=== PATIENT | female | born 1940 | race Caucasian/White ===

== ENCOUNTER 2016-04-11 12:48 | Outpatient (CLI) | payer MEDICARE, OTHER | END 2016-04-11 12:49 | disposition home or self-care (01) | DX: M05.79 Rheumatoid arthritis with rheumatoid factor of multiple sites without organ or systems involvement (principal) ==

== ENCOUNTER 2016-05-23 15:04 | Outpatient (CLI) | payer MEDICARE, OTHER | END 2016-05-23 15:05 | disposition home or self-care (01) | DX: M05.79 Rheumatoid arthritis with rheumatoid factor of multiple sites without organ or systems involvement (principal) ==

== ENCOUNTER 2017-01-15 20:52 | Outpatient (CLI) | payer MEDICARE, OTHER ==
[2017-01-15 19:04] LABS: BILIRUBIN,URINE NEGATIVE (NEGATIVE)
[2017-01-15 19:14] LABS: UR CULTURE IF IND NOT INDICATED
== END 2017-01-15 20:53 | disposition home or self-care (01) ==
LOC: LAB.WCP 20:52
PROVIDERS: ATTEND Family Medicine
DX: R30.0 Dysuria (principal); G89.4 Chronic pain syndrome
CPT/HCPCS: 81001; 87086

== ENCOUNTER 2017-03-07 08:00 | Outpatient (CLI) | payer MEDICARE, OTHER ==
[2017-03-07 19:43] LABS: CHOL/HDL RATIO 3.4 (<4.4); CHOLESTEROL 179 mg/dL; HDL CHOLESTEROL 53 mg/dL; LDL CHOLESTEROL,CALCULATED 99 mg/dL; LDL/HDL RATIO 1.9 (<4.4); VLDL CHOLESTEROL 27 mg/dL
== END 2017-03-07 08:01 ==
LOC: LAB.WCP 08:00
PROVIDERS: ATTEND Family Medicine
DX: E78.5 Hyperlipidemia, unspecified (principal)
CPT/HCPCS: 36415; 80061

== ENCOUNTER 2017-06-04 08:00 | Outpatient (CLI) | payer MEDICARE, OTHER ==
[2017-06-04 19:38] LABS: THYROID STIMULATING HORMONE 0.08 uIU/mL (0.34-5.60)
[2017-06-04 20:17] LABS: FREE T4 (FREE THYROXINE) 1.75 ng/dL (0.58-1.64)
== END 2017-06-04 08:01 ==
LOC: LAB.WCP 08:00
PROVIDERS: ATTEND Family Medicine
DX: E03.9 Hypothyroidism, unspecified (principal)
CPT/HCPCS: 36415; 84439; 84443

== ENCOUNTER 2017-09-03 08:00 | Outpatient (CLI) | payer MEDICARE, OTHER | END 2017-09-03 08:01 | disposition home or self-care (01) | LOC: LAB.WCP 08:00 | PROVIDERS: ATTEND Family Medicine | DX: E03.9 Hypothyroidism, unspecified (principal) | CPT/HCPCS: 36415; 84443 ==

== ENCOUNTER 2018-04-28 08:00 | Outpatient (CLI) | payer MEDICARE, OTHER ==
[2018-04-28 16:04] LABS: BASOPHILS # (AUTO) 0.1 10^3/uL (0.0-0.1); BASOPHILS % (AUTO) 1.3 %; EOSINOPHILS # (AUTO) 0.3 10^3/uL (0.0-0.7); EOSINOPHILS % (AUTO) 3.9 %; HGB - HEMOGLOBIN 13.3 g/dL (12.0-16.0); LYMPHOCYTES # (AUTO) 1.7 10^3/uL (1.5-3.5); LYMPHOCYTES % (AUTO) 20.8 %; MEAN CORPUSCULAR HEMOGLOBIN 31.4 pg (27.0-31.0); MEAN CORPUSCULAR VOLUME 95.1 fL (81.0-99.0); MEAN PLATELET VOLUME 8.2 fL (7.9-10.8); MONOCYTES # (AUTO) 0.7 10^3/uL (0.0-1.0); NEUTROPHILS # (AUTO) 5.4 10^3/uL (1.5-6.6); PLT - PLATELET COUNT 223 10^3/uL (130-450); RED BLOOD COUNT 4.25 10^6/uL (4.20-5.40); RED CELL DISTRIBUTION WIDTH 13.7 % (12.0-15.0); WHITE BLOOD COUNT 8.4 x10^3/uL (4.8-10.8)
[2018-04-28 16:07] LABS: ALBUMIN 4.1 g/dL (3.2-5.5); ALBUMIN/GLOBULIN RATIO 1.2 (1.0-2.2); BILIRUBIN,TOTAL 0.6 mg/dL (0.2-1.0); CALCIUM 9.1 mg/dL (8.5-10.3); TOTAL PROTEIN 7.4 g/dL (6.7-8.2)
== END 2018-04-28 23:59 | disposition home or self-care (01) ==
LOC: LAB.R 08:00
PROVIDERS: ATTEND Internal Medicine Rheumatology
DX: M05.79 Rheumatoid arthritis with rheumatoid factor of multiple sites without organ or systems involvement (principal)
CPT/HCPCS: 80053; 85025; 85651

== ENCOUNTER 2018-07-03 11:32 | Outpatient (CLI) | payer MEDICARE, OTHER ==
--- NOTE | 2018-07-03 15:29 | XRAY Report ---
Reason: KNEE PAIN,RIGHT Procedure Date: 07/03/2018 Accession Number: [id number] / [id number] Procedure: WCP - Knee 3 View RT CPT Code: FULL RESULT: EXAM: RIGHT KNEE RADIOGRAPHY EXAM DATE: 07/03/2018 11:43 AM. CLINICAL HISTORY: KNEE PAIN,RIGHT. COMPARISON: None. TECHNIQUE: 3 views. FINDINGS: Bones: Normal. No fractures or bone lesions. Joints: Normal. No effusion. No subluxations. Soft Tissues: Normal. No soft tissue swelling. IMPRESSION: Normal knee radiography. [facility]
== END 2018-07-03 11:33 | disposition home or self-care (01) ==
LOC: DI.WCP 11:32
PROVIDERS: ATTEND Family Medicine
DX: M25.561 Pain in right knee (principal)

== ENCOUNTER 2018-07-04 14:40 | Outpatient (CLI) | payer MEDICARE, OTHER ==
[2018-07-04 19:16] LABS: CHOL/HDL RATIO 3.2 (<4.4); CHOLESTEROL 160 mg/dL; HDL CHOLESTEROL 50 mg/dL; LDL CHOLESTEROL,CALCULATED 80 mg/dL; LDL/HDL RATIO 1.6 (<4.4); VLDL CHOLESTEROL 30 mg/dL
== END 2018-07-04 14:41 | disposition home or self-care (01) ==
LOC: LAB.WCP 14:40
PROVIDERS: ATTEND Family Medicine
DX: E78.5 Hyperlipidemia, unspecified (principal); E03.9 Hypothyroidism, unspecified; F41.9 Anxiety disorder, unspecified; F32.9 Major depressive disorder, single episode, unspecified
CPT/HCPCS: 36415; 80061; 83721; 84443

== ENCOUNTER 2018-07-10 14:17 | Outpatient (CLI) | payer MEDICARE, OTHER | END 2018-07-10 14:18 | disposition home or self-care (01) | LOC: LAB.WCP 14:17 | PROVIDERS: ATTEND Family Medicine | DX: I10 Essential (primary) hypertension (principal) | CPT/HCPCS: 36415; 80048 ==

== ENCOUNTER 2018-07-16 08:00 | Outpatient (CLI) | payer MEDICARE, OTHER ==
[2018-07-16 18:39] LABS: ALBUMIN 4.4 g/dL (3.2-5.5); ALBUMIN/GLOBULIN RATIO 1.4 (1.0-2.2); BILIRUBIN,TOTAL 0.6 mg/dL (0.2-1.0); CALCIUM 9.4 mg/dL (8.5-10.3); CREATININE 1.2 mg/dL (0.4-1.0); TOTAL PROTEIN 7.5 g/dL (6.7-8.2)
[2018-07-16 18:45] LABS: BASOPHILS # (AUTO) 0.1 10^3/uL (0.0-0.1); BASOPHILS % (AUTO) 0.8 %; EOSINOPHILS # (AUTO) 0.3 10^3/uL (0.0-0.7); EOSINOPHILS % (AUTO) 2.8 %; HGB - HEMOGLOBIN 13.4 g/dL (12.0-16.0); LYMPHOCYTES # (AUTO) 1.5 10^3/uL (1.5-3.5); LYMPHOCYTES % (AUTO) 16.9 %; MEAN CORPUSCULAR HEMOGLOBIN 31.3 pg (27.0-31.0); MEAN CORPUSCULAR HGB CONC 32.9 g/dL (32.0-36.0); MEAN CORPUSCULAR VOLUME 95.1 fL (81.0-99.0); MEAN PLATELET VOLUME 9.1 fL (7.9-10.8); MONOCYTES # (AUTO) 0.8 10^3/uL (0.0-1.0); MONOCYTES % (AUTO) 9.3 %; NEUTROPHILS # (AUTO) 6.4 10^3/uL (1.5-6.6); NEUTROPHILS % (AUTO) 70.2 %; PLT - PLATELET COUNT 252 10^3/uL (130-450); RED BLOOD COUNT 4.27 10^6/uL (4.20-5.40); RED CELL DISTRIBUTION WIDTH 13.5 % (12.0-15.0); WHITE BLOOD COUNT 9.1 x10^3/uL (4.8-10.8)
== END 2018-07-16 23:59 | disposition home or self-care (01) ==
LOC: LAB.WCP 08:00
PROVIDERS: ATTEND Internal Medicine Rheumatology
DX: M05.79 Rheumatoid arthritis with rheumatoid factor of multiple sites without organ or systems involvement (principal); I10 Essential (primary) hypertension
CPT/HCPCS: 36415; 80053; 85025; 85651

== ENCOUNTER 2018-08-17 10:34 | Outpatient (CLI) | payer MEDICARE, OTHER | END 2018-08-17 10:35 | disposition home or self-care (01) | LOC: EMS 10:34 | PROVIDERS: ATTEND Surgery | DX: M79.661 Pain in right lower leg (principal); M79.89 Other specified soft tissue disorders | CPT/HCPCS: A0425; A0429 ==

== ENCOUNTER 2018-08-17 10:52 | Emergency (ER) | payer MEDICARE, OTHER ==
--- NOTE | 2018-08-17 11:29 | ED Physician Documentation ---
History of Present Illness - Stated complaint Stated Complaint: LEG PAIN - Chief complaint Chief Complaint: Ext Problem - History obtained from History obtained from: Patient, Family - History of Present Illness Timing: How many weeks ago (1) - Additonal information Additional information: 77-year-old female over the past month is begin to have a flare of her r heumatoid arthritis. She has had rheumatoid arthritis for 30 years and this is the worst flare she has ever had. She has been having increase in her pain over the past month and she is been into see her physician this past week and she has been given the okay to increase her pain medication. Despite an extra dose of pain medication the patient awoke this morning unable to get out of bed and to assist with transfers. She normally is able to get herself out of bed and back and forth to the bathroom without difficulty today she required a 2 person assist to get to a wheelchair. She has extreme pain and she has swelling of both of her lower extremities. She has had these flares previously but never as she had the extensive amount of pain involvement that she does today. She has both of her legs her shoulders and neck. Last week she did take some Cipro for about 4 days because she felt she might have bladder infection. She stopped that 2 days ago. Review of Systems Constitutional: reports: Chills. denies: Fever Eyes: denies: Decreased vision Ears: denies: Ear pain Nose: denies: Rhinorrhea / runny nose, Congestion Throat: denies: Sore throat Cardiac: denies: Chest pain / pressure, Palpitations Respiratory: denies: Dyspnea, Cough GI: denies: Abdominal Pain, Nausea, Vomiting : reports: Dysuria, Frequency Skin: denies: Rash Musculoskeletal: reports: Neck pain, Back pain, Extremity pain, Joint pain, Extremity swelling Neurologic: denies: Generalized weakness, Focal weakness, Numbness PD PAST MEDICAL HISTORY - Past Medical History Past Medical History: Yes Cardiovascular: Hypertension, High cholesterol Respiratory: Pneumonia Endocrine/Autoimmune: HyPOthyroidism GI: GERD, Colon polyps : Other HEENT: None Psych: Anxiety Musculoskeletal: Osteoarthritis, Rheumatoid arthritis, Osteoporosis - Past Surgical History Past Surgical History: Yes General: Cholecystectomy, Appendectomy, Colonoscopy Ortho: Other Cardiovascular: Other - Present Medications Home Medications: Ambulatory Orders Medication Instructions Recorded Confirmed Furosemide [Lasix] 10 mg PO DAILY 07/11/12 07/17/18 NIFEdipine [Procardia Xl] 30 mg PO DAILY 07/11/12 07/17/18 Simvastatin 20 mg PO DAILY 07/11/12 07/17/18 Spironolactone [Aldactone] 25 mg PO BID 07/11/12 07/17/18 Trazodone HCl 50 mg PO HS 07/11/12 07/17/18 raNITIdine HCl [Ranitidine HCl] 100 mg PO BID 07/11/12 07/17/18 Oxybutynin [Ditropan] 5 mg PO BID 02/25/13 07/17/18 Levothyroxine [Synthroid] 0.05 mcg PO DAILY 02/04/14 07/17/18 Cholecalciferol (Vitamin D3) 1,000 unit PO DAILY 05/03/16 07/17/18 [Vitamin D3] Hydrocodone/Acetaminophen 1 tab PO BID 05/03/16 07/17/18 [Hydrocodon-Acetaminophn 10-325] Vitamin E 1,000 unit PO DAILY 05/03/16 07/17/18 predniSONE [Prednisone] 5 mg PO DAILY 05/03/16 07/17/18 Gabapentin 1 cap PO DAILY 05/17/16 07/17/18 Amox/Clav 875/125 [Augmentin] 1 each PO Q12H #14 tablet 08/17/18 - Allergies Allergies/Adverse Reactions: Allergies Allergy/AdvReac Type Severity Reaction Status Date / Time meperidine HCl * AdvReac Intermediate Itching Verified 08/17/18 11:05 [From Demerol] morphine AdvReac Intermediate Anxiety Verified 08/17/18 11:05 - Social History Does the pt smoke?: No Smoking Status: Never smoker Does the pt drink ETOH?: Yes Does the pt have substance abuse?: No - Immunizations Immunizations are current?: Yes PD ED PE NORMAL - Vitals Vital signs reviewed: Yes (hypertensive ) - General General: Alert and oriented X 3, No acute distress, Well developed/nourished, Other (The patient has pain with any movement in both legs. ) - HEENT HEENT: Atraumatic, PERRL, EOMI - Neck Neck: Supple, no meningeal sign - Cardiac Cardiac: RRR, Other (2/6 holosystolic murmer at LSB) - Respiratory Respiratory: No respiratory distress - Abdomen Abdomen: Soft, Non tender - Back Back: No CVA TTP, No spinal TTP - Derm Derm: Normal color, Warm and dry, No rash - Extremities Extremities: No deformity, Other (There is edema bilaterally that is mild and the legs are tender as are the feet and ankles. Distal n/v is intact. 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, No motor deficit, No sensory deficit, Normal speech Eye Opening: Spontaneous Motor: Obeys Commands Verbal: Oriented GCS Score: 15 - Psych Psych: Normal mood, Normal affect, Other (pleasant appearing and smiling except when she winches in pain) Results - Vitals Vitals: Vital Signs - 24 hr 08/17/18 10:55 Temperature 36.2 C L Heart Rate 69 Respiratory 14 Rate Blood Pressure 140/97 H O2 Saturation 93 Oxygen O2 Source Room air - Labs Labs: Laboratory Tests 08/17/18 08/17/18 08/17/18 14:10 14:27 14:27 WBC 10.9 H RBC 3.78 L Hgb 12.0 Hct 36.1 L MCV 95.5 MCH 31.7 H MCHC 33.2 RDW 12.8 Plt Count 238 MPV 10.0 Neut # (Auto) 9.7 H Lymph # (Auto) 0.6 L [place] # (Auto) 0.5 Eos # (Auto) 0.0 Baso # (Auto) 0.0 Absolute Nucleated RBC 0.00 Nucleated RBC % 0.0 ESR 56 H Sodium Potassium Chloride Carbon Dioxide Anion Gap BUN Creatinine Estimated GFR (MDRD) Glucose Calcium Total Bilirubin AST ALT Alkaline Phosphatase Total Protein Albumin Globulin Albumin/Globulin Ratio Lipase Urine Color YELLOW Urine Clarity SL. CLOUDY Urine pH 6.0 Ur Specific [place] 1.010 Urine Protein TRACE Urine Glucose (UA) NEGATIVE Urine Ketones NEGATIVE Urine Occult Blood TRACE-INTA Urine Nitrite NEGATIVE Urine Bilirubin NEGATIVE Urine Urobilinogen 0.2 (NORMAL) Ur Leukocyte Esterase MODERATE H Urine RBC 0-5 Urine WBC >25 H Ur Squamous Epith Cells FEW Squamous Urine Bacteria Few Ur Microscopic Review INDICATED Urine Culture Comments INDICATED 08/17/18 14:27 WBC RBC Hgb Hct MCV MCH MCHC RDW Plt Count MPV Neut # (Auto) Lymph # (Auto) [place] # (Auto) Eos # (Auto) Baso # (Auto) Absolute Nucleated RBC Nucleated RBC % ESR Sodium 137 Potassium 3.0 L Chloride 97 L Carbon Dioxide 27 Anion Gap 13.0 BUN 20 Creatinine 1.2 H Estimated GFR (MDRD) 43 L Glucose 152 H Calcium 9.0 Total Bilirubin 1.0 AST 27 ALT 19 Alkaline Phosphatase 63 Total Protein 7.3 Albumin 3.6 Globulin 3.7 Albumin/Globulin Ratio 1.0 Lipase 26 Urine Color Urine Clarity Urine pH Ur Specific [place] Urine Protein Urine Glucose (UA) Urine Ketones Urine Occult Blood Urine Nitrite Urine Bilirubin Urine Urobilinogen Ur Leukocyte Esterase Urine RBC Urine WBC Ur Squamous Epith Cells Urine Bacteria Ur Microscopic Review Urine Culture Comments PD MEDICAL DECISION MAKING - ED course Complexity details: reviewed results, re-evaluated patient, considered differential, d/w patient, d/w family ED course: 77-year-old female with an acute rheumatoid arthritis flare has pain out of proportion to her usual. She has evidence of inflammation with an elevated sedimentation rate and she also appears to have urinary tract infection. I suspect her urinary tract infection as her source of increased inflammation and increased symptoms and this is treated aggressively with use of an IM shot of Rocephin. She has pain controlled with IM Dilaudid and she is given dexamethasone 10 mg orally. She has had issues with higher doses of prednisone and she does not appear to have an issue with dexamethasone. I discussed with the patient pain control as previously increasing her and treatment of the bladder infection as well as increasing her dose of prednisone from 2-1/2 mg daily to 5 mg daily. Departure - Departure Disposition: 01 Home, Self Care Clinical Impression: Rheumatoid arthritis flare Urinary tract infection Qualifiers: Urinary tract infection type: acute cystitis Hematuria presence: without hematuria Qualified Code(s): N30.00 - Acute cystitis without hematuria Condition: Stable Health Concerns: increase in pain in joints Plan of Treatment: steroid, pain medication and antibiotic Care Goals: reduce inflammation, treat infection and reduce pain Assessment: rheumatoid flare and urinary tract infection. Instructions: ED UTI Cystitis Female, ED Arthritis Rheumatoid Follow-Up: Telma Newton MD [Provider Admit Priv/Credential] - Prescriptions: Amox/Clav 875/125 [Augmentin] 1 each PO Q12H #14 tablet Comments: Increase your dose of oxycontin from one pill three times per day to 1 to 2 pills three times per day.
[2018-08-17] MEDS ORDERED: DEXAMETHASONE 10 MG/ML VIAL PO STA (12:11)
[2018-08-17] MEDS ORDERED: CHERRY SYRUP 10 ML UDC PO ONE (12:11)
[2018-08-17] MEDS ORDERED: ONDANSETRON ODT 4 MG TABLET TL STA (13:52)
[2018-08-17] MEDS ORDERED: HYDROmorphone 1 MG/ML CARPUJECT IM STA (13:52)
[2018-08-17 14:21] LABS: BILIRUBIN,URINE NEGATIVE (NEGATIVE); GLUCOSE, URINE (UA) NEGATIVE (NEGATIVE); KETONES,URINE (UA) NEGATIVE (NEGATIVE); LEUKOCYTE ESTERASE, URINE MODERATE (NEGATIVE); NITRITE,URINE NEGATIVE (NEGATIVE); OCCULT BLOOD,URINE TRACE-INTA (NEGATIVE); PROTEIN,URINE TRACE mg/dL (NEGATIVE); UROBILINOGEN,URINE 0.2 (NORMAL) E.U./dL (NORMAL)
[2018-08-17 14:24] LABS: CLARITY,URINE SL. CLOUDY (CLEAR)
[2018-08-17 14:30] LABS: BACTERIA,URINE Few /HPF (None Seen); RBC,URINE 0-5 /HPF (0-5); SQUAMOUS EPITHELIAL CELL,UR FEW Squamous (<= Few)
[2018-08-17 14:36] LABS: BASOPHILS % (AUTO) 0.4 %; EOSINOPHILS % (AUTO) 0.2 %; LYMPHOCYTES # (AUTO) 0.6 10^3/uL (1.5-3.5); LYMPHOCYTES % (AUTO) 5.5 %; MEAN CORPUSCULAR HEMOGLOBIN 31.7 pg (27.0-31.0); MEAN CORPUSCULAR HGB CONC 33.2 g/dL (32.0-36.0); MEAN CORPUSCULAR VOLUME 95.5 fL (81.0-99.0); MONOCYTES # (AUTO) 0.5 10^3/uL (0.0-1.0); MONOCYTES % (AUTO) 4.3 %; NEUTROPHILS # (AUTO) 9.7 10^3/uL (1.5-6.6); PLT - PLATELET COUNT 238 10^3/uL (130-450); RED BLOOD COUNT 3.78 10^6/uL (4.20-5.40); RED CELL DISTRIBUTION WIDTH 12.8 % (12.0-15.0); WHITE BLOOD COUNT 10.9 x10^3/uL (4.8-10.8)
[2018-08-17 14:50] LABS: ALBUMIN 3.6 g/dL (3.2-5.5); CREATININE 1.2 mg/dL (0.4-1.0); TOTAL PROTEIN 7.3 g/dL (6.7-8.2)
[2018-08-17] MEDS ORDERED: LIDOCAINE 1% 2 ML VIAL MC ONE (15:12)
[2018-08-17] MEDS ORDERED: cefTRIAXone 1 GM VIAL IM STA (15:12)
[2018-08-17] MEDS ORDERED: POTASSIUM CHLORIDE 20 MEQ TABLET PO STA (15:15)
[2018-08-17 16:28] VITALS: BP 106/56
--- NOTE | 2018-08-17 18:09 | XRAY Report ---
Reason: swelling pain bruising Procedure Date: 08/17/2018 Accession Number: [id number] / [id number] Procedure: XR - Ankle 3 View RT CPT Code: FULL RESULT: EXAM: RIGHT ANKLE RADIOGRAPHY EXAM DATE: 08/17/2018 04:12 PM. CLINICAL HISTORY: Swelling pain bruising. COMPARISON: None. TECHNIQUE: 3 views. FINDINGS: Bones: Diffuse osteopenia. No acute displaced fracture. Prior fixation hardware is seen at right first metatarsal. Chronic osseous deformity is seen at the calcaneum, postsurgical versus posttraumatic. Joints: No malalignment. Soft Tissues: Moderate soft tissue swelling is seen at right ankle. IMPRESSION: Moderate soft tissue swelling at right ankle. Diffuse osteopenia. No acute displaced fracture or malalignment. Chronic osseous deformity of calcaneum, postsurgical versus posttraumatic. [facility]
== END 2018-08-17 16:52 | disposition home or self-care (01) ==
LOC: EDUNIT# → ED 10:52
DX: M06.9 Rheumatoid arthritis, unspecified (principal); N30.00 Acute cystitis without hematuria; I10 Essential (primary) hypertension; M81.0 Age-related osteoporosis without current pathological fracture; M19.90 Unspecified osteoarthritis, unspecified site
CPT/HCPCS: 36415; 73610; 80053; 81001; 83690; 85025; 85651; 87077; 87086; 87181; 96372; 99283; A9270; J1170; Q0162; 81003

== ENCOUNTER 2018-09-22 08:00 | Outpatient (CLI) | payer MEDICARE, OTHER | END 2018-09-22 23:59 | disposition home or self-care (01) | LOC: LAB.WCP 08:00 | PROVIDERS: ATTEND Family Medicine | DX: Z53.9 Procedure and treatment not carried out, unspecified reason (principal) ==

== ENCOUNTER 2018-10-09 12:07 | Outpatient (CLI) | payer MEDICARE, OTHER | END 2018-10-09 12:08 | disposition critical access hospital (66) | LOC: EMS 12:07 | PROVIDERS: ATTEND Surgery | DX: M25.552 Pain in left hip (principal); W01.0XXA Fall on same level from slipping, tripping and stumbling without subsequent striking against object, initial encounter; Y93.01 Activity, walking, marching and hiking; Y92.030 Kitchen in apartment as the place of occurrence of the external cause ==

== ENCOUNTER 2018-10-09 12:27 | Observation (INO) | payer MEDICARE, OTHER ==
--- NOTE | 2018-10-09 12:34 | ED Physician Documentation ---
PD HPI LOWER EXT INJURY - Stated complaint Stated Complaint: HIP PX - History obtained from History obtained from: Patient, Family () - History of Present Illness PD HPI LOW EXT INJURY LOCATION: Left (This is a pato 78-year-old woman with history of bilateral hip repairs and atrial fibrillation, not currently on anticoagulation who had a slip and fall in the kitchen landing directly on her left hip today and is unable to walk. Pain was initially severe but is now mild after the administration of 150 mcg of fentanyl in route. She does not think she hit her head and has no headache or neck pain.) Review of Systems Ten Systems: 10 systems reviewed and negative Constitutional: denies: Fever, Chills Cardiac: reports: Reviewed and negative Respiratory: reports: Reviewed and negative GI: reports: Reviewed and negative PD PAST MEDICAL HISTORY - Past Medical History Cardiovascular: Hypertension, High cholesterol Respiratory: Pneumonia Endocrine/Autoimmune: HyPOthyroidism GI: GERD, Colon polyps : Other HEENT: None Psych: Anxiety Musculoskeletal: Osteoarthritis, Rheumatoid arthritis, Osteoporosis - Past Surgical History Past Surgical History: Yes General: Cholecystectomy, Appendectomy, Colonoscopy Ortho: Other Cardiovascular: Other - Present Medications Home Medications: Ambulatory Orders Medication Instructions Recorded Confirmed Furosemide [Lasix] 10 mg PO DAILY 07/11/12 07/17/18 NIFEdipine [Procardia Xl] 30 mg PO DAILY 07/11/12 07/17/18 Simvastatin 20 mg PO DAILY 07/11/12 07/17/18 Spironolactone [Aldactone] 25 mg PO BID 07/11/12 07/17/18 Trazodone HCl 50 mg PO HS 07/11/12 07/17/18 raNITIdine HCl [Ranitidine HCl] 100 mg PO BID 07/11/12 07/17/18 Oxybutynin [Ditropan] 5 mg PO BID 02/25/13 07/17/18 Levothyroxine [Synthroid] 0.05 mcg PO DAILY 02/04/14 07/17/18 Cholecalciferol (Vitamin D3) 1,000 unit PO DAILY 05/03/16 07/17/18 [Vitamin D3] Hydrocodone/Acetaminophen 1 tab PO BID 05/03/16 07/17/18 [Hydrocodon-Acetaminophn 10-325] Vitamin E 1,000 unit PO DAILY 05/03/16 07/17/18 predniSONE [Prednisone] 5 mg PO DAILY 05/03/16 07/17/18 Gabapentin 1 cap PO DAILY 05/17/16 07/17/18 Amox/Clav 875/125 [Augmentin] 1 each PO Q12H #14 tablet 08/17/18 - Allergies Allergies/Adverse Reactions: Allergies Allergy/AdvReac Type Severity Reaction Status Date / Time meperidine HCl * AdvReac Intermediate Itching Verified 10/09/18 12:53 [From Demerol] morphine AdvReac Intermediate Anxiety Verified 10/09/18 12:53 - Living Situation Living Situation: reports: With spouse/s.o. - Social History Does the pt smoke?: No Smoking Status: Never smoker Does the pt drink ETOH?: Yes Does the pt have substance abuse?: No - Immunizations Immunizations are current?: Yes PD ED PE NORMAL - Vitals Vital signs reviewed: Yes - General General: Alert and oriented X 3, No acute distress - HEENT HEENT: PERRL, EOMI - Neck Neck: Supple, no meningeal sign, No bony TTP - Cardiac Cardiac: Other (Irregularly irregular with 3 out of 6 systolic murmur, decrescendo. Chronic per patient.) - Respiratory Respiratory: No respiratory distress, Clear bilaterally - Abdomen Abdomen: Soft, Non tender - Back Back: No CVA TTP, No spinal TTP - Derm Derm: Normal color, Warm and dry - Extremities Extremities: Other (The left hip is without deformity but she is quite tender over it and has severe pain with internal and external rotation.) - Neuro Neuro: Alert and oriented X 3, Normal speech Results - Vitals Vitals: Vital Signs - 24 hr 10/09/18 10/09/18 12:45 14:47 Temperature 37.6 C H Heart Rate 84 70 Respiratory 12 18 Rate Blood Pressure 119/56 L 131/74 H O2 Saturation 93 97 Oxygen O2 Source Room air Oxygen Flow Rate 2 - Labs Labs: Laboratory Tests 10/09/18 10/09/18 10/09/18 12:50 12:50 12:50 WBC 14.7 H RBC 3.96 L Hgb 12.7 Hct 38.6 MCV 97.5 MCH 32.1 H MCHC 32.9 RDW 14.2 Plt Count 204 MPV 9.7 Neut # (Auto) 12.8 H Lymph # (Auto) 0.8 L [place] # (Auto) 0.9 Eos # (Auto) 0.1 Baso # (Auto) 0.1 Absolute Nucleated RBC 0.00 Nucleated RBC % 0.0 PT 12.4 INR 1.1 Sodium Potassium Chloride Carbon Dioxide Anion Gap BUN Creatinine Estimated GFR (MDRD) Glucose Calcium Total Bilirubin AST ALT Alkaline Phosphatase Total Protein Albumin Globulin Albumin/Globulin Ratio Lipase Blood Type A POSITIVE Antibody Screen NEGATIVE 10/09/18 12:50 WBC RBC Hgb Hct MCV MCH MCHC RDW Plt Count MPV Neut # (Auto) Lymph # (Auto) [place] # (Auto) Eos # (Auto) Baso # (Auto) Absolute Nucleated RBC Nucleated RBC % PT INR Sodium 137 Potassium 3.1 L Chloride 97 L Carbon Dioxide 27 Anion Gap 13.0 BUN 22 H Creatinine 1.3 H Estimated GFR (MDRD) 39 L Glucose 140 H Calcium 9.5 Total Bilirubin 0.9 AST 38 ALT 37 Alkaline Phosphatase 78 Total Protein 7.3 Albumin 4.3 Globulin 3.0 Albumin/Globulin Ratio 1.4 Lipase 24 Blood Type Antibody Screen - Rads (name of study) L hip frx Radiology: EMP read contemporaneously (Prob L ischiopubic frx, no obvious hip frx. Bilateral hip hardware looking fine.) CT Pelvis Radiology: EMP read contemporaneously (Acute fractures of the left sacral ala and both pubic rami on the left.) PD MEDICAL DECISION MAKING - ED course ED course: 78-year-old woman presents with fall in the left hip. No hip fracture but is found to have a pelvic fracture. She was unable to walk or bear weight here. Urine pending on admission. Spoke with Dr. Silverman who will consult and Dr. Cleaning for admission at 3:10 PM. Departure - Departure Disposition: ED Place in Observation Clinical Impression: Pelvic fracture
[2018-10-09 12:58] LABS: BASOPHILS # (AUTO) 0.1 10^3/uL (0.0-0.1); BASOPHILS % (AUTO) 0.4 %; EOSINOPHILS # (AUTO) 0.1 10^3/uL (0.0-0.7); EOSINOPHILS % (AUTO) 0.4 %; HGB - HEMOGLOBIN 12.7 g/dL (12.0-16.0); LYMPHOCYTES # (AUTO) 0.8 10^3/uL (1.5-3.5); LYMPHOCYTES % (AUTO) 5.1 %; MEAN CORPUSCULAR HEMOGLOBIN 32.1 pg (27.0-31.0); MEAN CORPUSCULAR HGB CONC 32.9 g/dL (32.0-36.0); MEAN CORPUSCULAR VOLUME 97.5 fL (81.0-99.0); MEAN PLATELET VOLUME 9.7 fL (7.9-10.8); MONOCYTES # (AUTO) 0.9 10^3/uL (0.0-1.0); NEUTROPHILS # (AUTO) 12.8 10^3/uL (1.5-6.6); NEUTROPHILS % (AUTO) 87.4 %; PLT - PLATELET COUNT 204 10^3/uL (130-450); RED BLOOD COUNT 3.96 10^6/uL (4.20-5.40); RED CELL DISTRIBUTION WIDTH 14.2 % (12.0-15.0); WHITE BLOOD COUNT 14.7 x10^3/uL (4.8-10.8)
[2018-10-09 13:10] LABS: INR 1.1 (0.8-1.2); PT - PROTHROMBIN TIME 12.4 secs (9.9-12.6)
[2018-10-09 13:13] LABS: ALBUMIN 4.3 g/dL (3.2-5.5); ALBUMIN/GLOBULIN RATIO 1.4 (1.0-2.2); BILIRUBIN,TOTAL 0.9 mg/dL (0.2-1.0); CALCIUM 9.5 mg/dL (8.5-10.3); CREATININE 1.3 mg/dL (0.4-1.0); TOTAL PROTEIN 7.3 g/dL (6.7-8.2)
--- NOTE | 2018-10-09 13:35 | XRAY Report ---
Reason: hip inj Procedure Date: 10/09/2018 Accession Number: [id number] / [id number] Procedure: XR - Hip w/Pelvis 2-3V LT CPT Code: FULL RESULT: EXAM: LEFT HIP RADIOGRAPHY EXAM DATE: 10/09/2018 01:21 PM. CLINICAL HISTORY: Hip inj. Fall onto left hip. COMPARISON: None. TECHNIQUE: 3 views. FINDINGS: There is a bipolar left hip hemiarthroplasty showing grossly-anatomic alignment. No evidence of hardware failure or loosening. No periprosthetic fracture. There is a probable fracture of the left ischiopubic ramus. No other pelvic fracture is identified. There are 3 lag screws across the right femoral neck. Mild chondrocalcinosis at the pubic symphysis. IMPRESSION: 1. Probable fracture of the left ischiopubic ramus. In the and outlet pelvic views would be of value. 2. Bipolar left hip hemiarthroplasty without evidence of loosening or periprosthetic fracture. 3. Right femoral neck lag screws. [facility]
--- NOTE | 2018-10-09 14:55 | CT Report ---
Reason: hip pain, prob pelvic frx Procedure Date: 10/09/2018 Accession Number: [id number] / [id number] Procedure: CT - PELVIS WO CPT Code: FULL RESULT: EXAM: CT BONY PELVIS WITHOUT CONTRAST EXAM DATE: 10/09/2018 02:34 PM. CLINICAL HISTORY: Hip pain, prob pelvic frx. COMPARISON: HIP W/PELVIS 2-3V LT 10/09/2018 12:55 PM. TECHNIQUE: Thin-section axial images were acquired of the pelvis without contrast. Post-processing: Coronal and sagittal reformats. Other: None. In accordance with CT protocol optimization, one or more of the following dose reduction techniques were utilized for this exam: automated exposure control, adjustment of mA and/or KV based on patient size, or use of iterative reconstructive technique. FINDINGS: Bones and articular surfaces: Demineralized bone. Nondisplaced predominantly zone 1 fracture of the left sacral ala. Acute minimally displaced fractures are demonstrated at the lateral root of the left superior pubic ramus extending into the midportion as well as mildly comminuted fracture at the left inferior pubic ramus. Post surgical changes of left hip arthroplasty and internal fixation of the right femoral neck. There appears to be some asymmetric central wear within the acetabular component of the left hip prosthesis. No appreciable periprosthetic lucency. Musculotendinous structures: Visualized musculotendinous structures grossly intact. Some patchy atrophy involving the gluteus musculature. Miscellaneous: A tiny calcified lymph nodes within the mesentery. No pathologically enlarged lymph nodes within the field of view. Artifact obscures portions of the pelvis. IMPRESSION: 1. Acute fractures involving the left sacral ala as well as the left superior and inferior pubic rami. 2. Left hip arthroplasty with asymmetric wear at the central aspect of the acetabular component. [facility]
[2018-10-09] MEDS ORDERED: SODIUM CHLORIDE FLUSH 0.9% 10 ML SYRINGE IVP PRN (16:05)
[2018-10-09] MEDS ORDERED: ZOLPIDEM 5 MG TABLET PO PRN (16:05)
[2018-10-09] MEDS ORDERED: ONDANSETRON 4 MG/2 ML VIAL IVP PRN (16:05)
[2018-10-09] MEDS ORDERED: MORPHINE 2 MG/ML CARPUJECT IVP PRN (16:05)
[2018-10-09] MEDS ORDERED: fentaNYL 100 MCG/2 ML VIAL IVP STA (16:08)
--- NOTE | 2018-10-09 16:20 | HISTORY & PHYSICAL EXAMINATION ---
Chief Complaint - Chief Complaint Chief Complaint: fall and pelvic pain History of Present Illness - History of Present Illness HPI Comment/Other: is a pato 78-year-old woman with a H significance for bilateral hip repairs, RA, HTN, HLD, hypothyroidism, GERD, Osteoporosis, incontinence, hx of UTI, who present ER for complain of a fall and pelvic/hip pain. pt's is at the bedside to provide more informations. Pt had a slip, and fall in the kitchen. She report she landed directly on her left hip. After this episode she is unable to walk. Pt's pain is severe she can not move, can not bear weight. She denies she has another injury. CT of hip reveals Acute fractures of the left sacral ala and both pubic rami on the left. Orthopedics was called by ER provider. Lab test reveals elevated WBC, elevated creatinine level. UA analysis is pending. pt has slight elevated temperature otherwise she is hemodynamic stable. she denies dysuria, hematuira, chest pain, headache, vision change, fever, chill, cough, shortness of breath, nausea, vomiting, diarrhea, abdominal pain. Pt is admitted for above medical reason in observation unit History - Past Medical History Cardiovascular: reports: Hypertension, High cholesterol Respiratory: reports: Pneumonia Neuro: reports: None Endocrine/Autoimmune: reports: HyPOthyroidism GI: reports: GERD, Colon polyps QUALITY HEAD: reports: None : reports: Other HEENT: reports: None Psych: reports: Anxiety Musculoskeletal: reports: Osteoarthritis, Rheumatoid arthritis, Osteoporosis Derm: reports: None MRSA Hx?: No - Past Surgical History General: reports: Cholecystectomy, Appendectomy, Colonoscopy Ortho: reports: Other Cardiovascular: reports: Other - Family & Social History Family History: Father: CAD Family History Comment/Other: pt report her father from stroke at 68 year old. Her mother at 100 yrs old. She has two daughter and healthy. she is living at [place] with her . Living Situation: With spouse/s.o. Social History Notes: she denies any hx of ciagrette smoking, alcohol and drug abuse - POLST Patient has POLST: No Meds/Allgy - Home Medications Home Medications: Ambulatory Orders Medication Instructions Recorded Confirmed Furosemide [Lasix] 10 mg PO DAILY 07/11/12 07/17/18 NIFEdipine [Procardia Xl] 30 mg PO DAILY 07/11/12 07/17/18 Simvastatin 20 mg PO DAILY 07/11/12 07/17/18 Spironolactone [Aldactone] 25 mg PO BID 07/11/12 07/17/18 Trazodone HCl 50 mg PO HS 07/11/12 07/17/18 raNITIdine HCl [Ranitidine HCl] 100 mg PO BID 07/11/12 07/17/18 Oxybutynin [Ditropan] 5 mg PO BID 02/25/13 07/17/18 Levothyroxine [Synthroid] 0.05 mcg PO DAILY 02/04/14 07/17/18 Cholecalciferol (Vitamin D3) 1,000 unit PO DAILY 05/03/16 07/17/18 [Vitamin D3] Hydrocodone/Acetaminophen 1 tab PO BID 05/03/16 07/17/18 [Hydrocodon-Acetaminophn 10-325] Vitamin E 1,000 unit PO DAILY 05/03/16 07/17/18 predniSONE [Prednisone] 5 mg PO DAILY 05/03/16 07/17/18 Gabapentin 1 cap PO DAILY 05/17/16 07/17/18 Amox/Clav 875/125 [Augmentin] 1 each PO Q12H #14 tablet 08/17/18 - Allergies Allergies/Adverse Reactions: Allergies Allergy/AdvReac Type Severity Reaction Status Date / Time meperidine HCl * AdvReac Intermediate Itching Verified 10/09/18 12:53 [From Demerol] morphine AdvReac Intermediate Anxiety Verified 10/09/18 12:53 Review of Systems - Constitutional Constitutional: denies: Fatigue, Fever, Chills, Malaise, Weakness, Poor appetite, Diaphoresis, Night sweats, Weight gain, Weight loss - Eyes Eyes: denies: Pain, Irritation, Amaurosis, Blurred vision, Spots in vision, Field loss, Vision loss, Dipolpia - Ears, Nose & Throat Ears, Nose & Throat: denies: Ear pain, Tinnitus, Vertigo, Nasal pain, Nasal discharge, Nosebleeds, Nasal obstruction, Nasal congestion, Postnasal drainage, Dentures, Sore throat, Hoarseness, Mouth lesions, Bleeding gums - Cardiovascular Cariovascular: denies: Irregular heart rate, Palpitations, Chest pain, Edema, Li ghtheadedness, Syncope, Exertional dyspnea, Decr. exercise tolerance - Respiratory Respiratory: denies: Cough, Sputum production, Wheezing, Snoring, Hemoptysis, Orthopnea, SOB at rest, SOB with exertion, Apnea, Stridor - Gastrointestinal Gastrointestinal: denies: Abdominal pain, Abdominal distention, Constipation, Diarrhea, Change in bowel habits, Rectal bleeding, Black stools, Bloody stools, Nausea, Vomiting, Bile emesis, Coffee grounds emesis, Reflux/heartburn, Bloating - Genitourinary Genitourinary: denies: Dysuria, Frequency, Urgency, Hematuria, Incontinence, Flank pain, Nocturia, Urethral discharge - Musculoskeletal Musculoskeletal: reports: Muscle pain, Limited range of motion, Joint pain. denies: Back pain, Muscle aches, Stiffness, Muscle weakness, Gout, Joint swelling - Integumentary Integumentary: denies: Rash, Pruritis, Lesions, Dryness, Lumps, Acne, Pigment changes, Nail changes - Neurological Neurological: denies: General weakness, Focal weakness, Headache, Dizziness, Numbness, Memory problems, Pre-existing deficit, Abnormal gait, Seizures, Incoordination, Slurred speech - Psychiatric Psychiatric: denies: Depression, Anxiety, Suicidal, Delusions, Hallucinations, Homicidal - Endocrine Endocrine: denies: Polyuria, Polydypsia, Polyphagia, Intolerance to cold - Hematologic/Lymphatic Hematologic/Lymphatic: denies: Anemia, Bruising, Petechiae, Blood clots, Lymphadenopathy Exam - Vital Signs Reviewed Vital Signs: Yes Vital Signs: Vital Signs x48h Temp Pulse Resp BP Pulse Ox 10/09/18 16:00 80 16 138/71 H 97 10/09/18 14:47 70 18 131/74 H 97 10/09/18 12:45 37.6 C H 84 12 119/56 L 93 - Physical Exam General Appearance: positive: No acute distress, Alert. negative: Lethargic Eyes Bilateral: positive: Normal inspection, PERRL, No lid inflammation, Conjunctivae nml ENT: positive: ENT inspection nml, Pharynx nml, No signs of dehydration. negative: Purulent nasal drainage, Pharyngeal erythema, Oral lesions Neck: positive: Nml inspection, Thyroid nml, No JVD, Trachea midline. negative: Thyromegaly, Lymphadenopathy (R), Lymphadenopathy (L), Stiff neck, Swelling/bruising, Tracheal deviation Respiratory: positive: Chest non-tender, No respiratory distress, Breath sounds nml. negative: Wheezes, Rales, Rhonchi Cardiovascular: positive: Regular rate & rhythm, No gallop, Systolic murmur. negative: Irregularly irregular, Extrasystoles, Tachycardia, Bradycardia, JVD present, Diastolic murmur Peripheral Pulses: positive: 2+ Abdomen: positive: Non-tender, No organomegaly, Nml bowel sounds, No distention. negative: Tenderness, Guarding, Rebound Back: positive: Nml inspection. negative: CVA tenderness (R), CVA tenderness (L) Skin: positive: Color nml, No rash, Warm, Dry. negative: Cyanosis, Diaphoresis, Pallor Extremities: negative: Calf tenderness, Raheem's sign/cords Neurologic/Psychiatric: positive: Oriented x3. negative: Weakness, Sensory loss, Facial droop, Slurred/abnml speech, Depressed mood/affect Conclusion/Plan - Problem List (1) Pelvic fracture Conclusion/Plan: pt has fall. CT and Xray reveals pt has pelvic fracture. pt can not bear weight, pt is very painful. Orthopedics was called and consulted. Pt had allergy to Morphine. ER gave pt Fentany IV, it appears Fentany IV work for pt for pain control consult with orthopedics consult with PT/OT consult social worker clinical [place] for DVT prophylaxis IV of pain meds fentanyl to control the pain, pt is allergy to Morphine (2) UTI (urinary tract infection) Conclusion/Plan: pt had elevated WBC, hx of urinary incontinence. but pt denies dysuria and hematuria. UA analysis indicate UTI treat with rocephin UA culture is pending. (3) Hypokalemia Conclusion/Plan: K is 3.1. placement of potassium, lab monitor (4) CKD (chronic kidney disease) stage 3, GFR 30-59 ml/min Conclusion/Plan: pt has hx of CKD stage 3, now stable keep gently hydration, lab monitor (5) Hx of rheumatoid arthritis Conclusion/Plan: pt has hx of RA, home meds Prednisone. will reconcile after Pharmacy verify (6) Osteoporosis Conclusion/Plan: hx of osteoporosis, multiple ortho surgeries. will check Vitamin D level, reconcile home D3, and osteoporosis consult (7) HTN (hypertension) Conclusion/Plan: stable, will reconcile home meds after Pharmacy verify (8) Hypothyroidism Conclusion/Plan: stable, will check TSH and start on home meds after pharmacy verify (9) GERD (gastroesophageal reflux disease) Conclusion/Plan: stable, Pepcid bid on hospital (10) Urinary incontinence Conclusion/Plan: pt has hx of urinary incontinency, not she had pelvic fractures. Put Miranda and continue Miranda care. (11) Do not intubate, cardiopulmonary resuscitation (CPR)-only code status Conclusion/Plan: pt clearly request DNR/DNI - Lab Results Fish Bones: 10/10/18 04:40 10/10/18 04:40 Core Measures - Anticipated LOS I expect patient to be DC'd or transferred within 96 hours.: Yes - DVT/VTE - Prophylaxis VTE/DVT Device ordered at admit?: Yes VTE/DVT Prophylaxis med ordered at admit?: Yes
[2018-10-09] MEDS ORDERED: POTASSIUM CHLORIDE 20 MEQ TABLET PO ONE (16:46)
[2018-10-09] MEDS: SODIUM CHLORIDE 0.9% 1,000 ML IV SCH (17:37)
[2018-10-09] MEDS: SODIUM CHLORIDE FLUSH 0.9% 10 ML SYRINGE IVP SCH (17:37)
[2018-10-09 19:50] LABS: BILIRUBIN,URINE NEGATIVE (NEGATIVE); GLUCOSE, URINE (UA) NEGATIVE (NEGATIVE); KETONES,URINE (UA) NEGATIVE (NEGATIVE); LEUKOCYTE ESTERASE, URINE LARGE (NEGATIVE); NITRITE,URINE NEGATIVE (NEGATIVE); OCCULT BLOOD,URINE NEGATIVE (NEGATIVE); PH,URINE >=9.0 PH (5.0-7.5); PROTEIN,URINE TRACE mg/dL (NEGATIVE); UROBILINOGEN,URINE 0.2 (NORMAL) E.U./dL (NORMAL)
[2018-10-09 19:57] LABS: BACTERIA,URINE Moderate /HPF (None Seen); CLARITY,URINE HAZY (CLEAR); RBC,URINE None Seen /HPF (0-5); SQUAMOUS EPITHELIAL CELL,UR NONE SEEN (<= Few)
[2018-10-09 19:58] LABS: AMORPHOUS SEDIMENT,UR Marked /LPF
[2018-10-09] MEDS ORDERED: SPIRONOLACTONE 25 MG TABLET PO SCH (21:00)
[2018-10-09] MEDS: cefTRIAXone 1 GM in SODIUM CHLORIDE 0.9% MINIBAG 100 ML IV SCH (21:26)
[2018-10-09] MEDS: FAMOTIDINE 20 MG TABLET PO SCH (21:28)
[2018-10-09] MEDS: ACETAMINOPHEN 325 MG TABLET PO PRN (21:28)
[2018-10-10] MEDS: SODIUM CHLORIDE FLUSH 0.9% 10 ML SYRINGE IVP SCH ×3 (01:09→16:44)
[2018-10-10] MEDS: SODIUM CHLORIDE 0.9% 1,000 ML IV SCH (02:42)
[2018-10-10] MEDS: oxyCODONE 5 MG TABLET PO PRN ×2 (02:42→06:06)
[2018-10-10] MEDS: BENZOCAINE/MENTHOL LOZENGE MM PRN ×2 (04:32→09:21)
[2018-10-10 05:10] LABS: BASOPHILS # (AUTO) 0.1 10^3/uL (0.0-0.1); BASOPHILS % (AUTO) 0.8 %; EOSINOPHILS # (AUTO) 0.3 10^3/uL (0.0-0.7); EOSINOPHILS % (AUTO) 3.5 %; HGB - HEMOGLOBIN 11.5 g/dL (12.0-16.0); LYMPHOCYTES # (AUTO) 1.1 10^3/uL (1.5-3.5); LYMPHOCYTES % (AUTO) 12.4 %; MEAN CORPUSCULAR HEMOGLOBIN 32.1 pg (27.0-31.0); MEAN CORPUSCULAR HGB CONC 32.1 g/dL (32.0-36.0); MEAN PLATELET VOLUME 10.2 fL (7.9-10.8); MONOCYTES # (AUTO) 0.9 10^3/uL (0.0-1.0); MONOCYTES % (AUTO) 9.4 %; NEUTROPHILS # (AUTO) 6.7 10^3/uL (1.5-6.6); NEUTROPHILS % (AUTO) 73.4 %; PLT - PLATELET COUNT 167 10^3/uL (130-450); RED BLOOD COUNT 3.58 10^6/uL (4.20-5.40); RED CELL DISTRIBUTION WIDTH 14.3 % (12.0-15.0); WHITE BLOOD COUNT 9.2 x10^3/uL (4.8-10.8)
[2018-10-10 05:18] LABS: CALCIUM 8.8 mg/dL (8.5-10.3); CREATININE 1.3 mg/dL (0.4-1.0)
[2018-10-10] MEDS: fentaNYL 100 MCG/2 ML VIAL IVP PRN ×7 (06:36→20:50)
[2018-10-10] MEDS ORDERED: fentaNYL 50 MCG PATCH TOP SCH (09:00)
[2018-10-10] MEDS ORDERED: oxyCODONE ER 10 MG TABLET PO SCH (09:00)
[2018-10-10] MEDS ORDERED: CHOLECALCIFEROL 400 UNIT TABLET PO SCH (09:00)
[2018-10-10] MEDS: POLYETHYLENE GLYCOL 3350 17 GM PACKET PO SCH (09:01)
[2018-10-10] MEDS: SPIRONOLACTONE 25 MG TABLET PO SCH ×2 (09:02→20:39)
[2018-10-10] MEDS: FAMOTIDINE 20 MG TABLET PO SCH (09:02)
[2018-10-10] MEDS: cefTRIAXone 1 GM in SODIUM CHLORIDE 0.9% MINIBAG 100 ML IV SCH (09:06)
[2018-10-10] MEDS: ENOXAPARIN 40 MG/0.4 ML SYRINGE SUBQ SCH (09:09)
[2018-10-10] MEDS ORDERED: WHEAT DEXTRIN POWDER PACKET PO PRN (10:58)
[2018-10-10] MEDS: MULTIVITAMIN W/MINERALS TABLET PO SCH (11:46)
[2018-10-10] MEDS: LACTOBACILLUS RHAMNOSUS GG CAPSULE PO SCH (11:46)
--- NOTE | 2018-10-10 12:33 | CONSULTATION NOTE ---
Referring Provider Name of Referring Provider:: Moe Consult Date: 10/10/18 Chief Complaint - Chief Complaint Chief Complaint: left hip/pelvis pain History of Present Illness - Admitted From Admitted From:: ER - History Obtained From Records Reviewed: er History obtained from: Patient and her sister/record Exam Limitations: Pt is on Fentanyl and sleepy - History of Present Illness HPI Comment/Other: Pt. had GLF. Has prior hip surgery for fx bilateral. Pain is in left hip/groin/buttock. History - Past Medical History Cardiovascular: reports: Hypertension, High cholesterol Respiratory: reports: Pneumonia Neuro: reports: None Endocrine/Autoimmune: reports: HyPOthyroidism GI: reports: GERD, Colon polyps PROMOTIONS EXECUTIVE: reports: None : reports: Other HEENT: reports: None Psych: reports: Anxiety Musculoskeletal: reports: Rheumatoid arthritis, Fatigue Derm: reports: None MRSA Hx?: No Other Past Medical History: B THAs, RA, HTN, HLD, Hypothyroidism, GERD, Osteoporosis, Incontinence, UTIs, Pneumonia, OA - Past Surgical History General: reports: Cholecystectomy Ortho: reports: Hip replacement Cardiovascular: reports: Other Derm: reports: Other - Family & Social History Family History: Father: CAD Family History Comment/Other: pt report her father from stroke at 68 year old. Her mother at 100 yrs old. She has two daughter and healthy. she is living at [place] with her . Living Situation: With spouse/s.o. Social History Notes: she denies any hx of ciagrette smoking, alcohol and drug abuse - POLST Patient has POLST: No Meds/Allgy - Home Medications Home Medications: Ambulatory Orders Medication Instructions Recorded Confirmed Furosemide [Lasix] 60 mg PO DAILY 07/11/12 10/10/18 NIFEdipine [Procardia Xl] 30 mg PO DAILY 07/11/12 10/10/18 Simvastatin 20 mg PO DAILY 07/11/12 10/10/18 Spironolactone [Aldactone] 25 mg PO BID 07/11/12 10/10/18 Trazodone HCl 50 mg PO HS 07/11/12 10/10/18 raNITIdine HCl [Ranitidine HCl] 150 mg PO BID 07/11/12 10/10/18 Oxybutynin [Ditropan] 5 mg PO BID 02/25/13 10/10/18 Cholecalciferol (Vitamin D3) 1,000 unit PO DAILY 05/03/16 10/10/18 [Vitamin D3] Vitamin E 1,000 unit PO DAILY 05/03/16 10/10/18 predniSONE [Prednisone] 5 mg PO DAILY 05/03/16 10/10/18 Gabapentin 100 mg PO BID 05/17/16 10/10/18 Escitalopram [Lexapro] 10 mg PO DAILY 10/10/18 10/10/18 Levothyroxine Sodium 50 mcg PO QDAC 10/10/18 10/10/18 Oxycodone HCl [Oxycontin] 20 mg PO BID 10/10/18 10/10/18 - Allergies Allergies/Adverse Reactions: Allergies Allergy/AdvReac Type Severity Reaction Status Date / Time meperidine HCl * AdvReac Intermediate Itching Verified 10/09/18 12:53 [From Demerol] morphine AdvReac Intermediate Anxiety Verified 10/09/18 12:53 Review of Systems - Musculoskeletal Musculoskeletal: reports: Muscle pain, Muscle aches, Muscle weakness, Joint pain - Neurological Neurological: reports: General weakness Exam - Vital Signs Reviewed Vital Signs: Yes Vital Signs: Vital Signs x48h Temp Pulse Resp BP Pulse Ox 10/10/18 07:50 36.7 C 70 18 143/58 H 92 10/10/18 04:24 37.1 C 66 16 125/69 95 - Physical Exam General Appearance: positive: Lethargic Respiratory: positive: No respiratory distress Cardiovascular: positive: Regular rate & rhythm Peripheral Pulses: positive: 2+ Skin: positive: No rash Extremities: positive: Other (Pt has LEs scissored together in adduction. She is not cooperative with any test of AROM, or PROM, because of pain. Pain is well localized to anterior groin left. slight posterior pain with logroll. No skin discoloration on either hip, and old scars present.) Neurologic/Psychiatric: positive: Oriented x3, CN's nml (2-12), Motor nml, Sensation nml Conclusion/Plan - Diagnosis Diagnosis: Stable closed Pelvis fracture - Plan Plan: Plan will be for comfort measures, physical therapy, gradual mobilization to weight bearing as tolerated. Prophylaxis against DVT, Bedsores, pneumonia;. - Lab Results Fish Bones: 10/10/18 04:40 10/10/18 04:40 - Diagnostic Imaging Results Diagnostic Imaging Results: positive: Read independently
[2018-10-10] MEDS: ACETAMINOPHEN 325 MG TABLET PO PRN (13:34)
--- NOTE | 2018-10-10 13:36 | PROVIDER PROGRESS NOTE ---
Subjective - Prog Note Date Prog Note Date: 10/10/18 - Subjective Pt reports feeling: No change Subjective: pt report she has lots of pain at left pelvis area special when she try to move, she still can not bear weight. she denies fever, chill, chest pain, shortness of breath. Current Medications - Current Medications Current Medications: Active Medications Acetaminophen (Tylenol) 650 mg PO Q4HR PRN PRN Reason: Pain 1 to 4 Last Admin: 10/10/18 13:34 Dose: 650 mg Cholecalciferol (Vitamin D3) 1,000 unit PO DAILY [facility] Enoxaparin Sodium (Lovenox) 40 mg SUBQ DAILY [facility] Last Admin: 10/10/18 09:09 Dose: 40 mg Escitalopram Oxalate (Lexapro) 10 mg PO DAILY [facility] Famotidine (Pepcid) 20 mg PO DAILY [facility] Last Admin: 10/10/18 09:02 Dose: 20 mg Fentanyl (Fentanyl) 25 mcg IVP Q2HR PRN PRN Reason: PAIN Last Admin: 10/10/18 11:45 Dose: 25 mcg Gabapentin (Neurontin) 100 mg PO BID [facility] Ceftriaxone Sodium 1 gm/ (Sodium Chloride) 100 mls @ 200 mls/hr IV DAILY [facility] Last Infusion: 10/10/18 09:35 Dose: Infused Lactobacillus Rhamnosus (Culturelle) 1 cap PO DAILY [facility] Last Admin: 10/10/18 11:46 Dose: 1 cap Levothyroxine Sodium (Synthroid) 50 mcg PO QDAC [facility] Multivitamins/Minerals (Theragran M) 1 tab PO DAILYWM [facility] Last Admin: 10/10/18 11:46 Dose: 1 tab Nifedipine (Procardia Xl) 30 mg PO DAILY [facility] Ondansetron HCl (Zofran Inj) 4 mg IVP Q6HR PRN PRN Reason: Nausea / Vomiting Oxybutynin Chloride (Ditropan) 5 mg PO BID [facility] Oxycodone HCl (Oxycontin) 20 mg PO BID [facility] Polyethylene Glycol (Miralax) 17 gm PO DAILY [facility] Last Admin: 10/10/18 09:01 Dose: 17 gm Prednisone (Deltasone) 5 mg PO DAILY [facility] Sodium Chloride (Normal Saline Flush 0.9%) 10 ml IVP PRN PRN PRN Reason: NEEDED PER PROVIDER ORDERS Sodium Chloride (Normal Saline Flush 0.9%) 10 ml IVP 0100,0900,1700 [facility] Last Admin: 10/10/18 01:09 Dose: Not Given Spironolactone (Aldactone) 25 mg PO BID [facility] Last Admin: 10/10/18 09:02 Dose: 25 mg Throat Lozenges (Cepacol) 1 lozenge MM Q2HR PRN PRN Reason: Throat pain Last Admin: 10/10/18 09:21 Dose: 1 lozenge Trazodone HCl (Desyrel) 50 mg PO HS [facility] Wheat Dextrin (Benefiber) 1 packet PO DAILY PRN PRN Reason: Constipation Zolpidem Tartrate (Ambien) 5 mg PO QPM PRN PRN Reason: Insomnia Furosemide [Lasix] 60 mg PO DAILY 07/11/12 NIFEdipine [Procardia Xl] 30 mg PO DAILY 07/11/12 Simvastatin 20 mg PO DAILY 07/11/12 Spironolactone [Aldactone] 25 mg PO BID 07/11/12 Trazodone HCl 50 mg PO HS 07/11/12 raNITIdine HCl [Ranitidine HCl] 150 mg PO BID 07/11/12 Oxybutynin [Ditropan] 5 mg PO BID 02/25/13 Cholecalciferol (Vitamin D3) [Vitamin D3] 1,000 unit PO DAILY 05/03/16 Vitamin E 1,000 unit PO DAILY 05/03/16 predniSONE [Prednisone] 5 mg PO DAILY 05/03/16 Gabapentin 100 mg PO BID 05/17/16 Escitalopram [Lexapro] 10 mg PO DAILY 10/10/18 Levothyroxine Sodium 50 mcg PO QDAC 10/10/18 Oxycodone HCl [Oxycontin] 20 mg PO BID 10/10/18 Objective - Vital Signs/Intake & Output Reviewed Vital Signs: Yes Vital Signs: Vital Signs x48h Temp Pulse Resp BP Pulse Ox 10/10/18 13:11 37.8 C H 92 18 131/61 H 92 10/10/18 07:50 36.7 C 70 18 143/58 H 92 Intake & Output: Intake & Output 10/07/18 10/08/18 10/09/18 10/10/18 23:59 23:59 23:59 23:59 Intake Total 300 1368.333 Output Total 450 300 Balance -150 1068.333 - Objective General Appearance: positive: No acute distress, Alert. negative: Lethargic Eyes Bilateral: positive: Normal inspection, PERRL, No lid inflammation, Conjunctivae nml ENT: positive: ENT inspection nml, Pharynx nml, No signs of dehydration. negative: Purulent nasal drainage, Pharyngeal erythema, Oral lesions Neck: positive: Nml inspection, Thyroid nml, No JVD, Trachea midline. negative: Thyromegaly, Lymphadenopathy (R), Lymphadenopathy (L), Stiff neck, Swelling/bruising, Tracheal deviation Respiratory: positive: Chest non-tender, No respiratory distress, Breath sounds nml. negative: Wheezes, Rales, Rhonchi Cardiovascular: positive: Regular rate & rhythm, No gallop, Systolic murmur. negative: Irregularly irregular, Extrasystoles, Tachycardia, Bradycardia, JVD present, Diastolic murmur Peripheral Pulses: 2+ Radial (R), 2+ Radial (L), 2+ Dorsalis pedis (R), 2+ Dorsalis pedis (L) Abdomen: positive: Non-tender, No organomegaly, Nml bowel sounds, No distention. negative: Tenderness, Guarding, Rebound Back: positive: Nml inspection. negative: CVA tenderness (R), CVA tenderness (L) Skin: positive: Color nml, No rash, Warm, Dry. negative: Cyanosis, Diaphoresis, Pallor Extremities: positive: Nml appearance. negative: Calf tenderness, Raheem's sign/cords Neurologic/Psychiatric: positive: Oriented x3, Sensation nml, Mood/affect nml. negative: Weakness, Sensory loss, Facial droop, Slurred/abnml speech, Depressed mood/affect - Lab Results Fish Bones: 10/10/18 04:40 10/10/18 04:40 Other Labs: Lab Results x24hrs 10/10/18 10/10/18 10/10/18 Range/Units 04:40 04:40 04:40 WBC 9.2 (4.8-10.8) x10^3/uL RBC 3.58 L (4.20-5.40) 10^6/uL Hgb 11.5 L (12.0-16.0) g/dL Hct 35.8 L (37.0-47.0) % MCV 100.0 H (81.0-99.0) fL MCH 32.1 H (27.0-31.0) pg MCHC 32.1 (32.0-36.0) g/dL RDW 14.3 (12.0-15.0) % Plt Count 167 (130-450) 10^3/uL MPV 10.2 (7.9-10.8) fL Neut # (Auto) 6.7 H (1.5-6.6) 10^3/uL Lymph # (Auto) 1.1 L (1.5-3.5) 10^3/uL [place] # (Auto) 0.9 (0.0-1.0) 10^3/uL Eos # (Auto) 0.3 (0.0-0.7) 10^3/uL Baso # (Auto) 0.1 (0.0-0.1) 10^3/uL Absolute Nucleated RBC 0.00 x10^3/uL Nucleated RBC % 0.0 /100WBC Sodium 143 (135-145) mmol/L Potassium 3.6 (3.5-5.0) mmol/L Chloride 104 (101-111) mmol/L Carbon Dioxide 29 (21-32) mmol/L Anion Gap 10.0 (6-13) BUN 21 H (6-20) mg/dL Creatinine 1.3 H (0.4-1.0) mg/dL Estimated GFR (MDRD) 39 L (>89) Glucose 114 H (70-100) mg/dL Calcium 8.8 (8.5-10.3) mg/dL Magnesium 2.0 (1.7-2.8) mg/dL TSH 0.96 (0.34-5.60) uIU/mL Urine Color Urine Clarity (CLEAR) Urine pH (5.0-7.5) PH Ur Specific [place] (1.002-1.030) Urine Protein (NEGATIVE) mg/dL Urine Glucose (UA) (NEGATIVE) mg/dL Urine Ketones (NEGATIVE) mg/dL Urine Occult Blood (NEGATIVE) Urine Nitrite (NEGATIVE) Urine Bilirubin (NEGATIVE) Urine Urobilinogen (NORMAL) E.U./dL Ur Leukocyte Esterase (NEGATIVE) Urine RBC (0-5) /HPF Urine WBC (0-5) /HPF Ur Squamous Epith Cells (<= Few) Amorphous Sediment /LPF Urine Bacteria (None Seen) /HPF Urine Culture Comments Blood Type Antibody Screen 10/09/18 10/09/18 Range/Units 18:58 12:50 WBC (4.8-10.8) x10^3/uL RBC (4.20-5.40) 10^6/uL Hgb (12.0-16.0) g/dL Hct (37.0-47.0) % MCV (81.0-99.0) fL MCH (27.0-31.0) pg MCHC (32.0-36.0) g/dL RDW (12.0-15.0) % Plt Count (130-450) 10^3/uL MPV (7.9-10.8) fL Neut # (Auto) (1.5-6.6) 10^3/uL Lymph # (Auto) (1.5-3.5) 10^3/uL [place] # (Auto) (0.0-1.0) 10^3/uL Eos # (Auto) (0.0-0.7) 10^3/uL Baso # (Auto) (0.0-0.1) 10^3/uL Absolute Nucleated RBC x10^3/uL Nucleated RBC % /100WBC Sodium (135-145) mmol/L Potassium (3.5-5.0) mmol/L Chloride (101-111) mmol/L Carbon Dioxide (21-32) mmol/L Anion Gap (6-13) BUN (6-20) mg/dL Creatinine (0.4-1.0) mg/dL Estimated GFR (MDRD) (>89) Glucose (70-100) mg/dL Calcium (8.5-10.3) mg/dL Magnesium (1.7-2.8) mg/dL TSH (0.34-5.60) uIU/mL Urine Color YELLOW Urine Clarity HAZY (CLEAR) Urine pH >=9.0 H (5.0-7.5) PH Ur Specific [place] 1.010 (1.002-1.030) Urine Protein TRACE (NEGATIVE) mg/dL Urine Glucose (UA) NEGATIVE (NEGATIVE) mg/dL Urine Ketones NEGATIVE (NEGATIVE) mg/dL Urine Occult Blood NEGATIVE (NEGATIVE) Urine Nitrite NEGATIVE (NEGATIVE) Urine Bilirubin NEGATIVE (NEGATIVE) Urine Urobilinogen 0.2 (NORMAL) (NORMAL) E.U./dL Ur Leukocyte Esterase LARGE H (NEGATIVE) Urine RBC None Seen (0-5) /HPF Urine WBC 11-25 H (0-5) /HPF Ur Squamous Epith Cells NONE SEEN (<= Few) Amorphous Sediment Marked /LPF Urine Bacteria Moderate H (None Seen) /HPF Urine Culture Comments INDICATED Blood Type A POSITIVE Antibody Screen NEGATIVE ABX Reporting Has patient been on IV antibiotics over the past 48 hours?: Yes Sepsis Event Note (H) - Evaluation Current Stage of Sepsis: Ruled out Assessment/Plan - Problem List (1) Pelvic fracture Impression: 10/10 pt has lots of pelvic pain, can not bear weight. continue pain control followup orthopedics continue PT/OT order incentive spirometry continue DVT prophylaxis pt has fall. CT and Xray reveals pt has pelvic fracture. pt can not bear weight, pt is very painful. Orthopedics was called and consulted. Pt had allergy to Morphine. ER gave pt Fentany IV, it appears Fentany IV work for pt for pain control consult with orthopedics consult with PT/OT consult social worker palliative care Luciax for DVT prophylaxis IV of pain meds fentanyl to control the pain, pt is allergy to Morphine (2) UTI (urinary tract infection) Conclusion/Plan: 10/10 UA culture is pending. pt has hx of UTI continue Rocephin now pt had elevated WBC, hx of urinary incontinence. but pt denies dysuria and hematuria. UA analysis indicate UTI treat with rocephin UA culture is pending. (3) Hypokalemia Conclusion/Plan: resolved K is 3.1. placement of potassium, lab monitor (4) CKD (chronic kidney disease) stage 3, GFR 30-59 ml/min Conclusion/Plan: pt has hx of CKD stage 3, now stable keep gently hydration, lab monitor (5) Hx of rheumatoid arthritis Conclusion/Plan: pt has hx of RA, home meds Prednisone. will reconcile after Pharmacy verify (6) Osteoporosis Conclusion/Plan: hx of osteoporosis, multiple ortho surgeries. will check Vitamin D level, reconcile home D3, and osteoporosis consult (7) HTN (hypertension) Conclusion/Plan: stable, will reconcile home meds after Pharmacy verify (8) Hypothyroidism Conclusion/Plan: stable, will check TSH and start on home meds after pharmacy verify (9) GERD (gastroesophageal reflux disease) Conclusion/Plan: stable, Pepcid bid on hospital (10) Urinary incontinence Conclusion/Plan: pt has hx of urinary incontinency, not she had pelvic fractures. Put Miranda and continue Miranda care.
[2018-10-10] MEDS: SODIUM CHLORIDE 0.9% 500 ML IV PRN (17:08)
[2018-10-10] MEDS: traZODone 50 MG TABLET PO SCH (20:39)
[2018-10-10] MEDS: GABAPENTIN 100 MG CAPSULE PO SCH (20:39)
[2018-10-10] MEDS: OXYBUTYNIN 5MG TABLET PO SCH (20:39)
[2018-10-10] MEDS: oxyCODONE ER 10 MG TABLET PO SCH (20:39)
[2018-10-10] MEDS ORDERED: SPIRONOLACTONE 25 MG TABLET PO SCH (21:00)
[2018-10-11] MEDS: SODIUM CHLORIDE FLUSH 0.9% 10 ML SYRINGE IVP SCH ×3 (01:12→16:43)
[2018-10-11] MEDS: fentaNYL 100 MCG/2 ML VIAL IVP PRN ×7 (01:18→21:30)
[2018-10-11 05:45] LABS: BASOPHILS # (AUTO) 0.1 10^3/uL (0.0-0.1); BASOPHILS % (AUTO) 0.7 %; EOSINOPHILS # (AUTO) 0.6 10^3/uL (0.0-0.7); EOSINOPHILS % (AUTO) 5.1 %; HGB - HEMOGLOBIN 12.3 g/dL (12.0-16.0); LYMPHOCYTES # (AUTO) 1.5 10^3/uL (1.5-3.5); LYMPHOCYTES % (AUTO) 13.7 %; MEAN CORPUSCULAR HEMOGLOBIN 31.4 pg (27.0-31.0); MEAN CORPUSCULAR HGB CONC 31.5 g/dL (32.0-36.0); MEAN CORPUSCULAR VOLUME 99.5 fL (81.0-99.0); MEAN PLATELET VOLUME 10.6 fL (7.9-10.8); MONOCYTES # (AUTO) 0.8 10^3/uL (0.0-1.0); MONOCYTES % (AUTO) 7.6 %; NEUTROPHILS # (AUTO) 7.8 10^3/uL (1.5-6.6); NEUTROPHILS % (AUTO) 72.6 %; PLT - PLATELET COUNT 172 10^3/uL (130-450); RED BLOOD COUNT 3.92 10^6/uL (4.20-5.40); RED CELL DISTRIBUTION WIDTH 14.5 % (12.0-15.0); WHITE BLOOD COUNT 10.7 x10^3/uL (4.8-10.8)
[2018-10-11 05:52] LABS: CALCIUM 8.6 mg/dL (8.5-10.3); CREATININE 1.1 mg/dL (0.4-1.0)
[2018-10-11] MEDS: LEVOTHYROXINE 25 MCG TABLET PO SCH (06:17)
[2018-10-11] MEDS: predniSONE 5 MG TABLET PO SCH (08:53)
[2018-10-11] MEDS: CHOLECALCIFEROL 1,000 UNIT TABLET PO SCH (08:53)
[2018-10-11] MEDS: GABAPENTIN 100 MG CAPSULE PO SCH ×2 (08:53→21:22)
[2018-10-11] MEDS: oxyCODONE ER 10 MG TABLET PO SCH ×2 (08:53→21:22)
[2018-10-11] MEDS: FAMOTIDINE 20 MG TABLET PO SCH (08:54)
[2018-10-11] MEDS: OXYBUTYNIN 5MG TABLET PO SCH (08:54)
[2018-10-11] MEDS: MULTIVITAMIN W/MINERALS TABLET PO SCH (08:54)
[2018-10-11] MEDS: LACTOBACILLUS RHAMNOSUS GG CAPSULE PO SCH (08:55)
[2018-10-11] MEDS: ESCITALOPRAM 10 MG TABLET PO SCH (08:55)
[2018-10-11] MEDS: SPIRONOLACTONE 25 MG TABLET PO SCH ×2 (08:55→21:23)
[2018-10-11] MEDS ORDERED: POTASSIUM CHLORIDE 20 MEQ TABLET PO ONE (08:55)
[2018-10-11] MEDS: NIFEdipine ER 30 MG TABLET PO SCH (08:56)
[2018-10-11] MEDS: cefTRIAXone 1 GM in SODIUM CHLORIDE 0.9% MINIBAG 100 ML IV SCH (08:57)
[2018-10-11] MEDS: ENOXAPARIN 40 MG/0.4 ML SYRINGE SUBQ SCH (09:16)
[2018-10-11] MEDS: POLYETHYLENE GLYCOL 3350 17 GM PACKET PO SCH (09:24)
--- NOTE | 2018-10-11 09:36 | PROVIDER PROGRESS NOTE ---
Subjective - General Admit Date: 10/09/18 - Review of Systems General: positive: Fatigue Musculoskeletal: positive: Joint pain Psychiatric: positive: Confusion Objective - Patient Data Reviewed Vital Signs: Yes Vital Signs: Vital Signs x48h Temp Pulse Resp BP Pulse Ox 10/11/18 07:45 37.1 C 62 18 104/57 L 99 10/11/18 05:10 37.3 C 70 16 150/56 H 96 Weight: Weight 10/09/18 10/10/18 10/11/18 23:59 23:59 23:59 Weight (kg) 58 kg Intake & Output: Intake and Output Totals x24h 10/09/18 10/10/18 10/11/18 23:59 23:59 23:59 Intake Total 300 3014.333 120 Output Total 450 1675 250 Balance -150 1339.333 -130 - Lab Results Lab Results: 10/11/18 05:07 10/11/18 05:07 Other Lab Results: Lab Results x24hrs 10/11/18 10/11/18 Range/Units 05:07 05:07 WBC 10.7 (4.8-10.8) x10^3/uL RBC 3.92 L (4.20-5.40) 10^6/uL Hgb 12.3 (12.0-16.0) g/dL Hct 39.0 (37.0-47.0) % MCV 99.5 H (81.0-99.0) fL MCH 31.4 H (27.0-31.0) pg MCHC 31.5 L (32.0-36.0) g/dL RDW 14.5 (12.0-15.0) % Plt Count 172 (130-450) 10^3/uL MPV 10.6 (7.9-10.8) fL Neut # (Auto) 7.8 H (1.5-6.6) 10^3/uL Lymph # (Auto) 1.5 (1.5-3.5) 10^3/uL [place] # (Auto) 0.8 (0.0-1.0) 10^3/uL Eos # (Auto) 0.6 (0.0-0.7) 10^3/uL Baso # (Auto) 0.1 (0.0-0.1) 10^3/uL Absolute Nucleated RBC 0.00 x10^3/uL Nucleated RBC % 0.0 /100WBC Sodium 143 (135-145) mmol/L Potassium 3.1 L (3.5-5.0) mmol/L Chloride 105 (101-111) mmol/L Carbon Dioxide 28 (21-32) mmol/L Anion Gap 10.0 (6-13) BUN 13 (6-20) mg/dL Creatinine 1.1 H (0.4-1.0) mg/dL Estimated GFR (MDRD) 48 L (>89) Glucose 92 (70-100) mg/dL Calcium 8.6 (8.5-10.3) mg/dL - Current Medications Current Medications: Current Medications Generic Name Dose Route Start Last Admin Trade Name Freq PRN Reason Stop Dose Admin Acetaminophen 650 mg 10/09/18 16:05 10/10/18 13:34 Tylenol PO 650 mg Q4HR PRN Administration Pain 1 to 4 Cholecalciferol 1,000 unit 10/11/18 09:00 10/11/18 08:53 Vitamin D3 PO 1,000 unit DAILY AMANDO Administration Enoxaparin Sodium 40 mg 10/10/18 09:00 10/11/18 09:16 Lovenox SUBQ 40 mg DAILY AMANDO Administration Escitalopram Oxalate 10 mg 10/11/18 09:00 10/11/18 08:55 Lexapro PO 10 mg DAILY AMANDO Administration Famotidine 20 mg 10/09/18 21:00 10/11/18 08:54 Pepcid PO 20 mg DAILY AMANDO Administration Fentanyl 25 mcg 10/09/18 18:00 10/11/18 05:21 Fentanyl IVP 25 mcg Q2HR PRN Administration PAIN Gabapentin 100 mg 10/10/18 21:00 10/11/18 08:53 Neurontin PO 100 mg BID AMANDO Administration Ceftriaxone Sodium 1 gm/ 100 mls @ 200 mls/hr 10/09/18 20:18 10/11/18 08:57 Sodium Chloride IV 200 mls/hr DAILY AMANDO Administration Sodium Chloride 500 mls @ 0 mls/hr 10/10/18 15:57 10/10/18 22:26 Normal Saline 0.9% IV 20 mls/hr Q24H PRN Infusion TKO RATE TKO Lactobacillus Rhamnosus 1 cap 10/10/18 12:00 10/11/18 08:55 Culturelle PO 1 cap DAILY AMANDO Administration Levothyroxine Sodium 50 mcg 10/11/18 07:00 10/11/18 06:17 Synthroid PO 50 mcg QDAC AMANDO Administration Multivitamins/Minerals 1 tab 10/10/18 12:00 10/11/18 08:54 Theragran M PO 1 tab DAILYWM AMANDO Administration Nifedipine 30 mg 10/11/18 09:00 10/11/18 08:56 Procardia Xl PO 30 mg DAILY AMANDO Administration Oxybutynin Chloride 5 mg 10/10/18 21:00 10/11/18 08:54 Ditropan PO 5 mg BID AMANDO Administration Oxycodone HCl 20 mg 10/10/18 21:00 10/11/18 08:53 Oxycontin PO 20 mg BID AMANDO Administration Polyethylene Glycol 17 gm 10/10/18 09:00 10/11/18 09:24 Miralax PO Not Given DAILY AMANDO Prednisone 5 mg 10/11/18 09:00 10/11/18 08:53 Deltasone PO 5 mg DAILY AMANDO Administration Sodium Chloride 10 ml 10/09/18 17:00 10/11/18 01:12 Normal Saline Flush 0.9% IVP Not Given 0100,0900,1700 AMANDO Spironolactone 25 mg 10/10/18 09:00 10/11/18 08:55 Aldactone PO 25 mg BID AMANDO Administration Throat Lozenges 1 lozenge 10/10/18 04:26 10/10/18 09:21 Cepacol MM 1 lozenge Q2HR PRN Administration Throat pain Trazodone HCl 50 mg 10/10/18 21:00 10/10/18 20:39 Desyrel PO 50 mg HS AMANDO Administration - Physical Exam General Appearance: positive: No acute distress, Lethargic Extremities: positive: No pedal edema, Other (LLE movement causing pain in Pelvis area; more anterior than posterior. Better control with less pain with movement of RLE. Still confusion intermittant.) Neurologic/Psychiatric: positive: Motor nml, Sensation nml Impression/Plan - Problem List Problem List: Ortho: Pt is having pain in pelvis that inhibits her mobility. PT is to continue with gentle progressive mobilization. Talked to Daughter and Patient. not available yesterday and today. Will follow if needed.
--- NOTE | 2018-10-11 16:06 | PROVIDER PROGRESS NOTE ---
Subjective - Prog Note Date Prog Note Date: 10/11/18 - Subjective Pt reports feeling: Improved Subjective: pt report pain on bilateral lower extremity and calf. pt is not sure if she landed on lower extremities. Xray and US ordered, will followup. pt denies fever, chill, chest pain, shortness of breath. Current Medications - Current Medications Current Medications: Active Medications Acetaminophen (Tylenol) 650 mg PO Q4HR PRN PRN Reason: Pain 1 to 4 Last Admin: 10/10/18 13:34 Dose: 650 mg Cholecalciferol (Vitamin D3) 1,000 unit PO DAILY [facility] Last Admin: 10/11/18 08:53 Dose: 1,000 unit Enoxaparin Sodium (Lovenox) 40 mg SUBQ DAILY [facility] Last Admin: 10/11/18 09:16 Dose: 40 mg Escitalopram Oxalate (Lexapro) 10 mg PO DAILY [facility] Last Admin: 10/11/18 08:55 Dose: 10 mg Famotidine (Pepcid) 20 mg PO DAILY [facility] Last Admin: 10/11/18 08:54 Dose: 20 mg Fentanyl (Fentanyl) 25 mcg IVP Q2HR PRN PRN Reason: PAIN Last Admin: 10/11/18 14:35 Dose: 25 mcg Gabapentin (Neurontin) 100 mg PO BID [facility] Last Admin: 10/11/18 08:53 Dose: 100 mg Ceftriaxone Sodium 1 gm/ (Sodium Chloride) 100 mls @ 200 mls/hr IV DAILY [facility] Last Infusion: 10/11/18 09:52 Dose: Infused Sodium Chloride (Normal Saline 0.9%) 500 mls @ 0 mls/hr IV Q24H PRN PRN Reason: TKO RATE Last Infusion: 10/10/18 22:26 Dose: 20 mls/hr Lactobacillus Rhamnosus (Culturelle) 1 cap PO DAILY [facility] Last Admin: 10/11/18 08:55 Dose: 1 cap Levothyroxine Sodium (Synthroid) 50 mcg PO QDAC [facility] Last Admin: 10/11/18 06:17 Dose: 50 mcg Multivitamins/Minerals (Theragran M) 1 tab PO DAILYWM [facility] Last Admin: 10/11/18 08:54 Dose: 1 tab Nifedipine (Procardia Xl) 30 mg PO DAILY [facility] Last Admin: 10/11/18 08:56 Dose: 30 mg Ondansetron HCl (Zofran Inj) 4 mg IVP Q6HR PRN PRN Reason: Nausea / Vomiting Oxybutynin Chloride (Ditropan) 5 mg PO BID [facility] Last Admin: 10/11/18 08:54 Dose: 5 mg Oxycodone HCl (Oxycontin) 40 mg PO DAILY [facility] Oxycodone HCl (Oxycontin) 20 mg PO QPM [facility] Polyethylene Glycol (Miralax) 17 gm PO DAILY [facility] Last Admin: 10/11/18 09:24 Dose: Not Given Prednisone (Deltasone) 5 mg PO DAILY [facility] Last Admin: 10/11/18 08:53 Dose: 5 mg Sodium Chloride (Normal Saline Flush 0.9%) 10 ml IVP PRN PRN PRN Reason: NEEDED PER PROVIDER ORDERS Sodium Chloride (Normal Saline Flush 0.9%) 10 ml IVP 0100,0900,1700 [facility] Last Admin: 10/11/18 14:13 Dose: Not Given Spironolactone (Aldactone) 25 mg PO BID [facility] Last Admin: 10/11/18 08:55 Dose: 25 mg Throat Lozenges (Cepacol) 1 lozenge MM Q2HR PRN PRN Reason: Throat pain Last Admin: 10/10/18 09:21 Dose: 1 lozenge Trazodone HCl (Desyrel) 50 mg PO [facility] Last Admin: 10/10/18 20:39 Dose: 50 mg Wheat Dextrin (Benefiber) 1 packet PO DAILY PRN PRN Reason: Constipation Zolpidem Tartrate (Ambien) 5 mg PO QPM PRN PRN Reason: Insomnia Furosemide [Lasix] 60 mg PO DAILY 07/11/12 NIFEdipine [Procardia Xl] 30 mg PO DAILY 07/11/12 Simvastatin 20 mg PO DAILY 07/11/12 Spironolactone [Aldactone] 25 mg PO BID 07/11/12 Trazodone HCl 50 mg PO HS 07/11/12 raNITIdine HCl [Ranitidine HCl] 150 mg PO BID 07/11/12 Oxybutynin [Ditropan] 5 mg PO BID 02/25/13 Cholecalciferol (Vitamin D3) [Vitamin D3] 1,000 unit PO DAILY 05/03/16 Vitamin E 1,000 unit PO DAILY 05/03/16 predniSONE [Prednisone] 5 mg PO DAILY 05/03/16 Gabapentin 100 mg PO BID 05/17/16 Escitalopram [Lexapro] 10 mg PO DAILY 10/10/18 Levothyroxine Sodium 50 mcg PO QDAC 10/10/18 Oxycodone HCl [Oxycontin] 20 mg PO BID 10/10/18 Objective - Vital Signs/Intake & Output Reviewed Vital Signs: Yes Vital Signs: Vital Signs x48h Temp Pulse Resp BP Pulse Ox 10/11/18 15:40 36.9 C 82 16 104/53 L 94 10/11/18 12:00 37.0 C 80 18 109/55 L 92 Intake & Output: Intake & Output 10/08/18 10/09/18 10/10/18 10/11/18 23:59 23:59 23:59 23:59 Intake Total 300 3014.333 660 Output Total 450 1675 550 Balance -150 1339.333 110 - Objective General Appearance: positive: No acute distress, Alert. negative: Lethargic Eyes Bilateral: positive: Normal inspection, PERRL, No lid inflammation, Conjunctivae nml ENT: positive: ENT inspection nml, Pharynx nml, No signs of dehydration. negative: Purulent nasal drainage, Pharyngeal erythema, Oral lesions Neck: positive: Nml inspection, Thyroid nml, No JVD, Trachea midline. negative: Thyromegaly, Lymphadenopathy (R), Lymphadenopathy (L), Stiff neck, Swelling/bruising, Tracheal deviation Respiratory: positive: Chest non-tender, No respiratory distress, Breath sounds nml. negative: Wheezes, Rales, Rhonchi Cardiovascular: positive: Regular rate & rhythm, No murmur, No gallop. negative: Irregularly irregular, Extrasystoles, Tachycardia, Bradycardia, JVD present, Systolic murmur, Diastolic murmur Peripheral Pulses: 2+ Radial (R), 2+ Radial (L), 2+ Dorsalis pedis (R), 2+ Dorsalis pedis (L) Abdomen: positive: No organomegaly, Nml bowel sounds, No distention. negative: Tenderness, Guarding, Rebound Back: positive: Nml inspection. negative: CVA tenderness (R), CVA tenderness (L) Skin: positive: Color nml, No rash, Warm, Dry. negative: Cyanosis, Diaphoresis, Pallor Extremities: positive: Nml appearance, Calf tenderness. negative: Raheem's sign/cords Neurologic/Psychiatric: positive: Oriented x3, Sensation nml, Mood/affect nml. negative: Weakness, Sensory loss, Facial droop, Slurred/abnml speech, Depressed mood/affect - Lab Results Fish Bones: 10/11/18 05:07 10/11/18 05:07 Other Labs: Lab Results x24hrs 10/11/18 10/11/18 Range/Units 05:07 05:07 WBC 10.7 (4.8-10.8) x10^3/uL RBC 3.92 L (4.20-5.40) 10^6/uL Hgb 12.3 (12.0-16.0) g/dL Hct 39.0 (37.0-47.0) % MCV 99.5 H (81.0-99.0) fL MCH 31.4 H (27.0-31.0) pg MCHC 31.5 L (32.0-36.0) g/dL RDW 14.5 (12.0-15.0) % Plt Count 172 (130-450) 10^3/uL MPV 10.6 (7.9-10.8) fL Neut # (Auto) 7.8 H (1.5-6.6) 10^3/uL Lymph # (Auto) 1.5 (1.5-3.5) 10^3/uL [place] # (Auto) 0.8 (0.0-1.0) 10^3/uL Eos # (Auto) 0.6 (0.0-0.7) 10^3/uL Baso # (Auto) 0.1 (0.0-0.1) 10^3/uL Absolute Nucleated RBC 0.00 x10^3/uL Nucleated RBC % 0.0 /100WBC Sodium 143 (135-145) mmol/L Potassium 3.1 L (3.5-5.0) mmol/L Chloride 105 (101-111) mmol/L Carbon Dioxide 28 (21-32) mmol/L Anion Gap 10.0 (6-13) BUN 13 (6-20) mg/dL Creatinine 1.1 H (0.4-1.0) mg/dL Estimated GFR (MDRD) 48 L (>89) Glucose 92 (70-100) mg/dL Calcium 8.6 (8.5-10.3) mg/dL ABX Reporting Has patient been on IV antibiotics over the past 48 hours?: Yes Sepsis Event Note (H) - Evaluation Current Stage of Sepsis: Ruled out Assessment/Plan - Problem List (1) Pelvic fracture Impression: 10/11 pt report pain when she move her leg. pt report she took 40 mg oxycodon ER on daily and 20mg Oxycodon ER on night before when she had ortho surgery before. order 40 mg OXycodon ER 40 daily and 20 mg PM, continue PRN fentanyl followup orthopedics continue PT/OT order incentive spirometry continue DVT prophylaxis 10/10 pt has lots of pelvic pain, can not bear weight. continue pain control followup orthopedics continue PT/OT order incentive spirometry continue DVT prophylaxis pt has fall. CT and Xray reveals pt has pelvic fracture. pt can not bear weight, pt is very painful. Orthopedics was called and consulted. Pt had allergy to Morphine. ER gave pt Fentany IV, it appears Fentany IV work for pt for pain control consult with orthopedics consult with PT/OT consult social sciences chair Lovenox for DVT prophylaxis IV of pain meds fentanyl to control the pain, pt is allergy to Morphine (2) UTI (urinary tract infection) Conclusion/Plan: 10/11 UA culture reveals gram negative Bryan but sensitivity is pending, continue Rocephin 10/10 UA culture is pending. pt has hx of UTI continue Rocephin now pt had elevated WBC, hx of urinary incontinence. but pt denies dysuria and hematuria. UA analysis indicate UTI treat with rocephin UA culture is pending. (3) Hypokalemia Conclusion/Plan: resolved K is 3.1. placement of potassium, lab monitor (4) CKD (chronic kidney disease) stage 3, GFR 30-59 ml/min Conclusion/Plan: pt has hx of CKD stage 3, now stable keep gently hydration, lab monitor (5) Hx of rheumatoid arthritis Conclusion/Plan: pt has hx of RA, home meds Prednisone. will reconcile after Pharmacy verify (6) Osteoporosis Conclusion/Plan: hx of osteoporosis, multiple ortho surgeries. will check Vitamin D level, reconcile home D3, and osteoporosis consult (7) HTN (hypertension) Conclusion/Plan: stable, will reconcile home meds after Pharmacy verify (8) Hypothyroidism Conclusion/Plan: stable, will check TSH and start on home meds after pharmacy verify (9) GERD (gastroesophageal reflux disease) Conclusion/Plan: stable, Pepcid bid on hospital (10) Urinary incontinence Conclusion/Plan: pt has hx of urinary incontinency, not she had pelvic fractures. Put Miranda and continue Miranda care.
--- NOTE | 2018-10-11 16:36 | Ultrasound Report ---
Reason: bilateral calf pain, DVT? Procedure Date: 10/11/2018 Accession Number: [id number] / [id number] Procedure: US - Duplex Ext Veins Bilateral CPT Code: FULL RESULT: EXAM: BILATERAL LOWER EXTREMITY VENOUS ULTRASOUND EXAM DATE: 10/11/2018 03:43 PM. CLINICAL HISTORY: Bilateral calf pain, DVT?. COMPARISON: None. TECHNIQUE: Real-time sonographic vascular imaging was performed by the pelletizer through the lower extremities utilizing both color-flow and Doppler spectral analysis. Multiple residential sales representative static images were saved for review. FINDINGS: Right: Common Femoral Vein (CFV): Normal. CFV-GSV Junction: Normal. Profunda Femoral Vein (PFV): Normal. Femoral Vein (FV) Prox: Normal. Femoral Vein (FV) Mid: Normal. Femoral Vein (FV) Dist: Normal. Popliteal Vein: Normal. Posterior Tibial Veins: Normal. Peroneal Veins: Normal. Left: Common Femoral Vein (CFV): Normal. CFV-GSV Junction: Normal. Profunda Femoral Vein (PFV): Normal. Femoral Vein (FV) Prox: Normal. Femoral Vein (FV) Mid: Normal. Femoral Vein (FV) Dist: Normal. Popliteal Vein: Normal. Posterior Tibial Veins: Not seen. Peroneal Veins: Not seen. Other: None. IMPRESSION: Posterior tibial and peroneal veins not seen on the left. Within the remaining deep veins of the bilateral lower extremities, there is no evidence of occlusive thrombus. [facility]
--- NOTE | 2018-10-11 16:38 | XRAY Report ---
Reason: fall, complain of pain Procedure Date: 10/11/2018 Accession Number: [id number] / [id number] Procedure: XR - Tib/Fib BILAT CPT Code: FULL RESULT: EXAM: 1. RIGHT TIBIA/FIBULA RADIOGRAPHY 2. LEFT TIBIA/FIBULA RADIOGRAPHY EXAM DATE: 10/11/2018 03:07 PM. CLINICAL HISTORY: Fall. Complain of bilateral calf pain. COMPARISON: KNEE 3 VIEW RT 07/03/2018 11:25 AM. TECHNIQUE: 2 views each. FINDINGS: Right: Bones: Normal. No fracture or bone lesion. Joints: The visualized knee and ankle joints are normal. No effusions. Soft Tissues: Unremarkable. Left: Bones: Medial plate and screws bridge proximal tibial fracture deformity. No acute bony abnormality. Joints: Unremarkable knee joint. Talotibial prosthesis in place at the ankle. Soft Tissues: Unremarkable. IMPRESSION: 1. No acute bony abnormality on either side. 2. Old proximal left tibial fracture fixation. 3. Talotibial ankle prosthesis on the left. [facility]IA
[2018-10-11] MEDS ORDERED: oxyCODONE ER 40 MG TABLET PO SCH ×2 (21:00)
[2018-10-11] MEDS: traZODone 50 MG TABLET PO SCH (21:22)
[2018-10-11] MEDS: SODIUM CHLORIDE 0.9% 500 ML IV PRN (21:30)
[2018-10-12] MEDS: fentaNYL 100 MCG/2 ML VIAL IVP PRN ×3 (00:39→14:55)
[2018-10-12] MEDS: SODIUM CHLORIDE FLUSH 0.9% 10 ML SYRINGE IVP SCH ×3 (00:40→20:27)
[2018-10-12 06:04] LABS: BASOPHILS % (AUTO) 0.4 %; EOSINOPHILS # (AUTO) 0.4 10^3/uL (0.0-0.7); EOSINOPHILS % (AUTO) 4.1 %; HGB - HEMOGLOBIN 10.6 g/dL (12.0-16.0); LYMPHOCYTES # (AUTO) 1.6 10^3/uL (1.5-3.5); LYMPHOCYTES % (AUTO) 16.4 %; MEAN CORPUSCULAR HEMOGLOBIN 31.2 pg (27.0-31.0); MEAN CORPUSCULAR HGB CONC 31.5 g/dL (32.0-36.0); MEAN CORPUSCULAR VOLUME 99.1 fL (81.0-99.0); MEAN PLATELET VOLUME 10.2 fL (7.9-10.8); MONOCYTES % (AUTO) 9.7 %; NEUTROPHILS # (AUTO) 6.9 10^3/uL (1.5-6.6); PLT - PLATELET COUNT 161 10^3/uL (130-450); RED CELL DISTRIBUTION WIDTH 14.4 % (12.0-15.0)
[2018-10-12 06:09] LABS: CALCIUM 8.8 mg/dL (8.5-10.3); CREATININE 1.1 mg/dL (0.4-1.0)
[2018-10-12] MEDS: cefTRIAXone 1 GM in SODIUM CHLORIDE 0.9% MINIBAG 100 ML IV SCH (08:37)
[2018-10-12] MEDS: LEVOTHYROXINE 25 MCG TABLET PO SCH (09:15)
[2018-10-12] MEDS: ESCITALOPRAM 10 MG TABLET PO SCH (09:16)
[2018-10-12] MEDS: MULTIVITAMIN W/MINERALS TABLET PO SCH (09:16)
[2018-10-12] MEDS: LACTOBACILLUS RHAMNOSUS GG CAPSULE PO SCH (09:16)
[2018-10-12] MEDS: NIFEdipine ER 30 MG TABLET PO SCH (09:16)
[2018-10-12] MEDS: FAMOTIDINE 20 MG TABLET PO SCH (09:17)
[2018-10-12] MEDS: SPIRONOLACTONE 25 MG TABLET PO SCH ×2 (09:17→20:26)
[2018-10-12] MEDS: oxyCODONE ER 40 MG TABLET PO SCH (09:17)
[2018-10-12] MEDS: predniSONE 5 MG TABLET PO SCH (09:17)
[2018-10-12] MEDS: GABAPENTIN 100 MG CAPSULE PO SCH ×2 (09:17→20:26)
[2018-10-12] MEDS: CHOLECALCIFEROL 1,000 UNIT TABLET PO SCH (09:18)
[2018-10-12] MEDS: POLYETHYLENE GLYCOL 3350 17 GM PACKET PO SCH (09:19)
[2018-10-12] MEDS: ENOXAPARIN 40 MG/0.4 ML SYRINGE SUBQ SCH (09:20)
[2018-10-12] MEDS ORDERED: SODIUM CHLORIDE FLUSH 0.9% 10 ML SYRINGE ONE (13:11)
--- NOTE | 2018-10-12 14:04 | PROVIDER PROGRESS NOTE ---
Subjective - Prog Note Date Prog Note Date: 10/12/18 - Subjective Pt reports feeling: Improved Subjective: pt report her pain is better controlled. pt's UA sensitivity reveals positive Proteus Hauseri, and has multiple resistance. Pt's O2 sats is slight reduced. discussed with nurse the care plan and prevention of pneumonia, and continue incentive spirometry. discussed with social work professor for placement plan. cut in worker will discuss with pt and pt's family for placement plan PT recommended pt be d/c to SNF Current Medications - Current Medications Current Medications: Active Medications Acetaminophen (Tylenol) 650 mg PO Q4HR PRN PRN Reason: Pain 1 to 4 Last Admin: 10/10/18 13:34 Dose: 650 mg Cholecalciferol (Vitamin D3) 1,000 unit PO DAILY [facility] Last Admin: 10/12/18 09:18 Dose: 1,000 unit Enoxaparin Sodium (Lovenox) 40 mg SUBQ DAILY [facility] Last Admin: 10/12/18 09:20 Dose: 40 mg Escitalopram Oxalate (Lexapro) 10 mg PO DAILY [facility] Last Admin: 10/12/18 09:16 Dose: 10 mg Famotidine (Pepcid) 20 mg PO DAILY [facility] Last Admin: 10/12/18 09:17 Dose: 20 mg Fentanyl (Fentanyl) 25 mcg IVP Q2HR PRN PRN Reason: PAIN Last Admin: 10/12/18 11:41 Dose: 25 mcg Gabapentin (Neurontin) 100 mg PO BID [facility] Last Admin: 10/12/18 09:17 Dose: 100 mg Ceftriaxone Sodium 1 gm/ (Sodium Chloride) 100 mls @ 200 mls/hr IV DAILY [facility] Last Infusion: 10/12/18 09:14 Dose: Infused Sodium Chloride (Normal Saline 0.9%) 500 mls @ 0 mls/hr IV Q24H PRN PRN Reason: TKO RATE Last Admin: 10/11/18 21:30 Dose: 20 mls/hr Lactobacillus Rhamnosus (Culturelle) 1 cap PO DAILY [facility] Last Admin: 10/12/18 09:16 Dose: 1 cap Levothyroxine Sodium (Synthroid) 50 mcg PO QDAC [facility] Last Admin: 10/12/18 09:15 Dose: 50 mcg Multivitamins/Minerals (Theragran M) 1 tab PO DAILYWM [facility] Last Admin: 10/12/18 09:16 Dose: 1 tab Nifedipine (Procardia Xl) 30 mg PO DAILY [facility] Last Admin: 10/12/18 09:16 Dose: 30 mg Ondansetron HCl (Zofran Inj) 4 mg IVP Q6HR PRN PRN Reason: Nausea / Vomiting Oxycodone HCl (Oxycontin) 40 mg PO DAILY [facility] Last Admin: 10/12/18 09:17 Dose: 40 mg Oxycodone HCl (Oxycontin) 20 mg PO QPM [facility] Last Admin: 10/11/18 21:22 Dose: 20 mg Polyethylene Glycol (Miralax) 17 gm PO DAILY [facility] Last Admin: 10/12/18 09:19 Dose: Not Given Prednisone (Deltasone) 5 mg PO DAILY [facility] Last Admin: 10/12/18 09:17 Dose: 5 mg Sodium Chloride (Normal Saline Flush 0.9%) 10 ml IVP PRN PRN PRN Reason: NEEDED PER PROVIDER ORDERS Sodium Chloride (Normal Saline Flush 0.9%) 10 ml IVP 0100,0900,1700 [facility] Last Admin: 10/12/18 00:40 Dose: 10 ml Spironolactone (Aldactone) 25 mg PO BID [facility] Last Admin: 10/12/18 09:17 Dose: 25 mg Throat Lozenges (Cepacol) 1 lozenge MM Q2HR PRN PRN Reason: Throat pain Last Admin: 10/10/18 09:21 Dose: 1 lozenge Trazodone HCl (Desyrel) 50 mg PO HS [facility] Last Admin: 10/11/18 21:22 Dose: 50 mg Wheat Dextrin (Benefiber) 1 packet PO DAILY PRN PRN Reason: Constipation Zolpidem Tartrate (Ambien) 5 mg PO QPM PRN PRN Reason: Insomnia Last Admin: 10/12/18 00:40 Dose: 5 mg Furosemide [Lasix] 60 mg PO DAILY 07/11/12 NIFEdipine [Procardia Xl] 30 mg PO DAILY 07/11/12 Simvastatin 20 mg PO DAILY 07/11/12 Spironolactone [Aldactone] 25 mg PO BID 07/11/12 Trazodone HCl 50 mg PO HS 07/11/12 raNITIdine HCl [Ranitidine HCl] 150 mg PO BID 07/11/12 Oxybutynin [Ditropan] 5 mg PO BID 02/25/13 Cholecalciferol (Vitamin D3) [Vitamin D3] 1,000 unit PO DAILY 05/03/16 Vitamin E 1,000 unit PO DAILY 05/03/16 predniSONE [Prednisone] 5 mg PO DAILY 05/03/16 Gabapentin 100 mg PO BID 05/17/16 Escitalopram [Lexapro] 10 mg PO DAILY 10/10/18 Levothyroxine Sodium 50 mcg PO QDAC 10/10/18 Oxycodone HCl [Oxycontin] 20 mg PO BID 10/10/18 Objective - Vital Signs/Intake & Output Reviewed Vital Signs: Yes Vital Signs: Vital Signs x48h Temp Pulse Resp BP Pulse Ox 10/12/18 09:00 36.6 C 77 16 122/57 L 92 Intake & Output: Intake & Output 10/09/18 10/10/18 10/11/18 10/12/18 23:59 23:59 23:59 23:59 Intake Total 300 3014.333 1734 100 Output Total 450 1675 750 200 Balance -150 1339.333 984 -100 - Objective General Appearance: positive: No acute distress, Alert. negative: Lethargic Eyes Bilateral: positive: Normal inspection, PERRL, No lid inflammation, Conjunctivae nml ENT: positive: ENT inspection nml, Pharynx nml, No signs of dehydration. negative: Purulent nasal drainage, Pharyngeal erythema, Oral lesions Neck: positive: Nml inspection, Thyroid nml, No JVD, Trachea midline. negative: Thyromegaly, Lymphadenopathy (R), Lymphadenopathy (L), Stiff neck, Swelling/bruising, Tracheal deviation Respiratory: positive: Chest non-tender, No respiratory distress, Breath sounds nml. negative: Wheezes, Rales, Rhonchi Cardiovascular: positive: Regular rate & rhythm, No murmur, No gallop. negative: Irregularly irregular, Extrasystoles, Tachycardia, Bradycardia, JVD present, Systolic murmur, Diastolic murmur Peripheral Pulses: 2+ Radial (R), 2+ Radial (L), 2+ Dorsalis pedis (R), 2+ Dorsalis pedis (L) Abdomen: positive: Non-tender, No organomegaly, Nml bowel sounds, No distention. negative: Tenderness, Guarding, Rebound Back: positive: Nml inspection. negative: CVA tenderness (R), CVA tenderness (L) Skin: positive: Color nml, No rash, Warm, Dry. negative: Cyanosis, Diaphoresis, Pallor Extremities: positive: Non-tender, Nml appearance. negative: Full ROM, Calf tenderness, Raheem's sign/cords Neurologic/Psychiatric: positive: Oriented x3, Sensation nml, Mood/affect nml. negative: Weakness, Sensory loss, Facial droop, Slurred/abnml speech, Depressed mood/affect - Lab Results Fish Bones: 10/12/18 05:50 10/12/18 05:50 Other Labs: Lab Results x24hrs 10/12/18 10/12/18 Range/Units 05:50 05:50 WBC 10.0 (4.8-10.8) x10^3/uL RBC 3.40 L (4.20-5.40) 10^6/uL Hgb 10.6 L (12.0-16.0) g/dL Hct 33.7 L (37.0-47.0) % MCV 99.1 H (81.0-99.0) fL MCH 31.2 H (27.0-31.0) pg MCHC 31.5 L (32.0-36.0) g/dL RDW 14.4 (12.0-15.0) % Plt Count 161 (130-450) 10^3/uL MPV 10.2 (7.9-10.8) fL Neut # (Auto) 6.9 H (1.5-6.6) 10^3/uL Lymph # (Auto) 1.6 (1.5-3.5) 10^3/uL [place] # (Auto) 1.0 (0.0-1.0) 10^3/uL Eos # (Auto) 0.4 (0.0-0.7) 10^3/uL Baso # (Auto) 0.0 (0.0-0.1) 10^3/uL Absolute Nucleated RBC 0.00 x10^3/uL Nucleated RBC % 0.0 /100WBC Sodium 143 (135-145) mmol/L Potassium 3.7 (3.5-5.0) mmol/L Chloride 108 (101-111) mmol/L Carbon Dioxide 28 (21-32) mmol/L Anion Gap 7.0 (6-13) BUN 13 (6-20) mg/dL Creatinine 1.1 H (0.4-1.0) mg/dL Estimated GFR (MDRD) 48 L (>89) Glucose 111 H (70-100) mg/dL Calcium 8.8 (8.5-10.3) mg/dL ABX Reporting Has patient been on IV antibiotics over the past 48 hours?: Yes Sepsis Event Note (H) - Evaluation Current Stage of Sepsis: Ruled out Assessment/Plan - Problem List (1) Pelvic fracture Impression: 10/12. continue PT/OT, continue incentive spirometry, continue pain control discussed with social work professor for placement. pt is pending on placement 10/11 pt report pain when she move her leg. pt report she took 40 mg oxycodon ER on daily and 20mg Oxycodon ER on night before when she had ortho surgery before. order 40 mg OXycodon ER 40 daily and 20 mg PM, continue PRN fentanyl followup orthopedics continue PT/OT order incentive spirometry continue DVT prophylaxis 10/10 pt has lots of pelvic pain, can not bear weight. continue pain control followup orthopedics continue PT/OT order incentive spirometry continue DVT prophylaxis pt has fall. CT and Xray reveals pt has pelvic fracture. pt can not bear weight, pt is very painful. Orthopedics was called and consulted. Pt had allergy to Morphine. ER gave pt Fentany IV, it appears Fentany IV work for pt for pain control consult with orthopedics consult with PT/OT consult social work professor Lovenox for DVT prophylaxis IV of pain meds fentanyl to control the pain, pt is allergy to Morphine (2) UTI (urinary tract infection) Conclusion/Plan: 10/12 sensitivity study found positive for Proteus Hauseri, which had many drug resistance. continue Rocephin, which is sensitive to Proteus Hauseri 10/11 UA culture reveals gram negative Bryan but sensitivity is pending, continue Rocephin 10/10 UA culture is pending. pt has hx of UTI continue Rocephin now pt had elevated WBC, hx of urinary incontinence. but pt denies dysuria and hematuria. UA analysis indicate UTI treat with rocephin UA culture is pending. (3) Hypokalemia Conclusion/Plan: resolved K is 3.1. placement of potassium, lab monitor (4) CKD (chronic kidney disease) stage 3, GFR 30-59 ml/min Conclusion/Plan: 10/12 improved. Creatinine is 1.1 today, continue hydration. pt has hx of CKD stage 3, now stable keep gently hydration, lab monitor (5) Hx of rheumatoid arthritis Conclusion/Plan: pt has hx of RA, home meds Prednisone. will reconcile after Pharmacy verify (6) Osteoporosis Conclusion/Plan: hx of osteoporosis, multiple ortho surgeries. will check Vitamin D level, reconcile home D3, and osteoporosis consult (7) HTN (hypertension) Conclusion/Plan: stable, will reconcile home meds after Pharmacy verify (8) Hypothyroidism Conclusion/Plan: 10/12 TSh is normal, continue Levothyroxene stable, will check TSH and start on home meds after pharmacy verify (9) GERD (gastroesophageal reflux disease) Conclusion/Plan: stable, Pepcid bid on hospital (10) Urinary incontinence Conclusion/Plan: pt has hx of urinary incontinency, now she had pelvic fractures. Put Miranda and continue Miranda care.
[2018-10-12] MEDS ORDERED: fentaNYL 50 MCG PATCH TOP SCH (16:00)
[2018-10-12] MEDS: ACETAMINOPHEN 325 MG TABLET PO PRN (16:31)
[2018-10-12] MEDS: traZODone 50 MG TABLET PO SCH (20:26)
[2018-10-12] MEDS: oxyCODONE ER 10 MG TABLET PO SCH (20:26)
[2018-10-13] MEDS: SODIUM CHLORIDE FLUSH 0.9% 10 ML SYRINGE IVP SCH ×2 (01:26→08:57)
[2018-10-13] MEDS: ACETAMINOPHEN 325 MG TABLET PO PRN (03:22)
[2018-10-13 05:59] LABS: BASOPHILS # (AUTO) 0.1 10^3/uL (0.0-0.1); BASOPHILS % (AUTO) 0.7 %; EOSINOPHILS # (AUTO) 0.5 10^3/uL (0.0-0.7); EOSINOPHILS % (AUTO) 5.5 %; HGB - HEMOGLOBIN 11.1 g/dL (12.0-16.0); LYMPHOCYTES # (AUTO) 1.6 10^3/uL (1.5-3.5); LYMPHOCYTES % (AUTO) 17.7 %; MEAN CORPUSCULAR HGB CONC 32.1 g/dL (32.0-36.0); MEAN CORPUSCULAR VOLUME 99.7 fL (81.0-99.0); MEAN PLATELET VOLUME 10.5 fL (7.9-10.8); MONOCYTES # (AUTO) 0.9 10^3/uL (0.0-1.0); MONOCYTES % (AUTO) 10.5 %; NEUTROPHILS # (AUTO) 5.9 10^3/uL (1.5-6.6); NEUTROPHILS % (AUTO) 65.2 %; PLT - PLATELET COUNT 179 10^3/uL (130-450); RED BLOOD COUNT 3.47 10^6/uL (4.20-5.40); RED CELL DISTRIBUTION WIDTH 14.6 % (12.0-15.0)
[2018-10-13 06:11] LABS: CALCIUM 8.7 mg/dL (8.5-10.3)
[2018-10-13] MEDS: LEVOTHYROXINE 25 MCG TABLET PO SCH (06:50)
--- NOTE | 2018-10-13 08:09 | PROVIDER PROGRESS NOTE ---
Subjective - General Admit Date: 10/09/18 - Review of Systems General: positive: Fatigue Musculoskeletal: positive: Joint pain Psychiatric: positive: Confusion Objective - Patient Data Reviewed Vital Signs: Yes Vital Signs: Vital Signs x48h Temp Pulse Resp BP Pulse Ox 10/13/18 07:07 36.7 C 57 L 16 113/55 L 94 10/13/18 04:10 36.7 C 94 16 128/48 L 95 10/13/18 00:30 36.5 C 51 L 16 122/58 L 96 Intake & Output: Intake and Output Totals x24h 10/11/18 10/12/18 10/13/18 23:59 23:59 23:59 Intake Total 1734 720 Output Total 750 425 200 Balance 984 295 -200 - Lab Results Lab Results: 10/13/18 05:31 10/13/18 05:31 Other Lab Results: Lab Results x24hrs 10/13/18 10/13/18 Range/Units 05:31 05:31 WBC 9.0 (4.8-10.8) x10^3/uL RBC 3.47 L (4.20-5.40) 10^6/uL Hgb 11.1 L (12.0-16.0) g/dL Hct 34.6 L (37.0-47.0) % MCV 99.7 H (81.0-99.0) fL MCH 32.0 H (27.0-31.0) pg MCHC 32.1 (32.0-36.0) g/dL RDW 14.6 (12.0-15.0) % Plt Count 179 (130-450) 10^3/uL MPV 10.5 (7.9-10.8) fL Neut # (Auto) 5.9 (1.5-6.6) 10^3/uL Lymph # (Auto) 1.6 (1.5-3.5) 10^3/uL [place] # (Auto) 0.9 (0.0-1.0) 10^3/uL Eos # (Auto) 0.5 (0.0-0.7) 10^3/uL Baso # (Auto) 0.1 (0.0-0.1) 10^3/uL Absolute Nucleated RBC 0.02 x10^3/uL Nucleated RBC % 0.2 /100WBC Sodium 141 (135-145) mmol/L Potassium 3.6 (3.5-5.0) mmol/L Chloride 107 (101-111) mmol/L Carbon Dioxide 25 (21-32) mmol/L Anion Gap 9.0 (6-13) BUN 12 (6-20) mg/dL Creatinine 1.0 (0.4-1.0) mg/dL Estimated GFR (MDRD) 53 L (>89) Glucose 122 H (70-100) mg/dL Calcium 8.7 (8.5-10.3) mg/dL - Current Medications Current Medications: Current Medications Generic Name Dose Route Start Last Admin Trade Name Freq PRN Reason Stop Dose Admin Acetaminophen 650 mg 10/09/18 16:05 10/13/18 03:22 Tylenol PO 650 mg Q4HR PRN Administration Pain 1 to 4 Cholecalciferol 1,000 unit 10/11/18 09:00 10/12/18 09:18 Vitamin D3 PO 1,000 unit DAILY [facility] Administration Enoxaparin Sodium 40 mg 10/10/18 09:00 10/12/18 09:20 Lovenox SUBQ 40 mg DAILY [facility] Administration Escitalopram Oxalate 10 mg 10/11/18 09:00 10/12/18 09:16 Lexapro PO 10 mg DAILY [facility] Administration Famotidine 20 mg 10/09/18 21:00 10/12/18 09:17 Pepcid PO 20 mg DAILY [facility] Administration Fentanyl 25 mcg 10/09/18 18:00 10/12/18 14:55 Fentanyl IVP 25 mcg Q2HR PRN Administration PAIN Fentanyl 1 patch 10/12/18 16:00 10/12/18 16:07 Duragesic TOP 1 patch Q3D [facility] Administration Gabapentin 100 mg 10/10/18 21:00 10/12/18 20:26 Neurontin PO 100 mg BID [facility] Administration Ceftriaxone Sodium 1 gm/ 100 mls @ 200 mls/hr 10/09/18 20:18 10/12/18 09:14 Sodium Chloride IV Infused DAILY [facility] Infusion Sodium Chloride 500 mls @ 0 mls/hr 10/10/18 15:57 10/11/18 21:30 Normal Saline 0.9% IV 20 mls/hr Q24H PRN Administration TKO RATE TKO Lactobacillus Rhamnosus 1 cap 10/10/18 12:00 10/12/18 09:16 Culturelle PO 1 cap DAILY [facility] Administration Levothyroxine Sodium 50 mcg 10/11/18 07:00 10/13/18 06:50 Synthroid PO 50 mcg QDAC [facility] Administration Multivitamins/Minerals 1 tab 10/10/18 12:00 10/12/18 09:16 Theragran M PO 1 tab DAILYWM [facility] Administration Nifedipine 30 mg 10/11/18 09:00 10/12/18 09:16 Procardia Xl PO 30 mg DAILY [facility] Administration Oxycodone HCl 40 mg 10/12/18 09:00 10/12/18 09:17 Oxycontin PO 40 mg DAILY [facility] Administration Oxycodone HCl 20 mg 10/11/18 21:00 10/12/18 20:26 Oxycontin PO 20 mg QPM [facility] Administration Polyethylene Glycol 17 gm 10/10/18 09:00 10/12/18 09:19 Miralax PO Not Given DAILY [facility] Prednisone 5 mg 10/11/18 09:00 10/12/18 09:17 Deltasone PO 5 mg DAILY [facility] Administration Sodium Chloride 10 ml 10/09/18 17:00 10/13/18 01:26 Normal Saline Flush 0.9% IVP Not Given 0100,0900,1700 [facility] Spironolactone 25 mg 10/10/18 09:00 10/12/18 20:26 Aldactone PO 25 mg BID [facility] Administration Throat Lozenges 1 lozenge 10/10/18 04:26 10/10/18 09:21 Cepacol MM 1 lozenge Q2HR PRN Administration Throat pain Trazodone HCl 50 mg 10/10/18 21:00 10/12/18 20:26 Desyrel PO 50 mg HS [facility] Administration Zolpidem Tartrate 5 mg 10/09/18 16:05 10/12/18 00:40 Ambien PO 5 mg QPM PRN Administration Insomnia - Physical Exam General Appearance: positive: No acute distress, Alert Extremities: positive: Non-tender Neurologic/Psychiatric: positive: Oriented x3, CN's nml (2-12), Motor nml, Sensation nml, Mood/affect nml Impression/Plan - Problem List Problem List: Ortho: This patient is showing dramatic improvement and less pain. She is sitting in a chair today and eating a full breakfast. I believe SNF will be helpful for a short time. Ruth can be removed from my perspective at any time.
[2018-10-13] MEDS: ENOXAPARIN 40 MG/0.4 ML SYRINGE SUBQ SCH (08:55)
[2018-10-13] MEDS: ESCITALOPRAM 10 MG TABLET PO SCH (08:56)
[2018-10-13] MEDS: FAMOTIDINE 20 MG TABLET PO SCH (08:56)
[2018-10-13] MEDS: SPIRONOLACTONE 25 MG TABLET PO SCH (08:56)
[2018-10-13] MEDS: GABAPENTIN 100 MG CAPSULE PO SCH (08:56)
[2018-10-13] MEDS: MULTIVITAMIN W/MINERALS TABLET PO SCH (08:56)
[2018-10-13] MEDS: cefTRIAXone 1 GM in SODIUM CHLORIDE 0.9% MINIBAG 100 ML IV SCH (08:56)
[2018-10-13] MEDS: predniSONE 5 MG TABLET PO SCH (08:56)
[2018-10-13] MEDS: oxyCODONE ER 40 MG TABLET PO SCH (08:56)
[2018-10-13] MEDS: CHOLECALCIFEROL 1,000 UNIT TABLET PO SCH (08:56)
[2018-10-13] MEDS: LACTOBACILLUS RHAMNOSUS GG CAPSULE PO SCH (08:56)
[2018-10-13] MEDS: POLYETHYLENE GLYCOL 3350 17 GM PACKET PO SCH (08:57)
[2018-10-13] MEDS: NIFEdipine ER 30 MG TABLET PO SCH (09:03)
[2018-10-13 11:21] VITALS: BP 132/49
--- NOTE | 2018-10-13 13:45 | Discharge Plan ---
"Discharge Plan for SNF / [facility] - Discharge Plan And Transition Orders Problem Reviewed?: Yes Disposition: 03 SNF DC/Xfer Condition: Stable Allergies and Adverse Reactions: Allergies Allergy/AdvReac Type Severity Reaction Status Date / Time meperidine HCl * AdvReac Intermediate Itching Verified 10/09/18 12:53 [From Demerol] morphine AdvReac Intermediate Anxiety Verified 10/09/18 12:53 Health Concerns: pelvic fracture, UTI, Miranda Plan of Treatment: pain control, continue PT/OT, followup orthopedics as needed. Cipro for UTI for finishing of the treatment course. pt request to keep her Miranda for short term for her pelvic fracture, please followup Miranda care and d/c as needed Care Goals: stabilization and improvement of pt's medical conditions. Assessment: assessment as the above. - SNF / CUSTODIAL Transition Orders Admit to (Facility): [facility] Under the care of (Name): Health Provider of [facility] Discharge Diagnosis: Pelvic fracture, UTI, CKD, RA, osteoporosis, HTN, hypothyroidism, GERD, urinary incontinence. Medicare Certification Statement: I certify that [facility] is medically necessary on a continuing basis for any of the conditions for which she/he is receiving care du [facility]. Notify PCP of admission and forward orders to primary provider for signature. Weight on admission and: Daily Call PCP immediately if weight increases by: 2 kg Other Notification Orders: Call PCP immediately if patient develops dyspnea, chest pain/tightness or edema. House Bowel Program: Yes Additional Bowel Program Orders: If no BM after 2 days, nurse may give M.O.M. 30ml PO PRN and/or ducolax Supp 1 MT and/or BETTINA 250mg P.O., and/or senna 1-2 tabs PO. On day 3 nurse may give repeat above order until residents constipation is resolved. Annual Influenza Vaccine (between Oct 19 and May 18): Yes Two-step PPD per [place] [id number] or approved exception documents: Yes Treatments & Other Orders: pt may followup health provider of [facility] when pt is arrival to, pt may continue PT/OT, continue pain control, finish antibiotics course for UTI. Pt choose keep her Miranda now, may d/c it as needed Orthopedic Orders: pt may followup orthopedics as needed Medication Orders: PLEASE REFER TO THE DISCHARGE MEDICATION LIST. Insulin Orders?: No - Medications New Prescriptions: Alendronate [Fosamax] 70 mg PO Q7D #1 tablet Ciprofloxacin HCl [Cipro] 500 mg PO BID #10 tablet fentaNYL 50 MCG PATCH [Duragesic 50mcg patch] 1 patch TOP Q3D PRN #1 patch PRN Reason: Pain oxyCODONE ER [OxyCONTIN] 20 mg PO QPM PRN #6 tablet PRN Reason: Pain oxyCODONE ER [OxyCONTIN] 40 mg PO DAILY PRN #3 tablet PRN Reason: Pain - Diet Type: Geriatric Texture: Regular Liquids: Thin May have monthly special meal: Yes - Therapies | Activity Therapy: Evaluation | Treat if indicated: PT, OT Rehabilitation Potential: Maximize functional status Activity: Activity as Tolerated Additional Instructions: pt may followup health provider of [facility] when pt is arrival to, pt may continue PT/OT, continue pain control, finish antibiotics course for UTI. Pt choose keep her Miranda now, june d/c it as needed"
--- NOTE | 2018-10-13 14:32 | DISCHARGE SUMMARY ---
"Discharge Summary Discharge Date: 10/13/18 Discharging Provider: HOPE Primary Care Provider: Telma Tompkins Condition at Discharge: Stable Discharge Disposition: 03 SNF DC/Xfer Discharge Facility Name: [facility] - DIAGNOSES Admission Diagnoses: (1) Pelvic fracture (2) UTI (urinary tract infection) (3) Hypokalemia (4) CKD (chronic kidney disease) stage 3, GFR 30-59 ml/min (5) Hx of rheumatoid arthritis (6) Osteoporosis (7) HTN (hypertension) (8) Hypothyroidism (9) GERD (gastroesophageal reflux disease) (10) Urinary incontinence Discharge Diagnoses with Status of Each Condition: (1) Pelvic fracture stable (2) UTI (urinary tract infection) resolved, continue antibiotics course (3) Hypokalemia resolved (4) CKD (chronic kidney disease) stage 3, GFR 30-59 ml/min improved and stable (5) Hx of rheumatoid arthritis stable (6) Osteoporosis stable (7) HTN (hypertension) stable (8) Hypothyroidism stable (9) GERD (gastroesophageal reflux disease) stable (10) Urinary retention stable, pt choose keep Miranda for her pelvic fracture and pain - HPI History of Present Illness: is a pato 78-year-old woman with a [facility] significance for bilateral hip repairs, RA, HTN, HLD, hypothyroidism, GERD, Osteoporosis, incontinence, hx of UTI, who present ER for complain of a fall and pelvic/hip pain. pt's is at the bedside to provide more informations. Pt had a slip, and fall in the kitchen. She report she landed directly on her left hip. After this episode she is unable to walk. Pt's pain is severe she can not move, can not bear weight. She denies she has another injury. CT of hip reveals Acute fractures of the left sacral ala and both pubic rami on the left. Orthopedics was called by ER provider. Lab test reveals elevated WBC, elevated creatinine level. UA analysis is pending. pt has slight elevated temperature otherwise she is hemodynamic stable. she denies dysuria, hematuira, chest pain, headache, vision change, fever, chill, cough, shortness of breath, nausea, vomiting, diarrhea, abdominal pain. Pt is admitted for above medical reason in observation unit - CONSULTS | PROCEDURES Consultations: Dr. Silverman Procedures: no procedure done - HOSPITAL COURSE Hospital Course: pt was admitted for fall. pt was found to have pelvic fracture, also UTI. pt has hx of UTI and urinary incontinence. orthopedics surgeon was consulted. Unfortunately there was no surgery repair for his pelvic fracture. Pt was treated pain controlled, evaluated and treated by PT/OT. pt also developed urinary retention. pt was treated with Rocephin for her UTI. Bacterial Proteus Hauseri was found in her UA. According to the sensitivity study, Cipro was prescribed for continuing UTI treatment course. Pt's Pelvic fracture pain was controlled and great improved. pt was d/c to [facility] for continue training and healing for her pelvic fracture. Pt choose keep Miranda for her pelvic fracture and pain now. The detail hospital course is as the below: 1) Pelvic fracture stable. pt was good controlled. pt is prescribe Oxycodon ER and Fentanyl patch. pt was d/c to [facility] for continuing training (2) UTI (urinary tract infection) resolved, continue antibiotics course. Bacterial Proteus Hauseri was found in her UA. According to the sensitivity study, Cipro was prescribed for continuing UTI treatment course. (3) Hypokalemia resolved (4) CKD (chronic kidney disease) stage 3, GFR 30-59 ml/min improved and stable (5) Hx of rheumatoid arthritis stable (6) Osteoporosis stable (7) HTN (hypertension) stable (8) Hypothyroidism stable (9) GERD (gastroesophageal reflux disease) stable (10) Urinary retention stable, pt choose keep Miranda for her pelvic fracture and pain - ALLERGIES Allergies/Adverse Reactions: Allergies Allergy/AdvReac Type Severity Reaction Status Date / Time meperidine HCl * AdvReac Intermediate Itching Verified 10/09/18 12:53 [From Demerol] morphine AdvReac Intermediate Anxiety Verified 10/09/18 12:53 - MEDICATIONS Home Medications: Ambulatory Orders Medication Instructions Recorded Confirmed Furosemide [Lasix] 60 mg PO DAILY 07/11/12 10/10/18 NIFEdipine [Procardia Xl] 30 mg PO DAILY 07/11/12 10/10/18 Simvastatin 20 mg PO DAILY 07/11/12 10/10/18 Spironolactone [Aldactone] 25 mg PO BID 07/11/12 10/10/18 Trazodone HCl 50 mg PO HS 07/11/12 10/10/18 raNITIdine HCl [Ranitidine HCl] 150 mg PO BID 07/11/12 10/10/18 Oxybutynin [Ditropan] 5 mg PO BID 02/25/13 10/10/18 Cholecalciferol (Vitamin D3) 1,000 unit PO DAILY 05/03/16 10/10/18 [Vitamin D3] Vitamin E 1,000 unit PO DAILY 05/03/16 10/10/18 predniSONE [Prednisone] 5 mg PO DAILY 05/03/16 10/10/18 Gabapentin 100 mg PO BID 05/17/16 10/10/18 Escitalopram [Lexapro] 10 mg PO DAILY 10/10/18 10/10/18 Levothyroxine Sodium 50 mcg PO QDAC 10/10/18 10/10/18 Oxycodone HCl [Oxycontin] 20 mg PO BID 10/10/18 10/10/18 Alendronate [Fosamax] 70 mg PO Q7D #1 tablet 10/13/18 Ciprofloxacin HCl [Cipro] 500 mg PO BID #10 tablet 10/13/18 fentaNYL 50 MCG PATCH [Duragesic 1 patch TOP Q3D PRN #1 patch 10/13/18 50mcg patch] oxyCODONE ER [OxyCONTIN] 20 mg PO QPM PRN #6 tablet 10/13/18 oxyCODONE ER [OxyCONTIN] 40 mg PO DAILY PRN #3 tablet 10/13/18 - PHYSICAL EXAM AT DISCHARGE General Appearance: positive: No acute distress, Alert. negative: Lethargic Eyes Bilateral: positive: Normal inspection, PERRL, No lid inflammation, Conjunctivae nml ENT: positive: ENT inspection nml, Pharynx nml, No signs of dehydration. negative: Purulent nasal drainage, Pharyngeal erythema, Oral lesions Neck: positive: Nml inspection, Thyroid nml, No JVD, Trachea midline. negative: Thyromegaly, Lymphadenopathy (R), Lymphadenopathy (L), Stiff neck, Swelling/bruising, Tracheal deviation Respiratory: positive: Chest non-tender, No respiratory distress, Breath sounds nml. negative: Wheezes, Rales, Rhonchi Cardiovascular: positive: Regular rate & rhythm, No murmur, No gallop. negative: Irregularly irregular, Extrasystoles, Tachycardia, Bradycardia, JVD present, Systolic murmur, Diastolic murmur Peripheral Pulses: positive: 2+ Abdomen: positive: Non-tender, No organomegaly, Nml bowel sounds, No distention. negative: Tenderness, Guarding, Rebound Back: positive: Nml inspection. negative: CVA tenderness (R), CVA tenderness (L) Skin: positive: Color nml, No rash, Warm, Dry. negative: Cyanosis, Diaphoresis, Pallor Extremities: positive: Non-tender, Nml appearance. negative: Calf tenderness, Raheem's sign/cords Neurologic/Psychiatric: positive: Oriented x3, Sensation nml, Mood/affect nml. negative: Weakness, Sensory loss, Facial droop, Slurred/abnml speech, Depressed mood/affect - LABS Result Diagrams: 10/13/18 05:31 10/13/18 05:31 - SEPSIS Current Stage of Sepsis: Ruled out - FOLLOW UP Follow Up: pt may followup health provider of [facility] when pt is arrival to, pt may con tinue PT/OT, may continue pain control, may finish antibiotics course for UTI. Pt choose keep her Miranda now, may d/c it as needed - TIME SPENT Time Spent in Discharge (Minutes): 60"
== END 2018-10-13 15:35 ==
LOC: EDUNIT# → ED 12:27 → MS2 16:05
PROVIDERS: ADMIT Nurse Practitioner Gerontology; ATTEND Nurse Practitioner Gerontology
DX: M80.052A Age-related osteoporosis with current pathological fracture, left femur, initial encounter for fracture (principal); N39.0 Urinary tract infection, site not specified; B96.89 Other specified bacterial agents as the cause of diseases classified elsewhere; I48.91 Unspecified atrial fibrillation; I12.9 Hypertensive chronic kidney disease with stage 1 through stage 4 chronic kidney disease, or unspecified chronic kidney disease; N18.3 Chronic kidney disease, stage 3 (moderate); E87.6 Hypokalemia; E78.5 Hyperlipidemia, unspecified; M06.9 Rheumatoid arthritis, unspecified; K21.9 Gastro-esophageal reflux disease without esophagitis; R32 Unspecified urinary incontinence; E03.9 Hypothyroidism, unspecified; F41.9 Anxiety disorder, unspecified; M79.662 Pain in left lower leg; M79.661 Pain in right lower leg; W01.0XXA Fall on same level from slipping, tripping and stumbling without subsequent striking against object, initial encounter; Y92.000 Kitchen of unspecified non-institutional (private) residence as the place of occurrence of the external cause; Z66 Do not resuscitate; Z16.24 Resistance to multiple antibiotics; Z96.643 Presence of artificial hip joint, bilateral; Z79.52 Long term (current) use of systemic steroids; Z88.5 Allergy status to narcotic agent; Z79.899 Other long term (current) drug therapy
CPT/HCPCS: 36415; 72192; 73502; 73590; 80048; 80053; 81001; 82306; 82652; 83690; 83735; 84443; 85025; 85610; 86850; 86900; 86901; 87077; 87086; 87181; 93005; 93970; 96361; 96365; 96366; 96372; 96375; 96376; 97110; 97162; 97167; 97530; 99285; A9270; G0378; J1650; J7512

== ENCOUNTER 2018-11-25 10:45 | Outpatient (CLI) | payer MEDICARE, OTHER | END 2018-11-25 23:59 | disposition home or self-care (01) | LOC: LAB.R 10:45 | PROVIDERS: ATTEND Physician Assistant Medical | DX: N39.0 Urinary tract infection, site not specified (principal) | CPT/HCPCS: 81002; 87086 ==

== ENCOUNTER 2018-12-06 14:17 | Outpatient (CLI) | payer MEDICARE, OTHER ==
--- NOTE | 2018-12-07 18:23 | XRAY Report ---
Reason: pelvic fracture 7 weeks ago and now has worsening pain Procedure Date: 12/06/2018 Accession Number: [id number] / [id number] Procedure: XR - Pelvis 1 View CPT Code: FULL RESULT: EXAM: PELVIS RADIOGRAPHY EXAM DATE: 12/06/2018 02:56 PM. CLINICAL HISTORY: Pelvic fracture 7 weeks ago and now has worsening pain. COMPARISON: SACRUM/COCCYX 12/06/2018 2:31 PM PELVIS W/O 10/09/2018 2:22 PM HIP W/PELVIS 2-3V LT 10/09/2018 12:55 PM. TECHNIQUE: 1 view. FINDINGS: Bones: Severe osteopenia seen limiting evaluation. Increased sclerosis of the fractures of the left superior and inferior pubic rami reflect progress towards healing. No new fractures are seen. Stable appearance of cannulated screws for fixation of the right proximal femur. No evidence for lucency or break. The sacral alar fractures are not well seen on plain radiography of the pelvis. Joints: Normal alignment of the pelvis. Left hip arthroplasty hardware shows expected appearance and alignment without evidence for lucency or break. Soft Tissues: Normal. No soft tissue swelling. IMPRESSION: 1. Increased sclerosis of the left pubic rami reflect progress towards healing. 2. No new fracture seen in the pelvis. RADIA
--- NOTE | 2018-12-07 18:25 | XRAY Report ---
Reason: sacral back pain Procedure Date: 12/06/2018 Accession Number: [id number] / [id number] Procedure: XR - Sacrum/Coccyx CPT Code: FULL RESULT: EXAM: SACRUM AND COCCYX RADIOGRAPHY EXAM DATE: 12/06/2018 02:56 PM. HISTORY: Sacral back pain. COMPARISONS: HIP W/PELVIS 2-3V LT 10/09/2018 12:55 PM. TECHNIQUE: 2 views. FINDINGS: Alignment: Normal. The sacrum and coccyx are normally aligned. Bones: Osteopenia is noted severely limited evaluation. Increased sclerosis of the left sacral ala at S1 and S2 may reflect healing of the prior nondisplaced sacral alar fracture. No other fracture lines are seen in the sacrum. Increased sclerosis also seen in the superior inferior left-sided pubic rami reflecting fracture healing. Joints: Normal alignment of the SI joints bilaterally. Soft Tissues: Unremarkable. IMPRESSION: 1. Osteopenia is noted limiting evaluation. 2. Increase sclerosis of the left sacrum likely reflects healing of the prior nondisplaced left sacral alar fracture. No new fracture is seen on plain radiography. RADIA
== END 2018-12-06 14:18 | disposition home or self-care (01) ==
LOC: DI 14:17
PROVIDERS: ATTEND Nurse Practitioner Gerontology
DX: M54.89 Other dorsalgia (principal); S32.9XXD Fracture of unspecified parts of lumbosacral spine and pelvis, subsequent encounter for fracture with routine healing; M85.88 Other specified disorders of bone density and structure, other site
CPT/HCPCS: 72170; 72220

== ENCOUNTER 2019-01-09 14:45 | Outpatient (CLI) | payer MEDICARE, OTHER ==
[2019-01-09 15:39] LABS: BASOPHILS # (AUTO) 0.1 10^3/uL (0.0-0.1); BASOPHILS % (AUTO) 0.7 %; EOSINOPHILS # (AUTO) 0.1 10^3/uL (0.0-0.7); EOSINOPHILS % (AUTO) 1.2 %; HGB - HEMOGLOBIN 13.3 g/dL (12.0-16.0); LYMPHOCYTES % (AUTO) 12.2 %; MEAN CORPUSCULAR HEMOGLOBIN 31.8 pg (27.0-31.0); MEAN CORPUSCULAR HGB CONC 32.1 g/dL (32.0-36.0); MONOCYTES # (AUTO) 0.3 10^3/uL (0.0-1.0); NEUTROPHILS # (AUTO) 6.9 10^3/uL (1.5-6.6); NEUTROPHILS % (AUTO) 81.5 %; PLT - PLATELET COUNT 281 10^3/uL (130-450); RED BLOOD COUNT 4.18 10^6/uL (4.20-5.40); RED CELL DISTRIBUTION WIDTH 13.3 % (12.0-15.0); WHITE BLOOD COUNT 8.5 x10^3/uL (4.8-10.8)
[2019-01-09 15:50] LABS: ALBUMIN/GLOBULIN RATIO 1.3 (1.0-2.2); BILIRUBIN,TOTAL 0.7 mg/dL (0.2-1.0); CALCIUM 9.1 mg/dL (8.5-10.3); CREATININE 1.1 mg/dL (0.4-1.0); TOTAL PROTEIN 7.1 g/dL (6.7-8.2)
== END 2019-01-09 23:59 | disposition home or self-care (01) ==
LOC: LAB.R 14:45
PROVIDERS: ATTEND Internal Medicine Rheumatology
DX: M05.79 Rheumatoid arthritis with rheumatoid factor of multiple sites without organ or systems involvement (principal)
CPT/HCPCS: 80053; 85025; 85651

== ENCOUNTER 2019-04-08 08:00 | Outpatient (CLI) | payer MEDICARE, OTHER ==
[2019-04-08 18:57] LABS: BASOPHILS % (AUTO) 0.4 %; EOSINOPHILS # (AUTO) 0.2 10^3/uL (0.0-0.7); HGB - HEMOGLOBIN 12.8 g/dL (12.0-16.0); LYMPHOCYTES # (AUTO) 1.4 10^3/uL (1.5-3.5); LYMPHOCYTES % (AUTO) 12.3 %; MEAN CORPUSCULAR HEMOGLOBIN 30.4 pg (27.0-31.0); MEAN CORPUSCULAR HGB CONC 30.7 g/dL (32.0-36.0); MEAN PLATELET VOLUME 11.8 fL (7.9-10.8); MONOCYTES # (AUTO) 0.7 10^3/uL (0.0-1.0); MONOCYTES % (AUTO) 6.5 %; NEUTROPHILS # (AUTO) 8.7 10^3/uL (1.5-6.6); NEUTROPHILS % (AUTO) 78.3 %; PLT - PLATELET COUNT 231 10^3/uL (130-450); RED BLOOD COUNT 4.21 10^6/uL (4.20-5.40); RED CELL DISTRIBUTION WIDTH 13.8 % (12.0-15.0); WHITE BLOOD COUNT 11.1 x10^3/uL (4.8-10.8)
[2019-04-08 19:20] LABS: ALBUMIN 3.9 g/dL (3.2-5.5); ALBUMIN/GLOBULIN RATIO 1.3 (1.0-2.2); BILIRUBIN,TOTAL 0.7 mg/dL (0.2-1.0); CALCIUM 9.4 mg/dL (8.5-10.3); CREATININE 1.1 mg/dL (0.4-1.0)
== END 2019-04-08 23:59 | disposition home or self-care (01) ==
LOC: LAB.WCP 08:00
PROVIDERS: ATTEND Internal Medicine Rheumatology
DX: M05.79 Rheumatoid arthritis with rheumatoid factor of multiple sites without organ or systems involvement (principal)
CPT/HCPCS: 36415; 80053; 85025; 85651

== ENCOUNTER 2019-08-20 08:00 | Outpatient (CLI) | payer MEDICARE, OTHER ==
[2019-08-20 19:26] LABS: H. PYLORIS ANTIGEN STL NEGATIVE (Negative)
== END 2019-08-20 23:59 | disposition home or self-care (01) ==
LOC: LAB.R 08:00
PROVIDERS: ATTEND Physician Assistant Medical
DX: K52.9 Noninfective gastroenteritis and colitis, unspecified (principal)
CPT/HCPCS: 81599; 83630; 87177; 87209; 87329; 87338; 87493

== ENCOUNTER 2019-10-15 12:57 | Outpatient (CLI) | payer MEDICARE, OTHER ==
--- NOTE | 2019-10-15 17:42 | DEXA Report ---
PROCEDURE: Dexa Spine and/or Hip INDICATIONS: POST MENOPAUSAL TECHNIQUE: Dual energy x-ray absorptiometry (DXA) was performed on a [employer] System. Regions measur ed are the AP Spine, femoral neck, and if needed forearm. COMPARISON: None. FINDINGS: Lumbar Spine: Bone Mineral Density 0.893 g/cm/cm,T score -2.4, osteopenia Left forearm: Bone Mineral Density 0.388 g/cm/cm, T score -4.7, osteopenia Impression: Osteopenia Patients with diagnosis of osteoporosis or osteopenia should have regular bone mineral density assess ment. For those eligible for Medicare, routine testing is allowed once every 2 years. Testing frequ ency can be increased for patients who have rapidly progressing disease or for those who are receivin g medical therapy to restore bone mass. Reviewed by: Anika Ash MD, PhD on 10/15/2019 5:41 PM PDT Approved by: Anika Ash MD, PhD on 10/15/2019 5:41 PM PDT Station ID: [id number]
== END 2019-10-15 12:58 | disposition home or self-care (01) ==
LOC: DI 12:57
PROVIDERS: ATTEND Physician Assistant Medical
DX: M85.89 Other specified disorders of bone density and structure, multiple sites (principal)
CPT/HCPCS: 77080

== ENCOUNTER 2020-02-09 14:27 | Outpatient (CLI) | payer MEDICARE, OTHER | END 2020-02-09 14:28 | disposition critical access hospital (66) | LOC: EMS 14:27 | PROVIDERS: ATTEND Surgery | DX: R52 Pain, unspecified (principal) | CPT/HCPCS: A0425; A0429 ==

== ENCOUNTER 2020-02-09 14:50 | Emergency (ER) | payer MEDICARE, OTHER ==
[2020-02-09 15:55] LABS: BASOPHILS # (AUTO) 0.1 10^3/uL (0.0-0.1); BASOPHILS % (AUTO) 0.6 %; EOSINOPHILS # (AUTO) 0.3 10^3/uL (0.0-0.7); EOSINOPHILS % (AUTO) 2.8 %; HGB - HEMOGLOBIN 12.1 g/dL (12.0-16.0); LYMPHOCYTES # (AUTO) 1.4 10^3/uL (1.5-3.5); LYMPHOCYTES % (AUTO) 11.6 %; MEAN CORPUSCULAR HEMOGLOBIN 32.4 pg (27.0-31.0); MEAN CORPUSCULAR HGB CONC 32.8 g/dL (32.0-36.0); MEAN CORPUSCULAR VOLUME 98.7 fL (81.0-99.0); MEAN PLATELET VOLUME 9.6 fL (7.9-10.8); MONOCYTES # (AUTO) 1.4 10^3/uL (0.0-1.0); MONOCYTES % (AUTO) 12.1 %; NEUTROPHILS # (AUTO) 8.7 10^3/uL (1.5-6.6); NEUTROPHILS % (AUTO) 72.6 %; PLT - PLATELET COUNT 236 10^3/uL (130-450); RED BLOOD COUNT 3.74 10^6/uL (4.20-5.40); RED CELL DISTRIBUTION WIDTH 13.3 % (12.0-15.0)
[2020-02-09 16:04] LABS: INR 1.2 (0.8-1.2); PT - PROTHROMBIN TIME 13.1 secs (9.9-12.6)
[2020-02-09 16:07] LABS: ALBUMIN 3.8 g/dL (3.2-5.5); ALBUMIN/GLOBULIN RATIO 1.3 (1.0-2.2); BILIRUBIN,TOTAL 1.1 mg/dL (0.2-1.0); CALCIUM 9.4 mg/dL (8.5-10.3); CREATININE 1.2 mg/dL (0.4-1.0); TOTAL PROTEIN 6.7 g/dL (6.7-8.2)
[2020-02-09] MEDS ORDERED: KETOROLAC 30 MG/ML VIAL IVP STA (16:34)
[2020-02-09] MEDS ORDERED: SODIUM CHLORIDE 0.9% 1,000 ML IV STA ×2 (16:34→18:51)
--- NOTE | 2020-02-09 16:39 | ED Physician Documentation ---
PD HPI Fall - Stated complaint Stated Complaint: GLF - Chief complaint Chief Complaint: Trauma Ext - History obtained from History obtained from: Patient, Family - History of Present Illness Mechanism of injury: Tripped, Slipped Fall distance: Standing position Where injury occurred: Home Timing - onset: How many hours ago (36) Injury(ies) location: Head, Face, Neck, Left Uppper Extremity, Left Lower Extremity Quality of pain: Pain Associated symptoms: AMS, Neck pain. No: Amnesia, Seizures, Ear drainage, Nasal drainage, Weakness, Paresthesias, Dyspnea, Hematemesis, Abdominal distension Symptoms improve with: Rest Worsens with: Movement, Palpation Contributing factors: No: Anticoagulated Similar symptoms before: Diagnosis (fall with pelvis fracture) Recently seen: Not recently seen - Additional information Additional information: Using her walker in the wee hours of the morning the patient got caught up in the walker and fell. She denies LOC with the fall and has pain to the left shoulder the head and neck and the left calf. It was some time before her could attend to her and she did not want to come to the hospital yesterday. Review of Systems Constitutional: denies: Fever Eyes: denies: Decreased vision Ears: denies: Ear pain Nose: denies: Rhinorrhea / runny nose, Congestion Throat: denies: Sore throat Cardiac: denies: Chest pain / pressure, Palpitations Respiratory: denies: Dyspnea, Cough, Wheezing GI: denies: Abdominal Pain, Nausea, Vomiting : denies: Dysuria, Frequency Skin: denies: Rash Musculoskeletal: reports: Neck pain, Extremity pain. denies: Back pain Neurologic: denies: Generalized weakness, Focal weakness, Numbness PD PAST MEDICAL HISTORY - Past Medical History Cardiovascular: Hypertension, High cholesterol Respiratory: Pneumonia Neuro: None Endocrine/Autoimmune: HyPOthyroidism GI: GERD, Colon polyps [employer]: None : Other HEENT: None Psych: Anxiety Musculoskeletal: Rheumatoid arthritis, Fatigue Derm: None - Past Surgical History Past Surgical History: Yes General: Cholecystectomy Ortho: Hip replacement Cardiovascular: Other Derm: Other - Present Medications Home Medications: Ambulatory Orders Medication Instructions Recorded Confirmed Furosemide [Lasix] 60 mg PO DAILY 07/11/12 02/09/20 NIFEdipine [Procardia Xl] 30 mg PO DAILY 07/11/12 02/09/20 Simvastatin 20 mg PO DAILY 07/11/12 02/09/20 Spironolactone [Aldactone] 25 mg PO BID 07/11/12 02/09/20 Trazodone HCl 50 mg PO HS 07/11/12 02/09/20 raNITIdine HCL [Ranitidine HCl] 150 mg PO BID 07/11/12 02/09/20 Oxybutynin [Ditropan] 5 mg PO BID 02/25/13 02/09/20 Cholecalciferol (Vitamin D3) 1,000 unit PO DAILY 05/03/16 02/09/20 [Vitamin D3] predniSONE [Prednisone] 2 mg PO DAILY 05/03/16 02/09/20 Levothyroxine Sodium 50 mcg PO QDAC 10/10/18 02/09/20 oxyCODONE ER [OxyCONTIN] 20 mg PO QPM PRN #6 tablet 10/13/18 02/09/20 Hydrocodone/Acetaminophen 1 tab PRN PRN 02/09/20 02/09/20 [Hydrocodone-Acetamin 5-300 mg] - Allergies Allergies/Adverse Reactions: Allergies Allergy/AdvReac Type Severity Reaction Status Date / Time meperidine HCl * AdvReac Intermediate Itching Verified 02/09/20 15:15 [From Demerol] morphine AdvReac Intermediate Anxiety Verified 02/09/20 15:15 - Social History Does the pt smoke?: No Smoking Status: Never smoker Does the pt drink ETOH?: Yes ETOH Use: Wine Does the pt have substance abuse?: No - Immunizations Immunizations are current?: Yes - POLST Patient has POLST: No PD ED PE NORMAL - Vitals Vital signs reviewed: Yes (normal ) - General General: No acute distress, Well developed/nourished - HEENT HEENT: PERRL, EOMI, Other (There is bruising and swelling to the forehead above the right eye. There is marked tenderness to the area. There are ) - Neck Neck: Supple, no meningeal sign, Other (midline bony tenderness to the cervical spine with ROM normal ) - Cardiac Cardiac: RRR, Other (2/6 holosystolic murmer at LSB) - Respiratory Respiratory: No respiratory distress, Clear bilaterally - Abdomen Abdomen: Soft, Non tender - Back Back: No CVA TTP, No spinal TTP - Derm Derm: Normal color, Warm and dry, No rash - Neuro Neuro: heel compressor 2-12 intact, No motor deficit, No sensory deficit, Normal speech Eye Opening: Spontaneous Motor: Obeys Commands Verbal: Oriented GCS Score: 15 - Psych Psych: Normal mood, Normal affect Results - Vitals Vitals: Vital Signs - 24 hr 02/09/20 02/09/20 02/09/20 15:13 15:45 18:25 Temperature 36.4 C L 36.5 C Heart Rate 76 74 78 Respiratory 14 16 17 Rate Blood Pressure 123/61 147/75 H 119/57 L O2 Saturation 98 99 94 02/09/20 02/09/20 19:02 21:00 Temperature 36.3 C L 36.6 C Heart Rate 79 69 Respiratory 16 18 Rate Blood Pressure 125/54 L 155/70 H O2 Saturation 97 100 Oxygen O2 Source Room air - Labs Labs: Laboratory Tests 02/09/20 02/09/20 02/09/20 15:47 15:47 15:47 WBC 12.0 H RBC 3.74 L Hgb 12.1 Hct 36.9 L MCV 98.7 MCH 32.4 H MCHC 32.8 RDW 13.3 Plt Count 236 MPV 9.6 Neut # (Auto) 8.7 H Lymph # (Auto) 1.4 L Alcorn # (Auto) 1.4 H Eos # (Auto) 0.3 Baso # (Auto) 0.1 Absolute Nucleated RBC 0.00 Nucleated RBC % 0.0 PT 13.1 H INR 1.2 Sodium 137 Potassium 3.2 L Chloride 101 Carbon Dioxide 24 Anion Gap 12.0 BUN 20 Creatinine 1.2 H Estimated GFR (MDRD) 43 L Glucose 104 H Calcium 9.4 Total Bilirubin 1.1 H AST 34 ALT 25 Alkaline Phosphatase 82 Total Creatine Kinase 205 Total Protein 6.7 Albumin 3.8 Globulin 2.9 Albumin/Globulin Ratio 1.3 Lipase 21 L - Rads (name of study) shoulder Radiology: Prelim report reviewed (Impression: Left shoulder without acute fracture or dislocation. Mild degenerative changes of the left acromioclavicular joint.), EMP read indepedently, See rad report CT cervical spine Radiology: Prelim report reviewed (Impression: No fractures are seen. Severe degenerative changes are seen.), EMP read indepedently, See rad report CT head Radiology: Prelim report reviewed (Impression: No intracranial hemorrhage is seen. No significant intracranial abnormality is seen. Right forehead soft tissue hematoma can be seen, without an underlying calvarial fracture. Age- appropriate brain parenchymal volume loss and chronic small vessel ischemic changes can be seen. ), EMP read indepedently, See rad report Procedures - IVC sono (time) 1640 Bedside IVC sono: IVC measures (cm) (0.98), Dehydration (est 1-2 liter deficit) PD MEDICAL DECISION MAKING - ED course Complexity details: reviewed old records, reviewed results, re-evaluated patient, considered differential, d/w patient, d/w family ED course: 79-year-old female with a history of severe rheumatoid arthritis and hypertension has had a fall in her home yesterday early in the morning. She resisted coming to the hospital today she is come to the hospital with pain in her shoulder across her forehead and abrasion to her calf. Here in the emergency department she is evaluated she has some pain in her neck she has a lot of bruising to her right forehead and she has some abrasion to her left calf with thin skin. She has some pain to the left shoulder especially just below the shoulder joint. There is no evidence of fracture on plain film of the shoulder there is no evidence of fracture to the cervical spine or the skull. There is no evidence of intracranial hemorrhage. Patient is found to be mildly dehydrated and she is administered saline. She requires more fluid to produce urine and there is urine in the bladder after 2 liters but she is unable to produce a sample. Departure - Departure Disposition: 01 Home, Self Care Clinical Impression: Dehydration, Abrasion Concussion Qualifiers: Encounter type: initial encounter Loss of consciousness presence/duration: without LOC Qualified Code(s): S06.0X0A - Concussion without loss of consciousness, initial encounter Shoulder contusion Qualifiers: Encounter type: initial encounter Laterality: left Qualified Code(s): S40.012A - Contusion of left shoulder, initial encounter Instructions: ED Abrasion, ED Concussion, ED Dehydration Follow-Up: Belen Fox PA-C [Primary Care Provider] -
--- NOTE | 2020-02-09 17:05 | XRAY Report ---
PROCEDURE: Shoulder 3 View LT INDICATIONS: fall proximal humerus pain TECHNIQUE: 3 views of the shoulder were acquired. COMPARISON: None. FINDINGS: Bones: No acute fractures or dislocations. No suspicious bony lesions. Mild degenerative changes of the left acromioclavicular joint. Visualized ribs appear intact. Soft tissues: No suspicious soft tissue calcifications. IMPRESSION: Left shoulder without acute fracture or dislocation. Mild degenerative changes of the le ft acromioclavicular joint. Reviewed by: Roberto Naik MD on 02/09/2020 5:04 PM PST Approved by: Roberto Naik MD on 02/09/2020 5:04 PM PST Station ID: [id number]
--- NOTE | 2020-02-09 18:10 | CT Report ---
PROCEDURE: HEAD WO INDICATIONS: polytrauma, critical TECHNIQUE: Noncontrast 4.5 mm thick angled axial sections acquired from the foramen magnum to the vertex. For r adiation dose reduction, the following was used: automated exposure control, adjustment of mA and/or kV according to patient size. COMPARISON: Correlation is made with the accompanying cervical spine CT, 02/09/2020. FINDINGS: Image quality: Excellent. CSF spaces: Basal cisterns are patent. No extra-axial fluid collections. Ventricles are normal in size and shape. Brain: No midline shift. No intracranial masses or hemorrhage. Pretty-white matter interface is norm al. Skull and face: There is a right forehead hematoma seen, as on series 3 image 9. No underlying pepe rial fracture can be seen. Calvarium and visualized facial bones are intact, without suspicious lesio ns. Sinuses: Visualized sinuses and mastoids are clear. IMPRESSION: No intracranial hemorrhage is seen. No significant intracranial abnormality is seen. Right forehead soft tissue hematoma can be seen, without an underlying calvarial fracture. Age-appropriate brain parenchymal volume loss and chronic small vessel ischemic change can be seen. Reviewed by: Bernard Byrd MD on 02/09/2020 5:08 PM [place] Approved by: Bernard Byrd MD on 02/09/2020 5:08 PM [place] Station ID: [id number]
--- NOTE | 2020-02-09 18:12 | CT Report ---
PROCEDURE: CERVICAL SPINE WO INDICATIONS: polytrauma TECHNIQUE: Noncontrast 3 mm thick sections acquired from the skull base to the T4 level. Sagittal and coronal r eformats were then constructed. For radiation dose reduction, the following was used: automated exp osure control, adjustment of mA and/or kV according to patient size. COMPARISON: Correlation is made of examining head CT, 02/09/2020. FINDINGS: Image quality: Excellent. Bones: No fractures or dislocations. Visualized superior ribs are intact. Advanced degenerative changes are seen, with severe disc space narrowing at the C3-C4, C4-C5, C5-C6, and C6-C7 levels. There is mild retrolisthesis seen at C3-C4, C4-C5, and C5-C6. Posterior directed en dplate osteophytes are seen, which are worst at the C4-C5 level. Focal degenerative change can also b e seen involving the C1-C2 interface anteriorly. Prominent bridging anterior osteophytes are seen at several levels. Soft tissues: Prevertebral soft tissues are normal in thickness. No paravertebral hematomas. No ap ical pneumothoraces. IMPRESSION: No acute fractures are seen. Severe degenerative changes are seen. Reviewed by: Bernard Byrd MD on 02/09/2020 5:10 PM [place] Approved by: Bernard Byrd MD on 02/09/2020 5:10 PM [facility] Station ID: [id number]
[2020-02-09 21:06] VITALS: BP 155/70
== END 2020-02-09 21:25 | disposition home or self-care (01) ==
LOC: EDUNIT# → ED 14:50
DX: S06.0X0A Concussion without loss of consciousness, initial encounter (principal); S00.83XA Contusion of other part of head, initial encounter; S40.012A Contusion of left shoulder, initial encounter; S80.812A Abrasion, left lower leg, initial encounter; W01.0XXA Fall on same level from slipping, tripping and stumbling without subsequent striking against object, initial encounter; Y93.01 Activity, walking, marching and hiking; Y92.009 Unspecified place in unspecified non-institutional (private) residence as the place of occurrence of the external cause; E86.0 Dehydration; M19.012 Primary osteoarthritis, left shoulder; M47.812 Spondylosis without myelopathy or radiculopathy, cervical region; M48.02 Spinal stenosis, cervical region; M06.9 Rheumatoid arthritis, unspecified; I10 Essential (primary) hypertension
CPT/HCPCS: 36415; 70450; 72125; 80053; 82550; 83690; 85025; 85610; 96361; 96374; 99284

== ENCOUNTER 2020-02-12 14:09 | Emergency (ER) | payer MEDICARE, OTHER ==
--- NOTE | 2020-02-12 15:12 | ED Physician Documentation ---
History of Present Illness - Stated complaint Stated Complaint: SWOLLEN LEG/ EYE REDNESS - Chief complaint Chief Complaint: General - History obtained from History obtained from: Patient - Additonal information Additional information: 79-year-old female return to the emergency department for evaluation of right eye conjunctival injection and milky drainage, 3 days of urinary urgency without dysuria or fever as well as swelling to the anterior left lower leg with erythema. She unfortunately was seen here 3 days ago after a ground-level fall while using her walker. Subsequent CT imaging of the head neck did not show any fractures. She did have a laceration above her eye that was sutured. Since being discharged home she has felt well with the exception of the urinary urgency and concern that she may have a right eye infection. She did sustain a skin tear of the left lower anterior bishop and now there is some mild erythema surrounding it with a little bit of milky drainage. Review of Systems Constitutional: denies: Fever, Chills Eyes: reports: Discharge (yellow, right eye). denies: Loss of vision, Decreased vision Ears: reports: Reviewed and negative Nose: reports: Reviewed and negative Throat: reports: Reviewed and negative Cardiac: reports: Reviewed and negative Respiratory: reports: Reviewed and negative : reports: Frequency. denies: Dysuria, Hesitancy Skin: reports: Abrasion (s) (Ecchymosis surrounding the right eye, right forearm, left leg, left hand.) Neurologic: reports: Syncope, Head injury (s/p fall 02/09/20). 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 : Other HEENT: None Psych: Anxiety Musculoskeletal: Rheumatoid arthritis, Fatigue Derm: None - Past Surgical History Past Surgical History: Yes General: Cholecystectomy Ortho: Hip replacement Cardiovascular: Other Derm: Other - Present Medications Home Medications: Ambulatory Orders Medication Instructions Recorded Confirmed Furosemide [Lasix] 60 mg PO DAILY 07/11/12 02/09/20 NIFEdipine [Procardia Xl] 30 mg PO DAILY 07/11/12 02/09/20 Simvastatin 20 mg PO DAILY 07/11/12 02/09/20 Spironolactone [Aldactone] 25 mg PO BID 07/11/12 02/09/20 Trazodone HCl 50 mg PO HS 07/11/12 02/09/20 raNITIdine HCL [Ranitidine HCl] 150 mg PO BID 07/11/12 02/09/20 Oxybutynin [Ditropan] 5 mg PO BID 02/25/13 02/09/20 Cholecalciferol (Vitamin D3) 1,000 unit PO DAILY 05/03/16 02/09/20 [Vitamin D3] predniSONE [Prednisone] 2 mg PO DAILY 05/03/16 02/09/20 Levothyroxine Sodium 50 mcg PO QDAC 10/10/18 02/09/20 oxyCODONE ER [OxyCONTIN] 20 mg PO QPM PRN #6 tablet 10/13/18 02/09/20 Hydrocodone/Acetaminophen 1 tab PRN PRN 02/09/20 02/09/20 [Hydrocodone-Acetamin 5-300 mg] Cephalexin [Keflex] 500 mg PO Q6H #24 capsule 02/12/20 Ofloxacin 0.3% Ophth Drops 2 drops OPTH Q4H #1 btl 02/12/20 [Ocuflox 0.3% Ophth Drops] - Allergies Allergies/Adverse Reactions: Allergies Allergy/AdvReac Type Severity Reaction Status Date / Time benazepril [From Lotensin] Allergy Unknown Verified 02/10/20 07:45 erythromycin base Allergy Unknown Verified 02/10/20 07:45 sulfamethoxazole Allergy Unknown Verified 02/10/20 07:45 [From Septra] trimethoprim [From Septra] Allergy Unknown Verified 02/10/20 07:45 meperidine HCl * AdvReac Intermediate Itching Verified 02/09/20 15:15 [From Demerol] morphine AdvReac Intermediate Anxiety Verified 02/09/20 15:15 - Social History Does the pt smoke?: No Smoking Status: Never smoker Does the pt drink ETOH?: Yes Does the pt have substance abuse?: No - Immunizations Immunizations are current?: Yes - POLST Patient has POLST: No PD ED PE EXPANDED - General General: Alert, No acute distress - HEENT HEENT: Head injury, Other (Yellowing ecchymosis surrounding the right eye. EOMI bilaterally. PERRLA. Right eye with conjunctival injection and a small amount of mucopurulent drainage.) - Neck Neck: Supple w/out meningeal sx. No: Limited ROM - Cardiac Cardiac: Radial strong equal, Pedal strong equal, Cap refill < 2 sec - Respiratory Respiratory: Clear to ausultation jose enrique. No: Distress, Labored - Abdomen Abdomen: Normal Bowel sounds. No: Tender to palpation - Extremities Extremities: Right forearm (Extensive ecchymosis and bruising of the right forearm and hand), Left leg (Mild swelling left lower anterior Leg without calf pain swelling or tenderness. There is a skin tear there that is approximated with Steri-Strips. Mild surrounding erythema and a small amount of mucopurulent drainage on the distal end of the skin tear.) - Neuro Neuro: Alert and Oriented X 3, CNII-XII intact - GCS Eye Opening: Spontaneous Motor: Obeys Commands Verbal: Oriented Total: 15 Results - Vitals Vitals: Vital Signs - 24 hr 02/12/20 14:20 Temperature 36.2 C L Heart Rate 72 Respiratory 18 Rate Blood Pressure 129/68 O2 Saturation 97 Oxygen O2 Source Room air - Labs Labs: Laboratory Tests 02/12/20 15:45 Urine Color YELLOW Urine Clarity CLOUDY Urine pH 5.5 Ur Specific [place] 1.020 Urine Protein NEGATIVE Urine Glucose (UA) NEGATIVE Urine Ketones NEGATIVE Urine Occult Blood TRACE-LYSE Urine Nitrite POSITIVE H Urine Bilirubin NEGATIVE Urine Urobilinogen 0.2 (NORMAL) Ur Leukocyte Esterase MODERATE H Urine RBC 0-5 Urine WBC >25 H Ur Squamous Epith Cells FEW Squamous Urine Bacteria Moderate H Ur Microscopic Review INDICATED Urine Culture Comments INDICATED PD MEDICAL DECISION MAKING - ED course Complexity details: reviewed results, re-evaluated patient, considered differential, d/w patient ED course: 79-year-old female presents to the emergency department for concern that she may have a right eye conjunctivitis. She did have a fall a number of days ago and has a fairly large hematoma surrounding the eye after laceration repair was completed. The head CT was unremarkable for acute fractures. There is mild conjunctival injection and there was some yellow mucopurulent drainage noted. I will prescribe antibiotic drops. She also reports urinary frequency without dysuria. UA is consistent with acute infection.She is also concerned that the skin tear on the left lower anterior bishop may be infected and there is certainly a small amount of cellulitis with drainage. I will prescribe Keflex and antibiotic that should adequately treat both the urinary tract infection and a soft tissue skin structure infection. Overall though she had a fairly serious fall number of days ago she appears very well and feels ready for discharge. Departure - Departure Disposition: 01 Home, Self Care Clinical Impression: Cystitis, Left leg cellulitis Conjunctivitis, right eye Qualifiers: Conjunctivitis type: acute Acute conjunctivitis type: unspecified Qualified Code(s): H10.31 - Unspecified acute conjunctivitis, right eye Condition: Stable Record reviewed to determine appropriate education?: Yes Instructions: Cellulitis Dc, ED UTI Cystitis Female Prescriptions: Cephalexin [Keflex] 500 mg PO Q6H #24 capsule Ofloxacin 0.3% Ophth Drops [Ocuflox 0.3% Ophth Drops] 2 drops OPTH Q4H #1 btl Comments: I have prescribed an antibiotic drop for you to fill tomorrow at the pharmacy. This should help with the drainage in your right eye. It does look like you have a minor skin infection in your lower leg as well as a urinary tract infection. Please fill the prescription for the antibiotic tomorrow. However we are giving you a short supply of the antibiotic here in the emergency department before you leave. At any point you develop fevers, have suddenly severe abdominal pain un controlled vomiting or feel that your infections are not improving please return to the ER
[2020-02-12 15:53] LABS: BILIRUBIN,URINE NEGATIVE (NEGATIVE); GLUCOSE, URINE (UA) NEGATIVE (NEGATIVE); KETONES,URINE (UA) NEGATIVE (NEGATIVE); LEUKOCYTE ESTERASE, URINE MODERATE (NEGATIVE); NITRITE,URINE POSITIVE (NEGATIVE); OCCULT BLOOD,URINE TRACE-LYSE (NEGATIVE); PH,URINE 5.5 PH (5.0-7.5); PROTEIN,URINE NEGATIVE (NEGATIVE); UROBILINOGEN,URINE 0.2 (NORMAL) E.U./dL (NORMAL)
[2020-02-12 15:54] LABS: CLARITY,URINE CLOUDY (CLEAR)
[2020-02-12 16:03] LABS: BACTERIA,URINE Moderate /HPF (None Seen); RBC,URINE 0-5 /HPF (0-5); SQUAMOUS EPITHELIAL CELL,UR FEW Squamous (<= Few)
[2020-02-12] MEDS ORDERED: CEPHALEXIN 250 MG Prepack 8 CAP BOTTLE PO STA (16:57)
[2020-02-12 17:04] VITALS: BP 145/52
== END 2020-02-12 17:16 | disposition home or self-care (01) ==
LOC: ED 14:09
DX: N30.90 Cystitis, unspecified without hematuria (principal); L03.116 Cellulitis of left lower limb; H10.31 Unspecified acute conjunctivitis, right eye; I10 Essential (primary) hypertension
CPT/HCPCS: 81001; 81003; 87086; 87181; 99283

== ENCOUNTER 2020-03-01 16:11 | Outpatient (CLI) | payer MEDICARE, OTHER ==
--- NOTE | 2020-03-01 19:37 | Ultrasound Report ---
PROCEDURE: Duplex Ext Veins Left INDICATIONS: LEFT LEG PAIN TECHNIQUE: Real-time imaging, as well as color and pulse Doppler interrogation, were performed of the lower extr emity deep veins from the inguinal ligament to the popliteal fossa. COMPARISON: None. FINDINGS: The deep veins are normally compressible, and free of intraluminal thrombus. Color and pu lse Doppler demonstrate normal phasic intraluminal flow. There is normal augmentation response to di stal compression maneuver. IMPRESSION: No DVT found left leg. Note is made of a popliteal fossa cyst measuring 2.0 x 1.0 x 3.9 cm. Reviewed by: Andrew Clemons MD on 03/01/2020 7:35 PM PST Approved by: Andrew Clemons MD on 03/01/2020 7:35 PM PST Station ID: [id number]
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
== END 2020-03-01 16:12 | disposition home or self-care (01) ==
LOC: DI 16:11
PROVIDERS: ATTEND Family Medicine
DX: M79.605 Pain in left leg (principal); M71.22 Synovial cyst of popliteal space [Baker], left knee

== ENCOUNTER 2020-04-28 13:43 | Outpatient (CLI) | payer MEDICARE, OTHER ==
[2020-04-28 14:05] LABS: BASOPHILS # (AUTO) 0.1 10^3/uL (0.0-0.1); BASOPHILS % (AUTO) 0.8 %; EOSINOPHILS # (AUTO) 0.3 10^3/uL (0.0-0.7); EOSINOPHILS % (AUTO) 2.5 %; HCT - HEMATOCRIT 40.8 % (37.0-47.0); HGB - HEMOGLOBIN 12.9 g/dL (12.0-16.0); LYMPHOCYTES # (AUTO) 1.2 10^3/uL (1.5-3.5); LYMPHOCYTES % (AUTO) 9.1 %; MEAN CORPUSCULAR HEMOGLOBIN 30.7 pg (27.0-31.0); MEAN CORPUSCULAR HGB CONC 31.6 g/dL (32.0-36.0); MEAN CORPUSCULAR VOLUME 97.1 fL (81.0-99.0); MEAN PLATELET VOLUME 9.6 fL (7.9-10.8); MONOCYTES # (AUTO) 0.9 10^3/uL (0.0-1.0); MONOCYTES % (AUTO) 7.1 %; NEUTROPHILS # (AUTO) 10.4 10^3/uL (1.5-6.6); NEUTROPHILS % (AUTO) 80.1 %; PLT - PLATELET COUNT 229 10^3/uL (130-450); RED CELL DISTRIBUTION WIDTH 14.5 % (12.0-15.0)
[2020-04-28 14:47] LABS: ALBUMIN 4.3 g/dL (3.2-5.5); ALBUMIN/GLOBULIN RATIO 1.3 (1.0-2.2); BILIRUBIN,TOTAL 0.8 mg/dL (0.2-1.0); CALCIUM 9.5 mg/dL (8.5-10.3); CREATININE 1.3 mg/dL (0.4-1.0); POTASSIUM 3.3 mmol/L (3.5-5.0); TOTAL PROTEIN 7.6 g/dL (6.7-8.2)
== END 2020-04-28 13:44 | disposition home or self-care (01) ==
LOC: LAB 13:43
PROVIDERS: ATTEND Physician Assistant Medical
DX: M05.79 Rheumatoid arthritis with rheumatoid factor of multiple sites without organ or systems involvement (principal)
CPT/HCPCS: 36415; 80053; 85025; 85651

== ENCOUNTER 2020-08-23 07:28 | Day surgery (SDC) | payer MEDICARE, OTHER ==
[2020-08-23] MEDS ORDERED: LACTATED RINGERS 1,000 ML IV ONE (07:39)
[2020-08-23] MEDS ORDERED: PROPOFOL 200 MG/20 ML VIAL IVP ONE ×2 (07:56→08:51)
[2020-08-23] MEDS ORDERED: LIDOCAINE-MPF 2% 5 ML VIAL ONE (07:56)
--- NOTE | 2020-08-23 08:48 | ANESTHESIA ---
Pre-Anesthesia VS, & Labs - Diagnosis diarrhea, hx of polyps - Procedure colonoscopy Vital Signs: Temp Pulse Resp BP Pulse Ox 36.5 C 81 18 190/80 H 99 08/23/20 07:50 08/23/20 07:50 08/23/20 07:50 08/23/20 07:50 08/23/20 07:50 Height: 4 ft 8 in Weight (kg): 53.9 kg Body Mass Index: 26.6 BMI Classification: Overweight - NPO >8 hours - Is Patient ?: No Home Medications and Allergies Home Medications: Ambulatory Orders DULoxetine [Cymbalta] 60 mg PO DAILY 08/17/20 Famotidine [Pepcid] 20 mg PO DAILY 08/17/20 Gabapentin [Neurontin] 300 mg PO HS 08/17/20 Oxycodone HCl [Roxicodone] 2.5 mg PO BID 08/17/20 Rosuvastatin Calcium [Crestor] 20 mg PO QPM 08/17/20 Furosemide [Lasix] 20 mg PO BID 07/11/12 NIFEdipine [Procardia Xl] 30 mg PO DAILY 07/11/12 Spironolactone [Aldactone] 50 mg PO DAILY 07/11/12 Trazodone HCl 50 mg PO HS 07/11/12 Cholecalciferol (Vitamin D3) [Vitamin D3] 2,000 unit PO DAILY 05/03/16 predniSONE [Prednisone] 2 mg PO DAILY 05/03/16 Levothyroxine Sodium 50 mcg PO QDAC 10/10/18 DULoxetine [Cymbalta] 60 mg PO DAILY 08/17/20 Famotidine [Pepcid] 20 mg PO DAILY 08/17/20 Gabapentin [Neurontin] 300 mg PO HS 08/17/20 Oxycodone HCl [Roxicodone] 2.5 mg PO BID 08/17/20 Rosuvastatin Calcium [Crestor] 20 mg PO QPM 08/17/20 Allergies/Adverse Reactions: Allergies Allergy/AdvReac Type Severity Reaction Status Date / Time benazepril [From Lotensin] Allergy Unknown Verified 08/23/20 07:57 erythromycin base Allergy Unknown Verified 08/23/20 07:57 sulfamethoxazole Allergy Unknown Verified 08/23/20 07:57 [From Septra] trimethoprim [From Septra] Allergy Unknown Verified 08/23/20 07:57 meperidine HCl * AdvReac Intermediate Itching Verified 08/23/20 07:57 [From Demerol] morphine AdvReac Intermediate Anxiety Verified 08/23/20 07:57 Anes History & Medical History - Anesthetic History Anesthesia Complications: reports: No previous complications - Medical History Cardiovascular: reports: Hypertension, High cholesterol, Murmur Pulmonary: reports: Pneumonia Gastrointestinal: reports: Colon polyps, Chronic diarrhea Urinary: reports: Incontinence, Other Neuro: reports: None Musculoskeletal: reports: Rheumatoid arthritis Endocrine/Autoimmune: reports: HyPOthyroidism Blood Disorders: reports: None Skin: reports: None Smoking Status: Never smoker - Surgical History General: reports: Cholecystectomy, Colonoscopy Cardiothoracic: reports: Other Orthopedic: reports: Hip replacement Dermatologic: reports: Other Exam General: Alert, Oriented x3, Cooperative Dental: WNL Mouth Openin Fingerbreadth Neck Mobility: Normal Mallampati classification: II Thyromental Distance: 4-6 cm Respiratory: Lungs clear Plan Anesthesia Type: Total IV Consent for Procedure(s) Verified and Reviewed: Yes Code Status: Attempt Resuscitation ASA classification: 3-Severe systemic disease Is this case an emergency?: No
[2020-08-23] MEDS ORDERED: LACTATED RINGERS 300 ML IV ONE (08:54)
[2020-08-23] MEDS ORDERED: ONDANSETRON 4 MG/2 ML VIAL ONE (09:06)
[2020-08-23 10:07] VITALS: BP 153/65
--- NOTE | 2020-08-23 13:45 | ANESTHESIA POST OP EVALUATION ---
Anesthesia Post Eval - Post Anesthesia Eval Vitals: Last Vital Signs Temp 36.5 C 08/23/20 09:30 Pulse 85 08/23/20 10:05 Resp 16 08/23/20 10:05 BP 153/65 H 08/23/20 10:05 Pulse Ox 98 08/23/20 10:05 CV Function Including HR & BP: Stable Pain Control: Satisfactory Nausea & Vomiting: Negative Mental Status: Baseline Respiratory Status: Airway Patent Hydration Status: Satisfactory Anesthesia Complications: None
== END 2020-08-23 07:29 | disposition home or self-care (01) ==
LOC: SDS 07:28
PROVIDERS: ATTEND Surgery
PROC: 0DBE8ZX Excision of Large Intestine, Via Natural or Artificial Opening Endoscopic, Diagnostic (ICD-10-PCS; 2020-08-23)
PROC: 0DBP8ZZ Excision of Rectum, Via Natural or Artificial Opening Endoscopic (ICD-10-PCS; principal; 2020-08-23 08:30)
DX: R19.7 Diarrhea, unspecified (principal); D12.8 Benign neoplasm of rectum; K64.8 Other hemorrhoids; K64.4 Residual hemorrhoidal skin tags; K57.30 Diverticulosis of large intestine without perforation or abscess without bleeding; Z79.891 Long term (current) use of opiate analgesic
CPT/HCPCS: 45380; 45385; 81599; 83630; 87015; 87177; 87209; 87272; 87329; 87493; J7120; 87045; 87046; 87427; 88305

== ENCOUNTER 2020-10-12 08:00 | Outpatient (CLI) | payer MEDICARE, OTHER ==
[2020-10-12 17:52] LABS: BASOPHILS # (AUTO) 0.1 10^3/uL (0.0-0.1); BASOPHILS % (AUTO) 1.2 %; EOSINOPHILS # (AUTO) 0.5 10^3/uL (0.0-0.7); EOSINOPHILS % (AUTO) 5.8 %; HCT - HEMATOCRIT 40.7 % (37.0-47.0); HGB - HEMOGLOBIN 12.6 g/dL (12.0-16.0); LYMPHOCYTES # (AUTO) 1.9 10^3/uL (1.5-3.5); LYMPHOCYTES % (AUTO) 22.6 %; MEAN CORPUSCULAR HEMOGLOBIN 31.8 pg (27.0-31.0); MEAN CORPUSCULAR VOLUME 102.8 fL (81.0-99.0); MEAN PLATELET VOLUME 10.9 fL (7.9-10.8); MONOCYTES # (AUTO) 1.1 10^3/uL (0.0-1.0); MONOCYTES % (AUTO) 12.4 %; NEUTROPHILS # (AUTO) 4.9 10^3/uL (1.5-6.6); NEUTROPHILS % (AUTO) 57.8 %; PLT - PLATELET COUNT 200 10^3/uL (130-450); RED BLOOD COUNT 3.96 10^6/uL (4.20-5.40); WHITE BLOOD COUNT 8.5 x10^3/uL (4.8-10.8)
[2020-10-12 18:09] LABS: ALBUMIN 3.6 g/dL (3.2-5.5); ALBUMIN/GLOBULIN RATIO 1.1 (1.0-2.2); BILIRUBIN,TOTAL 0.7 mg/dL (0.2-1.0); POTASSIUM 4.3 mmol/L (3.5-5.0); TOTAL PROTEIN 6.8 g/dL (6.7-8.2)
[2020-10-12 18:13] LABS: CHOL/HDL RATIO 3.6 (<4.4); CHOLESTEROL 153 mg/dL; HDL CHOLESTEROL 42 mg/dL; LDL CHOLESTEROL,CALCULATED 63 mg/dL; LDL/HDL RATIO 1.5 (<4.4); TRIGLYCERIDES 238 mg/dL; VLDL CHOLESTEROL 48 mg/dL
[2020-10-12 19:18] LABS: THYROID STIMULATING HORMONE 1.36 uIU/mL (0.34-5.60)
== END 2020-10-12 23:59 | disposition home or self-care (01) ==
LOC: LAB.WCP 08:00
PROVIDERS: ATTEND Physician Assistant Medical
DX: E78.5 Hyperlipidemia, unspecified (principal); M05.79 Rheumatoid arthritis with rheumatoid factor of multiple sites without organ or systems involvement; E03.9 Hypothyroidism, unspecified
CPT/HCPCS: 36415; 80053; 80061; 83721; 84443; 85025; 85651

== ENCOUNTER 2020-10-20 15:56 | Outpatient (CLI) | payer MEDICARE, OTHER ==
--- NOTE | 2020-10-20 16:41 | XRAY Report ---
PROCEDURE: Hip w/Pelvis 2-3V RT INDICATIONS: HIP JOINT PAIN , RIGHT TECHNIQUE: AP pelvis with lateral view(s) of the bilateral hip(s). COMPARISON: None. FINDINGS: Bones: No fractures or dislocations. Prior left total hip arthroplasty and 3 cannulated axial pins a s treatment for subcapital femoral neck fracture on the right are both noted. No evidence of device l oosening or disruption. Pelvic ring appears intact. No suspicious bony lesions. Soft tissues: The visualized bowel gas pattern is normal. No suspicious soft tissue calcifications. IMPRESSION: Postsurgical changes bilaterally of the hips, no evidence of device loosening or disrupt ion, no acute disease. Source of new pain is not found. There likely is mild hip joint osteoarthritic change at the right hip, and no recent trauma is suspected. Reviewed by: Andrew Clemons MD on 10/20/2020 4:40 PM PDT Approved by: Andrew Clemons MD on 10/20/2020 4:40 PM PDT Station ID: [id number]
== END 2020-10-20 23:59 | disposition home or self-care (01) ==
LOC: DI.N 15:56
PROVIDERS: ATTEND Family Medicine
DX: M25.551 Pain in right hip (principal); Z96.641 Presence of right artificial hip joint

== ENCOUNTER 2020-12-26 15:38 | Outpatient (CLI) | payer MEDICARE, OTHER ==
--- NOTE | 2020-12-26 16:27 | XRAY Report ---
PROCEDURE: Hip w/Pelvis 1V RT INDICATIONS: CHRONIC R HIP PX TECHNIQUE: AP pelvis with lateral view(s) of the right hip(s). COMPARISON: X-ray hip 10/20/2020 FINDINGS: Bones: No fractures or dislocations. Pelvic ring appears intact. No suspicious bony lesions. Left hip arthroplasty and right femoral pin fixation is present. Hardware is intact. Note is of hardware fracture or loosening. Degenerative changes are present within the lower lumbar spine. Soft tissues: The visualized bowel gas pattern is normal. No suspicious soft tissue calcifications. IMPRESSION: Stable postsurgical changes as above. Reviewed by: Brina Vásquez MD on 12/26/2020 4:25 PM PST Approved by: Brina Vásquez MD on 12/26/2020 4:25 PM PST Station ID: [id number]
--- NOTE | 2020-12-26 16:38 | XRAY Report ---
PROCEDURE: Foot 3 View LT INDICATIONS: L FOOT PX TECHNIQUE: 3 views of the foot were acquired. COMPARISON: None FINDINGS: Bones: No fractures or dislocations. No suspicious bony lesions. Postsurgical changes reflecting a rthrodesis at the talus as well as calcaneal and first MTP fusion are present. All hardware appears i ntact with good anatomic alignment. Osteopenia is present. Pes planus is present. Soft tissues: No tibiotalar joint effusion. Achilles tendon appears normal. IMPRESSION: Postsurgical changes as above. Reviewed by: Brina Vásquez MD on 12/26/2020 4:36 PM PST Approved by: Brina Vásquez MD on 12/26/2020 4:36 PM PST Station ID: [id number]
== END 2020-12-26 23:59 | disposition home or self-care (01) ==
LOC: DI.N 15:38
PROVIDERS: ATTEND Physician Assistant Medical
DX: M79.672 Pain in left foot (principal); Z98.890 Other specified postprocedural states

== ENCOUNTER 2021-04-04 17:41 | Outpatient (CLI) | payer MEDICARE, OTHER ==
--- NOTE | 2021-04-05 12:57 | XRAY Report ---
PROCEDURE: Elbow 3 View RT INDICATIONS: CONTUSION OF R ELBOW TECHNIQUE: 3 views of the elbow were acquired. COMPARISON: None. FINDINGS: Bones: There is a comminuted fracture through the olecranon process with proximal distraction of the dominant proximal fragment by approximately 1.5 cm. Fracture extends to the elbow joint. There is os teopenia. Soft tissues: There is a moderate elbow joint effusion. No suspicious soft tissue calcifications. IMPRESSION: 1. Comminuted intraarticular fracture through the olecranon with proximal distraction of the dominant fragment. 2. Moderate joint effusion. Reviewed by: Nathan Rush MD on 04/05/2021 12:55 PM PST Approved by: Nathan Rush MD on 04/05/2021 12:55 PM PST Station ID: [id number]
== END 2021-04-04 23:59 | disposition home or self-care (01) ==
LOC: DI.N 17:41
PROVIDERS: ATTEND Family Medicine
DX: S52.031A Displaced fracture of olecranon process with intraarticular extension of right ulna, initial encounter for closed fracture (principal); S50.01XA Contusion of right elbow, initial encounter

== ENCOUNTER 2021-04-06 10:40 | Outpatient (CLI) | payer MEDICARE, OTHER ==
--- NOTE | 2021-04-06 17:17 | XRAY Report ---
PROCEDURE: Forearm RT INDICATIONS: FOREARM PAIN TECHNIQUE: 2 views of the forearm were acquired. COMPARISON: None FINDINGS: Bones: No fractures or dislocations. No suspicious bony lesions. Severe radiocarpal joint osteoarth ritis noted with large subchondral cyst noted in the radius on the carpal bones. Severe ulnar positiv e variant noted. Soft tissues: No suspicious soft tissue calcifications or masses. IMPRESSION: No fracture. No acute osseous lesion. If there persistent symptoms or continued clinical concern for pathology, then repeat plain film radiographs (7-10 days) or advanced imaging (CT, MR, bone scan) mookie uld be considered for further evaluation. Severe radiocarpal joint osteoarthritis. 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 Please correlate with c linical data. Reviewed by: Anika Ash MD, PhD on 04/06/2021 5:16 PM PST Approved by: Anika Ash MD, PhD on 04/06/2021 5:16 PM PST Station ID: [id number]
== END 2021-04-06 10:41 | disposition home or self-care (01) ==
LOC: DI.WOS 10:40
PROVIDERS: ATTEND Orthopaedic Surgery
DX: M19.031 Primary osteoarthritis, right wrist (principal); M79.631 Pain in right forearm

== ENCOUNTER 2021-04-08 12:02 | Emergency (ER) | payer MEDICARE, OTHER ==
[2021-04-08 12:19] VITALS: BP 136/74
--- NOTE | 2021-04-08 12:33 | ED Physician Documentation ---
PD HPI UPPER EXT INJURY - Stated complaint Stated Complaint: ELBOW PX - Chief complaint Chief Complaint: Ext Problem - History obtained from History obtained from: Patient, Family - Additonal information Additional information: This is an 80-year-old woman with history of rheumatoid arthritis on prednisone and immunomodulatory therapy and remote history of DVT, not currently anticoagulated who fell about 4 days ago and has a known olecranon fracture that is displaced. She has seen the orthopedic surgeon in the interim and plan for conservative management without surgery was formulated. She is splinted in extension and was given hydrocodone. Despite this is quite uncomfortable in the current splint. There was no new injury. Review of Systems Constitutional: denies: Fever, Chills Nose: reports: Reviewed and negative Throat: reports: Reviewed and negative Cardiac: reports: Reviewed and negative Respiratory: reports: Reviewed and negative PD PAST MEDICAL HISTORY - Past Medical History Cardiovascular: Hypertension, High cholesterol, Murmur Respiratory: Pneumonia Neuro: None Endocrine/Autoimmune: HyPOthyroidism GI: Colon polyps, Chronic diarrhea PACKAGER HEAD: None : Incontinence, Other HEENT: Chronic vision loss Psych: Anxiety Musculoskeletal: Rheumatoid arthritis Derm: None - Past Surgical History Past Surgical History: Yes General: Cholecystectomy, Colonoscopy Ortho: Hip replacement Cardiovascular: Other Derm: Other - Present Medications Home Medications: Ambulatory Orders Medication Instructions Recorded Confirmed Furosemide [Lasix] 20 mg PO BID 07/11/12 02/03/21 NIFEdipine [Procardia Xl] 30 mg PO DAILY 07/11/12 02/03/21 Spironolactone [Aldactone] 50 mg PO DAILY 07/11/12 02/03/21 Trazodone HCl 50 mg PO HS 07/11/12 02/03/21 Cholecalciferol (Vitamin D3) 2,000 unit PO DAILY 05/03/16 02/03/21 [Vitamin D3] predniSONE [Prednisone] 2 mg PO DAILY 05/03/16 02/03/21 Levothyroxine Sodium 50 mcg PO QDAC 10/10/18 02/03/21 DULoxetine [Cymbalta] 60 mg PO DAILY 08/17/20 02/03/21 Famotidine [Pepcid] 20 mg PO DAILY 08/17/20 02/03/21 Gabapentin [Neurontin] 300 mg PO HS 08/17/20 02/03/21 Oxycodone HCl [Roxicodone] 2.5 mg PO BID 08/17/20 02/03/21 Rosuvastatin Calcium [Crestor] 20 mg PO QPM 08/17/20 02/03/21 oxyCODONE [Roxicodone] 5 mg PO Q4-6H PRN #20 tablet 04/08/21 - Allergies Allergies/Adverse Reactions: Allergies Allergy/AdvReac Type Severity Reaction Status Date / Time benazepril [From Lotensin] Allergy Unknown Verified 04/08/21 12:19 erythromycin base Allergy Unknown Verified 04/08/21 12:19 sulfamethoxazole Allergy Unknown Verified 04/08/21 12:19 [From Septra] trimethoprim [From Octra] Allergy Unknown Verified 04/08/21 12:19 meperidine HCl * AdvReac Intermediate Itching Verified 04/08/21 12:19 [From Demerol] morphine AdvReac Intermediate Anxiety Verified 04/08/21 12:19 - Social History Does the pt smoke?: No Smoking Status: Never smoker Does the pt drink ETOH?: Yes Does the pt have substance abuse?: No - Immunizations Immunizations are current?: Yes - POLST Patient has POLST: No PD ED PE NORMAL - Vitals Vital signs reviewed: Yes - General General: Alert and oriented X 3, No acute distress - Extremities Extremities: Other (The right elbow is tender and she is edematous distal to this with excellent pulses at the wrist and intact sensation in the hand.) - Neuro Neuro: Alert and oriented X 3, Normal speech Eye Opening: Spontaneous Motor: Obeys Commands Results - Vitals Vitals: Vital Signs - 24 hr 04/08/21 04/08/21 12:11 13:47 Temperature 36.5 C Heart Rate 84 80 Respiratory 18 14 Rate Blood Pressure 136/74 H O2 Saturation 100 98 Oxygen O2 Source Room air Procedures - Splint (location) RUE Splint applied by: Physician Type of splint: Fiberglass, Long arm, Posterior Other: Patient tolerated well, No complications, Neurovascular intact, Sling provided PD MEDICAL DECISION MAKING - ED course ED course: Case discussed with jennifer Rizvi to resplint at 90. Her splint in extension was removed and she felt better in a splint at 90 degrees and also placed in a sling. She will follow-up with Dr. Márquez. Departure - Departure Disposition: 01 Home, Self Care Clinical Impression: Olecranon fracture Qualifiers: Encounter type: initial encounter Fracture type: closed Laterality: right Qualified Code(s): S52.021A - Displaced fracture of olecranon process without intraarticular extension of right ulna, initial encounter for closed fracture Condition: Good Record reviewed to determine appropriate education?: Yes Instructions: ED Fx Upper Ext Prescriptions: oxyCODONE [Roxicodone] 5 mg PO Q4-6H PRN #20 tablet PRN Reason: Pain Comments: I sent the prescription for oxycodone to [facility] in [place]. Follow-up with the orthopedic surgeon this week for reevaluation, consider referral to elbow specialty at the [facility] or [facility]. Keep the splint on and dry, you can take Tylenol along with the oxycodone as needed for the pain. I am prescribing a short course of narcotic pain medication for you. These are potentially dangerous and addictive medications that should be used carefully. These medications may constipate you. Take an [id number] stool softener (docusate) twice daily with plenty of water while taking these medications. If you go 24 hours without a bowel movement, take [id number] miralax, per package instructions. Do not drink or drive while taking these medications. If you received narcotic or sedating medications while in the emergency department, do not drive for 24 hours. Store this medication in a safe, secure place and out of reach of children. It is a violation of federal law to give or sell this medication to another person or to use in a manner other than prescribed. The ED will not refill narcotic prescriptions, including prescriptions lost or stolen. To dispose of unwanted medications: 1. [facility] at [address] [place] [address] in [place] has a medication drop box. They accept prescription medications (in pill form) Saturday through Saturday 9:00 a.m. to 5:00 p.m. 2. The [facility] [employer] accepts prescription medications (in pill form only) for disposal year round. Call for more information. 3. Contact the [facility] for the next [facility] sponsored prescription drug collection event. , [phone], or [phone]; Note that many narcotic pain relievers also contain Tylenol/acetaminophen. Please ensure that your total dose of acetaminophen from all sources does not exceed 3 g (3000 mg) per day. Discharge Date/Time: 04/08/21 13:30
== END 2021-04-08 13:30 | disposition home or self-care (01) ==
LOC: ED 12:02
DX: S52.021D Displaced fracture of olecranon process without intraarticular extension of right ulna, subsequent encounter for closed fracture with routine healing (principal); W19.XXXD Unspecified fall, subsequent encounter
CPT/HCPCS: 29105; 99283

== ENCOUNTER 2021-05-20 13:36 | Outpatient (CLI) | payer MEDICARE, OTHER ==
--- NOTE | 2021-05-20 14:34 | XRAY Report ---
PROCEDURE: Elbow 3 View RT INDICATIONS: DISPLACED FRACTURE OF OLECRANON PROCESS W/ INTRAAR TECHNIQUE: 3 views of the elbow were acquired. COMPARISON: 04/04/2021 FINDINGS: Bones: Completely distracted transverse olecranon fracture is similarly positioned. Normal bone land law examiner alization. Soft tissues: No elbow joint effusion. No suspicious soft tissue calcifications. IMPRESSION: Distracted intra-articular olecranon fracture Reviewed by: Jeff Torres MD on 05/20/2021 1:32 PM ROCIO Approved by: Jeff Torres MD on 05/20/2021 1:32 PM AKNAHOMY Station ID: [id number]
== END 2021-05-20 13:37 | disposition home or self-care (01) ==
LOC: DI.N 13:36
PROVIDERS: ATTEND Orthopaedic Surgery
DX: S52.033A Displaced fracture of olecranon process with intraarticular extension of unspecified ulna, initial encounter for closed fracture (principal)

== ENCOUNTER 2021-08-28 15:47 | Outpatient (CLI) | payer MEDICARE, OTHER ==
[2021-08-28 18:13] LABS: BASOPHILS # (AUTO) 0.1 10^3/uL (0.0-0.1); EOSINOPHILS # (AUTO) 0.4 10^3/uL (0.0-0.7); EOSINOPHILS % (AUTO) 3.8 %; HCT - HEMATOCRIT 39.7 % (37.0-47.0); HGB - HEMOGLOBIN 12.6 g/dL (12.0-16.0); LYMPHOCYTES # (AUTO) 1.9 10^3/uL (1.5-3.5); LYMPHOCYTES % (AUTO) 20.3 %; MEAN CORPUSCULAR HEMOGLOBIN 30.6 pg (27.0-31.0); MEAN CORPUSCULAR HGB CONC 31.7 g/dL (32.0-36.0); MEAN CORPUSCULAR VOLUME 96.4 fL (81.0-99.0); MEAN PLATELET VOLUME 10.6 fL (7.9-10.8); NEUTROPHILS # (AUTO) 5.9 10^3/uL (1.5-6.6); NEUTROPHILS % (AUTO) 63.7 %; PLT - PLATELET COUNT 252 10^3/uL (130-450); RED BLOOD COUNT 4.12 10^6/uL (4.20-5.40); RED CELL DISTRIBUTION WIDTH 13.5 % (12.0-15.0); WHITE BLOOD COUNT 9.2 x10^3/uL (4.8-10.8)
[2021-08-28 18:34] LABS: ALBUMIN 3.8 g/dL (3.2-5.5); ALBUMIN/GLOBULIN RATIO 1.3 (1.0-2.2); ALKALINE PHOSPHATASE 55 IU/L (42-121); ALT ALANINE AMINOTRANSFERASE 20 IU/L (10-60); AST ASPARTATE AMINOTRANSFERASE 24 IU/L (10-42); BILIRUBIN,TOTAL 0.8 mg/dL (0.2-1.0); BUN - BLOOD UREA NITROGEN 14 mg/dL (6-20); CALCIUM 9.4 mg/dL (8.5-10.3); CARBON DIOXIDE - CO2 31 mmol/L (21-32); CHLORIDE 105 mmol/L (101-111); CHOL/HDL RATIO 3.3 (<4.4); CHOLESTEROL 160 mg/dL; CREATININE 0.9 mg/dL (0.4-1.0); GFR - MDRD 60 (>89); GLUCOSE 107 mg/dL (70-100); HDL CHOLESTEROL 49 mg/dL; LDL CHOLESTEROL,CALCULATED 57 mg/dL; LDL/HDL RATIO 1.2 (<4.4); POTASSIUM 3.9 mmol/L (3.5-5.0); SODIUM 142 mmol/L (135-145); TOTAL PROTEIN 6.7 g/dL (6.7-8.2); TRIGLYCERIDES 270 mg/dL; VLDL CHOLESTEROL 54 mg/dL
[2021-08-28 18:47] LABS: THYROID STIMULATING HORMONE 0.71 uIU/mL (0.34-5.60)
== END 2021-08-28 15:48 | disposition home or self-care (01) ==
LOC: LAB.N 15:47
PROVIDERS: ATTEND Physician Assistant Medical
DX: E78.5 Hyperlipidemia, unspecified (principal); E03.9 Hypothyroidism, unspecified; D64.9 Anemia, unspecified
CPT/HCPCS: 36415; 80053; 80061; 83721; 84443; 85025

== ENCOUNTER 2021-12-13 03:58 | Inpatient (IN) | payer MEDICARE, OTHER ==
--- NOTE | 2021-12-13 03:59 | ED Physician Documentation ---
PD HPI Fall - Stated complaint Stated Complaint: GLF/L SIDE PX - History obtained from History obtained from: Patient, Family () - History of Present Illness Mechanism of injury: Lost balance Fall distance: Standing position Where injury occurred: Home Timing - onset: How many minutes ago (90) Injury(ies) location: Left Uppper Extremity (left shoulder, left elbow), Left Lower Extremity (left hip/left pelvis) Pain level max: 10 Pain level now: 8 Quality of pain: Pain Associated symptoms: No: LOC, AMS, Neck pain, Weakness, Dyspnea Symptoms improve with: Rest Worsens with: Movement, Palpation Contributing factors: No: Anticoagulated, Intoxicated Recently seen: Not recently seen - Additional information Additional information: BIBA. 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 She has not tried to bear weight due to the severe pain of her LLE that is worse with any movement, as well as the pain of LUE (she is left-hand dominant). She denies head injury or neck injury, denies DUVALL, denies neck pain. She is not taking any blood-thinning medication. EMS was unable to establish IV access en route and thus gave 50 micrograms IM fentanyl without improvement, given a second dose of 50 micrograms fentanyl with mild improvement. FSBS 115 per EMS Review of Systems Cardiac: reports: Reviewed and negative Respiratory: reports: Reviewed and negative GI: reports: Reviewed and negative Skin: denies: Abrasion (s), Laceration (s) Musculoskeletal: reports: Joint pain (left hip, left shoulder, left elbow). denies: Neck pain, Back pain Neurologic: denies: Generalized weakness, Focal weakness, Numbness, Confused, Altered mental status, Headache, Head injury, LOC PD PAST MEDICAL HISTORY - Past Medical History Past Medical History: Yes Cardiovascular: Hypertension, High cholesterol, Murmur Endocrine/Autoimmune: HyPOthyroidism Other Past Medical History: rheumatoid arthritis - Past Surgical History Past Surgical History: Yes Ortho: Hip replacement (left), Other (right hip repair (screws)) - Present Medications Home Medications: Ambulatory Orders Medication Instructions Recorded Confirmed Furosemide [Lasix] 20 mg PO DAILY 07/11/12 12/13/21 NIFEdipine [Procardia Xl] 30 mg PO DAILY 07/11/12 12/13/21 Spironolactone [Aldactone] 50 mg PO DAILY 07/11/12 12/13/21 Trazodone HCl 50 mg PO HS 07/11/12 12/13/21 Cholecalciferol (Vitamin D3) 2,000 unit PO DAILY 05/03/16 12/13/21 [Vitamin D3] predniSONE [Prednisone] 2.5 mg PO DAILY 05/03/16 12/13/21 Levothyroxine Sodium 50 mcg PO QDAC 10/10/18 12/13/21 DULoxetine [Cymbalta] 60 mg PO DAILY 08/17/20 12/13/21 Famotidine [Pepcid] 20 mg PO DAILY 08/17/20 12/13/21 Gabapentin [Neurontin] 300 mg PO HS 08/17/20 12/13/21 Rosuvastatin Calcium [Crestor] 20 mg PO QPM 08/17/20 12/13/21 - Allergies Allergies/Adverse Reactions: Allergies Allergy/AdvReac Type Severity Reaction Status Date / Time benazepril [From Lotensin] Allergy Unknown Verified 12/13/21 04:06 erythromycin base Allergy Unknown Verified 12/13/21 04:06 sulfamethoxazole Allergy Unknown Verified 12/13/21 04:06 [From Septra] trimethoprim [From Septra] Allergy Unknown Verified 12/13/21 04:06 meperidine HCl * AdvReac Intermediate Itching Verified 12/13/21 04:06 [From Demerol] morphine AdvReac Intermediate Anxiety Verified 12/13/21 04:06 PD ED PE NORMAL - Vitals Vital signs reviewed: Yes - General General: Alert and oriented X 3, Well developed/nourished, Other (appears to be in moderate painful distress) - HEENT HEENT: Moist mucous membranes - Neck Neck: No bony TTP - Respiratory Respiratory: No respiratory distress, Clear bilaterally - Abdomen Abdomen: Soft, Non tender, Non distended - Derm Derm: Normal color - Extremities Extremities: Other (strong left radial pulse and LTS intact in left hand/fingers. LLE is NVI with strong left dorsalis pedis pulse, brisk capillary refill) PD ED PE EXPANDED - Cardiac Cardiac: Irregularly irregular, Murmur Present (3/6 FRANDY most pronounced along LSB) - Extremities Extremities: Tenderness (left shoulder, left elbow TTP; ROM not attempted due to severe discomfort with any movement of either of these joints. There is tenderness of left pelvis with compression; any attempt at ROM of left hip results in severe worsening of the left hip/pelvis pain), Pedal edema bilateral, Pedal Pulses Present Results - Vitals Vitals: Oxygen O2 Source Room air Oxygen Flow Rate 3 - EKG (time done) No standard instances Rate: Rate (enter#) (106) Rhythm: Atrial fibrillation [place]: Normal Ischemia: Normal ST segments - Labs Labs: Laboratory Tests 12/13/21 12/13/21 12/13/21 04:35 04:35 10:42 WBC 21.4 H RBC 4.59 Hgb 14.2 Hct 43.3 MCV 94.3 MCH 30.9 MCHC 32.8 RDW 12.8 Plt Count 292 MPV 9.8 Neut # (Auto) Not Reportable Lymph # (Auto) Not Reportable [place] # (Auto) Not Reportable Eos # (Auto) Not Reportable Baso # (Auto) Not Reportable Absolute Nucleated RBC Not Reportable Total Counted 100 Band Neuts % (Manual) 2 Abnorm Lymph % (Manual) 0 Nucleated RBC % Not Reportable Neutrophils # (Manual) 17.1 H Lymphocytes # (Manual) 2.1 Monocytes # (Manual) 1.9 H Eosinophils # (Manual) 0.2 Basophils # (Manual) 0.0 Differential Comment MANUAL DIFFERENTIAL WBC Morphology NORMAL APPEARANCE Platelet Estimate NORMAL (130-450,000) Platelet Morphology NORMAL APPEARANCE RBC Morph Micro Appear NORMAL APPEARANCE Sodium 137 Potassium 3.5 Chloride 99 L Carbon Dioxide 26 Anion Gap 12.0 BUN 22 H Creatinine 1.0 Estimated GFR (MDRD) 53 L Glucose 147 H Calcium 9.1 Total Bilirubin 0.5 AST 30 ALT 25 Alkaline Phosphatase 68 Total Protein 7.8 Albumin 4.2 Globulin 3.6 Albumin/Globulin Ratio 1.2 Lipase 43 SARS-CoV-2 (PCR) NOT DETECTED - Rads (name of study) left shoulder xrays Radiology: Prelim report reviewed, See rad report left elbow xrays Radiology: Prelim report reviewed, See rad report left hip with AP pelvis xrays Radiology: Prelim report reviewed, See rad report chest CT with IV contrast Radiology: Prelim report reviewed, See rad report pelvis CT with IV contrast Radiology: Prelim report reviewed, See rad report abominal CT with IV contrast Radiology: Prelim report reviewed, See rad report PD MEDICAL DECISION MAKING - ED course Complexity details: reviewed old records, reviewed results, re-evaluated patient, considered differential, d/w patient, d/w family (spouse (in ED at bedside)) ED course: IV established in ED, given 0.5mg IV dilaudid with mild improvement but she had significant pain relief with a subsequent 1mg IV dilaudid dose. plain-film xrays show displaced angulated fracure of left humeral neck, comminuted displaced fracture of the left olecranon process, mildly displaced fracture of the superior left pubic ramus. I discussed this case with Dr. Mccallum (has seen patient for a right elbow fracture earlier this year); recommends admit to hospitalist service, ortho to consult. I then discussed the case with Dr. Juarez, recommends admit to general surgery , hospitalist to consult. I then discussed the case with Dr. Ruiz; she recommends CT chest and CT A/P with contrast, and she will admit to her service provided there are no other acute fractures or injuries on these studies. Care of patient turned over to Dr. Goodwin at end of my shift pending results of these CT studies. Departure - Departure Disposition: [facility] DC/Xfer Clinical Impression: Atrial fibrillation Fracture of neck of left humerus Qualifiers: Encounter type: initial encounter Fracture type: closed Qualified Code(s): S42.212A - Unspecified displaced fracture of surgical neck of left humerus, initial encounter for closed fracture Fracture of left pelvis Qualifiers: Encounter type: initial encounter Pelvic bone location: pubis Sublocation of pubis: superior rim Fracture type: closed Qualified Code(s): S32.512A - Fracture of superior rim of left pubis, initial encounter for closed fracture Fracture of left olecranon process Qualifiers: Encounter type: initial encounter Fracture type: closed Qualified Code(s): S52.022A - Displaced fracture of olecranon process without intraarticular extension of left ulna, initial encounter for closed fracture Condition: Stable Discharge Date/Time: 12/13/21 12:47
[2021-12-13] MEDS ORDERED: HYDROmorphone 1 MG/ML CARPUJECT IVP STA ×3 (04:22→09:26)
--- OUTSIDE RECORDS SUMMARY | 2021-12-13 04:27 | EXTERNAL MEDICAL SUMMARY RPT | Continuity of Care Document ---
:Unknown Demographics Phone Unavailable Preferred Language [place] Marital Status Shinto Affiliation Unknown Race Unknown Ethnic Group Unknown Author Organization [place] Address [address] [place] [address] Phone Allergies No information. Encounters No information. Functional Status No information. Immunizations No information. Medications No information. Problems No information. Procedures No information. Results/Labs test date author facility value unit interpret ation Result panel 1 (unknown) (no (unknown) (unknown) (no value) (units (unk nown) date) unknown) (unknown) (no (unknown) (unknown) +---------[phone] (uni ts (unknown) date) +--------- unknown) (unknown) (no (unknown) (unknown) +---------+ [facility] (uni ts (unknown) date) +--------- unknown) (unknown) (no (unknown) (unknown) + (uni ts (unknown) date) unknown) (unknown) (no (unknown) (unknown) [phone] (units (unkn own) date) unknown) (unknown) (no (unknown) (unknown) 1) Normal left (units (unknown) date) ventricular size, unknown) wall motion, and systolic function (EF 60 (unknown) (no (unknown) (unknown) 12/01/21 (units (unkno wn) date) unknown) (unknown) (no (unknown) (unknown) [address] [place] [address] (units (unknown) date) unknown) (unknown) (no (unknown) (unknown) 2) Normal right (units (unknown) date) ventricular size and unknown) function. (unknown) (no (unknown) (unknown) 3) There is severe (units (unknown) date) aortic stenosis unknown) (valve area 0.7cm2, mean gradient 45mmHg). (unknown) (no (unknown) (unknown) 4) There is mild (units (unknown) date) aortic regurgitation. unknown) (unknown) (no (unknown) (unknown) 5) Compared to the (units (unknown) date) Echo done 05/24/2020, unknown) aortic stenosis has progressed from (unknown) (no (unknown) (unknown) 65%). (units (unkno wn) date) unknown) (unknown) (no (unknown) (unknown) : : [address] : (unit s (unknown) date) : unknown) (unknown) (no (unknown) (unknown) : : [id number] : : (units ( unknown) date) unknown) (unknown) (no (unknown) (unknown) : : SHAWN Adrian : (unit s (unknown) date) : unknown) (unknown) (no (unknown) (unknown) : : Phone: [phone] : : (unit s (unknown) date) unknown) (unknown) (no (unknown) (unknown) :Account #: (units (un known) date) [id number] Gender: unknown) Female BSA: 1.5 m2 : (unknown) (no (unknown) (unknown) :STEFANI Performed (units (unknown) date) By: Alexey William unknown) : (unknown) (no (unknown) (unknown) :: 1940 (units (unknown) date) Age: 81 yrs BP: unknown) 142/87 mmHg: (unknown) (no (unknown) (unknown) :[facility] MRN #: (units (unknown) date) [id number] unknown) ReadingLocation: Weight: 140 lb : (unknown) (no (unknown) (unknown) :Name: BLAINE, (units (unknown) date) SANDY Malu Study Date: unknown) 12/01/2021 Height: 56 in : (unknown) (no (unknown) (unknown) :Ordering Physician: (uni ts (unknown) date) EDWAR, : unknown) (unknown) (no (unknown) (unknown) :Reason For Study: (units (unknown) date) Aortic valve stenosis unknown) : (unknown) (no (unknown) (unknown) :Referring: EDWAR, (unit s (unknown) date) BHRIGU : unknown) (unknown) (no (unknown) (unknown) AI P1/2t: 504.4 msec (uni ts (unknown) date) unknown) (unknown) (no (unknown) (unknown) AI dec slope: 203.0 (unit s (unknown) date) cm/sec2 unknown) (unknown) (no (unknown) (unknown) sev ratio: 0.26 (units (unknown) date) unknown) (unknown) (no (unknown) (unknown) KATERINA indexed to BSA (units (unknown) date) (cm2/m2): 0.51 unknown) (unknown) (no (unknown) (unknown) Accession Number: (units (unknown) date) [id number] unknown) (unknown) (no (unknown) (unknown) Age/Sex: 81 / F Date (uni ts (unknown) date) of Service: unknown) (unknown) (no (unknown) (unknown) [place] [address] (unit s (unknown) date) unknown) (unknown) (no (unknown) (unknown) Ao V2 VTI: 96.4 cm (units (unknown) date) KATERINA(V,D): 0.74 cm2 unknown) (unknown) (no (unknown) (unknown) Ao V2 max: 420.2 (units (unknown) date) cm/sec LVOT Max Alirio: unknown) 103.9 cm/sec (unknown) (no (unknown) (unknown) Ao V2 mean: 313.4 (units (unknown) date) cm/sec LV V1 max PG: unknown) 4.3 mmHg (unknown) (no (unknown) (unknown) Ao max P.6 mmHg (uni ts (unknown) date) LV V1 VTI: 24.8 cm unknown) (unknown) (no (unknown) (unknown) Ao mean P.8 (units (unknown) date) mmHg KATERINA(I,D): 0.77 unknown) cm2 (unknown) (no (unknown) (unknown) Aortic Valve: The (units (unknown) date) aortic valve is unknown) moderately calcified. There is severely (unknown) (no (unknown) (unknown) Atria: The left (units (unknown) date) atrium is mildly unknown) dilated. Right atrial size is normal. The (unknown) (no (unknown) (unknown) Comparison is made (units (unknown) date) with the unknown) echocardiogram of 05/24/2020. (unknown) (no (unknown) (unknown) : 1940 (units (unknown) date) Acct:[id number] unknown) (unknown) (no (unknown) (unknown) Doppler Measurements (uni ts (unknown) date) + Calculations unknown) (unknown) (no (unknown) (unknown) E/E' lat: 16.8 (units (unknown) date) unknown) (unknown) (no (unknown) (unknown) E/E' med: 23.8 (units (unknown) date) unknown) (unknown) (no (unknown) (unknown) E/e' average: 20.3 (units (unknown) date) unknown) (unknown) (no (unknown) (unknown) Echocardiogram (units (unknown) date) Report unknown) (unknown) (no (unknown) (unknown) Echocardiography (units (unknown) date) Report unknown) (unknown) (no (unknown) (unknown) Electronically (units (unknown) date) signed by: Kiesha unknown) Adrienne Aparicio on 12/01/2021 (unknown) (no (unknown) (unknown) FS: 34.5 % asc Aorta (uni ts (unknown) date) Diam: 3.5 cm unknown) (unknown) (no (unknown) (unknown) Great Vessels: The (units (unknown) date) aortic root is normal unknown) size. The dimensions of the (unknown) (no (unknown) (unknown) IVSd: 1.2 cm (units (u nknown) date) unknown) (unknown) (no (unknown) (unknown) Interpretation (units (unknown) date) Summary unknown) (unknown) (no (unknown) (unknown) [facility] (units (unknown) date) unknown) (unknown) (no (unknown) (unknown) [place] (units (unkno wn) date) unknown) (unknown) (no (unknown) (unknown) LA A2 area: 17.5 cm2 (uni ts (unknown) date) RA long axis: 3.9 cm unknown) (unknown) (no (unknown) (unknown) LA A4 area: 18.6 cm2 (uni ts (unknown) date) RA area: 10.0 cm2 unknown) (unknown) (no (unknown) (unknown) LA length (vol): 5.4 (uni ts (unknown) date) cm RA vol: 21.7 ml unknown) (unknown) (no (unknown) (unknown) LA vol index: 33.5 (units (unknown) date) ml/m2 unknown) (unknown) (no (unknown) (unknown) LA vol: 51.1 ml RA (units (unknown) date) : 14.2 ml/m2 unknown) (unknown) (no (unknown) (unknown) LV bolanos. (units (unkno wn) date) diameter/BSA (cm/m2): unknown) 2.7 (unknown) (no (unknown) (unknown) LV sys. diameter/BSA (uni ts (unknown) date) (cm/m2): 1.8 unknown) (unknown) (no (unknown) (unknown) LVIDd: 4.1 cm LVOT (units (unknown) date) diam: 2.0 cm unknown) (unknown) (no (unknown) (unknown) LVIDs: 2.7 cm Ao (units (unknown) date) root diam: 2.7 cm unknown) (unknown) (no (unknown) (unknown) LVPWd: 1.2 cm (units ( unknown) date) unknown) (unknown) (no (unknown) (unknown) Lat Peak E' Alirio: 6.2 (uni ts (unknown) date) cm/sec unknown) (unknown) (no (unknown) (unknown) Left Ventricle: The (unit s (unknown) date) left ventricle is unknown) normal in size. There is mild (unknown) (no (unknown) (unknown) Loc: ECHO (units (unkn own) date) unknown) (unknown) (no (unknown) (unknown) MMode/2D (units (unkno wn) date) Measurements + unknown) Calculations (unknown) (no (unknown) (unknown) MV A max alirio: 128.5 (unit s (unknown) date) cm/sec unknown) (unknown) (no (unknown) (unknown) MV E max alirio: 104.3 (unit s (unknown) date) cm/sec SV(LVOT): 74.5 unknown) ml (unknown) (no (unknown) (unknown) MV E/A: 0.81 (units (u nknown) date) unknown) (unknown) (no (unknown) (unknown) MV dec time: 0.25 (units (unknown) date) sec unknown) (unknown) (no (unknown) (unknown) Med Peak E' Alirio: 4.4 (uni ts (unknown) date) cm/sec unknown) (unknown) (no (unknown) (unknown) Mitral Valve: There (unit s (unknown) date) is mild mitral unknown) annular calcification. There is mild (unknown) (no (unknown) (unknown) Ordering Provider: (units (unknown) date) Kiesha Aparicio MD unknown) (unknown) (no (unknown) (unknown) Patient: (units (unkno wn) date) Sandy Armstrong MR#: unknown) M (unknown) (no (unknown) (unknown) Pericardium/ Pleura (unit s (unknown) date) There is no unknown) pericardial effusion. There is no pleural (unknown) (no (unknown) (unknown) Procedure: A (units (u nknown) date) two-dimensional unknown) transthoracic echocardiogram with color flow (unknown) (no (unknown) (unknown) Procedure: EC echo (units (unknown) date) doppler complete unknown) (unknown) (no (unknown) (unknown) Pulmonic Valve: The (unit s (unknown) date) pulmonic valve is not unknown) well seen, but is grossly normal. (unknown) (no (unknown) (unknown) Reading (units (unkno wn) date) Physician:04:58 PM unknown) (unknown) (no (unknown) (unknown) Right Ventricle: The (uni ts (unknown) date) right ventricle is unknown) normal in size and function. (unknown) (no (unknown) (unknown) Signed (units (unkno wn) date) unknown) (unknown) (no (unknown) (unknown) TAPSE: 1.6 cm (units ( unknown) date) unknown) (unknown) (no (unknown) (unknown) There is a trace or (unit s (unknown) date) physiologic amount of unknown) tricuspid regurgitation. Pulmonary (unknown) (no (unknown) (unknown) There is no pulmonic (uni ts (unknown) date) valvular unknown) regurgitation. (unknown) (no (unknown) (unknown) Tricuspid Valve: The (uni ts (unknown) date) tricuspid valve is unknown) normal in structure and function. (unknown) (no (unknown) (unknown) (uni ts (unknown) date) unknown) (unknown) (no (unknown) (unknown) and Doppler was (units (unknown) date) performed. The study unknown) quality was technically adequate. (unknown) (no (unknown) (unknown) aortic valve area is (uni ts (unknown) date) .7 cm2. The aortic unknown) valve mean gradient is 45 mmHg. The (unknown) (no (unknown) (unknown) artery pressures (units (unknown) date) cannot be estimated unknown) because of the lack of a measurable TR (unknown) (no (unknown) (unknown) ascending aorta are (unit s (unknown) date) normal. The IVC is of unknown) normal diameter and collapses (unknown) (no (unknown) (unknown) atrial septal (units ( unknown) date) defect. unknown) (unknown) (no (unknown) (unknown) concentric left (units (unknown) date) ventricular unknown) hypertrophy. Left ventricular systolic function is (unknown) (no (unknown) (unknown) effusion. (units (unkn own) date) unknown) (unknown) (no (unknown) (unknown) greater than 50% (units (unknown) date) with a sniff. This unknown) suggests a low right atrial pressure of 3 (unknown) (no (unknown) (unknown) interatrial septum (units (unknown) date) grossly appears unknown) intact with no obvious evidence for an (unknown) (no (unknown) (unknown) jet velocity. (units ( unknown) date) unknown) (unknown) (no (unknown) (unknown) mitral (units (unkno wn) date) regurgitation. unknown) (unknown) (no (unknown) (unknown) mm Hg. (units (unkno wn) date) unknown) (unknown) (no (unknown) (unknown) moderate-severe to (units (unknown) date) severe on this study. unknown) (unknown) (no (unknown) (unknown) normal. The ejection (uni ts (unknown) date) fraction is estimated unknown) to be 60-65%. There are no focal (unknown) (no (unknown) (unknown) pattern, consistent (unit s (unknown) date) with probable unknown) elevated filling pressures. (unknown) (no (unknown) (unknown) peak aortic velocity (uni ts (unknown) date) is 4.2 m/sec. There unknown) is mild aortic regurgitation. (unknown) (no (unknown) (unknown) reduced leaflet (units (unknown) date) mobility. There is unknown) severe aortic stenosis. The calculated (unknown) (no (unknown) (unknown) wall motion (units (un known) date) abnormalities. unknown) Diastolic parameters suggest a pseudonormalization Social History No information. Vital Signs No information.
[2021-12-13 04:42] LABS: BASOPHILS % (AUTO) 0.6 %; EOSINOPHILS % (AUTO) 0.7 %; HCT - HEMATOCRIT 43.3 % (37.0-47.0); HGB - HEMOGLOBIN 14.2 g/dL (12.0-16.0); MEAN CORPUSCULAR HEMOGLOBIN 30.9 pg (27.0-31.0); MEAN CORPUSCULAR HGB CONC 32.8 g/dL (32.0-36.0); MEAN CORPUSCULAR VOLUME 94.3 fL (81.0-99.0); MEAN PLATELET VOLUME 9.8 fL (7.9-10.8); MONOCYTES % (AUTO) 8.2 %; NEUTROPHILS % (AUTO) 81.9 %; PLT - PLATELET COUNT 292 10^3/uL (130-450); RED BLOOD COUNT 4.59 10^6/uL (4.20-5.40); RED CELL DISTRIBUTION WIDTH 12.8 % (12.0-15.0); WHITE BLOOD COUNT 21.4 x10^3/uL (4.8-10.8)
[2021-12-13 04:45] LABS: ABNORMAL LYMPHS % (MANUAL) 0 %
[2021-12-13 04:54] LABS: ALBUMIN 4.2 g/dL (3.2-5.5); ALBUMIN/GLOBULIN RATIO 1.2 (1.0-2.2); BILIRUBIN,TOTAL 0.5 mg/dL (0.2-1.0); CALCIUM 9.1 mg/dL (8.5-10.3); POTASSIUM 3.5 mmol/L (3.5-5.0); TOTAL PROTEIN 7.8 g/dL (6.7-8.2)
[2021-12-13 04:55] LABS: BAND NEUTROPHILS % (MANUAL) 2 %; DIFFERENTIAL COMMENT MANUAL DIFFERENTIAL; EOSINOPHILS # (MANUAL) 0.2 10^3/uL (0-0.7); LYMPHOCYTES # (MANUAL) 2.1 10^3/uL (1.5-3.5); LYMPHOCYTES % (MANUAL) 10 %; MONOCYTES # (MANUAL) 1.9 10^3/uL (0.0-1.0); NEUTROPHILS # (MANUAL) 17.1 10^3/uL (1.5-6.6); PLATELET ESTIMATE, MANUAL NORMAL (130-450,000) (NORMAL); PLATELET MORPHOLOGY NORMAL APPEARANCE (NORMAL); RBC MORPHOLOGY (MULTIPLE) NORMAL APPEARANCE (NORMAL); WBC MORPHOLOGY (MULTIPLE) NORMAL APPEARANCE (NORMAL)
[2021-12-13] MEDS ORDERED: SODIUM CHLORIDE 0.9% 1,000 ML IV STA (05:50)
[2021-12-13] MEDS ORDERED: iohexoL-300 100 ML VIAL ONE ×2 (06:44→09:50)
[2021-12-13] MEDS: iohexoL-300 100 ML VIAL IVP ONE ×2 (07:33→18:05)
--- NOTE | 2021-12-13 08:25 | XRAY Report ---
PROCEDURE: Elbow 2 View LT INDICATIONS: fall, left elbow pain TECHNIQUE: 3 views of the elbow were acquired. COMPARISON: None FINDINGS: Bones: Comminuted olecranon process fracture with multiple bony fragments. The major fragment is zain edly displaced. There are intra-articular bony fragments. No suspicious bony lesions. Soft tissues: Positive elbow joint effusion. No suspicious soft tissue calcifications. IMPRESSION: Comminuted, markedly displaced olecranon process fracture with bony fragments in the joint. Findings are concordant with preliminary interpretation provided by [facility]. Reviewed by: Fady Caldwell MD on 12/13/2021 8:24 AM PDT Approved by: Fady Caldwell MD on 12/13/2021 8:24 AM PDT Station ID: [id number]
--- NOTE | 2021-12-13 08:27 | XRAY Report ---
PROCEDURE: Shoulder 2 View LT INDICATIONS: fall, left shoulder pain TECHNIQUE: 2 views of the shoulder were acquired. COMPARISON: None. FINDINGS: Bones: Displaced, angulated humeral neck fracture. No suspicious bony lesions. Visualized ribs appea r intact. Soft tissues: No suspicious soft tissue calcifications. IMPRESSION: Displaced, angulated humeral neck fracture. Findings are concordant with preliminary interpretation provided by [facility]. Reviewed by: Fady Caldwell MD on 12/13/2021 8:25 AM PDT Approved by: Fady Caldwell MD on 12/13/2021 8:25 AM PDT Station ID: [id number]
--- NOTE | 2021-12-13 08:28 | XRAY Report ---
PROCEDURE: Hip w/Pelvis 2-3V LT INDICATIONS: fall, left hip pain TECHNIQUE: AP pelvis with lateral view(s) of the left hip(s). COMPARISON: 12/26/2020.. FINDINGS: Bones: Acute appearing fractures involving left superior and inferior pubic rami are seen. Prior inte rnal fixation of right femoral neck and left hip arthroplasty is again seen. No gross hardware loosen ing or failure. Moderate right hip joint osteoarthritic changes are seen. No evidence of avascular ne crosis of femoral head. Soft tissues: The visualized bowel gas pattern is normal. No suspicious soft tissue calcifications. IMPRESSION: 1. Acute appearing left superior pubic ramus fracture and possible acute on chronic left inferior pub ic ramus fracture. Please correlate with CT pelvis findings. Reviewed by: Chaz Joseph MD on 12/13/2021 8:26 AM PDT Approved by: Chaz Joseph MD on 12/13/2021 8:26 AM PDT Station ID: [id number]
--- NOTE | 2021-12-13 08:33 | CT Report ---
PROCEDURE: PELVIS W INDICATIONS: left pelvic ring fracture CONTRAST: 100ml Omnipaque 300 TECHNIQUE: After the administration of IV contrast, 5 mm thick sections acquired from the iliac crests to the sy mphysis. 5 mm thick coronal and sagittal reformats were acquired. For radiation dose reduction, the following was used: automated exposure control, adjustment of mA and/or kV according to patient siz e. COMPARISON: Pelvic and hip radiograph dated 12/13/2021 01/05/[address] of pelvis dated 10/09/2018. FINDINGS: Image quality: Diagnostic. Significant beam hardening artifact from bilateral hip surgical hardware a re seen.. Peritoneum and bowel: There is no bowel obstruction. No abnormal bowel wall thickening or mesenteric fat stranding. No free fluid of free air. Genitourinary: Bladder wall thickness is normal. Nodes and vessels: No iliac, pelvic, or inguinal adenopathy. Iliac vessels demonstrate normal size and enhancement. Moderate atherosclerotic calcifications in distal abdominal aorta and bilateral michael ac arteries are seen. Bones: There is prior fixation of right femoral neck and left total hip arthroplasty with significant beam hardening artifacts. Acute comminuted fractures involving medial aspect of left superior pubic ramus adjacent to the symphysis pubis is seen with minimal inferior displacement at fracture site ser ies 6 image 27. There is a chronic appearing fracture involving midportion of left inferior pubic conor us. A subtle minimally displaced fracture involving more lateral aspect of left inferior pubic ramus is seen best seen on series 6 image 38 and series 8 image 95. No other fracture or dislocation is see n. No definite hardware loosening or failure. Osteoarthritic changes are noted in bilateral sacroilia c joints and right hip joint. No evidence of avascular necrosis of femoral head. Visualized lower lum bar spine is normally aligned. Miscellaneous: No inguinal hernias. IMPRESSION: 1. Acute comminuted and slightly displaced fracture involving medial aspect of left superior pubic ra mus near symphysis pubis. 2. Subtle acute nondisplaced fracture involving lateral aspect of left inferior pubic ramus. 3. Old healed fracture involving midportion of left inferior pubic ramus. 4. Prior bilateral hip surgeries as above. No gross hardware loosening or failure. No periprosthetic fractures. Osteoarthritic changes throughout bony pelvis. No evidence of avascular necrosis of femora l head. 5. No pelvic free fluid or free air. Reviewed by: Chaz Joseph MD on 12/13/2021 8:32 AM PDT Approved by: Chaz Joseph MD on 12/13/2021 8:32 AM PDT Station ID: [id number]
--- NOTE | 2021-12-13 10:43 | CT Report ---
PROCEDURE: ABDOMEN W INDICATIONS: fall, left pelvic fracture CONTRAST: 100ml Omnipaque 300 TECHNIQUE: After the administration of oral and intravenous contrast, 5 mm thick sections acquired from the diap hragms to the iliac crests. 5 mm thick coronal and sagittal reformats were acquired. For radiation dose reduction, the following was used: automated exposure control, adjustment of mA and/or kV accor ding to patient size. COMPARISON: CT pelvis from today, CT chest from today FINDINGS: Image quality: Excellent. Lung bases: Minimal right basilar atelectasis. Mild cardiomegaly. Solid organs: Liver and spleen are normal in size and enhancement. Gallbladder is surgically absent . The extrahepatic duct is diffusely dilated, with outpouching into the duodenum consistent with a ch oledochocele. No pancreatic mass. There is intrahepatic biliary ductal dilatation as well. Pancreas e nhances normally. No adrenal nodules. Kidneys are normal in size, without hydronephrosis. There is a benign-appearing peripherally calcified right middle pole renal cyst. Other benign renal cysts are also noted. Peritoneum and bowel: Moderate hiatal hernia. Contrast enhanced bowel loops appear normal in caliber . No free fluid or air. Nodes and vessels: No retroperitoneal or mesenteric adenopathy by size criteria. Aorta and inferior vena cava are normal in size. Bones: No suspicious bony lesions. Chronic compression fractures of T7, T8, T9. T7 and T8 have been treated with percutaneous cement. No acute compression fractures identified. Miscellaneous: No ventral hernias. IMPRESSION: 1. No evidence of acute abdominal process. 2. Multiple chronic osteoporotic compression fractures. 3. There has been remote cholecystectomy. 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 This is likely a chronic finding. Comment: Please refer to a separate report for findings in the pelvis, which included left pelvic fra ctures. Reviewed by: Fady Caldwell MD on 12/13/2021 10:42 AM PDT Approved by: Fady Caldwell MD on 12/13/2021 10:42 AM PDT Station ID: [id number]
--- NOTE | 2021-12-13 10:49 | CT Report ---
PROCEDURE: CHEST W INDICATIONS: fall, left shoulder and elbow fractures CONTRAST:100ml Omnipaque 300 TECHNIQUE: After the administration of intravenous contrast, 1 mm axial images were acquired from the pulmonary apices through the posterior costophrenic angles. Axial 5 mm soft tissue kernel reconstructions were performed as well as 8 mm axial MIP and coronal and sagittal 5 mm reformations. For radiation dose reduction, the following was used: automated exposure control, adjustment of mA and/or kV according to patient size. COMPARISON: CT abdomen from today FINDINGS: Image quality: Excellent. Lungs and pleura: Mild right basilar atelectasis. No pleural effusions or pneumothorax. Central and peripheral airways are patent and normal in caliber. Mediastinum: Mild cardiomegaly. No pericardial effusion. No mediastinal or hilar adenopathy by size criteria. Thoracic aorta and central pulmonary arteries are normal in size. Esophagus is normal in caliber. Moderate hiatal hernia. Bones and chest wall: No suspicious bony lesions. Chronic compressions of T7, T8, and T9, with remot e percutaneous cement fixation of T7 and T8. No axillary or supraclavicular adenopathy by size criter ia. The thyroid is normal in size and there are no incidental findings. Abdomen: Gallbladder is surgically absent. There is diffuse dilatation of the biliary tree. IMPRESSION: 1. Mild cardiomegaly. 2. Moderate hiatal hernia. 3. Multiple old compression fractures. No new compression fractures. 4. Remote cholecystectomy. Diffuse biliary ductal dilatation. 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 This is likely chronic. CLINICAL RECOMMENDATION STATEMENTS: In patients <35 years with an ITN detected on CT, MRI, or extrathyroidal ultrasound, the Committee re commends further evaluation with dedicated thyroid ultrasound if the nodule is "e1 cm and has no susp icious imaging features, and if the patient has normal life expectancy. In patients "e35 years with an ITN detected on CT, MRI, or extrathyroidal ultrasound, the Committee r ecommends further evaluation with dedicated thyroid ultrasound if the nodule is "e1.5 cm and has no s uspicious imaging features, and if the patient has normal life expectancy. (ACR, 2014) Reviewed by: Fady Caldwell MD on 12/13/2021 10:48 AM PDT Approved by: Fady Caldwell MD on 12/13/2021 10:48 AM PDT Station ID: [id number]
--- NOTE | 2021-12-13 11:07 | ED Physician Documentation ---
ED Addendum - Addendum Addendum: 12/13/21 11:05 D/W Dr. Ruiz, she will see and admit the patient. 12/13/21 11:14 I reviewed imaging findings with patient and her who is at the bedside. I noticed that she is not currently splinted her in a sling of for her upper extremity fractures and have ordered both.They were in agreement with plan for admission. Her pain is currently controlled. Departure - Departure Disposition: [facility] DC/Xfer Clinical Impression: Fracture of neck of left humerus Qualifiers: Encounter type: initial encounter Fracture type: closed Qualified Code(s): S42.212A - Unspecified displaced fracture of surgical neck of left humerus, initial encounter for closed fracture Fracture of left pelvis Qualifiers: Encounter type: initial encounter Pelvic bone location: pubis Sublocation of pubis: superior rim Fracture type: closed Qualified Code(s): S32.512A - Fracture of superior rim of left pubis, initial encounter for closed fracture Fracture of left olecranon process Qualifiers: Encounter type: initial encounter Fracture type: closed Qualified Code(s): S52.022A - Displaced fracture of olecranon process without intraarticular extension of left ulna, initial encounter for closed fracture Atrial fibrillation Qualifiers: Atrial fibrillation type: unspecified Qualified Code(s): I48.91 - Unspecified atrial fibrillation Condition: Stable
[2021-12-13] MEDS ORDERED: ACETAMINOPHEN 325 MG TABLET PO PRN (11:08)
[2021-12-13] MEDS ORDERED: ONDANSETRON 4 MG/2 ML VIAL IVP PRN (11:08)
[2021-12-13] MEDS ORDERED: SODIUM CHLORIDE FLUSH 0.9% 10 ML SYRINGE IVP PRN (11:08)
--- NOTE | 2021-12-13 12:01 | CONSULTATION NOTE ---
Referring Provider Name of Referring Provider:: joaquin Ruiz Consult Date: 12/13/21 Chief Complaint - Chief Complaint Chief Complaint: fall w multiple fx and needs med managment History of Present Illness - Admitted From Admitted From:: home - History Obtained From Records Reviewed: [employer] History obtained from: Dr. Zepeda, patient, and Exam Limitations: pain and sedation from pain meds - History of Present Illness HPI Comment/Other: She is a pato elderly woman who has severe osteoporosis due to prolonged steroid use for rheumatoid arthritis and has had bilateral hip repairs for hip fractures, a fall with pelvic fracture September 2018, and now presents with yet another fall today resulting in acute comminuted fractures involving the medial aspect of the left superior pubic ramus and adjacent to the symphysis pubis is minimal inferior displacement at the fracture site. A chronic fracture involving the midportion of the left inferior pubic ramus. A subtle minimally displaced fracture involving more lateral aspect of the left inferior pubic ramus. She has prior bilateral hip surgeries with no periprosthetic loosening. She also has a comminuted markedly displaced olecranon process fracture with bony fragments in the joint. A displaced, angulated humeral neck fracture. Chest CT shows mild cardiomegaly, moderate hiatal hernia, multiple old compression fractures. No new compression fractures. Remote cholecystectomy with diffuse biliary ductal dilatation. She has a choledochocele extending into the duodenum. And abdomen CT has no evidence of an acute abdominal process. She continues to have multiple chronic osteoporotic compression fractures. The cholecystectomy in the choledochocele. General surgery has been consulted. I have discussed the case with the ER provider, orthopedic surgery, and the general surgeon. General surgery is to admit to their service and Ortho and general medicine will consult. While on telemetry, it was noted to be in irregularly irregular heart rate. EKG shows sinus tachycardia with irregular rate. There are P waves on the EKG with multiple narrow complex PACs. The patient herself denies palpitations, cough, chest pain. Her main distress is that she is back in the emergency room. She is upset that she fell again. And she has significant orthopedic pain. She says that prior to this she was in her usual state of health. There were no new change in review of systems. That when she fell, it was a mechanical fall. She tripped in the kitchen. Had no loss of consciousness. She fell against the kitchen cabinets. She did not have any blow to the head. On review systems she is being followed for progressive shortness of breath and fatigue that has been present since approximately 2018. To her 's knowledge she has never had syncope because of her aortic stenosis. An echo in December 2019 showed aortic stenosis that was moderate to severe. In May 2020 she had an ejection fraction of 60 to 65%. Normal right ventricle size and function. Left atrium moderately dilated. Moderate to severe aortic stenosis with a valve area of 1 cm, a mean gradient of 22 mmHg and mild aortic regurgitation. She was seen again November 29, 2021. Repeat echo was done. Those results are not noted in the outpatient clinic notes. However, Her tells us that she has a planned TAVR for February 2022. [facility] @[phone]. History - Past Medical History Cardiovascular: reports: Hypertension (Dopplers with renal artery stenosis. 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: Other (, atrophic vaginitis) : reports: Incontinence (On Estrace vaginal cream), Chronic bladder infection, Other (CKD stage III) HEENT: reports: Chronic vision loss, Other (Allergic rhinitis) Psych: reports: Anxiety Musculoskeletal: reports: Rheumatoid arthritis (seronegative/positive anti-CCP), Osteoporosis, Other (plantar fasciitis, calcaneus fx, distal fibular fx) Derm: reports: Other (Seborrheic keratosis, acanthotic keratosis, and basal cell carcinoma) MRSA Hx?: No Other Past Medical History: Chronic macrocytic anemia due to meds and disease - Past Surgical History General: reports: Cholecystectomy (1967), Colonoscopy Ortho: reports: Hip replacement (Left, 1998, right hip fracture 1993), Knee replacement (Left 2000), Other (right hip repair (screws), Bilateral bunionectomy) Cardiovascular: reports: Other Derm: reports: Other - Family & Social History Family History: Father: CAD Family History Comment/Other: Father from stroke at 68 year old. Had HTN. Mother at 100 yrs old. 3 brothers and 2 sisters. 2 older siblings with high blood pressure. 1 son of HIV in his 20s. Her 2 daughters are healthy. Living arrangement: At home Living Situation: With spouse/s.o. Social History Notes: She lives in [place] with her . They have their own home. She never smoked. Rarely drinks more than 1 glass of wine a week. She has no history of recreational substance abuse. 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 The other daughter is in [place]. - Substance History Use: Uses substance without health or social issues: NONE - POLST Patient has POLST: No POLST Status: DNR (She has DURABLE POWER OF CASE MANAGEMENT DIRECTOR with her . No pulse. Does not want to be resuscitated in the event of a cardiopulmonary arrest) Meds/Allgy - Home Medications Home Medications: Ambulatory Orders Medication Instructions Recorded Confirmed Furosemide [Lasix] 20 mg PO DAILY 07/11/12 12/13/21 NIFEdipine [Procardia Xl] 30 mg PO DAILY 07/11/12 12/13/21 Spironolactone [Aldactone] 50 mg PO DAILY 07/11/12 12/13/21 Trazodone HCl 50 mg PO HS 07/11/12 12/13/21 Cholecalciferol (Vitamin D3) 2,000 unit PO DAILY 05/03/16 12/13/21 [Vitamin D3] predniSONE [Prednisone] 2.5 mg PO DAILY 05/03/16 12/13/21 Levothyroxine Sodium 50 mcg PO QDAC 10/10/18 12/13/21 DULoxetine [Cymbalta] 60 mg PO DAILY 08/17/20 12/13/21 Famotidine [Pepcid] 20 mg PO DAILY 08/17/20 12/13/21 Gabapentin [Neurontin] 300 mg PO HS 08/17/20 12/13/21 Rosuvastatin Calcium [Crestor] 20 mg PO QPM 08/17/20 12/13/21 - Allergies Allergies/Adverse Reactions: Allergies Allergy/AdvReac Type Severity Reaction Status Date / Time benazepril [From Lotensin] Allergy Unknown Verified 12/13/21 04:06 erythromycin base Allergy Unknown Verified 12/13/21 04:06 sulfamethoxazole Allergy Unknown Verified 12/13/21 04:06 [From Septra] trimethoprim [From Septra] Allergy Unknown Verified 12/13/21 04:06 meperidine HCl * AdvReac Intermediate Itching Verified 12/13/21 04:06 [From Demerol] morphine AdvReac Intermediate Anxiety Verified 12/13/21 04:06 Review of Systems - Constitutional Constitutional: reports: Fatigue. denies: Fever, Chills, Malaise - Eyes Eyes: denies: Pain, Irritation, Amaurosis, Blurred vision - Ears, Nose & Throat Ears, Nose & Throat: reports: Postnasal drainage. denies: Ear pain, Hearing loss, Hearing aids - Cardiovascular Cariovascular: reports: Edema, Exertional dyspnea, Decr. exercise tolerance. denies: Chest pain, Lightheadedness, Syncope - Respiratory Respiratory: reports: SOB with exertion (Getting worse over the last 3 years). denies: Cough, Sputum production, Wheezing, Orthopnea - Gastrointestinal Gastrointestinal: reports: Reflux/heartburn. denies: Abdominal pain, Change in bowel habits, Nausea, Vomiting, Coffee grounds emesis, Bloating, Poor appetite - Genitourinary Genitourinary: reports: Urgency, Incontinence. denies: Dysuria, Frequency, Hematuria, Flank pain - Musculoskeletal Musculoskeletal: reports: Stiffness, Limited range of motion, Joint pain - Integumentary Integumentary: denies: Rash, Pruritis - Neurological Neurological: denies: General weakness, Focal weakness, Memory problems, Incoordination, Slurred speech - Psychiatric Psychiatric: reports: Anxiety - Endocrine Endocrine: denies: Polyuria, Polydypsia, Polyphagia - Hematologic/Lymphatic Hematologic/Lymphatic: reports: Anemia, Bruising. denies: Petechiae, Blood clots - Other Findings Other Findings: She and her live in a 3 story condo, they have an elevator. She still does light housekeeping, laundry chores. She loves to cook. Her drives. Everything is done slowly because of her arthritis and pain but she is able to do it. She still feeds her self, dresses herself. Exam - Vital Signs Reviewed Vital Signs: Yes Vital Signs: Vital Signs x48h Temp Pulse Resp BP Pulse Ox O2 Flow Rate 12/13/21 10:00 36.5 C 107 H 28 H 149/98 H 99 10/26/22 06:10 119 H 16 162/77 H 98 12/13/21 05:13 106 H 18 155/54 H 100 3 12/13/21 04:06 36.8 C 76 16 158/109 H 97 - Physical Exam General Appearance: positive: Other (Awake, eating lunch but drifts off to sleep every third or fourth sentence for a few moments because of the effects of opiate. Wakes up and knows exactly where she is and apologizes and asked me to repeat myself) Eyes Bilateral: positive: PERRL, EOMI ENT: positive: No signs of dehydration Neck: positive: No JVD. negative: Stiff neck Respiratory: positive: No respiratory distress, Other (Slight kyphosis. Slow, unlabored respiration. Able to speak full sentences.). negative: Wheezes, Rales, Rhonchi Cardiovascular: positive: Regular rate & rhythm, Systolic murmur Peripheral Pulses: positive: 1+ Abdomen: positive: Non-tender, No organomegaly, Nml bowel sounds, No distention Skin: positive: Warm, Dry, Other (Multiple ecchymosis on forearms and dorsum of hand) Extremities: positive: No pedal edema, Other (Left arm and is in a sling.) Neurologic/Psychiatric: positive: Oriented x3, CN's nml (2-12), Motor nml (She is cutting up food with 1 hand, bringing it to her mouth.), Other (Sedated at times. Again eyes drift slowly shut and then she wakes up promptly and ask me to repeat myself) Conclusion/Plan - Problem List (1) Severe aortic stenosis Conclusion/Plan: Symptoms are mainly progressive shortness of breath, dyspnea on exertion, limited exercise tolerance now. She has not had chest pain or syncope. Review of the record does not show the planned TAVR per her last note from November 29. The cardiology states that his plan depends on her next echo. Per the , the echo shows progression of disease and the TAVR is scheduled for February 2022. She is on IV fluids at 75 cc an hour from the ED. She is able to swallow and eat appropriately. I will continue the IV fluids overnight but would encourage her to take in by mouth. I do not want to fluid overload. I will also let her sensor specialist know that she is here. (2) Atrial fibrillation Conclusion/Plan: In looking at the light telemetry in the ER, she appears to go in and out of atrial fibrillation. Her EKG shows sinus rhythm with PACs. She has a dilated left atrium on echo so I would not be surprised that she would go into atrial fibrillation. Plan: At this time she will be anticoagulated with Lovenox. If she needs surgery she needs to be able to be on a medication that we can reverse easily or let it wear off before surgery quickly. She can be transitioned to Eliquis in the outpatient setting. Low-dose beta-mark for rate control The atrial fibrillation is more visible on telemetry. The EKG showed sinus rhythm. I will repeat her EKG to verify whether this is truly A. fib or sinus tachycardia. Qualifiers: Atrial fibrillation type: paroxysmal Qualified Code(s): I48.0 - Paroxysmal atrial fibrillation (3) CKD (chronic kidney disease) stage 3, GFR 30-59 ml/min Conclusion/Plan: Will avoid nephrotoxic agents. Monitor creatinine daily basis. Qualifiers: Chronic kidney disease stage 3 subtype: stage 3a (GFR 45-59) Qualified Code(s): N18.31 - Chronic kidney disease, stage 3a (4) Osteoporosis Conclusion/Plan: Her home medication list in the primary care provider office does not include calcium, vitamin D. There are some notes where rheumatoid consultation mentions Boniva. This patient is currently sedated from pain medicine and can only answer my questions half the time. But she and her both verify that she gets Prolia subcutaneously every 6 months. She takes calcium and vitamin D. Qualifiers: Osteoporosis type: other Presence of current pathological fracture: with current pathological fracture Encounter type: sequela Qualified Code(s): M80.80XS - Other osteoporosis with current pathological fracture, unspecified site, sequela (5) HTN (hypertension) Conclusion/Plan: In the emergency room she has been consistently 1 55-168 systolic. Diastolic is anywhere from 54-229. Medications at home are spironolactone, Lasix, Procardia XL. I will be starting metoprolol for her possible atrial fibrillation and tachycardia. We will see if that will slow down her heart rate enough to lower her blood pressure. If not, we will then resume Procardia XL. Procardia XL can also worsen edema. She takes diuretics for the edema Qualifiers: Hypertension type: primary hypertension Qualified Code(s): I10 - Essential (primary) hypertension (6) Multiple fractures Conclusion/Plan: Fracture of left olecranon process, fracture of left pelvis, fracture of neck of left humerus, and these are all being followed by orthopedics as well as trauma evaluation by general surgery. Case has been discussed with general surgery who is admitting this patient under the trauma service. They will do a primary, secondary and tertiary eval of the patient. If the tertiary eval of the patient reveals no progression of sequela from trauma and fall, she is asking that the patient be then transition to my service. I am in agreement with that. I explained to the patient that because of the fractures, she is going to have limited mobility and significant pain. Most likely she will need to be transitioned to a [facility] facility for care and rehab. She says she is just fine with that. agrees. She has stayed at [facility] in the past and hopes to go to that facility when she is stable enough to be transferred (7) Leukocytosis Conclusion/Plan: There is no bandemia or lymphocytosis. Chest x-ray is without pneumonia. Review of systems shows no symptoms of new infection. Urinalysis has not been done and I will get a straight cath. At this time no antibiotics. Qualifiers: Leukocytosis type: unspecified Qualified Code(s): D72.829 - Elevated white blood cell count, unspecified - Lab Results Lab results reviewed: Yes Fish Bones: 12/13/21 04:35 12/13/21 04:35 - Diagnostic Imaging Results Diagnostic Imaging Results: positive: Final report reviewed - EKG Results EKG Interpreted Independently: Yes EKG Comparison: Other (Second EKG interpreted by me today. She is sinus rhythm with PACs. She is not in atrial fibrillation)
[2021-12-13] MEDS: SODIUM CHLORIDE 0.9% 1,000 ML IV SCH (13:14)
[2021-12-13] MEDS: METOPROLOL TARTRATE 25 MG TABLET PO SCH ×2 (13:59→21:32)
--- NOTE | 2021-12-13 14:47 | CONSULTATION NOTE ---
Referring Provider Name of Referring Provider:: Dr. Ruiz Consult Date: 12/13/21 Chief Complaint - Chief Complaint Chief Complaint: Pain in left shoulder, left elbow and left groin following fall at home History of Present Illness - History Obtained From History obtained from: Patient and - History of Present Illness HPI Comment/Other: This is a 81-year-old woman with polyarticular steroid-dependent rheumatoid arthritis who has a history of fractures. She took a fall last night in her kitchen. She was going to set the [employer] machine to come on in the morning for her . She unexplainably fell onto left side, unable to walk.Because of pain to left shoulder extremity as well as left groin, she came to the emergency room where she was evaluated at [facility] by Dr. Zepeda. She was admitted to the hospital with fracture involving left shoulder, left elbow and left hemipelvis. Her pain seems to be adequately controlled. She denies previous problems with left upper extremity. She has had previous hip fractures and has had cannulated screw fixation of a right hip femoral neck fracture and a hemiarthroplasty to her left hip. She has had previous displaced olecranon fracture of her right elbow that was treated nonoperatively with favorable outcome. She does not have any complaints to right upper or right lower extremity and no neurovascular symptoms to her upper or lower extremities. History - Past Medical History Cardiovascular: reports: Hypertension (Dopplers with renal artery stenosis. 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 (, atrophic vaginitis) : reports: Incontinence (On Estrace vaginal cream), Chronic bladder infection, Other (CKD stage III) HEENT: reports: Chronic vision loss, Other (Allergic rhinitis) Psych: reports: Anxiety Musculoskeletal: reports: Rheumatoid arthritis (seronegative/positive anti-CCP), Osteoporosis, Other (plantar fasciitis, calcaneus fx, distal fibular fx) Derm: reports: Other (Seborrheic keratosis, acanthotic keratosis, and basal cell carcinoma) MRSA Hx?: No Other Past Medical History: Chronic macrocytic anemia due to meds and disease - Past Surgical History General: reports: Cholecystectomy (1967), Colonoscopy Ortho: reports: Hip replacement (Left, 1998, right hip fracture 1993), Knee replacement (Left 2000), Other (right hip repair (screws), Bilateral bunionectomy) Cardiovascular: reports: Other Derm: reports: Other - Family & Social History Family History: Father: CAD Family History Comment/Other: Father from stroke at 68 year old. Had HTN. Mother at 100 yrs old. 3 brothers and 2 sisters. 2 older siblings with high blood pressure. Two daughters and healthy. Living arrangement: At home Living Situation: With spouse/s.o. Social History Notes: She lives in [place] with her . They have their own home. She never smoked. Rarely drinks more than 1 glass of wine a week. She has no history of recreational substance abuse. 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 - Substance History Use: Uses substance without health or social issues: NONE - POLST Patient has POLST: No Meds/Allgy - Home Medications Home Medications: Ambulatory Orders Medication Instructions Recorded Confirmed Furosemide [Lasix] 20 mg PO DAILY 07/11/12 12/13/21 NIFEdipine [Procardia Xl] 30 mg PO DAILY 07/11/12 12/13/21 Spironolactone [Aldactone] 50 mg PO DAILY 07/11/12 12/13/21 Trazodone HCl 50 mg PO HS 07/11/12 12/13/21 Cholecalciferol (Vitamin D3) 2,000 unit PO DAILY 05/03/16 12/13/21 [Vitamin D3] predniSONE [Prednisone] 2.5 mg PO DAILY 05/03/16 12/13/21 Levothyroxine Sodium 50 mcg PO QDAC 10/10/18 12/13/21 DULoxetine [Cymbalta] 60 mg PO DAILY 08/17/20 12/13/21 Famotidine [Pepcid] 20 mg PO DAILY 08/17/20 12/13/21 Gabapentin [Neurontin] 300 mg PO HS 08/17/20 12/13/21 Rosuvastatin Calcium [Crestor] 20 mg PO QPM 08/17/20 12/13/21 - Allergies Allergies/Adverse Reactions: Allergies Allergy/AdvReac Type Severity Reaction Status Date / Time benazepril [From Lotensin] Allergy Unknown Verified 12/13/21 04:06 erythromycin base Allergy Unknown Verified 12/13/21 04:06 sulfamethoxazole Allergy Unknown Verified 12/13/21 04:06 [From Septra] trimethoprim [From Septra] Allergy Unknown Verified 12/13/21 04:06 meperidine HCl * AdvReac Intermediate Itching Verified 12/13/21 04:06 [From Demerol] morphine AdvReac Intermediate Anxiety Verified 12/13/21 04:06 Exam - Vital Signs Vital Signs: Vital Signs x48h Temp Pulse Pulse Resp BP BP Pulse Ox 12/13/21 13:59 154/85 H 12/13/21 13:05 36.7 C 99 18 154/85 H 99 12/13/21 12:41 36.6 C 121 H 13 155/129 H 100 12/13/21 12:00 104 H 23 168/112 H 99 12/13/21 11:44 12/13/21 10:00 36.5 C 107 H 28 H 149/98 H 99 O2 Flow Rate 12/13/21 13:59 12/13/21 13:05 12/13/21 12:41 12/13/21 12:00 12/13/21 11:44 3 12/13/21 10:00 - Physical Exam General Appearance: positive: Mild distress Peripheral Pulses: positive: 2+ Skin: positive: Warm, Dry Neurologic/Psychiatric: positive: Oriented x3, Motor nml. negative: Sensation nml (The left shoulder and left elbow have limited and painful movement. There is tenderness over the proximal humerus and left olecranon. There is no sign of dislocation. The left wrist is nontender. Neurovascular is intact to left upper extremity. Both hips have intact motion but there is some dis) Comments/Other: The left shoulder and left elbow have limited and painful motion, tenderness to both proximal humerus and left olecranon, no sign of dislocation, neurovascular intact. Left wrist nontender. Lower extremity hip motion is intact bilaterally with mild discomfort to left hip with localized tenderness to left groin over pubic rami, stable pelvic ring, neurovascular intact lower extremities. Conclusion and Plan - Lab Results Laboratory Results 12/13/21 10:42: SARS-CoV-2 (PCR) NOT DETECTED 12/13/21 04:35: Sodium 137, Potassium 3.5, Chloride 99 L, Carbon Dioxide 26, Anion Gap 12.0, BUN 22 H, Creatinine 1.0, Estimated GFR (MDRD) 53 L, Glucose 147 H, Calcium 9.1, Total Bilirubin 0.5, AST 30, ALT 25, Alkaline Phosphatase 68, Total Protein 7.8, Albumin 4.2, Globulin 3.6, Albumin/Globulin Ratio 1.2, Lipase 43 // 04:35: WBC 21.4 H, RBC 4.59, Hgb 14.2, Hct 43.3, MCV 94.3, MCH 30.9, MCHC 32.8, RDW 12.8, Plt Count 292, MPV 9.8, Neut # (Auto) Not Reportable, Lymph # (Auto) Not Reportable, [place] # (Auto) Not Reportable, Eos # (Auto) Not Reportable, Baso # (Auto) Not Reportable, Absolute Nucleated RBC Not Reportable, Total Counted 100, Band Neuts % (Manual) 2, Abnorm Lymph % (Manual) 0, Nucleated RBC % Not Reportable, Neutrophils # (Manual) 17.1 H, Lymphocytes # (Manual) 2.1, Monocytes # (Manual) 1.9 H, Eosinophils # (Manual) 0.2, Basophils # (Manual) 0.0, Differential Comment MANUAL DIFFERENTIAL, WBC Morphology NORMAL APPEARANCE, Platelet Estimate NORMAL (130-450,000), Platelet Morphology NORMAL APPEARANCE, RBC Morph Micro Appear NORMAL APPEARANCE - Diagnostic Imaging Results Diagnostic Imaging Results Comments: The left shoulder x-rays are in adequate but do show what appears to be a displaced, comminuted proximal humerus fracture. I have ordered CT scan of the left shoulder with reconstruction views. The x-ray of the left elbow shows a displaced olecranon fracture of the elbow without dislocation. The x-rays of the pelvis show intact hip joints, no sign of hip fracture, previous left hip hemiarthroplasty that appears to be well stabilized and mildly displaced left superior/inferior pubic rami fractures without sign of posterior pelvic injury. - Diagnosis Diagnosis: 1. Displaced, comminuted left proximal humerus fracture. 2. Closed, displaced left olecranon fracture. 3. Mildly displaced left superior and inferior pubic rami fractures. 4. Polyarticular, steroid-dependent rheumatoid arthritis with osteoporosis and history of fragility fractures - Plan Plan: She has had successful nonoperative treatment of olecranon fracture that was displaced to her right elbow several months ago and I think she would prefer the same treatment for the left olecranon elbow fracture. The pubic rami fracture can be treated nonoperatively with weightbearing as tolerated, using a walker. She will not be able to bear weight on the left upper extremity because of 2 fractures. She may need a wheelchair until she can fully weight-bear on both legs. I have ordered a CT scan of the left shoulder to better visualize the fracture of the proximal humerus. Most of these fractures are treated nonoperatively but some that are dislocated or severely displaced can be considered for reverse shoulder replacement. The reverse shoulder replacement c an be done relatively acutely or on a delayed basis.
[2021-12-13] MEDS: HYDROmorphone 0.5 MG/0.5 ML SYRINGE IVP PRN ×3 (15:39→23:00)
--- NOTE | 2021-12-13 15:55 | CT Report ---
PROCEDURE: UPPER EXTREMITY WO - LT INDICATIONS: proximal humerus fracture with inadequate imaging TECHNIQUE: Noncontrast 3 mm axial sections acquired of the left humerus, with coronal and sagittal reformats. F or radiation dose reduction, the following was used: automated exposure control, adjustment of mA an d/or kV according to patient size. COMPARISON: Shoulder radiograph on the same day.. FINDINGS: Image quality: Excellent. Bones: Acute comminuted and impacted proximal humeral shaft/surgical neck fracture is seen with ante rior and medial displacement of proximal humeral shaft in relation to humeral head. Fracture line is seen extending to involve greater and lesser tuberosities with anteromedially displaced lesser tubero sity fragment and laterally displaced greater tuberosity fragment. There is up to 1.2 cm impaction an d overlapping at proximal humeral fracture site. No other fracture is seen. No dislocation. Moderate acromioclavicular joint and glenohumeral joint osteoarthritic changes are seen. Visualized left upper ribs are grossly intact. Soft tissues: There is significant soft tissue edema and swelling surrounding proximal humeral fract ure site. Moderate glenohumeral joint effusion is noted. No calcified intra-articular loose bodies. N o abnormal soft tissue calcifications. No gross full-thickness rotator cuff tendon rupture. No signif icant muscle atrophy. IMPRESSION: 1. Acute comminuted, impacted and displaced fracture involving left proximal humeral shaft/surgical n alix as described in detail above. Fracture lines are seen extending to involve both greater and lesse r tuberosities with displaced fractured fragments. No other fracture or dislocation is seen. No suspi cious bony lesion. Shoulder joint osteoarthritis. 2. Moderate joint effusion. No gross calcified intra-articular loose bodies. No abnormal soft tissue calcifications. No definite full-thickness rotator cuff tendon rupture. Significant soft tissue swell ing and edema surrounding proximal humeral fracture site. Reviewed by: Chaz Joseph MD on 12/13/2021 3:54 PM PDT Approved by: Chaz Joseph MD on 12/13/2021 3:54 PM PDT Station ID: [id number]
[2021-12-13] MEDS: SODIUM CHLORIDE FLUSH 0.9% 10 ML SYRINGE IVP SCH (16:23)
--- NOTE | 2021-12-13 18:17 | SURGERY HX AND PHYSICAL(T) ---
Surgical History & Physical - Chief Complaint/HPI Chief Complaint: s/p fall, multiple fractures History of Present Illness: Trauma H&P This is an 81-year-old female who states she got up in the middle of the night and remembered that the king maker was not prepared for the following morning. She went out to the kitchen, twisted and fell from standing onto the kitchen floor. She denies hitting her head and she denies any loss of consciousness. She presented to the emergency department, and on work-up there was found to have multiple orthopedic injuries. Due to the traumatic nature of her injuries, she is being admitted to the trauma service. Of note, the patient has a history of severe osteoporosis, rheumatoid arthritis with chronic steroid use, multiple old fractures, a hiatal hernia, and severe aortic stenosis for which she is scheduled to have a TAVR in early 2022 per the patient and her . While in the emergency department today, the patient was noted to have tachycardia and an irregularly irregular rhythm suspicious for possible atrial fibrillation. Due to her multiple orthopedic injuries, orthopedic surgery will be consulted, and due to her complex medical history and advanced age the internal medicine team will be consulted as well. - PMH/PSH/Social Hx Does the pt have a hx of MRSA?: No Neurological History: None Eyes, Ears, Nose, Throat: Chronic vision loss, Other (Allergic rhinitis) Cardiovascular: Hypertension (Dopplers with renal artery stenosis. 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 (, atrophic vaginitis) Urinary: Incontinence (On Estrace vaginal cream), Chronic bladder infection, Other (CKD stage III) Musculoskeletal: Rheumatoid arthritis (seronegative/positive anti-CCP), Osteoporosis, Other (plantar fasciitis, calcaneus fx, distal fibular fx) Blood Disorders: None Psychiatric: Anxiety PMH Other: Chronic macrocytic anemia due to meds and disease General: Cholecystectomy (1967), Colonoscopy Orthopedic: Hip replacement (Left, 1998, right hip fracture 1993), Knee replacement (Left 2000), Other (right hip repair (screws), Bilateral bunionectomy) Cardiothoracic: Other Dermatologic: Other Smoking Status: Former smoker Does the pt drink ETOH?: Yes Frequency: Daily Does the pt have substance abuse?: No - Family Hx Family Hx: Unremarkable - Home Meds and Allergies Home Medications: Furosemide [Lasix] 20 mg PO DAILY 07/11/12 NIFEdipine [Procardia Xl] 30 mg PO DAILY 07/11/12 Spironolactone [Aldactone] 50 mg PO DAILY 07/11/12 Trazodone HCl 50 mg PO HS 07/11/12 Cholecalciferol (Vitamin D3) [Vitamin D3] 2,000 unit PO DAILY 05/03/16 predniSONE [Prednisone] 2.5 mg PO DAILY 05/03/16 Levothyroxine Sodium 50 mcg PO QDAC 10/10/18 DULoxetine [Cymbalta] 60 mg PO DAILY 08/17/20 Famotidine [Pepcid] 20 mg PO DAILY 08/17/20 Gabapentin [Neurontin] 300 mg PO HS 08/17/20 Rosuvastatin Calcium [Crestor] 20 mg PO QPM 08/17/20 Allergies/Adverse Reactions: Allergies Allergy/AdvReac Type Severity Reaction Status Date / Time benazepril [From Lotensin] Allergy Unknown Verified 12/13/21 04:06 erythromycin base Allergy Unknown Verified 12/13/21 04:06 sulfamethoxazole Allergy Unknown Verified 12/13/21 04:06 [From Septra] trimethoprim [From Septra] Allergy Unknown Verified 12/13/21 04:06 meperidine HCl * AdvReac Intermediate Itching Verified 12/13/21 04:06 [From Demerol] morphine AdvReac Intermediate Anxiety Verified 12/13/21 04:06 - Review of Systems Constitutional: Other - Vital Signs Heart Rate: 121 Blood Pressure: 154/85 Temperature: 36.8 C Respiratory Rate: 20 O2 Saturation: 93 Weight (kg): 61.235 kg Height: 1.42 m - Physical Exam General Appearance: positive: No acute distress, Lethargic, Other (The patient was somnolent during my interview but had received pain medication shortly prior to my visit.) Eyes Bilatera: positive: Normal inspection, PERRL, EOMI, No scleral icterus ENT: positive: ENT inspection nml, Other (no obvious facial trauma, no malocclusion, normal sensation throughout the face) Neck: positive: Nml inspection, Other (no posterior midline neck pain). negative: Tracheal deviation Respiratory: positive: Chest non-tender, No respiratory distress Cardiovascular: positive: Irregularly irregular, Tachycardia. negative: Regular rate & rhythm, No murmur (5/6 FRANDY) Peripheral Pulses: positive: 2+ Abdomen: positive: Non-tender, Other (no external signs of trauma). negative: Guarding, Rebound Back: positive: Nml inspection, Other (non tender to palpation in the midline) Skin: positive: Color nml Extremities: positive: Non-tender (R UE, B LE), Full ROM (R UE, B LE), Other (L UE in sling, ROM inhibited by pain) Neurologic/Psychiatric: positive: Oriented x3 - Patient Review Patient Review: Problems were reviewed with the patient during this visit. Medications were reviewed with the patient during this visit. Allergies were reviewed this patient during this visit. Pertinent Tests Reviewed: All pertitent test for this patient were reviewed. - Assessment & Plan Assessment and Plan: Multiple imaging studies including a series of x-rays and CT scans of the chest, abdomen, and pelvis reveal: 1.acute comminuted fractures involving the medial aspect of the left superior pubic ramus and adjacent to the symphysis pubis is minimal inferior displacement at the fracture site. A chronic fracture involving the midportion of the left inferior pubic ramus. A subtle minimally displaced fracture involving more lateral aspect of the left inferior pubic ramus. She has prior bilateral hip surgeries with no periprosthetic loosening. 2.She also has a comminuted markedly displaced olecranon process fracture with bony fragments in the joint. 3.A displaced, angulated humeral neck fracture. 4.Chest CT shows several chronic findings including mild cardiomegaly, moderate hiatal hernia, multiple old compression fractures. No new or acute fractures. 5.Abdomen CT demonstrates chronic findings including remote cholecystectomy with diffuse biliary ductal dilatation. 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 No acute findings. I personally reviewed the images and reports from the above studies. This is an 81-year-old female status post fall from standing with: 1. Left superior and inferior pelvic rami fractures. Ortho consulted. Weightbearing as tolerated. No surgery indicated. 2. Comminuted, markedly displaced left sided olecranon process fracture. Ortho consulted. Nonweightbearing to left upper extremity. CT of the left upper extremity has been ordered. Likely non op management per ortho. 3. Displaced, angulated left humeral neck fracture. Ortho consulted. Nonweightbearing to left upper extremity. CT of the left upper extremity has been ordered. Final decision regarding need for and timing of surgery pending. 4. Leukocytosis. Afebrile. No sign of infection. This is likely a stress response. f/u AM lab. 4. Tachycardia with PACs, atrial fibrillation cardiomegaly, severe aortic stenosis. I appreciate recommendations from the medicine team. On lovenox with plan to transition to [facility] as outpatient. 5. Severe osteoporosis, GERD, rheumatoid arthritis, CKD, HTN. Chronic medical problems. We plan to continue the patient's home medications, I appreciate recommendations from the medicine team. Admitted to floor. Goals: determine need for orthopedic surgery, pain control, discharge planning (likely SNF vs rehab) Plan for tertiary trauma exam tomorrow. If no new injuries identified, likely transfer to medical service.
[2021-12-13] MEDS: GABAPENTIN 300 MG CAPSULE PO SCH (21:32)
[2021-12-13] MEDS: traZODone 50 MG TABLET PO SCH (21:32)
[2021-12-14] MEDS: SODIUM CHLORIDE FLUSH 0.9% 10 ML SYRINGE IVP SCH ×3 (01:20→17:31)
[2021-12-14] MEDS: HYDROmorphone 0.5 MG/0.5 ML SYRINGE IVP PRN ×4 (05:29→20:26)
[2021-12-14] MEDS: SODIUM CHLORIDE 0.9% 1,000 ML IV SCH ×3 (05:32→23:44)
[2021-12-14 06:02] LABS: HCT - HEMATOCRIT 40.8 % (37.0-47.0); HGB - HEMOGLOBIN 12.6 g/dL (12.0-16.0); MEAN CORPUSCULAR HGB CONC 30.9 g/dL (32.0-36.0); MEAN CORPUSCULAR VOLUME 100.2 fL (81.0-99.0); MEAN PLATELET VOLUME 9.8 fL (7.9-10.8); RED BLOOD COUNT 4.07 10^6/uL (4.20-5.40); RED CELL DISTRIBUTION WIDTH 13.1 % (12.0-15.0); WHITE BLOOD COUNT 12.8 x10^3/uL (4.8-10.8)
[2021-12-14 06:12] LABS: CALCIUM 8.4 mg/dL (8.5-10.3); CREATININE 1.2 mg/dL (0.4-1.0); POTASSIUM 3.4 mmol/L (3.5-5.0)
[2021-12-14] MEDS: LEVOTHYROXINE 25 MCG TABLET PO SCH (06:33)
[2021-12-14] MEDS ORDERED: POTASSIUM CHLORIDE 20 MEQ TABLET PO ONE (08:09)
--- NOTE | 2021-12-14 08:14 | PROVIDER PROGRESS NOTE ---
Subjective - General Admit Date: 12/13/21 - Other Other Information/Narrative: Patient resting comfortably this AM. She states she slept well last night. Tolerating diet, no n/v. No f/c. No acute events overnight. She continues to note left arm/shoulder pain which is well controlled with medication. No new areas of pain this AM. Objective - Patient Data Reviewed Vital Signs: Yes Vital Signs: Vital Signs x48h Temp Pulse Resp BP Pulse Ox 12/14/21 05:14 97 12/14/21 05:02 37.7 C 108 H 18 125/51 L 91 L 12/14/21 00:14 94 Weight: Weight 12/12/21 12/13/21 12/14/21 23:59 23:59 23:59 Weight (kg) 61.235 kg Intake & Output: Intake and Output Totals x24h 12/12/21 12/13/21 12/14/21 23:59 23:59 23:59 Intake Total 1423.75 776.25 Output Total 200 200 Balance 1223.75 576.25 - Lab Results Lab Results: 12/14/21 05:59 12/14/21 05:59 Other Lab Results: Lab Results x24hrs 12/14/21 12/14/21 12/13/21 Range/Units 05:59 05:59 10:42 WBC 12.8 H (4.8-10.8) x10^3/uL RBC 4.07 L (4.20-5.40) 10^6/uL Hgb 12.6 (12.0-16.0) g/dL Hct 40.8 (37.0-47.0) % MCV 100.2 H (81.0-99.0) fL MCH 31.0 (27.0-31.0) pg MCHC 30.9 L (32.0-36.0) g/dL RDW 13.1 (12.0-15.0) % Plt Count 223 (130-450) 10^3/uL MPV 9.8 (7.9-10.8) fL Sodium 137 (135-145) mmol/L Potassium 3.4 L (3.5-5.0) mmol/L Chloride 103 (101-111) mmol/L Carbon Dioxide 23 (21-32) mmol/L Anion Gap 11.0 (6-13) BUN 23 H (6-20) mg/dL Creatinine 1.2 H (0.4-1.0) mg/dL Estimated GFR (MDRD) 43 L (>89) Glucose 123 H (70-100) mg/dL Calcium 8.4 L (8.5-10.3) mg/dL SARS-CoV-2 (PCR) NOT DETECTED - Current Medications Current Medications: Current Medications Generic Name Dose Route Start Last Admin Trade Name Freq PRN Reason Stop Dose Admin Gabapentin 300 mg 12/13/21 21:00 12/13/21 21:32 Gabapentin 300 Mg Capsule PO 300 mg HS AMANDO Administration Hydromorphone HCl 0.5 mg 12/13/21 11:08 12/14/21 05:29 Hydromorphone 0.5 Mg/0.5 Ml Syringe IVP 0.5 mg Q2H PRN Administration Pain 8 to 10 Levothyroxine Sodium 50 mcg 12/14/21 07:00 12/14/21 06:33 Levothyroxine 25 Mcg Tablet PO 50 mcg QDAC AMANDO Administration Metoprolol Tartrate 25 mg 12/13/21 14:00 12/13/21 21:32 Metoprolol Tartrate 25 Mg Tablet PO 25 mg BID AMANDO Administration Sodium Chloride 10 ml 12/13/21 17:00 12/14/21 01:20 Sodium Chloride Flush 0.9% 10 Ml Syringe IVP Not Given 0100,0900,1700 AMANDO Trazodone HCl 50 mg 12/13/21 21:00 12/13/21 21:32 Trazodone 50 Mg Tablet PO 50 mg HS AMANDO Administration - Physical Exam General Appearance: positive: No acute distress, Alert Eyes Bilateral: positive: Normal inspection, PERRL, EOMI ENT: positive: ENT inspection nml Neck: positive: Nml inspection, Trachea midline, Other (no midline ttp) Respiratory: positive: Chest non-tender, No respiratory distress Cardiovascular: positive: Systolic murmur Abdomen: positive: Non-tender, No distention. negative: Guarding, Rebound Back: positive: Other (no midline ttp) Skin: positive: Color nml, Warm, Dry Extremities: positive: Non-tender (R UE, B LE), Full ROM (R UE, B LE, L knee stiff (patient states this is chronic, due to RA)), Other (L UE in sling, ROM limited by pain) Neurologic/Psychiatric: positive: Oriented x3 Impression/Plan - Problem List Problem List: This is an 81-year-old female status post fall from standing with: 1. Left superior and inferior pelvic rami fractures. Ortho consulted. Weightbearing as tolerated. No surgery indicated. 2. Comminuted, markedly displaced left sided olecranon process fracture. Ortho consulted. Nonweightbearing to left upper extremity. CT of the left upper extremity has been ordered. Likely non op management per ortho. 3. Displaced, angulated left humeral neck fracture. Ortho consulted. Nonweightbearing to left upper extremity. CT of the left upper extremity has been ordered. Final decision regarding need for and timing of surgery pending discussion with family today, likely non op. 4. Leukocytosis. Improving, afebrile. No sign of infection. This is likely a stress response. f/u AM lab. 4. Tachycardia with PACs, cardiomegaly, severe aortic stenosis. I appreciate treatment per medicine team. On lovenox for dvt ppx. 5. Severe osteoporosis, GERD, rheumatoid arthritis, CKD, HTN. Chronic medical problems. We plan to continue the patient's home medications, I appreciate treatment per the medicine team. 6. Hypokalemia. Replaced PO this AM. Mg added on to AM lab. 7. L knee stiffness. Patient states this is due to RA. If able to ambulate without difficulty with PT, no additional workup needed. If patient complains of L knee pain with ambulation, consider L knee XR. Admitted to floor. Goals: determine need for orthopedic surgery, pain control, discharge planning (likely SNF vs rehab) Tertiary exam complete, no new injuries identified. I discussed the patient with ortho and medicine. Trauma workup complete. I will transfer to medical service with ortho consult this PM. If additional trauma questions/concerns arise, please contact general surgery wing [place].
[2021-12-14] MEDS: METOPROLOL TARTRATE 25 MG TABLET PO SCH ×2 (08:18→20:27)
[2021-12-14] MEDS: DULoxetine 30 MG CAPSULE PO SCH (08:18)
[2021-12-14] MEDS: CHOLECALCIFEROL 25 MCG TABLET PO SCH (08:20)
[2021-12-14] MEDS: ENOXAPARIN 40 MG/0.4 ML SYRINGE SUBQ SCH (08:20)
[2021-12-14] MEDS: FAMOTIDINE 20 MG TABLET PO SCH (08:20)
[2021-12-14] MEDS: SPIRONOLACTONE 25 MG TABLET PO SCH (08:20)
[2021-12-14] MEDS: predniSONE 5 MG TABLET PO SCH (08:31)
[2021-12-14] MEDS ORDERED: FUROSEMIDE 20 MG TABLET PO SCH (09:00)
--- NOTE | 2021-12-14 11:25 | PHARMACY PROGRESS NOTE ---
- Best Possible Medication History Admit Date and Time: 12/13/21 1108 Processed by: Nursing Medication History completed: Yes Patient Interview: Completed As the person ultimately responsible for medication therapy, providers are able to order a medication from an existing home medication list in [facility] via the "Reconcile Routine" prior to Confirmation of that medication by geophysical support specialist. Such practice is discouraged except when the physician, in their clinical judg ment, deems that a medical need exists for a medication without regard to previous use.
--- NOTE | 2021-12-14 15:11 | PROVIDER PROGRESS NOTE ---
Subjective - General Admit Date: 12/13/21 - Other Other Information/Narrative: This is an orthopedic surgery progress note. Patient was admitted for 3 fractures following a fall. In questioning how she fell, she was ambiguous and uncertain as to the causation of the fall. She told me she was not certain why she fell but she is apparently given other reports differently to others. At any rate she is not fully lucid today. She is certainly alert and articulate but she is slow to respond to questions and does not know the month or year. Her is in the room with her. She is quite comfortable at the present time and is also being evaluated by physical therapy.She was able to sit at the edge of the bed but not much else so far. Objective - Patient Data Vital Signs: Vital Signs x48h Temp Pulse Pulse Pulse Resp BP BP 12/14/21 12:32 37.4 C 68 18 129/49 L 12/14/21 10:25 73 12/14/21 08:18 109/71 12/14/21 08:00 37.1 C 94 18 109/71 BP Pulse Ox 12/14/21 12:32 92 12/14/21 10:25 123/53 L 12/14/21 08:18 12/14/21 08:00 100 Weight: Weight 12/12/21 12/13/21 12/14/21 23:59 23:59 23:59 Weight (kg) 61.235 kg Intake & Output: Intake and Output Totals x24h 12/12/21 12/13/21 12/14/21 23:59 23:59 23:59 Intake Total 1423.75 1078.75 Output Total 200 400 Balance 1223.75 678.75 - Lab Results Lab Results: 12/14/21 05:59 12/14/21 05:59 Other Lab Results: Lab Results x24hrs 12/14/21 12/14/21 12/14/21 Range/Units 05:59 05:59 05:59 WBC 12.8 H (4.8-10.8) x10^3/uL RBC 4.07 L (4.20-5.40) 10^6/uL Hgb 12.6 (12.0-16.0) g/dL Hct 40.8 (37.0-47.0) % MCV 100.2 H (81.0-99.0) fL MCH 31.0 (27.0-31.0) pg MCHC 30.9 L (32.0-36.0) g/dL RDW 13.1 (12.0-15.0) % Plt Count 223 (130-450) 10^3/uL MPV 9.8 (7.9-10.8) fL Sodium 137 (135-145) mmol/L Potassium 3.4 L (3.5-5.0) mmol/L Chloride 103 (101-111) mmol/L Carbon Dioxide 23 (21-32) mmol/L Anion Gap 11.0 (6-13) BUN 23 H (6-20) mg/dL Creatinine 1.2 H (0.4-1.0) mg/dL Estimated GFR (MDRD) 43 L (>89) Glucose 123 H (70-100) mg/dL Calcium 8.4 L (8.5-10.3) mg/dL Magnesium 2.4 (1.7-2.8) mg/dL - Current Medications Current Medications: Current Medications Generic Name Dose Route Start Last Admin Trade Name Freq PRN Reason Stop Dose Admin Cholecalciferol 50 mcg 12/14/21 09:00 12/14/21 08:20 Cholecalciferol 25 Mcg Tablet PO 50 mcg DAILY AMANDO Administration Duloxetine HCl 60 mg 12/14/21 09:00 12/14/21 08:18 Duloxetine 30 Mg Capsule PO 60 mg DAILY AMANDO Administration Enoxaparin Sodium 40 mg 12/14/21 09:00 12/14/21 08:20 Enoxaparin 40 Mg/0.4 Ml Syringe SUBQ 40 mg DAILY AMANDO Administration Famotidine 20 mg 12/14/21 09:00 12/14/21 08:20 Famotidine 20 Mg Tablet PO 20 mg DAILY AMANDO Administration Gabapentin 300 mg 12/13/21 21:00 12/13/21 21:32 Gabapentin 300 Mg Capsule PO 300 mg HS AMANDO Administration Hydromorphone HCl 0.5 mg 12/13/21 11:08 12/14/21 13:21 Hydromorphone 0.5 Mg/0.5 Ml Syringe IVP 0.5 mg Q2H PRN Administration Pain 8 to 10 Levothyroxine Sodium 50 mcg 12/14/21 07:00 12/14/21 06:33 Levothyroxine 25 Mcg Tablet PO 50 mcg QDAC AMANDO Administration Metoprolol Tartrate 25 mg 12/13/21 14:00 12/14/21 08:18 Metoprolol Tartrate 25 Mg Tablet PO 25 mg BID AMANDO Administration Prednisone 2.5 mg 12/14/21 08:00 12/14/21 08:31 Prednisone 5 Mg Tablet PO 2.5 mg DAILYWM AMANDO Administration Sodium Chloride 10 ml 12/13/21 17:00 12/14/21 08:20 Sodium Chloride Flush 0.9% 10 Ml Syringe IVP Not Given 0100,0900,1700 AMANDO Spironolactone 50 mg 12/14/21 09:00 12/14/21 08:20 Spironolactone 25 Mg Tablet PO 50 mg DAILY AMANDO Administration Trazodone HCl 50 mg 12/13/21 21:00 12/13/21 21:32 Trazodone 50 Mg Tablet PO 50 mg HS AMANDO Administration - Physical Exam Comments/Other: There is not much change in her examination from previous. She has tenderness to both shoulder and elbow on left side as well as the left pubic rami. She has limited shoulder and elbow motion because of pain. She is able to sit and able to push with her left foot on my hand but not stand. She cannot bear weight on her left upper extremity. Her neurovascular is intact to left upper extremity and left lower extremity. Impression/Plan - Problem List Problem List: Multiple fractures involving left side including proximal humerus, left olecranon and pubic rami fractures. This is in conjunction with polyarticular steroid-dependent rheumatoid arthritis and osteoporosis. I have independently visualized his CT scan which shows fractures at the surgical neck with posterior angulation at the fracture site, fracture of both tuberosities. The olecranon fracture of the left elbow is also displaced; she had a similar fracture treated nonoperatively to the right elbow in the past with successful outcome despite displacement. She prefers nonoperative treatment for her left elbow. As far as treatment for her left shoulder is concerned the choices are nonoperative treatment versus reverse shoulder replacement. At the present denys e, it is best to treat her nonoperatively. I understand that there might be history of aortic stenosis and aortic valve replacement in the future. It is best to delay any surgery on her left shoulder, and is likely to have some stiffness of her left shoulder. Regardless of whether she has nonoperative or surgical treatment. There is no surgical indication for her stable pelvic rami fractures on the left side. Plan the patient will need to be bed to chair until she can fully weight-bear on her left leg. Her pelvic fractures are likely to take 6 weeks to heal. Her arm fractures are likely to take at least 6 or more weeks to heal as well. I suggested a shoulder immobilizer for her left arm for the first week. The shoulder immobilizer may be removed to do passive motion of both left shoulder and left elbow as tolerated. The arm sling is just for pain control and can be removed for hygiene and if the patient is comfortable without sling. She may bear weight as tolerated with a walker on her left leg. It is unlikely that she will be able to bear enough weight on her left leg independent of use of her left arm which already has 2 fractures. Therefore, she will need to use a wheelchair or remain in a chair until she is able to bear enough weight on her left leg so that she does not have to bear weight on her left arm. I would like to recheck her in 1 week for follow-up. I would suggest at least another week of Lovenox if she is going to the senior care tomorrow. The Lovenox would be for deep venous thrombosis prophylaxis.I would continue efforts at physical and Occupational Therapy. I have discussed my recommendations with Dr. Juarez and Dr. Ruiz
--- NOTE | 2021-12-14 17:13 | PROVIDER PROGRESS NOTE ---
Subjective - Prog Note Date Prog Note Date: 12/14/21 Prog Note Time: 16:57 - Subjective Subjective: She continues to be quite sedated. Sleepy because of the opioid use to control her pain. She protest when I say that maybe we should reduce her dose because she feels that the pain is controlled and she is alarmed at the idea that that sharp stabbing pain will come back. So other than joint pain, and being immobile, she denies any new complaints. No chest pain, palpitations, shortness of breath. No abdominal pain. It really hurts to move her left knee. Current Medications - Current Medications Current Medications: Active Medications Acetaminophen (Acetaminophen 325 Mg Tablet) 650 mg PO Q4HR PRN PRN Reason: Pain 1 to 4, or Fever Cholecalciferol (Cholecalciferol 25 Mcg Tablet) 50 mcg PO DAILY [facility] Last Admin: 12/14/21 08:20 Dose: 50 mcg Duloxetine HCl (Duloxetine 30 Mg Capsule) 60 mg PO DAILY [facility] Last Admin: 12/14/21 08:18 Dose: 60 mg Enoxaparin Sodium (Enoxaparin 40 Mg/0.4 Ml Syringe) 40 mg SUBQ DAILY [facility] Last Admin: 12/14/21 08:20 Dose: 40 mg Famotidine (Famotidine 20 Mg Tablet) 20 mg PO DAILY [facility] Last Admin: 12/14/21 08:20 Dose: 20 mg Furosemide (Furosemide 20 Mg Tablet) 20 mg PO DAILY [facility] Gabapentin (Gabapentin 300 Mg Capsule) 300 mg PO HS [facility] Last Admin: 12/13/21 21:32 Dose: 300 mg Hydromorphone HCl (Hydromorphone 0.5 Mg/0.5 Ml Syringe) 0.5 mg IVP Q2H PRN PRN Reason: Pain 8 to 10 Last Admin: 12/14/21 13:21 Dose: 0.5 mg Sodium Chloride (Normal Saline 0.9%) 1,000 mls @ 100 mls/hr IV .Q10H [facility] Last Admin: 12/14/21 16:28 Dose: 100 mls/hr Levothyroxine Sodium (Levothyroxine 25 Mcg Tablet) 50 mcg PO QDAC [facility] Last Admin: 12/14/21 06:33 Dose: 50 mcg Metoprolol Tartrate (Metoprolol Tartrate 25 Mg Tablet) 25 mg PO BID [facility] Last Admin: 12/14/21 08:18 Dose: 25 mg Ondansetron HCl (Ondansetron 4 Mg/2 Ml Vial) 4 mg IVP Q6HR PRN PRN Reason: Nausea / Vomiting Polyethylene Glycol (Polyethylene Glycol 3350 17 Gm Packet) 17 gm PO DAILY [facility] Prednisone (Prednisone 5 Mg Tablet) 2.5 mg PO DAILYWM [facility] Last Admin: 12/14/21 08:31 Dose: 2.5 mg Sodium Chloride (Sodium Chloride Flush 0.9% 10 Ml Syringe) 10 ml IVP PRN PRN PRN Reason: NEEDED PER PROVIDER ORDERS Sodium Chloride (Sodium Chloride Flush 0.9% 10 Ml Syringe) 10 ml IVP 0100,0900,1700 [facility] Last Admin: 12/14/21 08:20 Dose: Not Given Spironolactone (Spironolactone 25 Mg Tablet) 50 mg PO DAILY [facility] Last Admin: 12/14/21 08:20 Dose: 50 mg Trazodone HCl (Trazodone 50 Mg Tablet) 50 mg PO [facility] Last Admin: 12/13/21 21:32 Dose: 50 mg Furosemide [Lasix] 20 mg PO DAILY 07/11/12 NIFEdipine [Procardia Xl] 30 mg PO DAILY 07/11/12 Spironolactone [Aldactone] 50 mg PO DAILY 07/11/12 Trazodone HCl 50 mg PO HS 07/11/12 Cholecalciferol (Vitamin D3) [Vitamin D3] 2,000 unit PO DAILY 05/03/16 predniSONE [Prednisone] 2.5 mg PO DAILY 05/03/16 Levothyroxine Sodium 50 mcg PO QDAC 10/10/18 DULoxetine [Cymbalta] 60 mg PO DAILY 08/17/20 Famotidine [Pepcid] 20 mg PO DAILY 08/17/20 Gabapentin [Neurontin] 300 mg PO HS 08/17/20 Rosuvastatin Calcium [Crestor] 20 mg PO QPM 08/17/20 Objective - Vital Signs/Intake & Output Reviewed Vital Signs: Yes Vital Signs: Vital Signs x48h Temp Pulse Pulse Pulse Resp BP BP 12/14/21 15:48 37.1 C 74 16 130/64 12/14/21 13:50 73 123/53 L 12/14/21 12:32 37.4 C 68 18 129/49 L 12/14/21 10:25 73 123/53 L Pulse Ox 12/14/21 15:48 92 12/14/21 13:50 12/14/21 12:32 92 12/14/21 10:25 Intake & Output: Intake & Output 12/11/21 12/12/21 12/13/21 12/14/21 23:59 23:59 23:59 23:59 Intake Total 1423.75 1876.25 Output Total 200 400 Balance 1223.75 1476.25 - Objective General Appearance: positive: Lethargic (She is still upright, able to speak full sentences, but drifts off and falls asleep again. I ask about reducing her pain medicine and her eyes open wide and she asked me to please not do that because she feels like he is "just getting to the point where I am comfortable") Eyes Bilateral: positive: PERRL, EOMI ENT: positive: No signs of dehydration Neck: positive: No JVD. negative: Stiff neck Respiratory: positive: No respiratory distress. negative: Wheezes, Rales, Rhonchi Cardiovascular: positive: Regular rate & rhythm, Systolic murmur Abdomen: positive: Non-tender, No organomegaly, Nml bowel sounds, No distention Skin: positive: Warm, Dry Extremities: positive: Pedal edema, Other (Left knee fully extended and difficult for her to bend it and use it. Left arm in a sling and shoulder immobilizer.) Neurologic/Psychiatric: positive: Oriented x3, CN's nml (2-12), Motor nml - Lab Results Fish Bones: 12/14/21 05:59 12/14/21 05:59 Other Labs: Lab Results x24hrs 12/14/21 12/14/21 12/14/21 Range/Units 05:59 05:59 05:59 WBC 12.8 H (4.8-10.8) x10^3/uL RBC 4.07 L (4.20-5.40) 10^6/uL Hgb 12.6 (12.0-16.0) g/dL Hct 40.8 (37.0-47.0) % MCV 100.2 H (81.0-99.0) fL MCH 31.0 (27.0-31.0) pg MCHC 30.9 L (32.0-36.0) g/dL RDW 13.1 (12.0-15.0) % Plt Count 223 (130-450) 10^3/uL MPV 9.8 (7.9-10.8) fL Sodium 137 (135-145) mmol/L Potassium 3.4 L (3.5-5.0) mmol/L Chloride 103 (101-111) mmol/L Carbon Dioxide 23 (21-32) mmol/L Anion Gap 11.0 (6-13) BUN 23 H (6-20) mg/dL Creatinine 1.2 H (0.4-1.0) mg/dL Estimated GFR (MDRD) 43 L (>89) Glucose 123 H (70-100) mg/dL Calcium 8.4 L (8.5-10.3) mg/dL Magnesium 2.4 (1.7-2.8) mg/dL Assessment/Plan - Problem List (1) Severe aortic stenosis Impression: Symptoms are mainly progressive shortness of breath, dyspnea on exertion, limited exercise tolerance now. She has not had chest pain or syncope. Review of the record does not show the planned TAVR per her last note from November 29. The cardiology states that his plan depends on her next echo. Per the , the echo shows progression of disease and the TAVR is scheduled for February 2022. She was on 75 cc an hour overnight. After watching her eat dinner last night, I realize that she is not taking in much by mouth. I thought she would able to be drink enough to maintain creatinine but her creatinine is slightly higher today. As such of increased IV fluids to 100 cc an hour temporarily. (2) Sinus tachycardia with PACs Conclusion/Plan: Yesterday, the ER staff wondered if she was going in and out of atrial fibrillation on telemetry. Her EKG shows sinus rhythm with PACs. She has a dilated left atrium on echo so I would not be surprised that she would go into atrial fibrillation. However, I repeated her EKG and EKG confirms that it is sinus rhythm. Plan: As needed beta-mark for rate control (3) CKD (chronic kidney disease) stage 3, GFR 30-59 ml/min Conclusion/Plan: Will avoid nephrotoxic agents. Monitor creatinine daily basis. Today's creatinine is elevated. Baseline creatinine is 0.9-1.0. She came up to 1.2 between yesterday and today. Could be within lab variation. Nevertheless I h sandra increased her IV fluids temporarily until tomorrow. Qualifiers: Chronic kidney disease stage 3 subtype: stage 3a (GFR 45-59) Qualified Code(s): N18.31 - Chronic kidney disease, stage 3a (4) Osteoporosis Conclusion/Plan: Her home medication list in the primary care provider office does not include calcium, vitamin D. There are some notes where rheumatoid consultation mentions Boniva. This patient is currently sedated from pain medicine and can only answer my questions half the time. But she and her both verify that she gets Prolia subcutaneously every 6 months. She takes calcium and vitamin D. Plan: Resume usual home medications. Qualifiers: Osteoporosis type: other Presence of current pathological fracture: with current pathological fracture Encounter type: sequela Qualified Code(s): M80.80XS - Other osteoporosis with current pathological fracture, unspecified si te, sequela (5) HTN (hypertension) Conclusion/Plan: In the emergency room she has been consistently 155-168 systolic. Diastolic is anywhere from 54-229. Medications at home are spironolactone, Lasix, Procardia XL. I Started metoprolol for her tachycardia. Medications are Lasix 20 mg daily, metoprolol 25 p.o. twice daily. Spironolactone 50 p.o. daily. I have not resumed her Procardia XL since her blood pressure is doing quite well. Today she has been 123 and 129 systolic. If I have to keep on giving her IV fluids her creatinine, and may stop her diuretics temporarily. Qualifiers: Hypertension type: primary hypertension Qualified Code(s): I10 - Essential (primary) hypertension (6) Multiple fractures Conclusion/Plan: Fracture of left olecranon process, fracture of left pelvis, fracture of neck of left humerus, and these are all being followed by orthopedics as well as trauma evaluation by general surgery. Case has been discussed with general surgery who is admitting this patient under the trauma service. They will do a primary, secondary and tertiary eval of the patient. If the tertiary eval of the patient reveals no progression of sequela from trauma and fall, she is asking that the patient be then transition to my service. I am in agreement with that. Today was the tertiary exam and she is transition to my service today. Orth opedic surgery has also seen the patient and I appreciate their detailed note. She will not need to go to the OR. I explained to the patient that because of the fractures, she is going to have limited mobility and significant pain. She understands that. Just overnight she cannot believe how much discomfort she is in and how much help she needs just to sit up in bed. She is chosen [facility]. We have a significant bed shortage and staffing shortage due to COVID 19. As such I am going to be asking for a Medicare waiver of the 3 midnights and for her to be admitted to a [facility] facility for rehab under 2 midnights. (7) Leukocytosis Conclusion/Plan: There is no bandemia or lymphocytosis. White cell count is coming down. Chest x-ray is without pneumonia. Review of systems shows no symptoms of new infection. Urinalysis has not been done and I will get a straight cath. At this time no antibiotics. Qualifiers: Leukocytosis type: unspecified Qualified Code(s): D72.829 - Elevated white blood cell count, unspecified
[2021-12-14] MEDS: CALCIUM CARBONATE CHEW 500 MG TABLET PO SCH (20:26)
[2021-12-14] MEDS: GABAPENTIN 300 MG CAPSULE PO SCH (20:27)
[2021-12-14] MEDS: traZODone 50 MG TABLET PO SCH (20:27)
[2021-12-15] MEDS: HYDROmorphone 0.5 MG/0.5 ML SYRINGE IVP PRN ×4 (00:19→13:35)
[2021-12-15] MEDS: SODIUM CHLORIDE FLUSH 0.9% 10 ML SYRINGE IVP SCH ×2 (01:55→13:37)
[2021-12-15] MEDS: SODIUM CHLORIDE 0.9% 1,000 ML IV SCH (02:19)
[2021-12-15] MEDS: LEVOTHYROXINE 25 MCG TABLET PO SCH (06:36)
[2021-12-15] MEDS ORDERED: FUROSEMIDE 20 MG TABLET PO SCH (09:00)
[2021-12-15] MEDS ORDERED: polyethylene glycoL 3350 17 GM PACKET PO SCH (09:00)
[2021-12-15 09:54] VITALS: BP 108/53
--- NOTE | 2021-12-15 10:22 | DISCHARGE SUMMARY ---
"Discharge Summary Admit Date: 12/13/21 Discharge Date: 12/15/21 Discharging Provider: Frannie Juarez MD Primary Care Provider: ANUJ Clark Code Status: Attempt Resuscitation Condition at Discharge: Stable Discharge Disposition: DC/Xfer - DIAGNOSES Discharge Diagnoses with Status of Each Condition: 1. Multiple fractures including: Fracture of left olecranon process Fracture of left pelvis Fracture of neck of left humerus 2. Fall at home on level ground 3. Severe aortic stenosis 4. Sinus tachycardia with PACs 5. Chronic kidney disease stage III 6. Osteoporosis 7. Rheumatoid arthritis 8. Hypertension 9. Leukocytosis 10. Hyperglycemia - HPI History of Present Illness: She is a pato elderly woman who has severe osteoporosis due to prolonged steroid use for rheumatoid arthritis and has had bilateral hip repairs for hip fractures, a fall with pelvic fracture September 2018, and now presents with yet another fall today resulting in acute comminuted fractures involving the medial aspect of the left superior pubic ramus and adjacent to the symphysis pubis is minimal inferior displacement at the fracture site. A chronic fracture involving the midportion of the left inferior pubic ramus. A subtle minimally displaced fracture involving more lateral aspect of the left inferior pubic r amus. She has prior bilateral hip surgeries with no periprosthetic loosening. She also has a comminuted markedly displaced olecranon process fracture with bony fragments in the joint. A displaced, angulated humeral neck fracture. Chest CT shows mild cardiomegaly, moderate hiatal hernia, multiple old compression fractures. No new compression fractures. Remote cholecystectomy with diffuse biliary ductal dilatation. She has a choledochocele extending into the duodenum. And abdomen CT has no evidence of an acute abdominal process. She continues to have multiple chronic osteoporotic compression fractures. The cholecystectomy in the choledochocele. General surgery has been consulted. I have discussed the case with the ER provider, orthopedic surgery, and the general surgeon. General surgery is to admit to their service and Ortho and general medicine will consult. While on telemetry, it was noted to be in irregularly irregular heart rate. EKG shows sinus tachycardia with irregular rate. There are P waves on the EKG with multiple narrow complex PACs. The patient herself denies palpitations, cough, chest pain. Her main distress is that she is back in the emergency room. She is upset that she fell again. And she has significant orthopedic pain. She says that prior to this she was in her usual state of health. There were no new change in review of systems. That when she fell, it was a mechanical fall. She tripped in the kitchen. Had no loss of consciousness. She fell against the kitchen cabinets. She did not have any blow to the head. On review systems she is being followed for progressive shortness of breath and fatigue that has been present since approximately 2018. To her 's knowledge she has never had syncope because of her aortic stenosis. An echo in December 2019 showed aortic stenosis that was moderate to severe. In May 2020 she had an ejection fraction of 60 to 65%. Normal right ventricle size and function. Left atrium moderately dilated. Moderate to severe aortic stenosis with a valve area of 1 cm, a mean gradient of 22 mmHg and mild aortic regurgitation. She was seen again November 29, 2021. Repeat echo was done. Those results are not noted in the outpatient clinic notes. However, Her tells us that she has a planned TAVR for February 2022. [phone]. - Past Medical History Cardiovascular: reports: Hypertension (Dopplers with renal artery stenosis. Follow-up angiogram July 2006 without stenosis.), High cholesterol, Murmur, Valve disorder (Moderate to severe aortic stenosis) Respiratory: reports: Pneumonia Neuro: reports: None Endocrine/Autoimmune: reports: HyPOthyroidism GI: reports: Colon polyps, Chronic diarrhea, Other (Dilated bile duct, choledochocele, MRCP done in the past) ELECTROPHYSIOLOGY TECH: reports: Other (, atrophic vaginitis) : reports: Incontinence (On Estrace vaginal cream), Chronic bladder infection, Other (CKD stage III) HEENT: reports: Chronic vision loss, Other (Allergic rhinitis) Psych: reports: Anxiety Musculoskeletal: reports: Rheumatoid arthritis (seronegative/positive anti-CCP), Osteoporosis, Other (plantar fasciitis, calcaneus fx, distal fibular fx) Derm: reports: Other (Seborrheic keratosis, acanthotic keratosis, and basal cell carcinoma) MRSA Hx?: No Other Past Medical History: Chronic macrocytic anemia due to meds and disease - Past Surgical History General: reports: Cholecystectomy (1967), Colonoscopy Ortho: reports: Hip replacement (Left, 1998, right hip fracture 1993), Knee replacement (Left 2000), Other (right hip repair (screws), Bilateral bunionectomy) Cardiovascular: reports: Other Derm: reports: Other - CONSULTS | PROCEDURES Consultations: Internal medicine with hospitalist service, orthopedics. Admission service Procedures: She had a pelvic CT, and plain films of left shoulder and left elbow. These showed: Acute comminuted fractures involving the medial aspect of the left superior pubic ramus and adjacent to the symphysis pubis is minimal inferior displacement at the fracture site. A chronic fracture involving the midportion of the left inferior pubic ramus. A subtle minimally displaced fracture involving more lateral aspect of the left inferior pubic ramus. She has prior bilateral hip surgeries with no periprosthetic loosening. Comminuted markedly displaced olecranon process fracture with bony fragments in the joint. A displaced, angulated humeral neck fracture. Chest CT shows mild cardiomegaly, moderate hiatal hernia, multiple old vertebral compression fractures. No new compression fractures. Remote cholecystectomy with diffuse biliary ductal dilatation. She has a choledochocele extending into the duodenum. Abdomen CT has no evidence of an acute abdominal process. She continues to have multiple chronic osteoporotic compression fractures. The cholecystectomy in the choledochocele. Upper extremity CT showed the same plain film findings of acute comminuted, impacted and displaced fracture involving the left proximal humerus shaft/surgic al neck as described. Fracture line seen extending to involve both greater and lesser tuberosities with displaced fracture fragments. There is up to 1.2 cm impaction and overlapping at the proximal humeral fracture site. Moderate acromioclavicular joint and glenohumeral joint osteoarthritic changes. There is significant soft tissue edema and swelling around the proximal humeral fracture site. Moderate glenohumeral joint effusion noted. - HOSPITAL COURSE Hospital Course: The patient was admitted to the general surgery service because of trauma. Thi etienne, secondary and tertiary trauma exams were performed and the patient was cleared from a trauma perspective and would not need acute surgical intervention. Orthopedics saw this patient several times and also felt that she would not need acute surgical intervention. As such general surgery asked the patient to be transition to the hospital medicine service and we accepted her in transfer. There is nothing further to do from a medical perspective. This patient has severe aortic stenosis and is due for a TAVR in February 2022. She said repeatedly that she did not have syncope and that she did not pass out. For caution sake we did notify her cardiology office, Dr. Aparicio, on the day of discharge to let them know that she was admitted and discharged. She did not need any intervention of her chronic medical issues. At discharge temperature is 37.1. Heart rate 73. Initially we thought there may be atrial fibrillation on telemetry but repeat EKG shows sinus tachycardia with PVCs. Sinus tachycardia has resolved. Blood pressure is 108/53. Respirations 20. 96% on room air. This patient can get exceedingly sedated with opioids that we are using to control her pain. She will drift off to sleep and midsentence. But she protest if we wanted to reduce her pain medicine because the pain was so terrible. At a [facility] facility, she will need to find a balance between alertness and sedation depending on her pain. Neck has shotty neck adenopathy but no bruits. She has a regular rate and rhythm with a systolic ejection murmur compatible with aortic stenosis that does radiate into her carotids. Lungs have diminished breath sounds at the bases, occasional crackles. She lobes having to take a deep breath and cough for me but she will do it. The crackles disappear with that. She needs to be encouraged with incentive spirometry and Acapella valve to prevent pneumonia and atelectasis. Abdomen is soft, nontender, normal bowel sounds. Last bowel movement was December 12. She has a pure wick for urine output. She has ecchymoses diffusely on her legs, arms. No edema present of her extremities. The left knee is stiff and painful but movable. The left arm is in a splint. She is oriented to person place and time. She knows why she is here. But again has intermittent sedation and will fall asleep with opioids. Blood pressure stayed stable here. She had mild hyperglycemia but did not require insulin. Orthopedic evaluation is copied from his note yesterday and states: The olecranon fracture of the left elbow is also displaced; she had a similar fracture treated nonoperatively to the right elbow in the past with successful outcome despite displacement. She prefers nonoperative treatment for her left elbow. As far as treatment for her left shoulder is concerned the choices are nonoperative treatment versus reverse shoulder replacement. At the present time, it is best to treat her nonoperatively. I understand that there might be history of aortic stenosis and aortic valve replacement in the future. It is best to delay any surgery on her left shoulder, and is likely to have some stiffness of her left shoulder. Regardless of whether she has nonoperative or surgical treatment. There is no surgical indication for her stable pelvic rami fractures on the left side. Plan the patient will need to be bed to chair until she can fully weight-bear on her left leg. Her pelvic fractures are likely to take 6 weeks to heal. Her arm fractures are likely to take at least 6 or more weeks to heal as well. I suggested a shoulder immobilizer for her left arm for the first week. The shoulder immobilizer may be removed to do passive motion of both left shoulder and left elbow as tolerated. The arm sling is just for pain control and can be removed for hygiene and if the patient is comfortable without sling. She may bear weight as tolerated with a walker on her left leg. It is unlikely that she will be able to bear enough weight on her left leg independent of use of her left arm which already has 2 fractures. Therefore, she will need to use a wheelchair or remain in a chair until she is able to bear enough weight on her left leg so that she does not have to bear weight on her left arm. I would like to recheck her in 1 week for follow-up. I would suggest at least another week of Lovenox if she is going to the residential tomorrow. The Lovenox would be for deep venous thrombosis prophylaxis.I would continue efforts at physical and Occupational Therapy. Arrangements were made for [facility] facility using the COVID waiver due to limited bed availability because of COVID pandemic. Greater than 30 minutes were spent coordinating discharge. She will be transferred to [facility] for rehab.Other than adding medications for pain, there is no changes to her home med list. - ALLERGIES Allergies/Adverse Reactions: Allergies Allergy/AdvReac Type Severity Reaction Status Date / Time benazepril [From Lotensin] Allergy Unknown Verified 12/13/21 04:06 erythromycin base Allergy Unknown Verified 12/13/21 04:06 sulfamethoxazole Allergy Unknown Verified 12/13/21 04:06 [From Septra] trimethoprim [From Septra] Allergy Unknown Verified 12/13/21 04:06 meperidine HCl * AdvReac Intermediate Itching Verified 12/13/21 04:06 [From Demerol] morphine AdvReac Intermediate Anxiety Verified 12/13/21 04:06 - MEDICATIONS Home Medications: Ambulatory Orders Medication Instructions Recorded Confirmed Trazodone HCl 50 mg PO HS 07/11/12 12/13/21 predniSONE [Prednisone] 2.5 mg PO DAILY 05/03/16 12/13/21 Levothyroxine Sodium 50 mcg PO QDAC 10/10/18 12/13/21 Acetaminophen [Tylenol] 650 mg PO Q4HR PRN tab 12/15/21 Calcium Carbonate [Tums (Calcium 500 mg PO BID tab 12/15/21 Carbonate 500mg)] Cholecalciferol (Vitamin D3) 2,000 unit PO DAILY #0 12/15/21 12/13/21 [Vitamin D3] DULoxetine [Cymbalta] 60 mg PO DAILY #0 12/15/21 12/13/21 Enoxaparin [Lovenox] 40 mg SUBQ DAILY #10 ml 12/15/21 Famotidine [Pepcid] 20 mg PO DAILY #0 12/15/21 12/13/21 Furosemide [Lasix] 20 mg PO DAILY #0 12/15/21 12/13/21 Gabapentin [Neurontin] 300 mg PO HS #0 12/15/21 12/13/21 Metoprolol Tartrate [Lopressor] 25 mg PO BID tab 12/15/21 NIFEdipine [Procardia Xl] 30 mg PO DAILY #0 12/15/21 12/13/21 Rosuvastatin Calcium [Crestor] 20 mg PO QPM #0 12/15/21 12/13/21 Spironolactone [Aldactone] 50 mg PO DAILY #0 12/15/21 12/13/21 oxyCODONE [Roxicodone] 5 mg PO Q6H #60 tablet 12/15/21 - LABS Result Diagrams: 12/15/21 10:36 12/15/21 10:36"
[2021-12-15 10:43] LABS: BASOPHILS # (AUTO) 0.1 10^3/uL (0.0-0.1); BASOPHILS % (AUTO) 0.7 %; EOSINOPHILS # (AUTO) 0.3 10^3/uL (0.0-0.7); EOSINOPHILS % (AUTO) 3.1 %; HCT - HEMATOCRIT 31.1 % (37.0-47.0); HGB - HEMOGLOBIN 9.5 g/dL (12.0-16.0); LYMPHOCYTES # (AUTO) 1.2 10^3/uL (1.5-3.5); LYMPHOCYTES % (AUTO) 11.2 %; MEAN CORPUSCULAR HEMOGLOBIN 30.4 pg (27.0-31.0); MEAN CORPUSCULAR HGB CONC 30.5 g/dL (32.0-36.0); MEAN CORPUSCULAR VOLUME 99.7 fL (81.0-99.0); MEAN PLATELET VOLUME 10.3 fL (7.9-10.8); MONOCYTES # (AUTO) 1.2 10^3/uL (0.0-1.0); MONOCYTES % (AUTO) 10.5 %; NEUTROPHILS # (AUTO) 8.2 10^3/uL (1.5-6.6); NEUTROPHILS % (AUTO) 74.2 %; RED BLOOD COUNT 3.12 10^6/uL (4.20-5.40); RED CELL DISTRIBUTION WIDTH 13.2 % (12.0-15.0); WHITE BLOOD COUNT 11.1 x10^3/uL (4.8-10.8)
--- NOTE | 2021-12-15 10:43 | Discharge Plan ---
"Discharge Plan for SNF / [facility] - Discharge Plan And Transition Orders Problem Reviewed?: Yes Disposition: 03 SNF DC/Xfer Condition: Stable Allergies and Adverse Reactions: Allergies Allergy/AdvReac Type Severity Reaction Status Date / Time benazepril [From Lotensin] Allergy Unknown Verified 12/13/21 04:06 erythromycin base Allergy Unknown Verified 12/13/21 04:06 sulfamethoxazole Allergy Unknown Verified 12/13/21 04:06 [From Septra] trimethoprim [From Septra] Allergy Unknown Verified 12/13/21 04:06 meperidine HCl * AdvReac Intermediate Itching Verified 12/13/21 04:06 [From Demerol] morphine AdvReac Intermediate Anxiety Verified 12/13/21 04:06 Health Concerns: She is a pato elderly female who has severe osteoporosis due to chronic steroid use for rheumatoid arthritis. She has had multiple falls in the past and already has 2 hip replacements, and a right arm fracture/shoulder fracture. She fell in her kitchen and now has multiple fractures. Left humerus, left olecranon, left pelvis. She will now need rehab to be able to become ambulatory again. She will will need a goal of going from supine to sitting to standing with standby assist at home. She will be weightbearing as tolerated on the left leg until she can stand more fully. Please read orthopedic recommendations and discharge summary Plan of Treatment: 1. Pain control with oxycodone every 6 hours on a fixed schedule. Here she was getting Dilaudid 0.5 mg IV and it was very sedating. She may need to have oxycodone reduced. Please put on a bowel protocol for constipation due to opioids. Consider changing oxycodone fixed scheduled to as needed in the next 2 to 3 days. 2. She should see her primary care provider, Belen Fox, in 2 to 3 weeks or at discharge from the care home facility. 3. Please schedule the patient to be seen by orthopedics in the next 2 weeks in their office. She will need help with transportation. 4. DVT prophylaxis recommended for the next 10 days using Lovenox. Care Goals: To return home with the goals of being able to go from sitting to standing with standby assist. Toileting with standby assist. Unable to feed herself. Assessment: She is alert, oriented, forgetful at this time due to opioid use. is usually at the bedside and a very strong advocate for his . - SNF / RESIDENTIAL Transition Orders Admit to (Facility): [facility] Under the care of (Name): ANUJ Calloway Discharge Diagnosis: 1. Multiple fractures including: Fracture of left olecranon process Fracture of left pelvis Fracture of neck of left humerus 2. Fall at home on level ground 3. Severe aortic stenosis 4. Sinus tachycardia with PACs 5. Chronic kidney disease stage III 6. Osteoporosis 7. Rheumatoid arthritis 8. Hypertension 9. Leukocytosis 10. Hyperglycemia Medicare Certification Statement: I certify that [facility] care home care is medically necessary on a continuing basis for any of the conditions for which she/he is receiving care during hospitalization. Notify PCP of admission and forward orders to primary provider for signature. Weight on admission and: Weekly Other Notification Orders: Call PCP immediately if patient develops dyspnea, chest pain/tightness or edema. House Bowel Program: Yes Additional Bowel Program Orders: If no BM after 2 days, nurse may give M.O.M. 30ml PO PRN and/or ducolax Supp 1 KS and/or BETTINA 250mg P.O., and/or senna 1-2 tabs PO. On day 3 nurse may give repeat above order until residents constipation is resolved. Annual Influenza Vaccine (between Oct 19 and May 18): Yes Two-step PPD per [facility] [id number] or approved exception documents: Yes Lab Tests or X-ray Orders: Please read discharge summary recommendations per orthopedics Medication Orders: PLEASE REFER TO THE DISCHARGE MEDICATION LIST. Insulin Orders?: No - Medications New Prescriptions: Enoxaparin [Lovenox] 40 mg SUBQ DAILY #10 ml oxyCODONE [Roxicodone] 5 mg PO Q6H #60 tablet - Diet Type: Geriatric Texture: Regular Liquids: Thin May have monthly special meal: Yes - Therapies | Activity Therapy: Evaluation | Treat if indicated: PT, OT Rehabilitation Potential: Maximize functional status, Return to independent living Activity: Wt Bearing as Tolerated Weight Bearing: Partial Weight (left hip and leg due to pelvis.)"
[2021-12-15 11:03] LABS: CALCIUM 7.7 mg/dL (8.5-10.3); CREATININE 1.1 mg/dL (0.4-1.0); POTASSIUM 3.6 mmol/L (3.5-5.0)
[2021-12-15 11:07] LABS: PLATELET ESTIMATE, MANUAL NORMAL (130-450,000) (NORMAL); PLATELET MORPHOLOGY PLATELET CLUMPING (NORMAL); RBC MORPHOLOGY (MULTIPLE) NORMAL APPEARANCE (NORMAL)
[2021-12-15 11:08] LABS: WBC MORPHOLOGY (MULTIPLE) NORMAL APPEARANCE (NORMAL)
[2021-12-15 11:09] LABS: SLIDE REVIEW? Indicated
[2021-12-15] MEDS: CHOLECALCIFEROL 25 MCG TABLET PO SCH (11:14)
[2021-12-15] MEDS: FAMOTIDINE 20 MG TABLET PO SCH (11:15)
[2021-12-15] MEDS: SPIRONOLACTONE 25 MG TABLET PO SCH (11:16)
[2021-12-15] MEDS: predniSONE 5 MG TABLET PO SCH (11:16)
[2021-12-15] MEDS: METOPROLOL TARTRATE 25 MG TABLET PO SCH (11:16)
[2021-12-15] MEDS: DULoxetine 30 MG CAPSULE PO SCH (11:17)
[2021-12-15] MEDS: CALCIUM CARBONATE CHEW 500 MG TABLET PO SCH (11:18)
[2021-12-15] MEDS: ENOXAPARIN 40 MG/0.4 ML SYRINGE SUBQ SCH (11:19)
[2021-12-15 12:39] LABS: B. PARAPERTUSSIS- RESP PCR PAN NOT DETECTED; B. PERTUSSIS- RESP PCR PANEL NOT DETECTED; C. PNEUMONIAE- RESP PCR PANEL NOT DETECTED; CORONAVIRUS 229E-RESP PCR NOT DETECTED; CORONAVIRUS HKU1-RESP PCR NOT DETECTED; CORONAVIRUS NL63-RESP PCR NOT DETECTED; CORONAVIRUS OC43-RESP PCR NOT DETECTED; HUMAN METAPNEUMOVIRUS NOT DETECTED; INFLUENZA A- RESP PCR PANEL NOT DETECTED; INFLUENZA B - RESP PCR PANEL NOT DETECTED; M. PNEUMONIAE- RESP PCR PANEL NOT DETECTED; PARAINFLUENZA VIRUS 1 NOT DETECTED; PARAINFLUENZA VIRUS 2 NOT DETECTED; PARAINFLUENZA VIRUS 3 NOT DETECTED; PARAINFLUENZA VIRUS 4 NOT DETECTED; RHINOVIRUS/ENTEROVIRUS NOT DETECTED; RSV- RESP PCR PANEL NOT DETECTED; SARS-CoV-2 -RESP PCR PANEL NOT DETECTED
== END 2021-12-15 13:58 | DRG 544 ==
LOC: EDUNIT# → ED 03:58 → MS2 11:08
PROVIDERS: ADMIT Surgery; ATTEND Specialist
DX: S42.212A Unspecified displaced fracture of surgical neck of left humerus, initial encounter for closed fracture (principal); S32.512A Fracture of superior rim of left pubis, initial encounter for closed fracture; S52.022A Displaced fracture of olecranon process without intraarticular extension of left ulna, initial encounter for closed fracture; W19.XXXA Unspecified fall, initial encounter; M80.822A Other osteoporosis with current pathological fracture, left humerus, initial encounter for fracture; I48.91 Unspecified atrial fibrillation; I10 Essential (primary) hypertension; Z20.822 Contact with and (suspected) exposure to COVID-19; M80.852A Other osteoporosis with current pathological fracture, left femur, initial encounter for fracture; Y92.000 Kitchen of unspecified non-institutional (private) residence as the place of occurrence of the external cause; I35.0 Nonrheumatic aortic (valve) stenosis; R00.0 Tachycardia, unspecified; I49.1 Atrial premature depolarization; M06.9 Rheumatoid arthritis, unspecified; I12.9 Hypertensive chronic kidney disease with stage 1 through stage 4 chronic kidney disease, or unspecified chronic kidney disease; D72.829 Elevated white blood cell count, unspecified; R73.9 Hyperglycemia, unspecified; T38.0X5A Adverse effect of glucocorticoids and synthetic analogues, initial encounter; K44.9 Diaphragmatic hernia without obstruction or gangrene; W01.198A Fall on same level from slipping, tripping and stumbling with subsequent striking against other object, initial encounter; E78.00 Pure hypercholesterolemia, unspecified; F41.9 Anxiety disorder, unspecified; H54.7 Unspecified visual loss; I49.3 Ventricular premature depolarization; R59.0 Localized enlarged lymph nodes; N18.31 Chronic kidney disease, stage 3a; E03.9 Hypothyroidism, unspecified; E87.6 Hypokalemia; R40.0 Somnolence; T40.2X5A Adverse effect of other opioids, initial encounter; Z66 Do not resuscitate; Z79.890 Hormone replacement therapy; Z79.899 Other long term (current) drug therapy; Z82.3 Family history of stroke; Z82.49 Family history of ischemic heart disease and other diseases of the circulatory system; Z88.2 Allergy status to sulfonamides; Z88.5 Allergy status to narcotic agent; Z88.8 Allergy status to other drugs, medicaments and biological substances; Z90.49 Acquired absence of other specified parts of digestive tract; Z96.643 Presence of artificial hip joint, bilateral; Z96.651 Presence of right artificial knee joint
CPT/HCPCS: 36415; 71260; 72193; 73030; 73070; 73200; 73502; 74160; 80048; 80053; 83690; 83735; 85025; 85027; 87633; 87635; 93005; 96374; 96376; 97162; 97166; 97530; 99284; 99285; A9270; J1170; J1650; J7512; Q9967

== ENCOUNTER → 2021-12-13 | Outpatient (CLI) | payer MEDICARE, OTHER | END | disposition critical access hospital (66) | LOC: EMS 03:41 | DX: M25.512 Pain in left shoulder (principal); M25.522 Pain in left elbow; R10.32 Left lower quadrant pain; W01.0XXA Fall on same level from slipping, tripping and stumbling without subsequent striking against object, initial encounter; Y92.030 Kitchen in apartment as the place of occurrence of the external cause | CPT/HCPCS: A0425; A0427 ==

== ENCOUNTER 2021-12-15 13:53 | Outpatient (CLI) | payer MEDICARE, OTHER | END 2021-12-15 13:54 | LOC: EMS 13:53 | PROVIDERS: ATTEND Specialist | DX: S42.302A Unspecified fracture of shaft of humerus, left arm, initial encounter for closed fracture (principal); S32.9XXA Fracture of unspecified parts of lumbosacral spine and pelvis, initial encounter for closed fracture; W18.30XA Fall on same level, unspecified, initial encounter; Z74.01 Bed confinement status | CPT/HCPCS: A0425; A0428 ==

== ENCOUNTER 2021-12-28 15:25 | Outpatient (CLI) | payer MEDICARE, OTHER ==
--- NOTE | 2021-12-28 13:49 | XRAY Report ---
PROCEDURE: Shoulder 3 View LT INDICATIONS: LEFT SHOULDER FRACTURE TECHNIQUE: 3 views of the shoulder were acquired. COMPARISON: Left shoulder radiographs and CT 12/13/2021. FINDINGS: Redemonstrated acute comminuted impacted fracture of the humeral neck. No substantial change in align ment identified. No evidence of glenohumeral joint dislocation. IMPRESSION: Similar appearance of the previously demonstrated left humeral neck fracture. Reviewed by: Wu Pereira MD on 12/28/2021 1:48 PM PST Approved by: Wu Pereira MD on 12/28/2021 1:48 PM PST Station ID: [id number]
--- NOTE | 2021-12-28 14:08 | XRAY Report ---
PROCEDURE: Elbow 3 View LT INDICATIONS: LEFT ELBOW FRACTURE TECHNIQUE: 3 views of the elbow were acquired. COMPARISON: Radiographs 12/13/2021 FINDINGS: Similar appearance and alignment of the previously demonstrated comminuted distracted olecranon fract ure. Approximately 2.8 cm distraction of the proximal and distal ulnar fragments. IMPRESSION: Similar appearance and alignment of the comminuted distracted olecranon fracture. Reviewed by: Wu Peerira MD on 12/28/2021 2:06 PM PST Approved by: Wu Pereira MD on 12/28/2021 2:06 PM PST Station ID: [id number]
--- NOTE | 2021-12-28 17:51 | XRAY Report ---
PROCEDURE: Pelvis 3 View INDICATIONS: LEFT PUBIC RAMI FRACTURE TECHNIQUE: 3 view(s) of the pelvis acquired. COMPARISON: 12/13/2021 FINDINGS: Bones: Generalized decreased osseous mineralization present. Tiny left therapeutic rami fractures aga in noted with soft tissue fracture lines suggestion of bridging callus. Left hip prosthesis and right femoral neck cannulated screws remain unchanged. Degenerative change lower lumbar spine Soft tissues: Visualized bowel gas pattern is normal. No suspicious soft tissue calcifications. IMPRESSION: Healing left pubic rami fractures, similar in appearance to prior Reviewed by: Jeff Torres MD on 12/28/2021 4:49 PM AKST Approved by: Jeff Torres MD on 12/28/2021 4:49 PM AKST Station ID: [id number]
== END 2021-12-28 15:26 | disposition home or self-care (01) ==
LOC: DI.WOS 15:25
PROVIDERS: ATTEND Orthopaedic Surgery
DX: S42.202D Unspecified fracture of upper end of left humerus, subsequent encounter for fracture with routine healing (principal); S52.032D Displaced fracture of olecranon process with intraarticular extension of left ulna, subsequent encounter for closed fracture with routine healing; S32.502D Unspecified fracture of left pubis, subsequent encounter for fracture with routine healing; Z96.642 Presence of left artificial hip joint

== ENCOUNTER 2022-01-01 14:32 | Outpatient (CLI) | payer MEDICARE, OTHER | END 2022-01-01 14:33 | disposition home or self-care (01) | LOC: RT 14:32 | PROVIDERS: ATTEND Internal Medicine | DX: I48.0 Paroxysmal atrial fibrillation (principal); I49.8 Other specified cardiac arrhythmias | CPT/HCPCS: 93005 ==

== ENCOUNTER 2022-01-27 08:00 | Outpatient (CLI) | payer MEDICARE, OTHER ==
[2022-01-27 09:35] LABS: BASOPHILS # (AUTO) 0.1 10^3/uL (0.0-0.1); BASOPHILS % (AUTO) 0.8 %; EOSINOPHILS # (AUTO) 0.5 10^3/uL (0.0-0.7); EOSINOPHILS % (AUTO) 3.4 %; HGB - HEMOGLOBIN 12.5 g/dL (12.0-16.0); LYMPHOCYTES # (AUTO) 2.9 10^3/uL (1.5-3.5); LYMPHOCYTES % (AUTO) 21.7 %; MEAN CORPUSCULAR HEMOGLOBIN 30.3 pg (27.0-31.0); MEAN CORPUSCULAR HGB CONC 31.3 g/dL (32.0-36.0); MEAN CORPUSCULAR VOLUME 97.1 fL (81.0-99.0); MONOCYTES # (AUTO) 1.2 10^3/uL (0.0-1.0); MONOCYTES % (AUTO) 9.1 %; NEUTROPHILS # (AUTO) 8.6 10^3/uL (1.5-6.6); NEUTROPHILS % (AUTO) 64.7 %; RED BLOOD COUNT 4.12 10^6/uL (4.20-5.40); RED CELL DISTRIBUTION WIDTH 13.8 % (12.0-15.0); WHITE BLOOD COUNT 13.2 x10^3/uL (4.8-10.8)
[2022-01-27 09:55] LABS: PLATELET ESTIMATE, MANUAL NORMAL (130-450,000) (NORMAL); PLATELET MORPHOLOGY PLATELET CLUMPING (NORMAL); RBC MORPHOLOGY (MULTIPLE) NORMAL APPEARANCE (NORMAL); SLIDE REVIEW? Indicated
[2022-01-27 09:56] LABS: WBC MORPHOLOGY (MULTIPLE) NORMAL APPEARANCE (NORMAL)
[2022-01-29 21:06] LABS: ESTIMATED AVERAGE GLUCOSE 128 mg/dL (70-100); HEMOGLOBIN A1c% 6.1 % (4.27-6.07)
== END 2022-01-27 23:59 | disposition home or self-care (01) ==
LOC: LAB.R 08:00
PROVIDERS: ATTEND Internal Medicine
DX: D59.2 Drug-induced nonautoimmune hemolytic anemia (principal); E16.2 Hypoglycemia, unspecified
CPT/HCPCS: 83036; 85025

== ENCOUNTER 2022-01-29 14:26 | Outpatient (CLI) | payer MEDICARE, OTHER ==
--- NOTE | 2022-01-29 12:36 | XRAY Report ---
PROCEDURE: Shoulder 2 View LT INDICATIONS: LEFT SHOULDER FRACTURE TECHNIQUE: 3 views of the shoulder were acquired. COMPARISON: Left shoulder radiographs 12/28/2021 FINDINGS: Bones: There is a displaced impacted fracture of the left humeral head and neck with unchanged alignm ent when compared to the exam from 12/28/2021. Mild progressive healing changes are present. No suspi cious bony lesions. Visualized ribs appear intact. Soft tissues: No suspicious soft tissue calcifications. IMPRESSION: Mild progressive healing changes involving the proximal humeral fracture with unchanged alignment. Reviewed by: Wu Meadows MD on 01/29/2022 12:34 PM PST Approved by: Wu Meadows MD on 01/29/2022 12:34 PM PST Station ID: [id number]
--- NOTE | 2022-01-29 12:38 | XRAY Report ---
PROCEDURE: Elbow 3 View LT INDICATIONS: LEFT ELBOW FRACTURE TECHNIQUE: 3 views of the elbow were acquired. COMPARISON: Left elbow radiographs 12/28/2021 FINDINGS: Bones: Displaced intra-articular fracture of the olecranon attenuated with unchanged alignment compar ed to the radiographs from 12/28/2021. Radiocapitellar alignment is unchanged. Soft tissues: Small elbow joint effusion. No suspicious soft tissue calcifications. IMPRESSION: Displaced intra-articular olecranon fracture redemonstrated without significant change in alignment. Reviewed by: Wu Meadows MD on 01/29/2022 12:37 PM PST Approved by: Wu Meadows MD on 01/29/2022 12:37 PM PST Station ID: [id number]
--- NOTE | 2022-01-29 12:42 | XRAY Report ---
PROCEDURE: Pelvis 3 View INDICATIONS: PUBIC FRACTURE TECHNIQUE: 3 views of the pelvis acquired. COMPARISON: Pelvis radiographs 12/28/2021. FINDINGS: Bones: Postsurgical changes are seen from left hip hemiarthroplasty. Postsurgical changes noted in th e right proximal femur with 3 cannulated lag screws. There is a minimal displaced comminuted fracture of the left superior pubic ramus in the parasymphyseal region. Left inferior pubic ramus fracture is also seen. There is mild sclerosis and periosteal new bone formation surrounding the fractures, cons istent with progressive healing changes. Soft tissues: Visualized bowel gas pattern is normal. No suspicious soft tissue calcifications. IMPRESSION: Mild progressive healing changes involving the left superior and inferior pubic rami fra ctures. Reviewed by: Wu Meadows MD on 01/29/2022 12:41 PM PST Approved by: Wu Meadows MD on 01/29/2022 12:41 PM PST Station ID: [id number]
== END 2022-01-29 14:27 | disposition home or self-care (01) ==
LOC: DI.WOS 14:26
PROVIDERS: ATTEND Orthopaedic Surgery
DX: S32.82XD Multiple fractures of pelvis without disruption of pelvic ring, subsequent encounter for fracture with routine healing (principal); S52.022D Displaced fracture of olecranon process without intraarticular extension of left ulna, subsequent encounter for closed fracture with routine healing; S42.232D 3-part fracture of surgical neck of left humerus, subsequent encounter for fracture with routine healing

== ENCOUNTER 2022-03-29 08:00 | Outpatient (CLI) | payer MEDICARE, OTHER | END 2022-03-29 23:59 | disposition home or self-care (01) | LOC: LAB.R 08:00 | PROVIDERS: ATTEND Physician Assistant Medical | DX: N39.0 Urinary tract infection, site not specified (principal) | CPT/HCPCS: 87077; 87086; 87181 ==

== ENCOUNTER 2022-05-29 15:45 | Outpatient (CLI) | payer MEDICARE, OTHER | END 2022-05-29 16:00 | disposition home or self-care (01) | LOC: LAB.N 15:45 | PROVIDERS: ATTEND Physician Assistant Medical | DX: R30.0 Dysuria (principal) | CPT/HCPCS: 87077; 87086; 87181 ==

== ENCOUNTER 2022-07-10 08:00 | Outpatient (CLI) | payer MEDICARE, OTHER ==
[2022-07-11 11:57] LABS: BILIRUBIN,URINE NEGATIVE (NEGATIVE); GLUCOSE, URINE (UA) NEGATIVE (NEGATIVE); KETONES,URINE (UA) NEGATIVE (NEGATIVE); LEUKOCYTE ESTERASE, URINE LARGE (NEGATIVE); NITRITE,URINE POSITIVE (NEGATIVE); OCCULT BLOOD,URINE TRACE-INTA (NEGATIVE); PH,URINE 5.5 PH (5.0-7.5); PROTEIN,URINE NEGATIVE (NEGATIVE); UROBILINOGEN,URINE 0.2 (NORMAL) E.U./dL (NORMAL)
[2022-07-11 12:05] LABS: BACTERIA,URINE Few /HPF (None Seen); CLARITY,URINE CLOUDY (CLEAR); SQUAMOUS EPITHELIAL CELL,UR RARE Squamous (<= Few); WBC,URINE >25 /HPF (0-5)
== END 2022-07-10 23:59 | disposition home or self-care (01) ==
LOC: LAB.R 08:00
PROVIDERS: ATTEND Physician Assistant Medical
DX: R30.0 Dysuria (principal)
CPT/HCPCS: 81001; 87077; 87086; 87181

== ENCOUNTER 2022-11-02 12:29 | Outpatient (CLI) | payer MEDICARE, OTHER ==
[2022-11-02 17:57] LABS: BASOPHILS # (AUTO) 0.1 10^3/uL (0.0-0.1); BASOPHILS % (AUTO) 0.7 %; EOSINOPHILS # (AUTO) 0.3 10^3/uL (0.0-0.7); EOSINOPHILS % (AUTO) 1.8 %; HCT - HEMATOCRIT 41.4 % (37.0-47.0); HGB - HEMOGLOBIN 13.1 g/dL (12.0-16.0); LYMPHOCYTES # (AUTO) 2.3 10^3/uL (1.5-3.5); LYMPHOCYTES % (AUTO) 16.8 %; MEAN CORPUSCULAR HEMOGLOBIN 30.9 pg (27.0-31.0); MEAN CORPUSCULAR HGB CONC 31.6 g/dL (32.0-36.0); MEAN CORPUSCULAR VOLUME 97.6 fL (81.0-99.0); MEAN PLATELET VOLUME 10.3 fL (7.9-10.8); MONOCYTES # (AUTO) 1.3 10^3/uL (0.0-1.0); MONOCYTES % (AUTO) 9.6 %; NEUTROPHILS # (AUTO) 9.7 10^3/uL (1.5-6.6); NEUTROPHILS % (AUTO) 70.8 %; PLT - PLATELET COUNT 307 10^3/uL (130-450); RED BLOOD COUNT 4.24 10^6/uL (4.20-5.40); RED CELL DISTRIBUTION WIDTH 13.6 % (12.0-15.0); WHITE BLOOD COUNT 13.7 x10^3/uL (4.8-10.8)
[2022-11-02 18:51] LABS: ALBUMIN 4.1 g/dL (3.2-5.5); ALBUMIN/GLOBULIN RATIO 1.6 (1.0-2.2); BILIRUBIN,TOTAL 0.5 mg/dL (0.2-1.0); CALCIUM 9.6 mg/dL (8.5-10.3); CREATININE 1.2 mg/dL (0.6-1.3); POTASSIUM 3.8 mmol/L (3.5-4.5); TOTAL PROTEIN 6.7 g/dL (6.4-8.9)
== END 2022-11-02 12:30 | disposition home or self-care (01) ==
LOC: LAB.N 12:29
PROVIDERS: ATTEND Internal Medicine Rheumatology
DX: M06.9 Rheumatoid arthritis, unspecified (principal); I35.0 Nonrheumatic aortic (valve) stenosis
CPT/HCPCS: 36415; 80053; 85025; 85651

== ENCOUNTER 2023-01-23 13:30 | Outpatient (CLI) | payer MEDICARE, OTHER | END 2023-01-23 13:45 | disposition home or self-care (01) | LOC: LAB.N 13:30 | PROVIDERS: ATTEND Family Medicine | DX: R30.0 Dysuria (principal) | CPT/HCPCS: 87077; 87086; 87181 ==

== ENCOUNTER 2023-04-25 15:21 | Outpatient (CLI) | payer MEDICARE, OTHER ==
[2023-04-25 15:51] LABS: BASOPHILS # (AUTO) 0.1 10^3/uL (0.0-0.1); BASOPHILS % (AUTO) 0.7 %; EOSINOPHILS # (AUTO) 0.1 10^3/uL (0.0-0.7); EOSINOPHILS % (AUTO) 0.7 %; HCT - HEMATOCRIT 34.1 % (37.0-47.0); HGB - HEMOGLOBIN 10.8 g/dL (12.0-16.0); LYMPHOCYTES # (AUTO) 1.1 10^3/uL (1.5-3.5); LYMPHOCYTES % (AUTO) 10.2 %; MEAN CORPUSCULAR HEMOGLOBIN 29.9 pg (27.0-31.0); MEAN CORPUSCULAR HGB CONC 31.7 g/dL (32.0-36.0); MEAN CORPUSCULAR VOLUME 94.5 fL (81.0-99.0); MEAN PLATELET VOLUME 9.9 fL (7.9-10.8); MONOCYTES # (AUTO) 0.4 10^3/uL (0.0-1.0); MONOCYTES % (AUTO) 3.4 %; NEUTROPHILS % (AUTO) 84.7 %; PLT - PLATELET COUNT 216 10^3/uL (130-450); RED BLOOD COUNT 3.61 10^6/uL (4.20-5.40); RED CELL DISTRIBUTION WIDTH 13.4 % (12.0-15.0); WHITE BLOOD COUNT 10.6 x10^3/uL (4.8-10.8)
[2023-04-25 16:09] LABS: CALCIUM 8.6 mg/dL (8.5-10.3); POTASSIUM 3.6 mmol/L (3.5-4.5)
[2023-04-25 16:38] LABS: THYROID STIMULATING HORMONE 0.73 uIU/mL (0.34-5.60)
== END 2023-04-25 15:22 | disposition home or self-care (01) ==
LOC: LAB 15:21
PROVIDERS: ATTEND Internal Medicine Cardiovascular Disease
DX: R53.83 Other fatigue (principal); Z95.2 Presence of prosthetic heart valve; I50.32 Chronic diastolic (congestive) heart failure
CPT/HCPCS: 36415; 80048; 84439; 84443; 85025

== ENCOUNTER 2023-06-01 08:00 | Outpatient (CLI) | payer MEDICARE, OTHER | END 2023-06-01 23:59 | disposition home or self-care (01) | LOC: LAB.N 08:00 | PROVIDERS: ATTEND Physician Assistant Medical | DX: N30.00 Acute cystitis without hematuria (principal) | CPT/HCPCS: 87077; 87086; 87181 ==

== ENCOUNTER 2023-06-07 16:17 | Outpatient (CLI) | payer MEDICARE, OTHER ==
--- NOTE | 2023-06-07 17:04 | XRAY Report ---
PROCEDURE: Chest 2V INDICATIONS: S/P AORTIC VALVE REPLACEMENT TECHNIQUE: 2 views of the chest were acquired. COMPARISON: CT chest 12/13/2021. FINDINGS: Surgical changes and devices: Vertebroplasty cement projects over the midthoracic spine at multiple levels. Endovascular device / prosthetic valve device projects over the heart. Lungs and pleura: No pneumothorax or large pleural effusion. Possible small left pleural effusion pr esent versus scarring or consolidation. Mediastinum: Cardiac silhouette is again enlarged. Bones and chest wall: Severe kyphosis with compression fractures. Impacted fracture left humeral hea d. IMPRESSION: Enlarged cardiac silhouette again noted. A new prosthetic aortic valve device projects over the heart . Positioning the device cannot be confirmed. Correlate with perioperative imaging not available at t he time of dictation. Reviewed by: Javi Meier MD on 06/07/2023 5:03 PM PDT Approved by: Javi Meier MD on 06/07/2023 5:03 PM PDT Station ID: [id number]
== END 2023-06-07 16:18 | disposition home or self-care (01) ==
LOC: DI 16:17
PROVIDERS: ATTEND Internal Medicine Cardiovascular Disease
DX: I50.32 Chronic diastolic (congestive) heart failure (principal); Z95.2 Presence of prosthetic heart valve

== ENCOUNTER 2023-06-19 08:00 | Outpatient (CLI) | payer MEDICARE, OTHER | END 2023-06-19 23:59 | disposition home or self-care (01) | LOC: LAB.WCP 08:00 | PROVIDERS: ATTEND Physician Assistant Medical | DX: N39.0 Urinary tract infection, site not specified (principal) | CPT/HCPCS: 87086; 87181 ==

== ENCOUNTER 2023-08-29 08:00 | Outpatient (CLI) | payer MEDICARE, OTHER ==
[2023-08-29 18:05] LABS: FECAL OCCULT BLOOD (FIT) POSITIVE (NEGATIVE); H. PYLORIS ANTIGEN STL NEGATIVE (Negative)
[2023-09-02 06:08] LABS: GIARDIA LAMBLIA AG EIA Negative (Negative)
== END 2023-08-29 23:59 | disposition home or self-care (01) ==
LOC: LAB.R 08:00
PROVIDERS: ATTEND Physician Assistant Medical
DX: K52.9 Noninfective gastroenteritis and colitis, unspecified (principal)
CPT/HCPCS: 82274; 83993; 87045; 87046; 87177; 87209; 87329; 87338; 87427; 87493

== ENCOUNTER 2024-02-16 09:45 | Inpatient (IN) ==
[2024-02-16] MEDS: NITROGLYCERIN 2% PASTE TOP STA (09:58)
[2024-02-16] MEDS: FUROSEMIDE 40 MG/4 ML VIAL IVP STA (09:59)
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
[2024-02-16] MEDS: MORPHINE 2 MG/ML CARPUJECT IVP STA (10:06)
[2024-02-16 10:11] LABS: BASOPHILS % (AUTO) 0.6 %; EOSINOPHILS % (AUTO) 2.1 %; HCT - HEMATOCRIT 43.8 % (37.0-47.0); HGB - HEMOGLOBIN 13.3 g/dL (12.0-16.0); LYMPHOCYTES % (AUTO) 43.4 %; MEAN CORPUSCULAR HEMOGLOBIN 29.2 pg (27.0-31.0); MEAN CORPUSCULAR HGB CONC 30.4 g/dL (32.0-36.0); MEAN CORPUSCULAR VOLUME 96.1 fL (81.0-99.0); MEAN PLATELET VOLUME 9.4 fL (7.9-10.8); MONOCYTES % (AUTO) 6.2 %; NEUTROPHILS % (AUTO) 47.1 %; PLT - PLATELET COUNT 314 10^3/uL (130-450); RED BLOOD COUNT 4.56 10^6/uL (4.20-5.40); RED CELL DISTRIBUTION WIDTH 13.7 % (12.0-15.0); WHITE BLOOD COUNT 20.4 x10^3/uL (4.8-10.8)
[2024-02-16 10:18] LABS: SLIDE REVIEW? Indicated
[2024-02-16 10:19] LABS: ABNORMAL LYMPHS % (MANUAL) 0 %; BAND NEUTROPHILS % (MANUAL) 0 %
[2024-02-16 10:37] LABS: ALBUMIN 3.7 g/dL (3.2-5.5); BILIRUBIN,TOTAL 0.4 mg/dL (0.2-1.0); CALCIUM 9.3 mg/dL (8.5-10.3); POTASSIUM 3.5 mmol/L (3.5-4.5); TROPONIN I HIGH SENSITIVITY 39.6 ng/L (2.3-14.8)
[2024-02-16 10:39] LABS: ALBUMIN/GLOBULIN RATIO 1.2 (1.0-2.2); CREATININE 1.1 mg/dL (0.6-1.3); TOTAL PROTEIN 6.9 g/dL (6.4-8.9)
[2024-02-16 10:46] LABS: EOSINOPHILS # (MANUAL) 0.8 10^3/uL (0-0.7); LYMPHOCYTES # (MANUAL) 9.2 10^3/uL (1.5-3.5); LYMPHOCYTES % (MANUAL) 45 %; METAMYELOCYTES % (MANUAL) 1 %; MONOCYTES # (MANUAL) 0.6 10^3/uL (0.0-1.0); NEUTROPHILS # (MANUAL) 9.6 10^3/uL (1.5-6.6)
[2024-02-16 10:49] LABS: PLATELET ESTIMATE, MANUAL NORMAL (130-450,000) (NORMAL); PLATELET MORPHOLOGY NORMAL APPEARANCE (NORMAL); RBC MORPHOLOGY (MULTIPLE) NORMAL APPEARANCE (NORMAL); WBC MORPHOLOGY (MULTIPLE) NORMAL APPEARANCE (NORMAL)
[2024-02-16 10:50] LABS: DIFFERENTIAL COMMENT MANUAL DIFFERENTIAL; SLIDE SENT FOR PATH REVIEW? Indicated
--- NOTE | 2024-02-16 11:09 | XRAY Report ---
PROCEDURE: XR Chest 1V INDICATIONS: dyspnea TECHNIQUE: One view of the chest was acquired. COMPARISON: 06/07/2023 FINDINGS: Surgical changes and devices: Aortic valve replacement. Lungs and pleura: Very low lung volumes. Moderate diffuse lung disease and probable small effusions. Mediastinum: Borderline cardiomegaly. A curvilinear density projects over the mid mediastinum as bef ore. Bones and chest wall: Degenerative changes. Suspected left humeral fracture partially seen. IMPRESSION: Moderate diffuse lung disease likely edema or infection. Small effusions are present. Consider future imaging surveillance to assess for resolution. Limited single view study with very low lung volumes. Reviewed by: Cruzito Rosas MD on 02/16/2024 10:08 AM [facility] Approved by: Cruzito Rosas MD on 02/16/2024 10:08 AM [facility] Station ID: [id number]
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
[2024-02-16] MEDS ORDERED: oxyCODONE 5 MG TABLET PO PRN (12:01)
[2024-02-16] MEDS ORDERED: ACETAMINOPHEN 325 MG TABLET PO PRN (12:01)
[2024-02-16] MEDS ORDERED: SODIUM CHLORIDE FLUSH 0.9% 10 ML SYRINGE IVP PRN (12:01)
[2024-02-16] MEDS ORDERED: MORPHINE 2 MG/ML CARPUJECT IVP PRN (12:01)
[2024-02-16] MEDS ORDERED: ONDANSETRON 4 MG/2 ML VIAL IVP PRN (12:01)
[2024-02-16 12:26] LABS: B. PARAPERTUSSIS- RESP PCR PAN NOT DETECTED; B. PERTUSSIS- RESP PCR PANEL NOT DETECTED; C. PNEUMONIAE- RESP PCR PANEL NOT DETECTED; CORONAVIRUS 229E-RESP PCR NOT DETECTED; CORONAVIRUS HKU1-RESP PCR NOT DETECTED; CORONAVIRUS NL63-RESP PCR NOT DETECTED; CORONAVIRUS OC43-RESP PCR NOT DETECTED; HUMAN METAPNEUMOVIRUS NOT DETECTED; INFLUENZA A- RESP PCR PANEL NOT DETECTED; INFLUENZA B - RESP PCR PANEL NOT DETECTED; M. PNEUMONIAE- RESP PCR PANEL NOT DETECTED; PARAINFLUENZA VIRUS 1 NOT DETECTED; PARAINFLUENZA VIRUS 2 NOT DETECTED; PARAINFLUENZA VIRUS 4 NOT DETECTED; RHINOVIRUS/ENTEROVIRUS NOT DETECTED; RSV- RESP PCR PANEL NOT DETECTED; SARS-CoV-2 -RESP PCR PANEL NOT DETECTED
[2024-02-16] MEDS ORDERED: METOPROLOL 5 MG/5 ML VIAL IVP ONE (13:10)
[2024-02-16] MEDS: METOPROLOL 5 MG/5 ML VIAL IVP PRN (13:12)
--- NOTE | 2024-02-16 14:10 | PHARMACY PROGRESS NOTE ---
Best Possible Medication History Admit Date and Time: 02/16/24 [id number] Home Medications Medication Instructions Recorded Confirmed Type trazodone 50 mg tablet 50 mg PO HS 07/11/12 02/16/24 History prednisone 5 mg tablet 2.5 mg PO DAILY 05/03/16 02/16/24 History levothyroxine 50 mcg tablet 50 mcg PO QDAC 10/10/18 02/16/24 History acetaminophen 325 mg tablet 650 mg (2 x 325 mg) PO Q4HR PRN 12/15/21 02/16/24 Rx Pain 1 to 4, or Fever cholecalciferol (vitamin D3) 25 2,000 unit PO DAILY osteoporosis 12/15/21 02/16/24 Rx mcg (1,000 unit) capsule ##0 duloxetine 30 mg capsule,delayed 60 mg (2 x 30 mg) PO DAILY 12/15/21 02/16/24 Rx release depression with anxiety ##0 famotidine 20 mg tablet 20 mg PO DAILY gerd ##0 12/15/21 02/16/24 Rx furosemide 20 mg tablet 20 mg PO DAILY aortic stenosis ##0 12/15/21 02/16/24 Rx gabapentin 300 mg capsule 300 mg PO HS chronic pain ##0 12/15/21 02/16/24 Rx metoprolol tartrate 25 mg tablet 25 mg PO BID for tachycardia 12/15/21 02/16/24 Rx control rosuvastatin 40 mg tablet (Crestor) 20 mg (1/2 x 40 mg) PO QPM for 12/15/21 02/16/24 Rx hyperlipidemia ##0 apixaban 5 mg tablet 5 mg PO BID 02/16/24 02/16/24 History calcium 500 mg (as 1 tab PO DAILY 02/16/24 02/16/24 History carbonate)-vitamin D3 15 mcg (600 unit) tablet (Os-Cory 500 + D3) denosumab 60 mg/mL subcutaneous 60 mg subcut [id number] 02/16/24 02/16/24 History syringe (Prolia) leflunomide 10 mg tablet (Arava) 10 mg PO DAILY 02/16/24 02/16/24 History losartan 50 mg tablet (Cozaar) 50 mg PO DAILY PM 02/16/24 02/16/24 History spironolactone 25 mg tablet 25 mg PO DAILY for aortic stenosis 02/16/24 02/16/24 History Processed by: Pharmacy Medications reviewed in ED?: No Medication History completed: Yes Patient Interview: Completed Secondary Source(s): Written medication list (LIST PRINTED FROM [employer] ) [facility] Statement: As the person ultimately responsible for medication therapy, providers are able to order a medication from an existing home medication list in [facility] via the "Reconcile Routine" prior to Confirmation of that medication by windows desktop support. Such practice is discouraged except when the physician, in their clinical judgment, deems that a medical need exists for a medication without regard to previous use.
[2024-02-16] MEDS: APIXABAN 5 MG TABLET PO SCH (14:55)
[2024-02-16] MEDS: METOPROLOL TARTRATE 25 MG TABLET PO SCH (14:55)
[2024-02-16] MEDS: FUROSEMIDE 40 MG/4 ML VIAL IVP ONE (14:59)
[2024-02-16] MEDS: predniSONE 5 MG TABLET PO SCH (14:59)
[2024-02-16] MEDS: SPIRONOLACTONE 25 MG TABLET PO SCH (14:59)
[2024-02-16] MEDS: ATORVASTATIN 40 MG TABLET PO SCH (20:42)
[2024-02-16] MEDS: LOSARTAN 50 MG TABLET PO SCH (20:42)
[2024-02-16] MEDS: GABAPENTIN 300 MG CAPSULE PO SCH (20:42)
[2024-02-16] MEDS: SODIUM CHLORIDE FLUSH 0.9% 10 ML SYRINGE IVP SCH (20:43)
[2024-02-16] MEDS: CALCIUM CARBONATE CHEW 500 MG TABLET PO SCH (20:43)
[2024-02-16] MEDS: traZODone 50 MG TABLET PO SCH (20:45)
[2024-02-16] MEDS ORDERED: NON FORMULARY MED (Rosuvastatin [Crestor] 40 MG tablet) PO SCH (21:00)
[2024-02-17] MEDS: ACETAMINOPHEN 325 MG TABLET PO PRN (05:58)
[2024-02-17] MEDS: LEVOTHYROXINE 25 MCG TABLET PO SCH (06:02)
[2024-02-17 06:20] LABS: BASOPHILS # (AUTO) 0.1 10^3/uL (0.0-0.1); BASOPHILS % (AUTO) 0.8 %; EOSINOPHILS # (AUTO) 0.2 10^3/uL (0.0-0.7); EOSINOPHILS % (AUTO) 1.8 %; HCT - HEMATOCRIT 38.4 % (37.0-47.0); HGB - HEMOGLOBIN 12.2 g/dL (12.0-16.0); LYMPHOCYTES # (AUTO) 2.6 10^3/uL (1.5-3.5); LYMPHOCYTES % (AUTO) 25.3 %; MEAN CORPUSCULAR HEMOGLOBIN 29.5 pg (27.0-31.0); MEAN CORPUSCULAR HGB CONC 31.8 g/dL (32.0-36.0); MEAN PLATELET VOLUME 9.7 fL (7.9-10.8); MONOCYTES % (AUTO) 9.9 %; NEUTROPHILS # (AUTO) 6.3 10^3/uL (1.5-6.6); NEUTROPHILS % (AUTO) 61.8 %; PLT - PLATELET COUNT 232 10^3/uL (130-450); RED BLOOD COUNT 4.13 10^6/uL (4.20-5.40); RED CELL DISTRIBUTION WIDTH 13.8 % (12.0-15.0); WHITE BLOOD COUNT 10.2 x10^3/uL (4.8-10.8)
[2024-02-17 06:40] LABS: ESTIMATED AVERAGE GLUCOSE 120 mg/dL (70-100); HEMOGLOBIN A1c% 5.8 % (4.27-6.07)
[2024-02-17 06:44] LABS: CALCIUM 9.1 mg/dL (8.5-10.3); CREATININE 1.1 mg/dL (0.6-1.3); MAGNESIUM 1.5 mg/dL (1.7-2.3); POTASSIUM 3.3 mmol/L (3.5-4.5)
[2024-02-17] MEDS: CALCIUM CARB (OYSTER SHELL) 500 MG TABLET PO SCH (08:14)
[2024-02-17] MEDS: FAMOTIDINE 20 MG TABLET PO SCH (08:15)
[2024-02-17] MEDS: CHOLECALCIFEROL 25 MCG TABLET PO SCH (08:15)
--- NOTE | 2024-02-17 08:22 | XRAY Report ---
PROCEDURE: XR Chest 1V INDICATIONS: CHF TECHNIQUE: One view of the chest was acquired. COMPARISON: Chest x-ray February 16, 2024 at 10:36 FINDINGS: Moderately enlarged cardiopericardial silhouette unchanged. Moderately prominent christi, pulmonary vascular congestion, CT chest slightly decreased. Mild bibasilar consolidations, right greater than left partially obscure and the diaphragm commonly r epresenting a combination of small pleural effusions, atelectatic changes, pneumonia or other process . Possible superimposed moderate bilateral diffuse peribronchial thickening and alveolar opacities, unc hanged. Bronchitis, viral infection, pneumonia, or other process could be considered. No pneumothorax. IMPRESSION: Slightly improved CHF as discussed above. Other findings as above. Follow-up is needed. If symptoms persist or worsen, CT chest could be performed. Reviewed by: Emile Lucio MD on 02/17/2024 8:21 AM PST Approved by: Emile Lucio MD on 02/17/2024 8:21 AM PST Station ID: [id number]
[2024-02-17] MEDS: SPIRONOLACTONE 25 MG TABLET PO SCH (10:15)
[2024-02-17] MEDS: MAGNESIUM OXIDE 400 MG TABLET PO SCH (10:53)
[2024-02-17] MEDS: POTASSIUM CHLORIDE 20 MEQ TABLET PO ONE (10:53)
[2024-02-17] MEDS: FUROSEMIDE 20 MG/2 ML VIAL IVP ONE (10:54)
--- NOTE | 2024-02-17 13:20 | PT Plan of Care ---
Medical/Surgical Past History Past History Medical History (Updated 02/16/24 @ 14:15 by ANUJ Grier) CHF (congestive heart failure)
--- NOTE | 2024-02-17 14:41 | PROVIDER PROGRESS NOTE ---
Subjective Prog Note Date Prog Note Date: 02/17/24 Prog Note Time: 07:40 Subjective Pt reports feeling: Improved Subjective: She feels great. She is not having any dyspnea. worked with PT and did very well. She said it was fun and felt good to walk. She is waiting for her echocardiogram. eating and drinking well. Current Medications Current Medications Current Medications: Current Medications Generic Name Dose Route Start Last Admin Trade Name Freq PRN Reason Stop Dose Admin Acetaminophen 650 mg 02/16/24 12:01 02/17/24 05:58 Acetaminophen 325 Mg Tablet PO 650 mg Q4HR PRN Administration Pain 1 to 4, or Fever Apixaban 5 mg 02/16/24 12:01 02/17/24 08:14 Apixaban 5 Mg Tablet PO 5 mg BID AMANDO Administration Atorvastatin Calcium 40 mg 02/16/24 21:00 02/16/24 20:42 Atorvastatin 40 Mg Tablet PO 40 mg QPM AMANDO Administration Calcium Carbonate/Glycine 500 mg 02/16/24 21:00 02/17/24 08:15 Calcium Carbonate Chew 500 Mg Tablet PO 500 mg BID AMANDO Administration Calcium Carbonate/Glycine 1 mg 02/17/24 09:00 02/17/24 08:14 Calcium Carb (Oyster Shell) 500 Mg Tablet PO 1 mg DAILY AMANDO Administration Cholecalciferol 50 mcg 02/17/24 09:00 02/17/24 08:15 Cholecalciferol 25 Mcg Tablet PO 50 mcg DAILY AMANDO Administration Famotidine 20 mg 02/17/24 09:00 02/17/24 08:15 Famotidine 20 Mg Tablet PO 20 mg DAILY AMANDO Administration Gabapentin 300 mg 02/16/24 21:00 02/16/24 20:42 Gabapentin 300 Mg Capsule PO 300 mg HS AMANDO Administration Hydralazine HCl 10 mg 02/16/24 13:33 Hydralazine Inj 20 Mg/Ml Vial IVP Q4H PRN Hypertensive Emergency Levothyroxine Sodium 50 mcg 02/17/24 07:00 02/17/24 06:02 Levothyroxine 25 Mcg Tablet PO 50 mcg QDAC AMANDO Administration Losartan Potassium 50 mg 02/16/24 21:00 02/16/24 20:42 Losartan 50 Mg Tablet PO 50 mg QPM AMANDO Administration Magnesium Oxide 400 mg 02/17/24 09:00 02/17/24 10:53 Magnesium Oxide 400 Mg Tablet PO 400 mg DAILYWM AMANDO Administration Metoprolol Tartrate 25 mg 02/16/24 12:01 02/17/24 08:14 Metoprolol Tartrate 25 Mg Tablet PO 25 mg BID AMANDO Administration Metoprolol Tartrate 5 mg 02/16/24 13:03 02/16/24 13:12 Metoprolol 5 Mg/5 Ml Vial IVP 5 mg Q6H PRN Administration Hypertensive Emergency Morphine Sulfate 2 mg 02/16/24 12:01 Morphine 2 Mg/Ml Carpuject IVP Q2HR PRN Pain 8 to 10 Ondansetron HCl 4 mg 02/16/24 12:01 Ondansetron 4 Mg/2 Ml Vial IVP Q6HR PRN Nausea / Vomiting Oxycodone HCl 5 mg 02/16/24 12:01 Oxycodone 5 Mg Tablet PO Q6H PRN pain Prednisone 2.5 mg 02/16/24 12:01 02/17/24 08:15 Prednisone 5 Mg Tablet PO 2.5 mg DAILY AMANDO Administration Sodium Chloride 10 ml 02/16/24 12:01 Sodium Chloride Flush 0.9% 10 Ml Syringe IVP PRN PRN NEEDED PER PROVIDER ORDERS Sodium Chloride 10 ml 02/16/24 17:00 02/17/24 08:17 Sodium Chloride Flush 0.9% 10 Ml Syringe IVP 10 ml 0100,0900,1700 AMANDO Administration Spironolactone 25 mg 02/17/24 09:00 02/17/24 10:15 Spironolactone 25 Mg Tablet PO Not Given DAILY AMANDO Trazodone HCl 50 mg 02/16/24 21:00 02/16/24 20:45 Trazodone 50 Mg Tablet PO 50 mg HS AMANDO Administration Objective Vital Signs/Intake & Output Reviewed Vital Signs: Yes Vital Signs: Vital Signs x48h Temp Pulse Pulse Pulse Resp BP BP 02/17/24 13:00 36.7 C 88 19 147/69 H 02/17/24 11:02 67 02/17/24 10:15 67 02/17/24 09:30 02/17/24 09:30 66 17 147/52 H 02/17/24 08:14 71 142/57 H 02/17/24 08:00 37.2 C 78 26 H 142/57 H 02/17/24 07:11 87 14 177/80 H BP Pulse Ox Pulse Ox O2 Flow Rate 02/17/24 13:00 97 02/17/24 11:02 168/75 H 95 02/17/24 10:15 168/75 H 02/17/24 09:30 2 02/17/24 09:30 93 2 02/17/24 08:14 02/17/24 08:00 96 2 02/17/24 07:11 97 2 Intake & Output: Intake & Output 02/14/24 02/15/24 02/16/24 02/17/24 23:59 23:59 23:59 23:59 Intake Total 1105 / 1105 410 / 410 Output Total 1875 / 1875 750 / 750 Balance -770 / -770 -340 / -340 Weight (kg) 59 kg 55.5 kg Objective General Appearance: positive No acute distress and Alert Eyes Bilateral: positive Normal inspection ENT: positive ENT inspection nml Neck: positive Nml inspection Respiratory: positive Chest non-tender, No respiratory distress and Rhonchi (occasional) Cardiovascular: positive Regular rate & rhythm Abdomen: positive Non-tender and No distention Back: positive Nml inspection Skin: positive Color nml Extremities: positive No pedal edema Neurologic/Psychiatric: positive Oriented x3 Lab Results 02/17/24 05:44 02/17/24 15:32 Other Labs: Lab Results x24hrs 02/17/24 02/16/24 Range/Units 05:44 12:47 WBC 10.2 (4.8-10.8) x10^3/uL RBC 4.13 L (4.20-5.40) 10^6/uL Hgb 12.2 (12.0-16.0) g/dL Hct 38.4 (37.0-47.0) % MCV 93.0 (81.0-99.0) fL MCH 29.5 (27.0-31.0) pg MCHC 31.8 L (32.0-36.0) g/dL RDW 13.8 (12.0-15.0) % Plt Count 232 (130-450) 10^3/uL MPV 9.7 (7.9-10.8) fL Neut # (Auto) 6.3 (1.5-6.6) 10^3/uL Lymph # (Auto) 2.6 (1.5-3.5) 10^3/uL [place] # (Auto) 1.0 (0.0-1.0) 10^3/uL Eos # (Auto) 0.2 (0.0-0.7) 10^3/uL Baso # (Auto) 0.1 (0.0-0.1) 10^3/uL Absolute Nucleated RBC 0.00 x10^3/uL Nucleated RBC % 0.0 /100WBC Sodium 140 (135-145) mmol/L Potassium 3.3 L (3.5-4.5) mmol/L Chloride 99 L (101-111) mmol/L Carbon Dioxide 32 (21-32) mmol/L Anion Gap 9.0 (6-13) BUN 17 (6-20) mg/dL Creatinine 1.1 (0.6-1.3) mg/dL Estimated GFR (MDRD) 47 L (>89) Glucose 112 H (74-104) mg/dL Estimat Average Glucose 120 H (70-100) mg/dL Hemoglobin A1c % 5.8 (4.27-6.07) % Calcium 9.1 (8.5-10.3) mg/dL Magnesium 1.5 L (1.7-2.3) mg/dL Nasal Screen MRSA (PCR) NEGATIVE (NEGATIVE) Assessment/Plan Problem List (1) Flash pulmonary edema: Impression: Treated in the emergency department with BiPAP IV Lasix morphine and topical nitroglycerin. She has responded well and is weaning off BiPAP as she arrives on the floor on HD #1. Discussed with Dr Nascimento in the ED, and decision was made to admit. HD #2 she is comfortable. She is tolerating her regular activities. has been able to work with PT, and is continuing to diurese. She is able to wean off oxygen. Her echocardiogram can be done late this afternoon. (2) Acute exacerbation of CHF (congestive heart failure): Impression: 02/16: resolving. She was given 20mg Lasix IV in the AM. she appears comfortable. 02/15:Review of most recent cardiology note 08/14/23. She has a history of aortic stenosis. 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 Echocardiogram recorded at that visit , Dated 02/27/2023 shows normal left ventricular thickness size wall motion and systolic function with a ejection fraction of 60 to 65%. She has normal right ventricular size and function. The bioprosthetic aortic valve is functional. The assessment of the fretted string instrument repairer at that time was to repeat the echo in January 2024. He recommended metoprolol tartrate 25 mg twice daily He recommended continuance of Eliquis 5 mg twice daily He noted a chronic left bundle branch block He recommended losartan 50 mg nightly, Lasix 20 mg daily, spironolactone 50 mg daily She last had a cardiac catheterization in October 2022 showing normal caliber tortuous vessels without stenosis She will be placed in the ICU for hemodynamic monitoring. She will be aggressively diuresed. She was given 40 mg of Lasix IV in the emergency department we will repeat this in 6 hours. We will maintain accurate I's and O's We will monitor her renal function I have ordered BMP for a.m. We will repeat chest x-ray in the AM. CODE STATUS was discussed with herself and her . Her Fly is her surrogate decision maker. She does not wish to have CPR should she undergo cardiac arrest. She does consent to a short trial of intubation should this be necessary. Qualifiers: Heart failure type: unspecified Qualified Code(s): I50.9 - Heart failure, unspecified (3) Severe aortic stenosis: Impression: History of TAVR about a year ago. I am checking echocardiogram. There have been no previous issues with the valve. (4) HTN (hypertension): Impression: She has been poorly controlled at home. She states that over Charlene lots of family members were taking their blood pressure. Hers was over 200 at home. I think that her blood pressure is rather labile. It is hard to know what to do as we do not want her to experience hypotension which could result in falls which could be quite disastrous given her history of rheumatoid arthritis and osteoporosis.I am treating her with as needed metoprolol I also have as needed hydralazine ordered 2 Selected Entries 02/17/24 06:00 02/17/24 07:11 02/17/24 08:00 Pulse Rate Pulse Rate [Monitoring electrodes] 68 87 78 Pulse Rate [Supine] Blood Pressure Blood Pressure [Right Brachial artery] 200/65 H 177/80 H 142/57 H Blood Pressure [Supine] 02/17/24 08:14 02/17/24 09:30 02/17/24 10:15 Pulse Rate 71 Pulse Rate [Monitoring electrodes] 66 Pulse Rate [Supine] 67 Blood Pressure 142/57 H Blood Pressure [Right Brachial artery] 147/52 H Blood Pressure [Supine] 168/75 H 02/17/24 11:02 02/17/24 13:00 Pulse Rate Pulse Rate [Monitoring electrodes] 88 Pulse Rate [Supine] 67 Blood Pressure Blood Pressure [Right Brachial artery] 147/69 H Blood Pressure [Supine] 168/75 H . Qualifiers: Hypertension type: primary hypertension Qualified Code(s): I10 - Essential (primary) hypertension (5) Atrial fibrillation: Impression: longstanding atrial fibrillation. She is on Eliquis, she is on metoprolol in the outpatient setting. She has had some tachycardia upon presentation but heart rate is now down into the low 100s and high 90s. Has remained so overnight. I will continue telemetry while admitted. (6) Leukocytosis: Impression: likely stress induced. resolved. Laboratory Tests 02/16/24 02/17/24 10:05 05:44 WBC 20.4 H 10.2 (7) Rheumatoid arthritis: Impression: Chronic. continue home meds of Prednisone 2.5mg daily I have spent 36 minutes in the care of this patient today. This includes time [id number], review and ordering of diagnostic imaging and laboratory studies.. Monitoring the patient's signs symptoms, evaluation of medication effectiveness and patient's response to treatment.
--- NOTE | 2024-02-17 15:38 | OT Plan of Care ---
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 Weaned to NC. Cleared for OT evaluation. Pt met supine in bed, A&Ox4, pleasant and cooperative. Pt placed on RA for trail - VSS during session with Spo2 above 90% with mobility. HR stable. Pt performed supine to sit MIN A, sit to stand, and ambulation to/from bathroom using RW CGA. Toileting CGA including hygiene. MIN A for showering and LB dressing which is able to assist with at home. Pt safe for d/c home with assist once medically stable. Cont ambulation with nursing. PATIENT/FAMILY GOALS Patient/Family Goals: "not have this pain" OT Inpatient Plan PLAN Treatment Frequency: Evaluation only, no further O.T. Duration: Until discharge -Discharge Recommendations Discharge Location: Previous Living Situation Support/Services Needed: With assist Recommended Equipment: Commode, Shower/bath chair and Adaptive Self Care Devices Transport Needs at Discharge: Personal vehicle
[2024-02-17 15:47] LABS: MAGNESIUM 1.6 mg/dL (1.7-2.3); POTASSIUM 3.9 mmol/L (3.5-4.5)
[2024-02-18 05:59] LABS: BASOPHILS # (AUTO) 0.1 10^3/uL (0.0-0.1); BASOPHILS % (AUTO) 0.7 %; EOSINOPHILS # (AUTO) 0.3 10^3/uL (0.0-0.7); EOSINOPHILS % (AUTO) 2.3 %; HCT - HEMATOCRIT 42.2 % (37.0-47.0); HGB - HEMOGLOBIN 13.3 g/dL (12.0-16.0); LYMPHOCYTES # (AUTO) 2.8 10^3/uL (1.5-3.5); LYMPHOCYTES % (AUTO) 26.2 %; MEAN CORPUSCULAR HEMOGLOBIN 29.1 pg (27.0-31.0); MEAN CORPUSCULAR HGB CONC 31.5 g/dL (32.0-36.0); MEAN CORPUSCULAR VOLUME 92.3 fL (81.0-99.0); MEAN PLATELET VOLUME 9.3 fL (7.9-10.8); MONOCYTES # (AUTO) 1.2 10^3/uL (0.0-1.0); MONOCYTES % (AUTO) 11.2 %; NEUTROPHILS # (AUTO) 6.4 10^3/uL (1.5-6.6); NEUTROPHILS % (AUTO) 59.3 %; PLT - PLATELET COUNT 272 10^3/uL (130-450); RED BLOOD COUNT 4.57 10^6/uL (4.20-5.40); RED CELL DISTRIBUTION WIDTH 13.5 % (12.0-15.0); WHITE BLOOD COUNT 10.7 x10^3/uL (4.8-10.8)
[2024-02-18 06:15] LABS: CALCIUM 9.6 mg/dL (8.5-10.3); CREATININE 1.1 mg/dL (0.6-1.3); POTASSIUM 3.5 mmol/L (3.5-4.5)
--- NOTE | 2024-02-18 07:26 | Discharge Summary ---
Discharge Summary Admit Date: 02/16/24 Discharge Date: 02/18/24 Discharging Provider: Nella Seay PA-C Primary Care Provider: Belen Fox PA-C Code Status: Do Not Attempt Resuscitation HOSPITAL COURSE Hospital Course: (1) Flash pulmonary edema: Impression: Treated in the emergency department with BiPAP IV Lasix morphine and topical nitroglycerin. She has responded well and is weaning off BiPAP as she arrives on the floor on HD #1. Discussed with Dr Nascimento in the ED, and decision was made to admit. HD #2 she is comfortable. She is tolerating her regular activities. has been able to work with PT, and is continuing to diurese. She is able to wean off oxygen. Her echocardiogram can be done late this afternoon. Very stable. Home in the morning. Her does not drive after dark. (2) Acute exacerbation of CHF (congestive heart failure): Impression: 02/17: Feeling well. Asymptomatic with her blood pressure. Will continue 20 mg of Lasix every morning. 02/16: resolving. She was given 20mg Lasix IV in the AM. she appears comfortable. 02/15:Review of most recent cardiology note 08/14/23. She has a history of aortic stenosis. 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 Echocardiogram recorded at that visit , Dated 02/27/2023 shows normal left ventricular thickness size wall motion and systolic function with a ejection fraction of 60 to 65%. She has normal right ventricular size and function. The bioprosthetic aortic valve is functional. The assessment of the legal counsel at that time was to repeat the echo in January 2024. He recommended metoprolol tartrate 25 mg twice daily He recommended continuance of Eliquis 5 mg twice daily He noted a chronic left bundle branch block He recommended losartan 50 mg nightly, Lasix 20 mg daily, spironolactone 50 mg daily She last had a cardiac catheterization in October 2022 showing normal caliber tortuous vessels without stenosis She will be placed in the ICU for hemodynamic monitoring. She will be aggressively diuresed. She was given 40 mg of Lasix IV in the emergency department we will repeat this in 6 hours. We will maintain accurate I's and O's We will monitor her renal function I have ordered BMP for a.m. We will repeat chest x-ray in the AM. CODE STATUS was discussed with herself and her . Her Fly is her surrogate decision maker. She does not wish to have CPR should she undergo cardiac arrest. She does consent to a short trial of intubation should this be necessary. Qualifiers: Heart failure type: unspecified Qualified Code(s): I50.9 - Heart failure, unspecified (3) Severe aortic stenosis: Impression: History of TAVR about a year ago. I am checking echocardiogram. There have been no previous issues with the valve. (4) HTN (hypertension): Impression: She has been poorly controlled at home. She states that over [place] lots of family members were taking their blood pressure. Hers was over 200 at home. I think that her blood pressure is rather labile. It is hard to know what to do as we do not want her to experience hypotension which could result in falls which could be quite disastrous given her history of rheumatoid arthritis and osteoporosis. I have treated her blood pressures over 180 with as needed metoprolol and hydralazine. The last administration of metoprolol was on 1228 at 1300. Hydralazine has not been used Selected Entries 02/17/24 05:17 02/17/24 06:00 02/17/24 07:11 Pulse Rate Pulse Rate [Monitoring electrodes] 58 L 68 87 Pulse Rate [Supine] Blood Pressure Blood Pressure [Right Brachial artery] 180/65 H 200/65 H 177/80 H Blood Pressure [Supine] 02/17/24 08:00 02/17/24 08:14 02/17/24 09:30 Pulse Rate 71 Pulse Rate [Monitoring electrodes] 78 66 Pulse Rate [Supine] Blood Pressure 142/57 H Blood Pressure [Right Brachial artery] 142/57 H 147/52 H Blood Pressure [Supine] 02/17/24 10:15 02/17/24 11:02 02/17/24 13:00 Pulse Rate Pulse Rate [Monitoring electrodes] 88 Pulse Rate [Supine] 67 67 Blood Pressure Blood Pressure [Right Brachial artery] 147/69 H Blood Pressure [Supine] 168/75 H 168/75 H 02/17/24 17:00 02/17/24 21:00 02/18/24 00:30 Pulse Rate Pulse Rate [Monitoring electrodes] 81 93 60 Pulse Rate [Supine] Blood Pressure Blood Pressure [Right Brachial artery] 132/88 H Blood Pressure [Supine] 02/18/24 05:00 02/18/24 08:28 Pulse Rate Pulse Rate [Monitoring electrodes] 62 64 Pulse Rate [Supine] Blood Pressure Blood Pressure [Right Brachial artery] 206/81 H Blood Pressure [Supine] 5) Atrial fibrillation: Impression: longstanding atrial fibrillation. She is on Eliquis, she is on metoprolol in the outpatient setting. She has had some tachycardia upon presentation but heart rate is now down into the low 100s and high 90s. Has remained so overnight. I will continue telemetry while admitted. (6) Leukocytosis: Impression: likely stress induced. resolved. Laboratory Tests 02/16/24 02/17/24 10:05 05:44 WBC 20.4 H 10.2 (7) Rheumatoid arthritis: Impression: Chronic. continue home meds of Prednisone 2.5mg daily ALLERGIES Allergies Allergy/AdvReac Type Severity Reaction Status Date / Time benazepril (From Lotensin) Allergy Unknown Verified 02/16/24 09:48 erythromycin base Allergy Unknown Verified 02/16/24 09:48 sulfamethoxazole (From Allergy Unknown Verified 02/16/24 09:48 Septra) trimethoprim (From Septra) Allergy Unknown Verified 02/16/24 09:48 meperidine HCl * (From AdvReac Intermediate Itching Verified 02/16/24 09:48 Demerol) morphine AdvReac Intermediate Anxiety Verified 02/16/24 09:48 MEDICATIONS Ambulatory Orders Medication Instructions Recorded Confirmed trazodone 50 mg tablet 50 mg PO HS 07/11/12 02/16/24 prednisone 5 mg tablet 2.5 mg PO DAILY 05/03/16 02/16/24 levothyroxine 50 mcg tablet 50 mcg PO QDAC 10/10/18 02/16/24 acetaminophen 325 mg tablet 650 mg (2 x 325 mg) PO Q4HR PRN 12/15/21 02/16/24 Pain 1 to 4, or Fever cholecalciferol (vitamin D3) 25 2,000 unit PO DAILY osteoporosis 12/15/21 02/16/24 mcg (1,000 unit) capsule ##0 duloxetine 30 mg capsule,delayed 60 mg (2 x 30 mg) PO DAILY 12/15/21 02/16/24 release depression with anxiety ##0 famotidine 20 mg tablet 20 mg PO DAILY gerd ##0 12/15/21 02/16/24 furosemide 20 mg tablet 20 mg PO DAILY aortic stenosis ##0 12/15/21 02/16/24 gabapentin 300 mg capsule 300 mg PO HS chronic pain ##0 12/15/21 02/16/24 metoprolol tartrate 25 mg tablet 25 mg PO BID for tachycardia 12/15/21 02/16/24 control rosuvastatin 40 mg tablet (Crestor) 20 mg (1/2 x 40 mg) PO QPM for 12/15/21 02/16/24 hyperlipidemia ##0 apixaban 5 mg tablet 5 mg PO BID 02/16/24 02/16/24 calcium 500 mg (as 1 tab PO DAILY 02/16/24 02/16/24 carbonate)-vitamin D3 15 mcg (600 unit) tablet (Os-Cory 500 + D3) denosumab 60 mg/mL subcutaneous 60 mg subcut [id number] 02/16/24 02/16/24 syringe (Prolia) leflunomide 10 mg tablet (Arava) 10 mg PO DAILY 02/16/24 02/16/24 losartan 50 mg tablet (Cozaar) 50 mg PO DAILY PM 02/16/24 02/16/24 spironolactone 25 mg tablet 25 mg PO DAILY for aortic stenosis 02/16/24 02/16/24 LABS 02/18/24 05:32 02/18/24 05:32 Discharge Plan Discharge Condition: Stable Prescriptions: New magnesium oxide 400 mg (241.3 mg magnesium) Tablet 400 mg PO DAILYWM Qty: 30 0RF Continued trazodone 50 MG tablet 50 mg PO HS prednisone 5 MG tablet 2.5 mg PO DAILY levothyroxine 50 MCG tablet 50 mcg PO QDAC acetaminophen 325 MG tablet 650 mg PO Q4HR PRN (Reason: Pain 1 to 4, or Fever) 0RF metoprolol tartrate 25 MG tablet 25 mg PO BID 0RF famotidine 20 MG tablet 20 mg PO DAILY Qty: 0 0RF gabapentin 300 MG capsule 300 mg PO HS Qty: 0 0RF furosemide 20 MG tablet 20 mg PO DAILY Qty: 0 0RF cholecalciferol (vitamin D3) 1,000 UNIT capsule 2,000 unit PO DAILY Qty: 0 0RF rosuvastatin [Crestor] 40 MG tablet 20 mg PO QPM Qty: 0 0RF duloxetine 30 MG capsule,delayed release(DR/EC) 60 mg PO DAILY Qty: 0 0RF apixaban 5 mg tablet 5 mg PO BID leflunomide [Arava] 10 mg tablet 10 mg PO DAILY losartan [Cozaar] 50 mg tablet 50 mg PO DAILY PM calcium carbonate-vitamin D3 [Os-Cory 500 + D3] 500 mg-15 mcg (600 unit) tablet 1 tab PO DAILY Prolia 60 mg/mL syringe 60 mg subcut [id number] spironolactone 25 MG tablet 25 mg PO DAILY Diet: Cardiac Health Concerns: You came into the hospital with something called flash pulmonary edema. This was an exacerbation of your congestive heart failure. You quickly resolved and have done well since then. Your blood pressure is slightly concerning. You have times where your blood pressure is very very elevated and other times when it is normal. I am concerned about changing your blood pressure medication as I do not want you to get dizzy and fall with the other health problems you have: Osteoporosis and rheumatoid arthritis. I want you to follow-up with your primary care provider. I have listed your blood pressure readings in the note that I am sending to her. Use your walker to help prevent falls but do continue to walk and be as active as you can. Care Plan Goals: Primary care follow-up in 7 to 10 days Keep a log of your blood pressures at home take it once or twice a day write it down and bring it to your primary care provider. Changing your blood pressure medicine is a risky situation. I am concerned that your blood pressure will become low which will lead to a fall. continue to be as active and ambulatory as you can I do not have the result of your echocardiogram. Please check in with ANUJ Fox about that when you see her. It will be back hopefully later today. If there are any very concerning findings, we will call you. Assessment: You did well with physical therapy and Occupational Therapy while you were here. Continue to use measures to prevent falls at home The only change to your medications on discharge or the addition of a magnesium supplement. Plan of Treatment: You should seek medical care immediately if you start to have swelling of your ankles or decreased tolerance of activity. Follow-up with your primary care provider in 1 week Print Language: Luxembourgish Patient Instructions: Edema Pulmonary Follow-up Care: Belen Fox PA-C [Primary Care Provider] -
--- NOTE | 2024-02-18 11:45 | PROVIDER PROGRESS NOTE ---
Subjective Prog Note Date Prog Note Date: 02/18/24 Prog Note Time: 09:15 Subjective Subjective: She has been more tired this AM as time wears on. she is not having any chest pain or shortness of breath. She is having trouble recalling details this AM. She stumbles when I ask her about how she met her . Current Medications Current Medications Current Medications: Current Medications Generic Name Dose Route Start Last Admin Trade Name Freq PRN Reason Stop Dose Admin Acetaminophen 650 mg 02/16/24 12:01 02/17/24 05:58 Acetaminophen 325 Mg Tablet PO 650 mg Q4HR PRN Administration Pain 1 to 4, or Fever Apixaban 5 mg 02/16/24 12:01 02/18/24 08:27 Apixaban 5 Mg Tablet PO 5 mg BID AMANDO Administration Atorvastatin Calcium 40 mg 02/16/24 21:00 02/17/24 21:22 Atorvastatin 40 Mg Tablet PO 40 mg QPM AMANDO Administration Calcium Carbonate/Glycine 500 mg 02/16/24 21:00 02/18/24 08:24 Calcium Carbonate Chew 500 Mg Tablet PO 500 mg BID AMANDO Administration Calcium Carbonate/Glycine 1 mg 02/17/24 09:00 02/17/24 08:14 Calcium Carb (Oyster Shell) 500 Mg Tablet PO 1 mg DAILY AMANDO Administration Cholecalciferol 50 mcg 02/17/24 09:00 02/18/24 08:27 Cholecalciferol 25 Mcg Tablet PO 50 mcg DAILY AMANDO Administration Famotidine 20 mg 02/17/24 09:00 02/18/24 08:24 Famotidine 20 Mg Tablet PO 20 mg DAILY AMANDO Administration Gabapentin 300 mg 02/16/24 21:00 02/17/24 21:22 Gabapentin 300 Mg Capsule PO 300 mg HS AMANDO Administration Hydralazine HCl 10 mg 02/16/24 13:33 Hydralazine Inj 20 Mg/Ml Vial IVP Q4H PRN Hypertensive Emergency Levothyroxine Sodium 50 mcg 02/17/24 07:00 02/18/24 06:18 Levothyroxine 25 Mcg Tablet PO 50 mcg QDAC AMANDO Administration Losartan Potassium 50 mg 02/16/24 21:00 02/17/24 21:22 Losartan 50 Mg Tablet PO 50 mg QPM AMANDO Administration Magnesium Oxide 400 mg 02/17/24 09:00 02/18/24 08:25 Magnesium Oxide 400 Mg Tablet PO 400 mg DAILYWM AMANDO Administration Metoprolol Tartrate 25 mg 02/16/24 12:01 02/18/24 08:24 Metoprolol Tartrate 25 Mg Tablet PO 25 mg BID AMANDO Administration Metoprolol Tartrate 5 mg 02/16/24 13:03 02/16/24 13:12 Metoprolol 5 Mg/5 Ml Vial IVP 5 mg Q6H PRN Administration Hypertensive Emergency Morphine Sulfate 2 mg 02/16/24 12:01 Morphine 2 Mg/Ml Carpuject IVP Q2HR PRN Pain 8 to 10 Ondansetron HCl 4 mg 02/16/24 12:01 Ondansetron 4 Mg/2 Ml Vial IVP Q6HR PRN Nausea / Vomiting Oxycodone HCl 5 mg 02/16/24 12:01 Oxycodone 5 Mg Tablet PO Q6H PRN pain Prednisone 2.5 mg 02/16/24 12:01 02/18/24 08:26 Prednisone 5 Mg Tablet PO 2.5 mg DAILY AMANDO Administration Sodium Chloride 10 ml 02/16/24 12:01 Sodium Chloride Flush 0.9% 10 Ml Syringe IVP PRN PRN NEEDED PER PROVIDER ORDERS Sodium Chloride 10 ml 02/16/24 17:00 02/18/24 08:31 Sodium Chloride Flush 0.9% 10 Ml Syringe IVP 10 ml 0100,0900,1700 AMANDO Administration Spironolactone 25 mg 02/17/24 09:00 02/18/24 08:26 Spironolactone 25 Mg Tablet PO 25 mg DAILY AMANDO Administration Trazodone HCl 50 mg 02/16/24 21:00 02/17/24 21:23 Trazodone 50 Mg Tablet PO 50 mg HS AMANDO Administration Objective Vital Signs/Intake & Output Reviewed Vital Signs: Yes Vital Signs: Vital Signs x48h Temp Pulse Resp BP Pulse Ox 02/18/24 08:28 36.5 C 64 16 206/81 H 96 02/18/24 05:00 36.6 C 62 18 130/84 97 Intake & Output: Intake & Output 02/15/24 02/16/24 02/17/24 02/18/24 23:59 23:59 23:59 23:59 Intake Total 1105 / 1105 770 / 770 300 / 300 Output Total 1875 / 1875 1050 / 1050 200 / 200 Balance -770 / -770 -280 / -280 100 / 100 Weight (kg) 59 kg 55.5 kg 59 kg Objective General Appearance: positive No acute distress and Alert Eyes Bilateral: positive Normal inspection ENT: positive ENT inspection nml Neck: positive Nml inspection Respiratory: positive Chest non-tender, No respiratory distress and Breath sounds nml Cardiovascular: positive Regular rate & rhythm Abdomen: positive Non-tender and No distention Back: positive Nml inspection Skin: positive Color nml Extremities: positive No pedal edema Neurologic/Psychiatric: positive Oriented x3 Lab Results 02/18/24 05:32 02/18/24 05:32 Other Labs: Lab Results x24hrs 02/18/24 02/18/24 02/17/24 Range/Units 10:50 05:32 15:32 WBC 10.7 (4.8-10.8) x10^3/uL RBC 4.57 (4.20-5.40) 10^6/uL Hgb 13.3 (12.0-16.0) g/dL Hct 42.2 (37.0-47.0) % MCV 92.3 (81.0-99.0) fL MCH 29.1 (27.0-31.0) pg MCHC 31.5 L (32.0-36.0) g/dL RDW 13.5 (12.0-15.0) % Plt Count 272 (130-450) 10^3/uL MPV 9.3 (7.9-10.8) fL Neut # (Auto) 6.4 (1.5-6.6) 10^3/uL Lymph # (Auto) 2.8 (1.5-3.5) 10^3/uL [place] # (Auto) 1.2 H (0.0-1.0) 10^3/uL Eos # (Auto) 0.3 (0.0-0.7) 10^3/uL Baso # (Auto) 0.1 (0.0-0.1) 10^3/uL Absolute Nucleated RBC 0.00 x10^3/uL Nucleated RBC % 0.0 /100WBC Sodium 139 (135-145) mmol/L Potassium 3.5 3.9 (3.5-4.5) mmol/L Chloride 98 L (101-111) mmol/L Carbon Dioxide 32 (21-32) mmol/L Anion Gap 9.0 (6-13) BUN 23 H (6-20) mg/dL Creatinine 1.1 (0.6-1.3) mg/dL Estimated GFR (MDRD) 47 L (>89) Glucose 115 H (74-104) mg/dL Calcium 9.6 (8.5-10.3) mg/dL Magnesium 1.6 L (1.7-2.3) mg/dL Troponin I High Sens 684.8 H* (2.3-14.8) ng/L Assessment/Plan Problem List (1) Elevated troponin: Impression: This AM, shows some ST depression on her telemetry, this is a sudden change. She is also more tired this AM, and her memory is not as bright as usual. Therefore, sent troponin level, and it is elevated at 684. admission troponin in the 30's. I did not trend troponin because she was asymptomatic and telemetry showed no changes. EKG shows Inverted T waves in leads V1 through V3 this is a change. I have spoken with her tying machine operator Dr. Aparicio. He recommends medical treatment of this non-ST elevation MA. I will trend her troponins every 4-6 hours. I have initiated a heparin drip. I have spoken with patient and her about these changes.Laboratory Tests 02/18/24 02/18/24 10:50 14:58 Troponin I High Sens 684.8 H* 608.0 H* (2) Flash pulmonary edema: Impression: Treated in the emergency department with BiPAP IV Lasix morphine and topical nitroglycerin. She has responded well and is weaning off BiPAP as she arrives on the floor on HD #1. Discussed with Dr Nascimento in the ED, and decision was made to admit. HD #2 she is comfortable. She is tolerating her regular activities. has been able to work with PT, and is continuing to diurese. She is able to wean off oxygen. Her echocardiogram can be done late this afternoon. HD #3. remains feeling well, no rales on exam. (3) Acute exacerbation of CHF (congestive heart failure): Impression: 02/16: resolving. She was given 20mg Lasix IV in the AM. she appears comfortable. 02/15:Review of most recent cardiology note 08/14/23. She has a history of aortic stenosis. 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 Echocardiogram recorded at that visit , Dated 02/27/2023 shows normal left ventricular thickness size wall motion and systolic function with a ejection fraction of 60 to 65%. She has normal right ventricular size and function. The bioprosthetic aortic valve is functional. The assessment of the tying machine operator at that time was to repeat the echo in January 2024. He recommended metoprolol tartrate 25 mg twice daily He recommended continuance of Eliquis 5 mg twice daily He noted a chronic left bundle branch block He recommended losartan 50 mg nightly, Lasix 20 mg daily, spironolactone 50 mg daily She last had a cardiac catheterization in October 2022 showing normal caliber tortuous vessels without stenosis She will be placed in the ICU for hemodynamic monitoring. She will be aggressively diuresed. She was given 40 mg of Lasix IV in the emergency department we will repeat this in 6 hours. We will maintain accurate I's and O's We will monitor her renal function I have ordered BMP for a.m. We will repeat chest x-ray in the AM. CODE STATUS was discussed with herself and her . Her Fly is her surrogate decision maker. She does not wish to have CPR should she undergo cardiac arrest. She does consent to a short trial of intubation should this be necessary. Qualifiers: Heart failure type: unspecified Qualified Code(s): I50.9 - Heart failure, unspecified (4) Severe aortic stenosis: Impression: History of TAVR about a year ago. I am checking echocardiogram. There have been no previous issues with the valve. (5) HTN (hypertension): Impression: She has been poorly controlled at home. She states that over [place] lots of family members were taking their blood pressure. Hers was over 200 at home. I think that her blood pressure is rather labile. It is hard to know what to do as we do not want her to experience hypotension which could result in falls which could be quite disastrous given her history of rheumatoid arthritis and osteoporosis.I am treating her with as needed metoprolol I also have as needed hydralazine ordered 2 Selected Entries 02/17/24 06:00 02/17/24 07:11 02/17/24 08:00 Pulse Rate Pulse Rate [Monitoring electrodes] 68 87 78 Pulse Rate [Supine] Blood Pressure Blood Pressure [Right Brachial artery] 200/65 H 177/80 H 142/57 H Blood Pressure [Supine] 02/17/24 08:14 02/17/24 09:30 02/17/24 10:15 Pulse Rate 71 Pulse Rate [Monitoring electrodes] 66 Pulse Rate [Supine] 67 Blood Pressure 142/57 H Blood Pressure [Right Brachial artery] 147/52 H Blood Pressure [Supine] 168/75 H 02/17/24 11:02 02/17/24 13:00 Pulse Rate Pulse Rate [Monitoring electrodes] 88 Pulse Rate [Supine] 67 Blood Pressure Blood Pressure [Right Brachial artery] 147/69 H Blood Pressure [Supine] 168/75 H . Qualifiers: Hypertension type: primary hypertension Qualified Code(s): I10 - Essential (primary) hypertension (6) Atrial fibrillation: Impression: longstanding atrial fibrillation. She is on Eliquis, she is on metoprolol in the outpatient setting. She has had some tachycardia upon presentation but heart rate is now down into the low 100s and high 90s. Has remained so overnight. I will continue telemetry while admitted. (7) Leukocytosis: Impression: likely stress induced. resolved. Laboratory Tests 02/16/24 02/17/24 10:05 05:44 WBC 20.4 H 10.2 (8) Rheumatoid arthritis: Impression: Chronic. continue home meds of Prednisone 2.5mg daily I have spent 65 minutes in the care of this patient today. This includes time [id number], review and ordering of diagnostic imaging and laboratory studies.. Monitoring the patient's signs symptoms, evaluation of medication effectiveness and patient's response to treatment.
[2024-02-18] MEDS: FUROSEMIDE 20 MG TABLET PO SCH (13:11)
[2024-02-18] MEDS: DULoxetine 60 MG CAPSULE PO SCH (13:11)
[2024-02-18 13:22] LABS: PATHOLOGIST SLIDE COMMENTS SEE SEPARATE REPORT
[2024-02-18] MEDS: HEPARIN 25000UNITS/500ML (D5W) 25,000 UNIT/500 ML BAG IV SCH (14:33)
--- NOTE | 2024-02-18 21:48 | PROVIDER PROGRESS NOTE ---
Motorcoach Driver Note Motorcoach Driver Note Motorcoach Driver Note: per nurse "Lost IV access. Multiple RN's attempted to start new line and have been unsuccessful. Patient has heparin drip and PTT lab draw ordered." pt would benefit from picc line placement --> discussed with [employer] CONSULTANT bond trader who has graciously agreed to assist
[2024-02-19 06:37] LABS: BASOPHILS # (AUTO) 0.1 10^3/uL (0.0-0.1); BASOPHILS % (AUTO) 0.8 %; EOSINOPHILS # (AUTO) 0.3 10^3/uL (0.0-0.7); EOSINOPHILS % (AUTO) 3.2 %; HCT - HEMATOCRIT 41.3 % (37.0-47.0); HGB - HEMOGLOBIN 13.3 g/dL (12.0-16.0); LYMPHOCYTES # (AUTO) 3.1 10^3/uL (1.5-3.5); LYMPHOCYTES % (AUTO) 28.4 %; MEAN CORPUSCULAR HEMOGLOBIN 29.6 pg (27.0-31.0); MEAN CORPUSCULAR HGB CONC 32.2 g/dL (32.0-36.0); MEAN CORPUSCULAR VOLUME 91.8 fL (81.0-99.0); MEAN PLATELET VOLUME 9.3 fL (7.9-10.8); MONOCYTES # (AUTO) 1.2 10^3/uL (0.0-1.0); MONOCYTES % (AUTO) 11.1 %; NEUTROPHILS # (AUTO) 6.1 10^3/uL (1.5-6.6); NEUTROPHILS % (AUTO) 56.1 %; PLT - PLATELET COUNT 255 10^3/uL (130-450); RED CELL DISTRIBUTION WIDTH 13.5 % (12.0-15.0); WHITE BLOOD COUNT 10.8 x10^3/uL (4.8-10.8)
[2024-02-19 06:51] LABS: CALCIUM 9.7 mg/dL (8.5-10.3); CREATININE 1.1 mg/dL (0.6-1.3); POTASSIUM 3.4 mmol/L (3.5-4.5)
[2024-02-19 09:07] LABS: HCT - HEMATOCRIT 42.6 % (37.0-47.0); HGB - HEMOGLOBIN 13.5 g/dL (12.0-16.0); MEAN CORPUSCULAR HEMOGLOBIN 29.3 pg (27.0-31.0); MEAN CORPUSCULAR HGB CONC 31.7 g/dL (32.0-36.0); MEAN CORPUSCULAR VOLUME 92.6 fL (81.0-99.0); MEAN PLATELET VOLUME 9.2 fL (7.9-10.8); RED BLOOD COUNT 4.6 10^6/uL (4.20-5.40); RED CELL DISTRIBUTION WIDTH 13.6 % (12.0-15.0); WHITE BLOOD COUNT 10.2 x10^3/uL (4.8-10.8)
[2024-02-19] MEDS: LOSARTAN 50 MG TABLET PO ONE (10:32)
[2024-02-19] MEDS: POTASSIUM CHLORIDE 20 MEQ TABLET PO ONE (10:33)
--- NOTE | 2024-02-19 10:38 | PROVIDER PROGRESS NOTE ---
Subjective Prog Note Date Prog Note Date: 02/19/24 Subjective Pt reports feeling: Improved Current Medications Current Medications Current Medications: Current Medications Generic Name Dose Route Start Last Admin Trade Name Zen PRN Reason Stop Dose Admin Acetaminophen 650 mg 02/16/24 12:01 02/17/24 05:58 Acetaminophen 325 Mg Tablet PO 650 mg Q4HR PRN Administration Pain 1 to 4, or Fever Atorvastatin Calcium 40 mg 02/16/24 21:00 02/18/24 21:12 Atorvastatin 40 Mg Tablet PO 40 mg QPM AMANDO Administration Calcium Carbonate/Glycine 500 mg 02/16/24 21:00 02/19/24 10:31 Calcium Carbonate Chew 500 Mg Tablet PO 500 mg BID AMANDO Administration Cholecalciferol 50 mcg 02/17/24 09:00 02/19/24 10:33 Cholecalciferol 25 Mcg Tablet PO 50 mcg DAILY AMANDO Administration Duloxetine HCl 60 mg 02/18/24 12:00 02/19/24 10:32 Duloxetine 60 Mg Capsule PO 60 mg DAILY AMANDO Administration Famotidine 20 mg 02/17/24 09:00 02/19/24 10:32 Famotidine 20 Mg Tablet PO 20 mg DAILY AMANDO Administration Furosemide 20 mg 02/18/24 12:00 02/19/24 10:31 Furosemide 20 Mg Tablet PO 20 mg DAILY AMANDO Administration Gabapentin 300 mg 02/16/24 21:00 02/18/24 21:11 Gabapentin 300 Mg Capsule PO 300 mg HS AMANDO Administration Heparin Sodium (Porcine) 1,000 - 2,000 unit 02/18/24 12:37 02/19/24 00:22 Heparin 1,000 Unit/Ml Vial IVP 2,000 unit Q6H PRN Administration aPTT <50 Protocol Hydralazine HCl 10 mg 02/16/24 13:33 Hydralazine Inj 20 Mg/Ml Vial IVP Q4H PRN Hypertensive Emergency Heparin Sodium/Dextrose 25,000 unit in 500 mls @ 14.16 mls/hr 02/18/24 13:00 02/19/24 08:10 Heparin Sodium/Dextrose IV 13 unit/kg/hr .[id number] AMANDO 15.34 mls/hr Titration Protocol 12 UNIT/KG/HR Levothyroxine Sodium 50 mcg 02/17/24 07:00 02/19/24 06:08 Levothyroxine 25 Mcg Tablet PO 50 mcg QDAC AMANDO Administration Losartan Potassium 100 mg 02/19/24 21:00 Losartan 50 Mg Tablet PO QPM AMANDO Magnesium Oxide 400 mg 02/17/24 09:00 02/19/24 10:32 Magnesium Oxide 400 Mg Tablet PO 400 mg DAILYWM AMANDO Administration Metoprolol Tartrate 25 mg 02/16/24 12:01 02/19/24 10:31 Metoprolol Tartrate 25 Mg Tablet PO 25 mg BID AMANDO Administration Metoprolol Tartrate 5 mg 02/16/24 13:03 02/16/24 13:12 Metoprolol 5 Mg/5 Ml Vial IVP 5 mg Q6H PRN Administration Hypertensive Emergency Morphine Sulfate 2 mg 02/16/24 12:01 Morphine 2 Mg/Ml Carpuject IVP Q2HR PRN Pain 8 to 10 Ondansetron HCl 4 mg 02/16/24 12:01 Ondansetron 4 Mg/2 Ml Vial IVP Q6HR PRN Nausea / Vomiting Oxycodone HCl 5 mg 02/16/24 12:01 Oxycodone 5 Mg Tablet PO Q6H PRN pain Prednisone 2.5 mg 02/16/24 12:01 02/19/24 10:33 Prednisone 5 Mg Tablet PO 2.5 mg DAILY AMANDO Administration Sodium Chloride 10 ml 02/16/24 12:01 Sodium Chloride Flush 0.9% 10 Ml Syringe IVP PRN PRN NEEDED PER PROVIDER ORDERS Sodium Chloride 10 ml 02/16/24 17:00 02/19/24 00:26 Sodium Chloride Flush 0.9% 10 Ml Syringe IVP 10 ml 0100,0900,1700 AMANDO Administration Spironolactone 25 mg 02/17/24 09:00 02/19/24 10:33 Spironolactone 25 Mg Tablet PO 25 mg DAILY AMANDO Administration Trazodone HCl 50 mg 02/16/24 21:00 02/18/24 21:11 Trazodone 50 Mg Tablet PO 50 mg HS AMANDO Administration Objective Vital Signs/Intake & Output Reviewed Vital Signs: Yes Vital Signs: Vital Signs x48h Temp Pulse Resp BP BP Pulse Ox 02/19/24 08:48 36.6 C 58 L 20 181/95 H 97 02/19/24 04:54 36.3 C L 56 L 20 185/86 H 96 Intake & Output: Intake & Output 02/16/24 02/17/24 02/18/2402/18/25 23:59 23:59 23:59 23:59 Intake Total 1105 / 1105 770 / 770 971 / 971 144 / 144 Output Total 1875 / 1875 1050 / 1050 450 / 450 100 / 100 Balance -770 / -770 -280 / -280 521 / 521 44 / 44 Weight (kg) 59 kg 55.5 kg 59 kg 60 kg Objective General Appearance: positive No acute distress and Alert Eyes Bilateral: positive Normal inspection ENT: positive ENT inspection nml Neck: positive Nml inspection Respiratory: positive Chest non-tender, No respiratory distress and Breath sounds nml Cardiovascular: positive Regular rate & rhythm Abdomen: positive Non-tender and No distention Back: positive Nml inspection Skin: positive Color nml Extremities: positive No pedal edema Neurologic/Psychiatric: positive Oriented x3 Lab Results 02/19/24 08:50 02/19/24 06:31 Other Labs: Lab Results x24hrs 02/19/24 02/19/24 02/18/24 Range/Units 08:50 06:31 22:40 WBC 10.2 10.8 (4.8-10.8) x10^3/uL RBC 4.60 4.50 (4.20-5.40) 10^6/uL Hgb 13.5 13.3 (12.0-16.0) g/dL Hct 42.6 41.3 (37.0-47.0) % MCV 92.6 91.8 (81.0-99.0) fL MCH 29.3 29.6 (27.0-31.0) pg MCHC 31.7 L 32.2 (32.0-36.0) g/dL RDW 13.6 13.5 (12.0-15.0) % Plt Count 261 255 (130-450) 10^3/uL MPV 9.2 9.3 (7.9-10.8) fL Neut # (Auto) 6.1 (1.5-6.6) 10^3/uL Lymph # (Auto) 3.1 (1.5-3.5) 10^3/uL [place] # (Auto) 1.2 H (0.0-1.0) 10^3/uL Eos # (Auto) 0.3 (0.0-0.7) 10^3/uL Baso # (Auto) 0.1 (0.0-0.1) 10^3/uL Absolute Nucleated RBC 0.00 x10^3/uL Nucleated RBC % 0.0 /100WBC Smear Path Review APTT 205.0 H* 39.4 H (24.9-33.3) secs Sodium 136 (135-145) mmol/L Potassium 3.4 L (3.5-4.5) mmol/L Chloride 96 L (101-111) mmol/L Carbon Dioxide 33 H (21-32) mmol/L Anion Gap 7.0 (6-13) BUN 20 (6-20) mg/dL Creatinine 1.1 (0.6-1.3) mg/dL Estimated GFR (MDRD) 47 L (>89) Glucose 118 H (74-104) mg/dL Calcium 9.7 (8.5-10.3) mg/dL Troponin I High Sens 512.6 H* (2.3-14.8) ng/L 02/18/24 02/18/24 02/18/24 Range/Units 22:20 14:58 12:16 WBC (4.8-10.8) x10^3/uL RBC (4.20-5.40) 10^6/uL Hgb (12.0-16.0) g/dL Hct (37.0-47.0) % MCV (81.0-99.0) fL MCH (27.0-31.0) pg MCHC (32.0-36.0) g/dL RDW (12.0-15.0) % Plt Count (130-450) 10^3/uL MPV (7.9-10.8) fL Neut # (Auto) (1.5-6.6) 10^3/uL Lymph # (Auto) (1.5-3.5) 10^3/uL [place] # (Auto) (0.0-1.0) 10^3/uL Eos # (Auto) (0.0-0.7) 10^3/uL Baso # (Auto) (0.0-0.1) 10^3/uL Absolute Nucleated RBC x10^3/uL Nucleated RBC % /100WBC Smear Path Review APTT 34.2 H (24.9-33.3) secs Sodium (135-145) mmol/L Potassium (3.5-4.5) mmol/L Chloride (101-111) mmol/L Carbon Dioxide (21-32) mmol/L Anion Gap (6-13) BUN (6-20) mg/dL Creatinine (0.6-1.3) mg/dL Estimated GFR (MDRD) (>89) Glucose (74-104) mg/dL Calcium (8.5-10.3) mg/dL Troponin I High Sens 504.4 H* 608.0 H* (2.3-14.8) ng/L 02/18/24 02/16/24 Range/Units 10:50 10:51 WBC (4.8-10.8) x10^3/uL RBC (4.20-5.40) 10^6/uL Hgb (12.0-16.0) g/dL Hct (37.0-47.0) % MCV (81.0-99.0) fL MCH (27.0-31.0) pg MCHC (32.0-36.0) g/dL RDW (12.0-15.0) % Plt Count (130-450) 10^3/uL MPV (7.9-10.8) fL Neut # (Auto) (1.5-6.6) 10^3/uL Lymph # (Auto) (1.5-3.5) 10^3/uL [place] # (Auto) (0.0-1.0) 10^3/uL Eos # (Auto) (0.0-0.7) 10^3/uL Baso # (Auto) (0.0-0.1) 10^3/uL Absolute Nucleated RBC x10^3/uL Nucleated RBC % /100WBC Smear Path Review SEE SEPARATE REPORT APTT (24.9-33.3) secs Sodium (135-145) mmol/L Potassium (3.5-4.5) mmol/L Chloride (101-111) mmol/L Carbon Dioxide (21-32) mmol/L Anion Gap (6-13) BUN (6-20) mg/dL Creatinine (0.6-1.3) mg/dL Estimated GFR (MDRD) (>89) Glucose (74-104) mg/dL Calcium (8.5-10.3) mg/dL Troponin I High Sens 684.8 H* (2.3-14.8) ng/L Assessment/Plan Problem List (1) Elevated troponin: Impression: Yesterday, she was noted to have ST depression on her telemetry. Twelve-lead was performed which showed inverted T waves in leads V1 through V3. Provider at that time discussed her case with her research nurse practitioner Dr. Rand. Recommendation was made for medical management only of non-STEMI. Trend troponins, heparin drip x 48 hours, metoprolol, Losartan, Lasix. Add aspirin (2) Flash pulmonary edema: Impression: Treated in the emergency department with BiPAP IV Lasix morphine and topical nitroglycerin. She has responded well and is weaning off BiPAP as she arrives on the floor on HD #1. Discussed with Dr Nascimento in the ED, and decision was made to admit. HD #2 she is comfortable. She is tolerating her regular activities. has been able to work with PT, and is continuing to diurese. She is able to wean off oxygen. Her echocardiogram can be done late this afternoon. HD #3. remains feeling well, no rales on exam. 02/19/2024: Resolved (3) Acute exacerbation of CHF (congestive heart failure): Impression: 02/19/2024: Resolved 02/16: resolving. She was given 20mg Lasix IV in the AM. she appears comfortable. 02/15:Review of most recent cardiology note 08/14/23. She has a history of aortic stenosis. 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 Echocardiogram recorded at that visit , Dated 02/27/2023 shows normal left ventricular thickness size wall motion and systolic function with a ejection fraction of 60 to 65%. She has normal right ventricular size and function. The bioprosthetic aortic valve is functional. The assessment of the research nurse practitioner at that time was to repeat the echo in January 2024. He recommended metoprolol tartrate 25 mg twice daily He recommended continuance of Eliquis 5 mg twice daily He noted a chronic left bundle branch block He recommended losartan 50 mg nightly, Lasix 20 mg daily, spironolactone 50 mg daily She last had a cardiac catheterization in October 2022 showing normal caliber tortuous vessels without stenosis Qualifiers: Heart failure type: unspecified Qualified Code(s): I50.9 - Heart failure, unspecified (4) Severe aortic stenosis: Impression: History of TAVR about a year ago. I am checking echocardiogram. There have been no previous issues with the valve. (5) HTN (hypertension): Impression: Losartan has been increased to 100 mg p.o. daily. Continue metoprolol 25 mg p.o. twice daily, Furosemide 20 mg p.o. daily. Patient/ with no concern for sleep apnea. Stop bang score 2 for age and hypertension Qualifiers: Hypertension type: primary hypertension Qualified Code(s): I10 - Essential (primary) hypertension (6) Atrial fibrillation: Impression: Holding Eliquis while she is on heparin drip. Restart Eliquis tomorrow. Heart rate controlled. Continue telemetry (7) Leukocytosis: Impression: likely stress induced. resolved. (8) Rheumatoid arthritis: Impression: Chronic. continue home meds of Prednisone 2.5mg daily
[2024-02-19] MEDS: ASPIRIN 325 MG TABLET PO ONE (12:14)
[2024-02-19] MEDS: hydrALAZINE INJ 20 MG/ML VIAL IVP PRN (16:20)
[2024-02-19] MEDS: LOSARTAN 50 MG TABLET PO SCH (21:19)
[2024-02-20 05:16] VITALS: TEMP 97.7
[2024-02-20] MEDS: ASPIRIN EC 81 MG TABLET PO SCH (08:24)
--- NOTE | 2024-02-20 10:59 | Discharge Summary ---
Discharge Summary Admit Date: 02/16/24 Discharge Date: 02/20/24 Discharging Provider: Clint French Primary Care Provider: Belen Fox Code Status: Do Not Attempt Resuscitation DIAGNOSES Admission Diagnoses: Flash pulmonary edema Acute exacerbation of CHF Status post TAVR Hypertension Leukocytosis Discharge Diagnoses with Status of Each Condition: NSTEMIresolved Flash pulmonary edemaresolved Acute exacerbation of CHFresolved Status post TAVRchronic Hypertensionchronic Atrial fibrillationchronic Leukocytosisresolved Rheumatoid arthritischronic HPI History of Present Illness: Woke up this morning unable to breath. Called medics, who placed her on CPAP and brought her to the ED. She was not able to give a history on arrival, but is since improving. received topical NTG, morphine and was placed on BiPAP. She feels much better. She continues to have some dyspnea, but able to carry on a conversation. Denies recent illness. No fever, cough, N/V. She was feeling well when she went to bed last night. She slept well overnight. Her PCP is ANUJ Fox, she also sees Dr Aparicio, [facility] Hospital Course: She was admitted to the hospital and placed on BiPAP. Her pulmonary edema improved after BiPAP, nitro, morphine. Echo was performed which showed an EF of 45%. Her heart failure exacerbation resolved, and she was ready for discharge on 02/17/2025 when she began having inverted T waves in her anterior leads. Troponin was checked and found to be positive. Her motor runner was contacted, and he recommended medical management with heparin drip x 48 hours. She never had chest pain, and her troponin trended down. Of note, she was started on aspirin and Lipitor. She was also started on amlodipine, and her losartan dose was increased to 100 mg daily for her continued hypertension. She will need follow-up with PCP regarding how much of this is necessary for long-term management ALLERGIES Allergies Allergy/AdvReac Type Severity Reaction Status Date / Time benazepril (From Lotensin) Allergy Unknown Verified 02/16/24 09:48 erythromycin base Allergy Unknown Verified 02/16/24 09:48 sulfamethoxazole (From Allergy Unknown Verified 02/16/24 09:48 Septra) trimethoprim (From Septra) Allergy Unknown Verified 02/16/24 09:48 meperidine HCl * (From AdvReac Intermediate Itching Verified 02/16/24 09:48 Demerol) morphine AdvReac Intermediate Anxiety Verified 02/16/24 09:48 MEDICATIONS Ambulatory Orders Medication Instructions Recorded Confirmed trazodone 50 mg tablet 50 mg PO HS 07/11/12 02/16/24 prednisone 5 mg tablet 2.5 mg PO DAILY 05/03/16 02/16/24 levothyroxine 50 mcg tablet 50 mcg PO QDAC 10/10/18 02/16/24 acetaminophen 325 mg tablet 650 mg (2 x 325 mg) PO Q4HR PRN 12/15/21 02/16/24 Pain 1 to 4, or Fever cholecalciferol (vitamin D3) 25 2,000 unit PO DAILY osteoporosis 12/15/21 02/16/24 mcg (1,000 unit) capsule ##0 duloxetine 30 mg capsule,delayed 60 mg (2 x 30 mg) PO DAILY 12/15/21 02/16/24 release depression with anxiety ##0 famotidine 20 mg tablet 20 mg PO DAILY gerd ##0 12/15/21 02/16/24 furosemide 20 mg tablet 20 mg PO DAILY aortic stenosis ##0 12/15/21 02/16/24 gabapentin 300 mg capsule 300 mg PO HS chronic pain ##0 12/15/21 02/16/24 metoprolol tartrate 25 mg tablet 25 mg PO BID for tachycardia 12/15/21 02/16/24 control rosuvastatin 40 mg tablet (Crestor) 20 mg (1/2 x 40 mg) PO QPM for 12/15/21 02/16/24 hyperlipidemia ##0 apixaban 5 mg tablet 5 mg PO BID 02/16/24 02/16/24 calcium 500 mg (as 1 tab PO DAILY 02/16/24 02/16/24 carbonate)-vitamin D3 15 mcg (600 unit) tablet (Os-Cory 500 + D3) denosumab 60 mg/mL subcutaneous 60 mg subcut [id number] 02/16/24 02/16/24 syringe (Prolia) leflunomide 10 mg tablet (Arava) 10 mg PO DAILY 02/16/24 02/16/24 losartan 50 mg tablet (Cozaar) 50 mg PO DAILY PM 02/16/24 02/16/24 spironolactone 25 mg tablet 25 mg PO DAILY for aortic stenosis 12/29/24 12/29/24 magnesium oxide 400 mg (241.3 mg 400 mg PO DAILYWM #30 tabs 02/18/24 magnesium) tablet amlodipine 5 mg tablet 5 mg PO DAILY 30 days #30 tabs 02/20/24 aspirin 81 mg tablet,delayed 81 mg PO DAILY #30 tabs 02/20/24 release atorvastatin 40 mg tablet 40 mg PO QPM 30 days #30 tabs 02/20/24 losartan 50 mg tablet 100 mg (2 x 50 mg) PO QPM 30 days 02/20/24 #60 tabs PHYSICAL EXAM AT DISCHARGE General Appearance: positive No acute distress and Alert Eyes Bilateral: positive Normal inspection and PERRL ENT: positive No signs of dehydration Neck: positive No JVD Respiratory: positive Breath sounds nml Cardiovascular: positive Irregularly irregular Peripheral Pulses: positive 2+ Abdomen: positive Non-tender Skin: positive Color nml Extremities: positive Non-tender Neurologic/Psychiatric: positive Oriented x3 LABS 02/20/24 13:52 02/20/24 13:52 DIAGNOSTIC IMAGING Diagnostic Imaging Results: Final report reviewed Diagnostic Imaging Results Comments: Echocardiogram EF 45% FOLLOW UP Follow Up: With PCP TIME SPENT Time Spent in Discharge (Minutes): 35 Discharge Plan Discharge Patient Disposition: Home, Self Care Condition: Stable Prescriptions: New magnesium oxide 400 mg (241.3 mg magnesium) Tablet 400 mg PO DAILYWM Qty: 30 0RF amlodipine 5 mg Tablet 5 mg PO DAILY 30 Days Qty: 30 0RF atorvastatin 40 mg Tablet 40 mg PO QPM 30 Days Qty: 30 0RF losartan 50 mg Tablet 100 mg PO QPM 30 Days Qty: 60 0RF aspirin 81 mg tablet,delayed release (DR/EC) 81 mg PO DAILY Qty: 30 2RF Continued trazodone 50 MG tablet 50 mg PO HS prednisone 5 MG tablet 2.5 mg PO DAILY levothyroxine 50 MCG tablet 50 mcg PO QDAC acetaminophen 325 MG tablet 650 mg PO Q4HR PRN (Reason: Pain 1 to 4, or Fever) 0RF metoprolol tartrate 25 MG tablet 25 mg PO BID 0RF famotidine 20 MG tablet 20 mg PO DAILY Qty: 0 0RF gabapentin 300 MG capsule 300 mg PO HS Qty: 0 0RF furosemide 20 MG tablet 20 mg PO DAILY Qty: 0 0RF cholecalciferol (vitamin D3) 1,000 UNIT capsule 2,000 unit PO DAILY Qty: 0 0RF rosuvastatin [Crestor] 40 MG tablet 20 mg PO QPM Qty: 0 0RF duloxetine 30 MG capsule,delayed release(DR/EC) 60 mg PO DAILY Qty: 0 0RF apixaban 5 mg tablet 5 mg PO BID leflunomide [Arava] 10 mg tablet 10 mg PO DAILY losartan [Cozaar] 50 mg tablet 50 mg PO DAILY PM calcium carbonate-vitamin D3 [Os-Cory 500 + D3] 500 mg-15 mcg (600 unit) tablet 1 tab PO DAILY Prolia 60 mg/mL syringe 60 mg subcut [id number] spironolactone 25 MG tablet 25 mg PO DAILY Activity Restrictions: Activity as Tolerated Diet: Cardiac Health Concerns: You came into the hospital with something called flash pulmonary edema. This was an exacerbation of your congestive heart failure. You quickly resolved and have done well since then. Your blood pressure is slightly concerning. You have times where your blood pressure is very very elevated and other times when it is normal. I have increased your dose of losartan, and added a drug called amlodipine. Please keep a careful eye on your blood pressure, as low blood pressure can cause dizziness and put you at risk for falls: Osteoporosis and rheumatoid arthritis. 2 days ago, you had a change in your heart rhythm. You had changes in your ST segment which were concerning for cardiac insult. He also had elevated troponins, which are a sign of cardiac insult. We discussed your case with your motor runner, who recommended you stay another 2 days to be placed on a heparin drip. I am sending you home on an aspirin and a 40 mg atorvastatin. Please discuss whether these need to be continued with your primary care provider I want you to follow-up with your primary care provider. I have listed your blood pressure readings in the note that I am sending to her. Use your walker to help prevent falls but do continue to walk and be as active as you can. Care Plan Goals: Primary care follow-up in 7 to 10 days Keep a log of your blood pressures at home take it once or twice a day write it down and bring it to your primary care provider. Changing your blood pressure medicine is a risky situation. I am concerned that your blood pressure will become low which will lead to a fall. continue to be as active and ambulatory as you can Assessment: You did well with physical therapy and Occupational Therapy while you were here. Continue to use measures to prevent falls at home The only change to your medications on discharge or the addition of a magnesium supplement. Plan of Treatment: You should seek medical care immediately if you start to have swelling of your ankles or decreased tolerance of activity. Follow-up with your primary care provider in 1 week Print Language: Croatian Patient Instructions: Edema Pulmonary Follow-up Care: Belen Fox PA-C [Primary Care Provider] -
[2024-02-20] MEDS: amLODIPine 5 MG TABLET PO SCH (12:03)
[2024-02-20] MEDS: APIXABAN 5 MG TABLET PO ONE (12:50)
[2024-02-20 14:21] LABS: HCT - HEMATOCRIT 47.5 % (37.0-47.0); HGB - HEMOGLOBIN 14.6 g/dL (12.0-16.0); MEAN CORPUSCULAR HEMOGLOBIN 29.1 pg (27.0-31.0); MEAN CORPUSCULAR HGB CONC 30.7 g/dL (32.0-36.0); MEAN CORPUSCULAR VOLUME 94.8 fL (81.0-99.0); RED BLOOD COUNT 5.01 10^6/uL (4.20-5.40); WHITE BLOOD COUNT 13.5 x10^3/uL (4.8-10.8)
[2024-02-20 14:39] LABS: CALCIUM 10.2 mg/dL (8.5-10.3); CREATININE 1.4 mg/dL (0.6-1.3); MAGNESIUM 1.8 mg/dL (1.7-2.3); POTASSIUM 4.1 mmol/L (3.5-4.5)
[2024-02-20 15:45] VITALS: BP 138/70; O2SAT 93
== END 2024-02-20 16:18 | disposition home or self-care (01) | DRG 280 ==
LOC: ICU 09:45 → ED 09:45 → ICU 13:01 → MS2 02-17 17:06
PROVIDERS: ADMIT Physician Assistant Medical; ATTEND Physician Assistant Medical